=== PATIENT | female | born 1940 | race Caucasian/White ===

== ENCOUNTER 2016-10-08 14:06 | Day surgery (SDC) | payer MEDICARE ==
[~2016-10-08 14:06] MED LIST: DIPRIVAN 200 MG/20 ML IV ONE; Depo-Medrol 40 MG/ML IM ONE; Kenalog-40 IM ONE; Lactated Ringers 1,000 ML IV ONE; Lactated Ringers 1,000 ML IV SCH; Sensorcaine 0.25% 10 ML IJ ONE
[2016-10-08] MEDS ORDERED: KEFZOL 1 GM/50 ML PREMIX** 50 ML IV ONE (15:30)
[2016-10-08 15:36] VITALS: BP 125/72; PULSE 79; O2SAT 96
--- NOTE | 2016-10-08 19:19 | XRAY ---
Indication: Caudal ANA ROSA. Intraoperative fluoroscopy was provided for 14 seconds. 2 digital spot images submitted for interpretation demonstrates midline posterior spinal needle with the tip projecting over the mid to lower sacrum. Small amount of contrast injected for needle tip placement. Correlate with intraoperative findings/report.
--- NOTE | 2016-10-09 15:23 | XRAY ---
14 seconds fluoroscopy time in surgery for caudal ANA ROSA.
== END 2016-10-08 18:03 | disposition home or self-care (01) ==
LOC: SDC-PAIN 14:06
PROVIDERS: ATTEND Pain Medicine Interventional Pain Medicine
DX: M47.26 Other spondylosis with radiculopathy, lumbar region (principal); M54.5 Low back pain; M79.1 Myalgia; Z79.891 Long term (current) use of opiate analgesic
CPT/HCPCS: 01992; 62323; 72100; 77003; J0690; J1030; J2704; J3301

== ENCOUNTER 2017-01-02 10:35 | Inpatient (IN) | payer MEDICARE ==
[2017-01-02 11:50] LABS: BASOPHIL % 0.4 % (0.0-0.4); Eosinophil % 0.4 % (0.00-5.0); Granulocytes % 67.7 % (36.0-66.0); Lymphocytes % 16.8 % (24.0-44.0); Mean Cell Volume 85.9 fl (78-100); Mean Corpuscular Hemoglobin 27.7 pg (26-32); Mean Platelet Volume 10.1 fl (6-9.5); Monocytes % 14.7 % (0.0-12.0); Platelet Count 138 K/mm3 (150-450); Red Blood Count 4.04 M/mm3 (4.1-5.4); Red Cell Distribution Width 13.6 % (11.5-14.0); White Blood Count 4.6 K/mm3 (4.0-10.5)
[2017-01-02] MEDS: ROCEPHIN 1 Gm-D5w 50 ml Bag** 1 G/50 ML IVPB IV SCH (12:11)
[2017-01-02] MEDS: Zithromax 500 MG/ 250 ML NaCl Premix 500 MG/250 ML IVPB IV SCH (12:11)
[2017-01-02] MEDS: Lactated Ringers 1,000 ML IV SCH (12:12)
--- NOTE | 2017-01-02 12:33 | XRAY ---
Indication: Pneumonia. Comparison: January 01, 2017. PA/lateral chest remains hyperinflated with again right middle lobe infiltrate/atelectasis slightly more pronounced. Elsewhere no new cardiopulmonary abnormalities.
[2017-01-02 12:52] LABS: ALBUMIN 3.7 g/dL (3.4-5.0); ALKALINE PHOSPHATASE 62 U/L (46-116); ANION GAP 10.6 MEQ/L (5-15); BILIRUBIN,TOTAL 0.4 mg/dL (0.2-1.0); BLOOD UREA NITROGEN 13 mg/dL (9-20); CHLORIDE 97 mEq/L (98-107); Carbon Dioxide 28.7 mEq/L (21-32); Glucose 105 MG/DL (70-110); Potassium 3.5 mEq/L (3.5-5.1); SGOT/AST 23 U/L (15-37); SGPT/ALT 25 U/L (12-78); SODIUM 133 mEq/L (136-145); Total Protein 7.4 gm/dL (6.4-8.2)
[2017-01-02] MEDS: PROVENTIL 2.5 MG/3 ML NEB IH SCH ×2 (13:08→17:26)
[2017-01-02] MEDS: Tessalon Perles 100 MG PO PRN ×2 (15:20→21:15)
[2017-01-02] MEDS ORDERED: MEDICATION INTERVENTION MC PRN (16:44)
[2017-01-02 16:54] LABS: Collection Type VOID
[2017-01-02 16:55] LABS: ADD URINE CULTURE? NO (NO); COMPLETE URINE MICROSCOPIC? NO
[2017-01-02] MEDS: ZOCOR 20MG PO SCH (19:59)
[2017-01-02] MEDS: Norco 10/325 MG Tablet PO PRN (20:05)
[2017-01-02] MEDS: Wellbutrin SR 150 MG PO SCH (21:14)
[2017-01-02] MEDS: Ditropan 5 MG PO SCH (21:15)
[2017-01-02] MEDS: Mirapex 0.5 MG Tablet PO SCH (21:16)
[2017-01-02] MEDS ORDERED: PRAMIPEXOLE DI HCL 0.125 MG PO SCH (22:00)
[2017-01-02] MEDS ORDERED: MELATONIN PO SCH (22:00)
[2017-01-02] MEDS ORDERED: PYRIDOXINE HCL PO SCH (22:00)
[2017-01-03] MEDS: Lactated Ringers 1,000 ML IV SCH ×3 (00:36→22:48)
[2017-01-03] MEDS: Tessalon Perles 100 MG PO PRN ×3 (04:12→20:09)
[2017-01-03] MEDS ORDERED: TYLENOL 325 MG PO PRN (04:14)
[2017-01-03] MEDS: PROVENTIL 2.5 MG/3 ML NEB IH SCH ×3 (07:00→14:46)
[2017-01-03] MEDS: Cymbalta 30 MG Capsule PO SCH (09:14)
[2017-01-03] MEDS: Mirapex 0.5 MG Tablet PO SCH ×3 (09:14→22:25)
[2017-01-03] MEDS: Protonix 40MG Tablet PO SCH (09:15)
[2017-01-03] MEDS: SYNTHROID 75 MCG PO SCH (09:15)
[2017-01-03] MEDS: ROCEPHIN 1 Gm-D5w 50 ml Bag** 1 G/50 ML IVPB IV SCH (09:15)
[2017-01-03] MEDS: Ditropan 5 MG PO SCH ×2 (09:15→22:25)
[2017-01-03] MEDS: Pepcid 20 MG PO SCH (09:15)
[2017-01-03] MEDS: Flonase NASAL NS SCH (09:33)
[2017-01-03] MEDS ORDERED: NON-FORMULARY ITEM (Omeprazole 20 Mg [Prilosec 20 Mg] 20 MG) PO SCH (10:00)
[2017-01-03] MEDS ORDERED: NON-FORMULARY ITEM (Duloxetine Hcl [Cymbalta] 60 MG) PO SCH (10:00)
[2017-01-03] MEDS ORDERED: ARMODAFINIL 150 MG PO SCH (10:00)
[2017-01-03] MEDS ORDERED: NON-FORMULARY ITEM (Ranitidine Hcl [Zantac] 150 MG) PO SCH (10:00)
[2017-01-03] MEDS: Zithromax 500 MG/ 250 ML NaCl Premix 500 MG/250 ML IVPB IV SCH (10:05)
--- NOTE | 2017-01-03 11:13 | PCM.HP ---
History of Present Illness - Chief Complaint Chief Complaint: pneumonia Date: 01/03/17 History of Present Illness: is a 76 year old female. who was diagnosed with pneumonia with symptoms for 5 days actually did a stress test 2 days ago and has been on po antibiotic omnicef for this but remained febrile weak and short of breath with persistent cough and saw Dr. Flores yesterday and was sent for admission. She continues to feel weak and short of breath and have persistent uncontrolled coughing spells. - Review of Systems Constitutional: Fever, Chills, Fatigue Eyes: No Symptoms Ears, Nose, & Throat: No Symptoms, Nose Congestion Respiratory: Cough, Short Of Breath Cardiac: No Chest Pain, No Edema, No Palpitations, No Syncope Abdominal/Gastrointestinal: Nausea, No Abdominal Pain, No Vomiting, No Diarrhea Genitourinary Symptoms: No Dysuria Musculoskeletal: Arthralgias, Back Pain, Joint Pain, No Neck Pain, No Joint Redness Skin: No Cellulitis, No Rash Neurological: No Dizziness, No Focal Weakness, No Sensory Changes Psychological: No Symptoms Endocrine: No Symptoms Hematologic/Lymphatic: No Symptoms Immunological/Allergic: No Symptoms Medications & Allergies Home Medications: Home Medication List Duloxetine HCl [Cymbalta] 60 mg PO DAILY 07/29/14 [History Confirmed 01/02/17] Amlodipine Besylate 5 mg [Norvasc 5 mg] 5 mg PO HS 11/20/14 [History Confirmed 01/02/17] Albuterol Sulfate [Ventolin Hfa] 2 puff IH QID 11/27/15 [History Confirmed 01/02] Bupropion HCl [Bupropion HCl Sr] 150 mg PO HS 11/27/15 [History Confirmed ] Fluticasone Propionate [Flonase NASAL] 2 spray NS DAILY 11/27/15 [History Confirmed 01/02/17] Melatonin/Pyridoxine HCl (B6) [Melatonin 1 mg Tablet] 2 tab PO HS 11/27/15 [ History Confirmed 01/02/17] Metformin HCl 500 mg [Glucophage 500 MG] 500 mg PO TID 11/27/15 [History Confirmed 01/02/17] Omeprazole 20 MG [Prilosec 20 mg] 20 mg PO DAILY 11/27/15 [History Confirmed ] Oxybutynin Chloride 5 mg PO BID 11/27/15 [History Confirmed 01/02/17] Levothyroxine Sodium 75 Mcg [Synthroid 75 Mcg] 75 mcg PO DAILY 02/11/16 [ History Confirmed 01/02/17] Hydrocodone/APAP 10/325 mg [[place] 10/325 MG Tablet] 1 tab PO Q4-6HPRN PRN 06/19/16 [History Confirmed 01/02/17] Armodafinil [Nuvigil] 150 mg PO DAILY 10/08/16 [History Confirmed 01/02/17] Pravastatin Sodium 40 mg PO 1900 10/08/16 [History Confirmed 01/02/17] Pramipexole Di-HCl [Pramipexole Dihydrochloride] 0.125 mg PO TID 12/08/16 [ History Confirmed 01/02/17] Ranitidine HCl [Zantac] 150 mg PO DAILY 01/02/17 [History Confirmed 01/02/17] Allergies/Adverse Reactions: Allergies Allergy/AdvReac Type Severity Reaction Status Date / Time butorphanol tartrate Allergy Verified 05/30/16 16:01 [From Stadol] codeine Allergy Verified 05/30/16 16:01 Sulfa (Sulfonamide Allergy Verified 05/30/16 16:01 Antibiotics) tizanidine [From Zanaflex] Allergy Verified 10/08/16 15:26 - Past Medical History Past Medical History: Yes Neurological History: No Pertinent History ENT History: Cataracts Cardiac History: Hypertension Respiratory History: Sleep Apnea Endocrine Medical History: Diabetes Type II, Hypothyroidism Musculoskelatal History: Degenerative Disk Disease, Fibromyalgia, Osteoarthritis GI Medical History: GERD, Gallbladder Disease, Hernia History: No Pertinent History Pyscho-Social History: Depression Reproductive Disorders: No Pertinent History Comment: C5-6 FUSION IN 1978. - Female History Are you now?: No - Past Surgical History Past Surgical History: Yes Neuro Surgical History: No Pertinent History Cardiac History: No Pertinent History Respiratory Surgery: No Pertinent History GI Surgical History: Appendectomy, Cholecystectomy Genitourinary Surgical Hx: No Pertinent History Musculskeletal Surgical Hx: Orthopedic Surgery Female Surgical History: Hysterectomy, Tubal Ligation Other Surgical History: 2nd toe right foot, fractured right shoulder, filmed lasered off right eye, gaglion cyst removed, cataracts, bunion and tumor removed left foot, bunion right foot, tonsils, microscopic anterior cervical diskectomy with interbody fusion c5-6 - Social History Smoking Status: Never smoker Exposure to second hand smoke: No Alcohol: None Drug Use: none - Physical Exam Vital Signs: Vital Signs - 24 hr Temp Pulse Resp BP Pulse Ox 01/03/17 10:38 76 18 97 01/03/17 08:00 18 01/03/17 07:36 99.0 F 71 18 119/57 97 01/03/17 07:00 67 17 97 01/03/17 04:00 100.0 F 78 15 111/55 95 01/03/17 00:00 98.4 F 67 14 100/52 95 01/02/17 20:00 99.9 F 74 16 96/55 98 01/02/17 17:31 82 20 97 01/02/17 16:34 99.5 F 68 20 98/55 94 L 01/02/17 13:11 89 20 93 L 01/02/17 12:22 99 F 86 20 124/59 93 L General Appearance: no apparent distress, alert Neurologic Exam: oriented x 3, cooperative Eye Exam: No scleral icterus, No pale conjunctivae Ears, Nose, Throat Exam: moist mucous membranes, No pharyngeal erythema Neck Exam: non-tender, supple Respiratory Exam: crackles/rales (right mid lung to base posterior), No respiratory distress, No wheezing Cardiovascular Exam: regular rate/rhythm, normal heart sounds, No murmur, No edema Gastrointestinal/Abdomen Exam: soft, normal bowel sounds, No tenderness, No distention Extremity Exam: normal inspection, No calf tenderness, No pedal edema Skin Exam: warm, dry, No rash Results - Labs Lab/Micro Results: Lab Results-Last 24 Hours 01/02/17 01/02/17 01/02/17 Range/Units 11:18 11:45 11:45 WBC 4.6 (4.0-10.5) K/mm3 RBC 4.04 L (4.1-5.4) M/mm3 Hgb 11.2 L (12.0-16.0) gm/dl Hct 34.7 L (35-47) % MCV 85.9 (78-100) fl MCH 27.7 (26-32) pg MCHC 32.3 (32-36) g/dl RDW 13.6 (11.5-14.0) % Plt Count 138 L (150-450) K/mm3 MPV 10.1 H (6-9.5) fl Gran % 67.7 H (36.0-66.0) % Lymphocytes % 16.8 L (24.0-44.0) % Monocytes % 14.7 H (0.0-12.0) % Eosinophils % 0.4 (0.00-5.0) % Basophils % 0.4 (0.0-0.4) % Basophils # 0.02 (0-0.4) Sodium 133 L (136-145) mEq/L Potassium 3.5 (3.5-5.1) mEq/L Chloride 97 L (98-107) mEq/L Carbon Dioxide 28.7 (21-32) mEq/L Anion Gap 10.6 (5-15) MEQ/L BUN 13 (9-20) mg/dL Creatinine 0.65 (0.55-1.30) mg/dl Estimated GFR > 60 ML/MIN Glucose 105 (70-110) MG/DL Calcium 9.4 (8.5-10.1) mg/dL Total Bilirubin 0.4 (0.2-1.0) mg/dL AST 23 (15-37) U/L ALT 25 (12-78) U/L Alkaline Phosphatase 62 (46-116) U/L Serum Total Protein 7.4 (6.4-8.2) gm/dL Albumin 3.7 (3.4-5.0) g/dL Ur Collection Type Urine Color (YELLOW) Urine Appearance (CLEAR) Urine pH (5-6) Ur Specific Ast[place] (1.005-1.025) Urine Protein (Negative) Urine Glucose (UA) (NEGATIVE) mg/dL Urine Ketones (NEGATIVE) Urine Nitrite (NEGATIVE) Urine Bilirubin (NEGATIVE) Urine Urobilinogen (0-1) mg/dL Urine WBC (Auto) (NEGATIVE) Urine RBC (Auto) (0-5) Han/ul Stool Occult Blood NEGATIVE (Negative) Specimen Received 01/02/17 01/02/17 01/02/17 Range/Units 16:28 Unknown Unknown WBC (4.0-10.5) K/mm3 RBC (4.1-5.4) M/mm3 Hgb (12.0-16.0) gm/dl Hct (35-47) % MCV (78-100) fl MCH (26-32) pg MCHC (32-36) g/dl RDW (11.5-14.0) % Plt Count (150-450) K/mm3 MPV (6-9.5) fl Gran % (36.0-66.0) % Lymphocytes % (24.0-44.0) % Monocytes % (0.0-12.0) % Eosinophils % (0.00-5.0) % Basophils % (0.0-0.4) % Basophils # (0-0.4) Sodium (136-145) mEq/L Potassium (3.5-5.1) mEq/L Chloride (98-107) mEq/L Carbon Dioxide (21-32) mEq/L Anion Gap (5-15) MEQ/L BUN (9-20) mg/dL Creatinine (0.55-1.30) mg/dl Estimated GFR ML/MIN Glucose (70-110) MG/DL Calcium (8.5-10.1) mg/dL Total Bilirubin (0.2-1.0) mg/dL AST (15-37) U/L ALT (12-78) U/L Alkaline Phosphatase (46-116) U/L Serum Total Protein (6.4-8.2) gm/dL Albumin (3.4-5.0) g/dL Ur Collection Type VOID Urine Color YELLOW (YELLOW) Urine Appearance CLEAR (CLEAR) Urine pH 7.0 (5-6) Ur Specific Astor 1.020 (1.005-1.025) Urine Protein NEGATIVE (Negative) Urine Glucose (UA) NEGATIVE (NEGATIVE) mg/dL Urine Ketones NEGATIVE (NEGATIVE) Urine Nitrite NEGATIVE (NEGATIVE) Urine Bilirubin NEGATIVE (NEGATIVE) Urine Urobilinogen 0.2 (0-1) mg/dL Urine WBC (Auto) NEGATIVE (NEGATIVE) Urine RBC (Auto) NEGATIVE (0-5) Han/ul Stool Occult Blood NEGATIVE NEGATIVE (Negative) Specimen Received 01/02/17 9361 - Radiology Impressions Radiology Exams & Impressions: Radiology Procedures Category Date Time Status CHEST 2 VIEWS (PA AND LAT) Routine Exams 01/02/17 11:45 Completed - Other Procedures and Tests Respiratory Therapy 01/02/17 11:12 Respiratory Nebulizer UD Assessment/Plan (1) Pneumonia Current Visit: Yes Status: Acute Qualifiers: Laterality: right Lung location: middle lobe of lung Assessment & Plan: failed outpatient antibiotics continue hydration with the low bp hold antihypertensives rocephin + azithromycin lovenox for ppx Code(s): J18.9 - PNEUMONIA, UNSPECIFIED ORGANISM (2) Diabetes Current Visit: Yes Status: Chronic Qualifiers: Diabetes mellitus type: type 2 Diabetes mellitus complication status: without complication Diabetes mellitus 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
[2017-01-03] MEDS: ENOXAPARIN SODIUM SQ SCH (12:43)
[2017-01-03] MEDS: Tussionex Pennkinetic Susp PO PRN (12:43)
[2017-01-03] MEDS: ZOCOR 20MG PO SCH (18:07)
[2017-01-03] MEDS: Norco 10/325 MG Tablet PO PRN (20:09)
[2017-01-03] MEDS: Wellbutrin SR 150 MG PO SCH (22:25)
[2017-01-03] MEDS: MEDICATION INTERVENTION MC PRN (22:27)
[2017-01-04] MEDS: PROVENTIL 2.5 MG/3 ML NEB IH SCH ×3 (06:43→19:08)
[2017-01-04] MEDS: Pepcid 20 MG PO SCH (09:13)
[2017-01-04] MEDS: Mirapex 0.5 MG Tablet PO SCH ×3 (09:13→21:44)
[2017-01-04] MEDS: SYNTHROID 75 MCG PO SCH (09:13)
[2017-01-04] MEDS: Protonix 40MG Tablet PO SCH (09:13)
[2017-01-04] MEDS: ROCEPHIN 1 Gm-D5w 50 ml Bag** 1 G/50 ML IVPB IV SCH (09:13)
[2017-01-04] MEDS: Cymbalta 30 MG Capsule PO SCH (09:13)
[2017-01-04] MEDS: Ditropan 5 MG PO SCH ×2 (09:13→21:44)
[2017-01-04] MEDS: Lactated Ringers 1,000 ML IV SCH (09:14)
[2017-01-04] MEDS: PATIENT OWN MEDICATION PO SCH (09:14)
[2017-01-04] MEDS: ENOXAPARIN SODIUM SQ SCH (09:14)
[2017-01-04] MEDS: Tessalon Perles 100 MG PO PRN ×2 (09:20→18:02)
[2017-01-04] MEDS: Zithromax 500 MG/ 250 ML NaCl Premix 500 MG/250 ML IVPB IV SCH (11:00)
[2017-01-04] MEDS: Flonase NASAL NS SCH (11:00)
--- NOTE | 2017-01-04 11:02 | PCM.NOTE ---
Date and Time: 01/04/17 1059 Subjective Assessment: tmax 100.0 yesterday evening still having some night sweats feeling a little better not eating much but no nausea is able to drink no diarrhea no chest pain persistent severe coughing. Objective Exam General Appearance: no apparent distress, alert Neurologic Exam: alert, oriented x 3, cooperative, normal mood/affect, nml cerebellar function, sensation nml, No motor deficits Skin Exam: normal color, warm, dry Eye Exam: PERRL, EOMI, eyes nml inspection Ears, Nose, Throat Exam: normal ENT inspection, pharynx normal, moist mucous membranes Neck Exam: normal inspection, non-tender, supple, full range of motion Respiratory Exam: crackles/rales (right posterior mid to base) Cardiovascular Exam: regular rate/rhythm, normal heart sounds Gastrointestinal/Abdomen Exam: soft, No tenderness, No mass Extremity Exam: normal inspection, normal range of motion Back Exam: normal inspection, normal range of motion, No CVA tenderness, No vertebral tenderness Pelvic Exam: deferred Rectal Exam: deferred OBJECTIVE DATA Vital Signs: Vital Signs - 24 hr Temp Pulse Resp BP Pulse Ox 01/04/17 08:00 18 01/04/17 07:39 98.7 F 64 18 127/58 97 01/04/17 06:43 73 16 95 01/04/17 04:10 98.5 F 66 14 119/56 97 01/03/17 23:55 98.5 F 66 13 114/58 93 L 01/03/17 20:10 100.0 F 76 13 139/64 97 01/03/17 16:00 98.1 F 73 18 102/52 97 01/03/17 14:47 70 18 97 01/03/17 12:00 18 01/03/17 11:38 98.7 F 75 18 123/60 97 Pain Assessment - Last Documented Pain Intensity 0 Pain Scale Used 0-10 Pain Scale Intake and Output: Intake & Output 01/01/17 01/02/17 01/03/17 01/04/17 11:59 11:59 11:59 11:59 Intake Total 3119 4253 Output Total 1800 1950 Balance 1319 2303 Weight 66.134 kg Radiology Exams: Radiology Procedures Category Date Time Status CHEST 2 VIEWS (PA AND LAT) Routine Exams 01/02/17 11:45 Completed Assessment/Plan (1) Pneumonia Current Visit: Yes Status: Acute Qualifiers: Laterality: right Lung location: middle lobe of lung Assessment & Plan: failed outpatient therapy work on increase up out of bed rocephin and azithromycin will d/c if fluids for now see if she can keep up with po intake monitor fevers Code(s): J18.9 - PNEUMONIA, UNSPECIFIED ORGANISM (2) Diabetes Current Visit: Yes Status: Chronic Qualifiers: Diabetes mellitus type: type 2 Diabetes mellitus complication status: without complication Diabetes mellitus fdc insulin use: without fdc use Qualified Code(s): E11.9 - Type 2 diabetes mellitus without complications Code(s): E11.9 - TYPE 2 DIABETES MELLITUS WITHOUT COMPLICATIONS (3) Essential hypertension Current Visit: Yes Status: Chronic Code(s): I10 - ESSENTIAL (PRIMARY) HYPERTENSION
[2017-01-04] MEDS: Miralax Powder 17GM PACKET PO SCH (11:08)
[2017-01-04] MEDS: ZOCOR 20MG PO SCH (18:02)
[2017-01-04] MEDS: MEDICATION INTERVENTION MC PRN (21:43)
[2017-01-04] MEDS: Tussionex Pennkinetic Susp PO PRN (21:44)
[2017-01-04] MEDS: Wellbutrin SR 150 MG PO SCH (21:44)
[2017-01-05] MEDS: PROVENTIL 2.5 MG/3 ML NEB IH SCH ×3 (06:38→19:13)
[2017-01-05] MEDS: Norco 10/325 MG Tablet PO PRN ×3 (09:14→22:22)
[2017-01-05] MEDS: Miralax Powder 17GM PACKET PO SCH (09:14)
[2017-01-05] MEDS: ROCEPHIN 1 Gm-D5w 50 ml Bag** 1 G/50 ML IVPB IV SCH (09:14)
[2017-01-05] MEDS: ENOXAPARIN SODIUM SQ SCH (09:14)
[2017-01-05] MEDS: Protonix 40MG Tablet PO SCH (09:15)
[2017-01-05] MEDS: Ditropan 5 MG PO SCH ×2 (09:15→22:16)
[2017-01-05] MEDS: Flonase NASAL NS SCH (09:15)
[2017-01-05] MEDS: SYNTHROID 75 MCG PO SCH (09:15)
[2017-01-05] MEDS: Mirapex 0.5 MG Tablet PO SCH ×3 (09:15→22:16)
[2017-01-05] MEDS: Cymbalta 30 MG Capsule PO SCH (09:15)
[2017-01-05] MEDS: Pepcid 20 MG PO SCH (09:15)
[2017-01-05] MEDS: Tessalon Perles 100 MG PO PRN ×2 (09:15→22:22)
[2017-01-05] MEDS: PATIENT OWN MEDICATION PO SCH (09:16)
--- NOTE | 2017-01-05 16:03 | PCM.NOTE ---
Date and Time: 01/05/17 1600 Subjective Assessment: She is feeling better. Still coughing quite a bit. No fever for the past 24 hours. Having some elevated blood pressure now. - Review of Systems Constitutional: No Fever Respiratory: Cough Objective Exam General Appearance: no apparent distress Neurologic Exam: alert, oriented x 3, cooperative Skin Exam: normal color, warm, dry Respiratory Exam: rhonchi (RLL), wheezing (scattered throughout) Cardiovascular Exam: regular rate/rhythm, normal heart sounds, No murmur Extremity Exam: No pedal edema, No swelling Back Exam: normal inspection OBJECTIVE DATA Vital Signs: Vital Signs - 24 hr Temp Pulse Resp BP Pulse Ox 01/05/17 15:31 98.3 F 67 18 117/58 98 01/05/17 12:53 64 18 97 01/05/17 12:00 18 01/05/17 11:15 98.2 F 74 18 180/78 97 01/05/17 08:00 18 01/05/17 07:24 98.4 F 68 18 151/82 93 L 01/05/17 06:38 64 18 96 01/05/17 04:00 15 01/05/17 00:04 98.8 F 63 17 120/65 98 01/05/17 00:00 18 01/04/17 20:00 13 01/04/17 19:57 98.4 F 68 13 152/71 100 01/04/17 19:10 65 22 99 01/04/17 16:22 162/72 Pain Assessment - Last Documented Pain Intensity 3 Pain Scale Used 0-10 Pain Scale Intake and Output: Intake & Output 01/03/17 01/04/17 01/05/17 01/06/17 11:59 11:59 11:59 11:59 Intake Total 3119 4253 2280 480 Output Total 1800 1950 1400 Balance 1319 2303 880 480 Weight 66.134 kg 66.134 kg Lab Results: Accuchecks Date 01/05/17 Date 01/05/17 Time 11:30 Time 07:30 Accucheck Value: 110 Accucheck Value: 117 Assessment/Plan (1) Pneumonia Current Visit: Yes Status: Acute Qualifiers: Laterality: right Lung location: middle lobe of lung Assessment & Plan: Much improved; likely home tomorrow after IV antibiotics. Failed OP antibiotics. 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 Code(s): E11.9 - TYPE 2 DIABETES MELLITUS WITHOUT COMPLICATIONS (3) Essential hypertension Current Visit: Yes Status: Chronic Assessment & Plan: BP elevated now; restart amlodipine. Code(s): I10 - ESSENTIAL (PRIMARY) HYPERTENSION (4) Hyponatremia Current Visit: Yes Status: Acute Assessment & Plan: on admission. recheck in a.m. rodo po well. Code(s): E87.1 - HYPO-OSMOLALITY AND HYPONATREMIA
[2017-01-05] MEDS: Tussionex Pennkinetic Susp PO PRN (17:33)
[2017-01-05] MEDS: ZOCOR 20MG PO SCH (19:39)
[2017-01-05] MEDS ORDERED: NORVASC 5 MG PO SCH (22:00)
[2017-01-05] MEDS: Glucophage 500 MG PO SCH (22:16)
[2017-01-05] MEDS: Wellbutrin SR 150 MG PO SCH (22:16)
[2017-01-05] MEDS: Sodium Chloride 0.9% 10 ML FLUSH Syringe IV SCH (22:19)
[2017-01-05] MEDS: MEDICATION INTERVENTION MC PRN (22:24)
[2017-01-06] MEDS: Norco 10/325 MG Tablet PO PRN ×2 (07:43→14:04)
[2017-01-06] MEDS: Tessalon Perles 100 MG PO PRN ×2 (07:44→14:05)
[2017-01-06 08:36] LABS: Mean Cell Volume 85.6 fl (78-100); Platelet Count 156 K/mm3 (150-450); Red Blood Count 3.96 M/mm3 (4.1-5.4); Red Cell Distribution Width 13.4 % (11.5-14.0); White Blood Count 3.2 K/mm3 (4.0-10.5)
--- NOTE | 2017-01-06 08:45 | PCM.DS ---
Discharge Summary Date of Admission: 01/02/17 10:35 Admitting Physician: JAMILA SAHNI Primary Care Provider: JAMILA SAHNI Allergies Allergies butorphanol tartrate [From Stadol] Allergy (Verified 05/30/16 16:01) codeine Allergy (Verified 05/30/16 16:01) Sulfa (Sulfonamide Antibiotics) Allergy (Verified 05/30/16 16:01) tizanidine [From Zanaflex] Allergy (Verified 10/08/16 15:26) Hospital Summary - Hospital Course Hospital Course: Pt admitted for pneumonia, failed OP therapy. She improved steadily. Initially had hypotension, then her home amlodipine was restarted. She did have one BP inteh 90s overnight; will check every hour today. On admission mild hyponatremia; recheck that before discharge. Plan is to send her home after today's dose of antibiotics and around supper time. - Vitals & Intake/Output Vital Signs: Vital Signs Temperature 98.1 F 01/06/17 07:21 Pulse Rate 70 01/06/17 07:21 Respiratory Rate 20 01/06/17 07:42 Blood Pressure 114/59 01/06/17 07:21 O2 Sat by Pulse Oximetry 96 01/06/17 07:21 Intake & Output: Intake & Output 01/03/17 01/04/17 01/05/17 01/06/17 11:59 11:59 11:59 11:59 Intake Total 3119 4253 2280 1740 Output Total 1800 1950 1400 1350 Balance 1319 2303 880 390 Weight 66.134 kg 66.134 kg - Lab Result Diagrams: 01/02/17 11:45 01/02/17 11:45 Lab Results-Last 24 Hrs: Accuchecks Date 01/05/17 Date 01/05/17 Date 01/05/17 Time 21:10 Time 16:30 Time 11:30 Accucheck Value: 99 Accucheck Value: 154 Accucheck Value: 110 Micro Results-Entire Visit: Accuchecks Date 01/05/17 Date 01/05/17 Date 01/05/17 Time 21:10 Time 16:30 Time 11:30 Accucheck Value: 99 Accucheck Value: 154 Accucheck Value: 110 - Procedures and Test Procedures and Tests throughout Hospitalization: Therapy Orders & Screens 01/02/17 11:12 Respiratory Nebulizer UD Comment: Albuterol nebs TID Diagnosis: PNA, failed OP Discharge Exam General Appearance: no apparent distress Neurologic Exam: alert, oriented x 3, cooperative Skin Exam: normal color, warm, dry Respiratory Exam: rhonchi (mild RLL), other (good air exchange), No wheezing Cardiovascular Exam: regular rate/rhythm, normal heart sounds, No murmur Extremity Exam: normal inspection, No pedal edema, No swelling Back Exam: normal inspection Final Diagnosis/Problem List - Final Discharge Diagnosis/Problem (1) Pneumonia Current Visit: Yes Status: Acute Assessment & Plan: Doing better. Home on PO antibiotics. Codeine cough meds (can remove codeine from list of allergies; she states she's done well on it). (2) Diabetes Current Visit: Yes Status: Chronic (3) Essential hypertension Current Visit: Yes Status: Chronic Assessment & Plan: check BP every 1 hr today, if ok d/c home. (4) Hyponatremia Current Visit: Yes Status: Acute Assessment & Plan: recheck - Discharge Disposition: Home, Self-Care Condition: Stable Prescriptions: No Action Duloxetine HCl [Cymbalta] 60 mg PO DAILY Amlodipine Besylate 5 mg [Norvasc 5 mg] 5 mg PO HS Omeprazole 20 MG [Prilosec 20 mg] 20 mg PO DAILY Albuterol Sulfate [Ventolin Hfa] 2 puff IH QID Melatonin/Pyridoxine HCl (B6) [Melatonin 1 mg Tablet] 2 tab PO HS Metformin HCl 500 mg [Glucophage 500 MG] 500 mg PO TID Fluticasone Propionate [Flonase NASAL] 2 spray NS DAILY Bupropion HCl [Bupropion HCl Sr] 150 mg PO HS Oxybutynin Chloride 5 mg PO BID Levothyroxine Sodium 75 Mcg [Synthroid 75 Mcg] 75 mcg PO DAILY Hydrocodone/APAP 10/325 mg [[place] 10/325 MG Tablet] 1 tab PO Q4-6HPRN PRN PRN Reason: Pain Pravastatin Sodium 40 mg PO 1900 Armodafinil [Nuvigil] 150 mg PO DAILY Pramipexole Di-HCl [Pramipexole Dihydrochloride] 0.125 mg PO TID Ranitidine HCl [Zantac] 150 mg PO DAILY Follow up with: JAMILA SAHNI [Primary Care Provider] - 01/13/17 12:45 pm Forms: Patient Portal Information
[2017-01-06 09:01] LABS: ANION GAP 10.6 MEQ/L (5-15); BLOOD UREA NITROGEN 5 mg/dL (9-20); CHLORIDE 101 mEq/L (98-107); Glucose 137 MG/DL (70-110); Potassium 4.3 mEq/L (3.5-5.1); SODIUM 138 mEq/L (136-145)
[2017-01-06 09:18] LABS: Total Cells Counted 100
[2017-01-06 09:19] LABS: ANISOCYTOSIS 1+; Platelet Estimate NORMAL (NORMAL); Poikilocytosis 1+
[2017-01-06] MEDS: Mirapex 0.5 MG Tablet PO SCH ×2 (09:47→15:49)
[2017-01-06] MEDS: Ditropan 5 MG PO SCH (09:47)
[2017-01-06] MEDS: Cymbalta 30 MG Capsule PO SCH (09:48)
[2017-01-06] MEDS: Pepcid 20 MG PO SCH (09:48)
[2017-01-06] MEDS: SYNTHROID 75 MCG PO SCH (09:48)
[2017-01-06] MEDS: Flonase NASAL NS SCH (09:48)
[2017-01-06] MEDS: Glucophage 500 MG PO SCH ×2 (09:48→15:50)
[2017-01-06] MEDS: ENOXAPARIN SODIUM SQ SCH (09:48)
[2017-01-06] MEDS: Sodium Chloride 0.9% 10 ML FLUSH Syringe IV SCH ×2 (09:48→15:50)
[2017-01-06] MEDS: Protonix 40MG Tablet PO SCH (09:48)
[2017-01-06] MEDS: ROCEPHIN 1 Gm-D5w 50 ml Bag** 1 G/50 ML IVPB IV SCH (09:48)
[2017-01-06] MEDS: Miralax Powder 17GM PACKET PO SCH (09:48)
[2017-01-06] MEDS: PATIENT OWN MEDICATION PO SCH (09:49)
[2017-01-06] MEDS: PROVENTIL 2.5 MG/3 ML NEB IH SCH (11:14)
[2017-01-06 11:17] VITALS: O2SAT 97
[2017-01-06 15:33] VITALS: BP 129/70; PULSE 68
== END 2017-01-06 17:20 | disposition home or self-care (01) | DRG 194 ==
LOC: MED SURG 10:35
PROVIDERS: ADMIT Family Medicine; ATTEND Family Medicine
DX: J18.9 Pneumonia, unspecified organism (principal); E87.1 Hypo-osmolality and hyponatremia; E11.9 Type 2 diabetes mellitus without complications; Z79.4 Long term (current) use of insulin; I10 Essential (primary) hypertension; E03.9 Hypothyroidism, unspecified; G47.30 Sleep apnea, unspecified; M79.7 Fibromyalgia; M19.90 Unspecified osteoarthritis, unspecified site; K21.9 Gastro-esophageal reflux disease without esophagitis; F32.9 Major depressive disorder, single episode, unspecified; Z79.899 Other long term (current) drug therapy
CPT/HCPCS: 36415; 71020; 80048; 80053; 81002; 82272; 82962; 85025; 94640; 94760; J0456; J0696; J1650; A9270-GY

== ENCOUNTER 2017-02-18 15:17 | Emergency (ER) | payer MEDICARE ==
--- NOTE | 2017-02-18 15:45 | ERPHSYRPT ---
- History of Present Illness Time Seen by Provider: 02/18/17 15:33 Source: patient Exam Limitations: no limitations Patient Subjective Stated Complaint: swelling in the left knee and ankle and well as left calf Triage Nursing Assessment: there is swelling to right calf and knee and down into ankle and foot . a rash over left calf. pedal pulses present bilateral low extremities. patient balanced and able to ambulate with cane. Physician History: This is a 77-year-old white female with history of high blood pressure sleep apnea hypothyroidism degenerative disc disease who states she's had blood clots in the past in her right leg. She arrives with complaint of swelling in her left leg symptoms for 4-5 days she states she feels hot in the left leg she has a mild rash on the left leg she said she had a temperature of 99 at home. No vomiting no diarrhea she denies any recent injury. Past medical history includes diabetes, cataracts, high blood pressure, sleep apnea, hypothyroidism, degenerative disc disease, fibromyalgia, osteoarthritis, GERD, gallbladder disease, hernia, depression. Past surgical history includes C5-C6 fusion appendectomy, cholecystectomy, hysterectomy, tubal ligation, foot surgery, film lasered off of her right eye, anterior cervical discectomy, fusion C5-C6, cataracts, bunionectomy into her left foot, tonsils Method of Injury: other (no injury ,positive swelling) Occurred: days ago (4-5 days) Lower Extremities Pain: leg: left, ankle: left Modifying Factors: Improves With: nothing Associated Symptoms: none Allergies/Adverse Reactions: butorphanol tartrate [From Stadol] Allergy (Verified 05/30/16 16:01) codeine Allergy (Verified 05/30/16 16:01) Sulfa (Sulfonamide Antibiotics) Allergy (Verified 05/30/16 16:01) tizanidine [From Zanaflex] Allergy (Verified 10/08/16 15:26) Home Medications: Duloxetine HCl [Cymbalta] 60 mg PO DAILY 07/29/14 [History] Amlodipine Besylate 5 mg [Norvasc 5 mg] 5 mg PO HS 11/20/14 [History] Albuterol Sulfate [Ventolin Hfa] 2 puff IH QID 11/27/15 [History] Bupropion HCl [Bupropion HCl Sr] 150 mg PO HS 11/27/15 [History] Melatonin/Pyridoxine HCl (B6) [Melatonin 1 mg Tablet] 2 tab PO HS 11/27/15 [ History] Metformin HCl 500 mg [Glucophage 500 MG] 500 mg PO TID 11/27/15 [History] Omeprazole 20 MG [Prilosec 20 mg] 20 mg PO DAILY 11/27/15 [History] Oxybutynin Chloride 5 mg PO BID 11/27/15 [History] Levothyroxine Sodium 75 Mcg [Synthroid 75 Mcg] 75 mcg PO DAILY 02/11/16 [ History] Hydrocodone/APAP 10/325 mg [Faucett 10/325 MG Tablet] 1 tab PO Q4-6HPRN PRN 06/19/16 [History] Armodafinil [Nuvigil] 150 mg PO DAILY 10/08/16 [History] Pravastatin Sodium 40 mg PO 1900 10/08/16 [History] Pramipexole Di-HCl [Pramipexole Dihydrochloride] 0.125 mg PO TID 12/08/16 [ History] Ranitidine HCl [Zantac] 150 mg PO DAILY 01/02/17 [History] Cyclobenzaprine HCl 10 mg [Cyclobenzaprine 10 MG] 10 mg PO HS 02/18/17 [ History] Hx Tetanus, Diphtheria Vaccination/Date Given: Yes Hx Influenza Vaccination/Date Given: Yes Hx Pneumococcal Vaccination/Date Given: Yes Immunizations Up to Date: Yes - Review of Systems Constitutional: Fever, No Chills, No Fatigue, No Lethargy, No Malaise, No Night Sweats, No Weakness, No Weight Loss Eyes: No Symptoms Ears, Nose, & Throat: No Symptoms, No Ear Pain, No Ear Discharge, No Hearing Changes, No Tinnitus, No Nose Pain, No Nose Congestion, No Nose Discharge, No Sinus Drainage, No Epistaxis, No Mouth Pain, No Mouth Swelling, No Loose Teeth, No Throat Pain, No Throat Swelling, No Hoarse, No Painful Swallowing, No Snoring Respiratory: No Cough, No Dyspnea Cardiac: No Chest Pain, No Edema, No Syncope Abdominal/Gastrointestinal: No Abdominal Pain, No Nausea, No Vomiting, No Diarrhea Genitourinary Symptoms: No Dysuria Musculoskeletal: Other (swelling and pain left lower extremity) Skin: Other (erythema left leg) Neurological: No Dizziness, No Focal Weakness, No Sensory Changes Psychological: No Symptoms Endocrine: No Symptoms All Other Systems: Reviewed and Negative - Past Medical History Pertinent Past Medical History: Yes Neurological History: No Pertinent History ENT History: Cataracts Cardiac History: Hypertension Respiratory History: Sleep Apnea Endocrine Medical History: Diabetes Type II, Hypothyroidism Musculoskeletal History: Degenerative Disk Disease, Fibromyalgia, Osteoarthritis GI Medical History: GERD, Gallbladder Disease, Hernia History: No Pertinent History Psycho-Social History: Depression Female Reproductive Disorders: No Pertinent History Other Medical History: C5-6 FUSION IN 1978. - Past Surgical History Past Surgical History: Yes Neuro Surgical History: No Pertinent History Cardiac: No Pertinent History Respiratory: No Pertinent History Gastrointestinal: Appendectomy, Cholecystectomy Genitourinary: No Pertinent History Musculoskeletal: Orthopedic Surgery Female Surgical History: Hysterectomy, Tubal Ligation Other Surgical History: 2nd toe right foot, fractured right shoulder, filmed lasered off right eye, gaglion cyst removed, cataracts, bunion and tumor removed left foot, bunion right foot, tonsils, microscopic anterior cervical diskectomy with interbody fusion c5-6 - Social History Smoking Status: Never smoker Exposure to second hand smoke: No Alcohol Use: None Drug Use: none Patient Lives Alone: No - Nursing Vital Signs Nursing Vital Signs: Initial Vital Signs Temperature 98.8 F Temperature Source Oral Pulse Rate 76 Respiratory Rate 16 Blood Pressure [] 126/84 Pain Intensity 0 - Physical Exam General Appearance: mild distress Eyes, Ears, Nose, Throat Exam: moist mucous membranes Neck Exam: non-tender, supple Cardiovascular/Respiratory Exam: chest non-tender, normal breath sounds, regular rate/rhythm, no respiratory distress Gastrointestinal/Abdominal Exam: non-tender, guarding Back Exam: normal inspection, No vertebral tenderness Hips Exam: bilateral: non-tender, normal inspection, normal range of motion, no evidence of injury Legs Exam: right leg: non-tender, normal inspection, normal range of motion, left leg: other (moderate edema left lower leg slight erythematous rash left calf) Knees Exam: bilateral knee: non-tender, normal inspection, normal range of motion, no evidence of injury Ankle Exam: bilateral ankle: non-tender, normal inspection, normal range of motion, no evidence of injury Foot Exam: bilateral foot: non-tender, normal inspection, normal range of motion , no evidence of injury DTR - Lower Extremities Exam: ankle (R): 2+, ankle (L): 2+ Neuro/Tendon Exam: normal sensation, normal motor functions Mental Status Exam: alert, oriented x 3, cooperative Skin Exam: normal color, warm, dry SpO2 Interpretation: normal (98%) SpO2: 98 Oxygen Delivery: Room Air - Course Nursing assessment & vital signs reviewed: Yes - Radiology Ultrasound Exam Venous Lower Extremity Ultrasound: discussed w/radiologist, Other (venous Doppler left lower extremity : Impression: Left leg negative for DVT) Ordered Tests: Active Orders 24 hr Category Date Time Status IV Insertion STAT Care 02/18/17 15:38 Active VENOUS UNILAT/LIMITED EXTREMIT [US] Stat Exams 02/18/17 15:38 Completed BLOOD CULTURE Stat Lab 02/18/17 16:10 Received CBC W DIFF Stat Lab 02/18/17 16:05 Completed CMP Stat Lab 02/18/17 16:05 Completed D-DIMER QUANTITATION Stat Lab 02/18/17 16:05 Completed PROTIME WITH INR Stat Lab 02/18/17 16:05 Completed PTT Stat Lab 02/18/17 16:05 Completed Lab/Rad Data: Laboratory Result Diagrams 02/18/17 16:05 02/18/17 16:05 Laboratory Results 02/18/17 02/18/17 02/18/17 Range/Units 16:05 16:05 16:05 WBC 5.4 (4.0-10.5) K/mm3 RBC 3.75 L (4.1-5.4) M/mm3 Hgb 10.5 L (12.0-16.0) gm/dl Hct 32.5 L (35-47) % MCV 86.7 (78-100) fl MCH 28.0 (26-32) pg MCHC 32.3 (32-36) g/dl RDW 13.9 (11.5-14.0) % Plt Count 186 (150-450) K/mm3 MPV 9.6 H (6-9.5) fl Gran % 60.3 (36.0-66.0) % Lymphocytes % 26.8 (24.0-44.0) % Monocytes % 10.9 (0.0-12.0) % Eosinophils % 1.3 (0.00-5.0) % Basophils % 0.7 (0.0-0.4) % Basophils # 0.04 (0-0.4) INR 0.94 (0.8-3.0) APTT 30.4 (25.3-37.0) SECONDS D-Dimer 979 H* (0-500) ng/mL Sodium 139 (136-145) mEq/L Potassium 3.5 (3.5-5.1) mEq/L Chloride 102 (98-107) mEq/L Carbon Dioxide 26.7 (21-32) mEq/L Anion Gap 13.6 (5-15) MEQ/L BUN 16 (9-20) mg/dL Creatinine 0.57 (0.55-1.30) mg/dl Estimated GFR > 60 ML/MIN Glucose 118 H (70-110) MG/DL Calcium 9.4 (8.5-10.1) mg/dL Total Bilirubin 0.20 (0.2-1.0) mg/dL AST 23 (15-37) U/L ALT 21 (12-78) U/L Alkaline Phosphatase 66 (46-116) U/L Serum Total Protein 6.8 (6.4-8.2) gm/dL Albumin 3.4 (3.4-5.0) g/dL - Progress Progress: improved Progress Note: 02/18/17 16:43 69-year-old white female with swelling of the left lower extremity for 4-5 days patient's d-dimer is elevated at 979. Patient with venous Doppler left lower extremity negative for DVT. Patient did have some erythema the left lower extremity Will place patient on antibiotics patient will need to follow back up with her family doctor for recheck. Impression left lower extremity edema, , cellulitis left lower extremity. An elevated d-dimer. - Departure Time of Disposition: 16:48 Departure Disposition: Home Clinical Impression: Edema of left lower extremity, Elevated d-dimer Cellulitis Qualifiers: Site of cellulitis: extremity Site of cellulitis of extremity: lower extremity Laterality: left Qualified Code(s): L03.116 - Cellulitis of left lower limb Condition: Fair Critical Care Time: No Referrals: JAMILA SAHNI [Primary Care Provider] - Instructions: Dependent Edema Additional Instructions: Return home. Elevate left lower extremity 24-48 hours. Augmentin 500 mg orally 3 times a day for 10 days. Follow-up with your family doctor call tomorrow for an appointment. Return for acute distress or for severe symptoms. Tylenol every 4 hours as needed for pain Prescriptions: Amox Tr/Potass Clav. 500 mg [Augmentin 500-125 Tablet] 500 mg PO TID #30 tablet
[2017-02-18 16:16] LABS: BASOPHIL % 0.7 % (0.0-0.4); Eosinophil % 1.3 % (0.00-5.0); Granulocytes % 60.3 % (36.0-66.0); Lymphocytes % 26.8 % (24.0-44.0); Mean Cell Volume 86.7 fl (78-100); Mean Platelet Volume 9.6 fl (6-9.5); Monocytes % 10.9 % (0.0-12.0); Platelet Count 186 K/mm3 (150-450); Red Blood Count 3.75 M/mm3 (4.1-5.4); Red Cell Distribution Width 13.9 % (11.5-14.0); White Blood Count 5.4 K/mm3 (4.0-10.5)
--- NOTE | 2017-02-18 16:17 | XRAY ---
Indication: Left leg pain and swelling. Two-dimensional sonogram and color Doppler imaging of the major venous vessels of the left leg was performed. Comparison: None No thrombus seen in the examined deep venous vessels of the left leg including greater saphenous vein. Veins demonstrate normal compressibility. Venous waveforms are normal with and without augmentation. Impression: Left leg negative for DVT.
[2017-02-18 16:35] LABS: INR 0.94 (0.8-3.0); PROTIME 10.6 SECONDS (9.95-12.35)
[2017-02-18 16:37] LABS: PTT 30.4 SECONDS (25.3-37.0)
[2017-02-18 16:41] LABS: ALBUMIN 3.4 g/dL (3.4-5.0); ALKALINE PHOSPHATASE 66 U/L (46-116); ANION GAP 13.6 MEQ/L (5-15); BLOOD UREA NITROGEN 16 mg/dL (9-20); CHLORIDE 102 mEq/L (98-107); Carbon Dioxide 26.7 mEq/L (21-32); Glucose 118 MG/DL (70-110); Potassium 3.5 mEq/L (3.5-5.1); SGOT/AST 23 U/L (15-37); SGPT/ALT 21 U/L (12-78); SODIUM 139 mEq/L (136-145); Total Protein 6.8 gm/dL (6.4-8.2)
[2017-02-18] MEDS ORDERED: ROCEPHIN 1 Gm-D5w 50 ml Bag** 1 G/50 ML IVPB IV STA (16:45)
[2017-02-18] MEDS ORDERED: ROCEPHIN 1 Gm-D5w 50 ml Bag** 1 G/50 ML IVPB IV ONE (16:49)
[2017-02-18 17:13] VITALS: BP 102/60; PULSE 78; O2SAT 99
== END 2017-02-18 17:13 | disposition home or self-care (01) ==
LOC: ED 15:17
DX: L03.116 Cellulitis of left lower limb (principal); M79.662 Pain in left lower leg; I10 Essential (primary) hypertension; E11.9 Type 2 diabetes mellitus without complications; Z79.899 Other long term (current) drug therapy
CPT/HCPCS: 36000; 36415; 80053; 85025; 85379; 85610; 85730; 87040; 93971; 96360; 99284; J0696

== ENCOUNTER 2017-02-21 21:22 | Emergency (ER) | payer MEDICARE ==
--- NOTE | 2017-02-21 21:56 | ERPHSYRPT ---
- History of Present Illness Time Seen by Provider: 02/21/17 21:44 Source: patient Exam Limitations: no limitations Patient Subjective Stated Complaint: states that she had a dopplar about a week ago of the left leg to r/o a clot - states that she was placed on Augmentin for cellulitis, but has not felt better, despite keeping the affected extremity elevated and taking Rx'd medication - states that she has continuing pain on the left medial ankle and low-grade fever with nausea, onset today Triage Nursing Assessment: ambulatory to treatment area - unsteady gait with cane. moves all extremities with equal strength and some spasticity - some disability to the left lower leg. alert/oriented - grimmacing/tearful affect. skin pwd - no rash/injury - tenderness of the left ankle. resps easy - non- labored Physician History: 77-year-old white female seen here on February 18, 2017 secondary to left leg pain and erythema with edema. At that time patient had a Doppler performed which was negative she was noted to have mild erythema to the left leg and mild edema to the left leg she was placed on Augmentin and discharged. Patient subsequently followed up with Dr. Flores secondary to the same pain she had an x-ray of her left foot and left ankle which are both negative. She arrives today with complaints that she has a fever today feels nauseous she actually feels like her left lower leg has improved from 2 days ago she states she woke up on yesterday and the leg was in a moderate amount of pain that was seen by her family doctor. She states she took a [place] before arrival she states she is feeling better. She states she comes with complaint of nausea and fever today. Past medical history includes high blood pressure, sleep apnea, hypothyroidism, degenerative disc disease, fibromyalgia, osteoarthritis, GERD, depression past surgical history includes C5-C6 fusion, appendectomy, cholecystectomy, hysterectomy, tubal ligation, foot surgery, film lasered off of her right eye, anterior cervical discectomy fusion C5-C6 patient has had cataract surgery she' s had bunionectomy on the left foot and tonsil surgery . Patient actually states that she feels like her left lower leg is much less hot then several days ago and swelling has come down it is still somewhat tender with palpation distally. Patient does have an MRI scheduled by Dr. Flores next week. Patient has had no vomiting she is nauseous no diarrhea no melena she states she had a fever at home Timing/Duration: other (patient with symptoms for approximatelly one week, patient seen 3 days ago venous Doppler was negative, patient had x-ray ordered by Dr. Flores of left foot and ankle which are both negative yesterday, patient is on Augmentin 500 mg orally 3 times a day .) Associated Symptoms: nausea, fever, other (left leg pain), No vomiting, No abdominal pain, No shortness of breath, No heartburn, No diaphoresis, No cough, No chills, No chest pain, No headaches, No loss of appetite, No malaise, No rash , No syncope, No seizure, No weakness Allergies/Adverse Reactions: butorphanol tartrate [From Stadol] Allergy (Verified 02/21/17 21:31) Sulfa (Sulfonamide Antibiotics) Allergy (Verified 02/21/17 21:31) tizanidine [From Zanaflex] Allergy (Verified 02/21/17 21:31) Home Medications: Duloxetine HCl [Cymbalta] 60 mg PO DAILY 07/29/14 [History] Amlodipine Besylate 5 mg [Norvasc 5 mg] 5 mg PO HS 11/20/14 [History] Albuterol Sulfate [Ventolin Hfa] 2 puff IH QID 11/27/15 [History] Bupropion HCl [Bupropion HCl Sr] 150 mg PO HS 11/27/15 [History] Melatonin/Pyridoxine HCl (B6) [Melatonin 1 mg Tablet] 2 tab PO HS 11/27/15 [ History] Metformin HCl 500 mg [Glucophage 500 MG] 500 mg PO TID 11/27/15 [History] Omeprazole 20 MG [Prilosec 20 mg] 20 mg PO DAILY 11/27/15 [History] Oxybutynin Chloride 5 mg PO BID 11/27/15 [History] Levothyroxine Sodium 75 Mcg [Synthroid 75 Mcg] 75 mcg PO DAILY 02/11/16 [ History] Hydrocodone/APAP 10/325 mg [[place] 10/325 MG Tablet] 1 tab PO Q4-6HPRN PRN 06/19/16 [History] Armodafinil [Nuvigil] 150 mg PO DAILY 10/08/16 [History] Pravastatin Sodium 40 mg PO 1900 10/08/16 [History] Pramipexole Di-HCl [Pramipexole Dihydrochloride] 0.125 mg PO TID 12/08/16 [ History] Cyclobenzaprine HCl 10 mg [Cyclobenzaprine 10 MG] 10 mg PO HS 02/18/17 [ History] Ferrous Sulfate 325 mg PO DAILY 02/19/17 [History] Hx Tetanus, Diphtheria Vaccination/Date Given: No Hx Influenza Vaccination/Date Given: Yes Hx Pneumococcal Vaccination/Date Given: Yes Immunizations Up to Date: No - Review of Systems Constitutional: Fever, No Chills, No Fatigue, No Lethargy, No Malaise, No Night Sweats, No Weakness, No Weight Loss Eyes: No Symptoms Ears, Nose, & Throat: No Symptoms, No Ear Pain, No Ear Discharge, No Hearing Changes, No Tinnitus, No Nose Pain, No Nose Congestion, No Nose Discharge, No Sinus Drainage, No Epistaxis, No Mouth Pain, No Mouth Swelling, No Loose Teeth, No Throat Pain, No Throat Swelling, No Hoarse, No Painful Swallowing, No Snoring , No Stridor Respiratory: No Cough, No Dyspnea Cardiac: No Chest Pain, No Edema, No Syncope Abdominal/Gastrointestinal: Nausea, No Abdominal Pain, No Vomiting, No Diarrhea Genitourinary Symptoms: No Dysuria Musculoskeletal: Other (left leg pain) Skin: Other (erythema left lower extremity improving) Neurological: No Dizziness, No Focal Weakness, No Sensory Changes Psychological: No Symptoms Endocrine: No Symptoms All Other Systems: Reviewed and Negative - Past Medical History Pertinent Past Medical History: Yes Neurological History: No Pertinent History ENT History: Cataracts Cardiac History: Hypertension Respiratory History: Sleep Apnea Endocrine Medical History: Diabetes Type II, Hypothyroidism Musculoskeletal History: Degenerative Disk Disease, Fibromyalgia, Osteoarthritis GI Medical History: GERD, Gallbladder Disease, Hernia History: No Pertinent History Psycho-Social History: Depression Female Reproductive Disorders: No Pertinent History Other Medical History: C5-6 FUSION IN 1978. - Past Surgical History Past Surgical History: Yes Neuro Surgical History: No Pertinent History Cardiac: No Pertinent History Respiratory: No Pertinent History Gastrointestinal: Appendectomy, Cholecystectomy Genitourinary: No Pertinent History Musculoskeletal: Orthopedic Surgery Female Surgical History: Hysterectomy, Tubal Ligation Other Surgical History: 2nd toe right foot, fractured right shoulder, filmed lasered off right eye, gaglion cyst removed, cataracts, bunion and tumor removed left foot, bunion right foot, tonsils, microscopic anterior cervical diskectomy with interbody fusion c5-6 - Social History Smoking Status: Never smoker Exposure to second hand smoke: No Alcohol Use: None Drug Use: none Patient Lives Alone: Yes - Female History Hx Last Menstrual Period: n/a - Nursing Vital Signs Nursing Vital Signs: Initial Vital Signs Temperature 98.7 F Temperature Source Oral Pulse Rate 70 Respiratory Rate 16 Blood Pressure [Right Arm] 122/56 Pain Intensity [Left Medial 5 Ankle] Pain Intensity 2 - Physical Exam General Appearance: no apparent distress, alert Eye Exam: PERRL/EOMI, eyes nml inspection Ears, Nose, Throat Exam: normal ENT inspection, TMs normal, pharynx normal, moist mucous membranes Neck Exam: normal inspection, non-tender, supple, full range of motion Respiratory Exam: normal breath sounds, lungs clear, No respiratory distress Cardiovascular Exam: regular rate/rhythm, normal heart sounds, normal peripheral pulses Gastrointestinal/Abdomen Exam: soft, normal bowel sounds, No tenderness, No mass Back Exam: normal inspection, normal range of motion, No CVA tenderness, No vertebral tenderness Extremity Exam: other (left lower extremity tender with palpation distally just proximal to the ankle, no obvious erythema seen today, dorsal pedal posterior pulses intact 2/4. Full range of motion all toes, sensation intact to all toes, good capillary refill to all toes) Neurologic Exam: alert, oriented x 3, cooperative, normal mood/affect, nml cerebellar function, nml station & gait, sensation nml, No motor deficits Skin Exam: normal color, warm, dry, No rash Lymphatic Exam: No adenopathy SpO2 Interpretation: normal (97%) SpO2: 97 Oxygen Delivery: Room Air - Course Nursing assessment & vital signs reviewed: Yes Ordered Tests: Active Orders 24 hr Category Date Time Status IV Insertion STAT Care 02/21/17 21:47 Active BLOOD CULTURE Stat Lab 02/21/17 22:03 Received CBC W DIFF Stat Lab 02/21/17 21:50 Completed CMP Stat Lab 02/21/17 21:50 Completed UA W/RFX UR CULTURE Stat Lab 02/21/17 22:05 Completed Medication Summary Generic Name Dose Route Start Last Admin Trade Name Freq PRN Reason Stop Dose Admin Vancomycin HCl 250 mls @ 167 mls/hr 02/21/17 22:27 02/21/17 22:39 Vancomycin 1gm/ Ns 250ml IV 02/21/17 23:56 167 mls/hr STAT ONE Administration Discontinued Medications Generic Name Dose Route Start Last Admin Trade Name Giuliano PRN Reason Stop Dose Admin Vancomycin HCl Confirm 02/21/17 22:38 Vancomycin 1gm/ Ns 250ml Administered 02/21/17 22:39 Dose 250 mls @ ud IV .STK-MED ONE Ondansetron HCl 4 mg 02/21/17 22:12 02/21/17 22:16 Zofran 4 Mg/2 Ml Vial IV 02/21/17 22:13 4 mg STAT ONE Administration Ondansetron HCl Confirm 02/21/17 22:14 Zofran 4 Mg/2 Ml Vial Administered 02/21/17 22:15 Dose 4 mg .ROUTE .STK-MED ONE Lab/Rad Data: Laboratory Result Diagrams 02/21/17 21:50 02/21/17 21:50 Laboratory Results 02/21/17 02/21/17 02/21/17 Range/Units 22:05 21:50 21:50 WBC 4.8 (4.0-10.5) K/mm3 RBC 3.59 L (4.1-5.4) M/mm3 Hgb 10.0 L (12.0-16.0) gm/dl Hct 30.8 L (35-47) % MCV 85.8 (78-100) fl MCH 27.8 (26-32) pg MCHC 32.5 (32-36) g/dl RDW 13.9 (11.5-14.0) % Plt Count 161 (150-450) K/mm3 MPV 9.4 (6-9.5) fl Gran % 65.7 (36.0-66.0) % Lymphocytes % 18.4 L (24.0-44.0) % Monocytes % 13.2 H (0.0-12.0) % Eosinophils % 2.1 (0.00-5.0) % Basophils % 0.6 (0.0-0.4) % Basophils # 0.03 (0-0.4) Sodium 138 (136-145) mEq/L Potassium 3.6 (3.5-5.1) mEq/L Chloride 101 (98-107) mEq/L Carbon Dioxide 25.1 (21-32) mEq/L Anion Gap 15.9 H (5-15) MEQ/L BUN 8 L (9-20) mg/dL Creatinine 0.63 (0.55-1.30) mg/dl Estimated GFR > 60 ML/MIN Glucose 126 H (70-110) MG/DL Calcium 9.2 (8.5-10.1) mg/dL Total Bilirubin 0.20 (0.2-1.0) mg/dL AST 22 (15-37) U/L ALT 22 (12-78) U/L Alkaline Phosphatase 67 (46-116) U/L Serum Total Protein 6.3 L (6.4-8.2) gm/dL Albumin 3.2 L (3.4-5.0) g/dL Ur Collection Type CLEAN CATCH Urine Color YELLOW (YELLOW) Urine Appearance CLEAR (CLEAR) Urine pH 6.5 (5-6) Ur Specific [place] [employer] 1.010 (1.005-1.025) Urine Protein NEGATIVE (Negative) Urine Ketones NEGATIVE (NEGATIVE) Urine Blood NEGATIVE (0-5) Han/ul Urine Nitrite NEGATIVE (NEGATIVE) Urine Bilirubin NEGATIVE (NEGATIVE) Urine Urobilinogen NORMAL (0-1) mg/dL Ur Leukocyte Esterase NEGATIVE (NEGATIVE) Urine Glucose NEGATIVE (NEGATIVE) mg/dL Specimen Received 02/21/17:2205 - Progress Progress: improved Progress Note: 02/21/17 21:58 77-year-old white female seen in this emergency room on February 18, 2017 secondary to left leg edema which had been going on at that time for for 5 days at that time patient had a blood count, PT PTT d-dimer obtained as well as a BMP. Patient was noted have an elevated d-dimer therefore venous Doppler was done of the left lower extremity. This came back negative patient was felt to have mild erythema to the left lower extremity and she was placed on Augmentin. Patient also is on [place] for pain. She states the next morning she woke up with the moderate amount of pain in her left lower extremity yesterday February 20 [address] was [address] Flores who ordered an x-ray of her left ankle and foot which are both negative. And an MRI has been ordered. She states today that she is having nausea and has had a fever today she states that she has leg pain in her left leg however she states this is improving and the patient's edema in her left leg as well as erythema has actually improved since being seen in this emergency room on 18 February. Patient did take an [place] just prior to arrival she also is on Augmentin at this time. On physical examination patient does not appear to be in acute distress she is noted to have a temperature which is 100.7. She states she feels nauseous. Examination of the patient's left lower extremity patient really has markedly improved edema of her left lower extremity and I'm not seeing erythema today. She does have tenderness with palpation along the distal left lower leg proximal to the ankle. She has full range of motion to the left knee hip ankle foot and toes. She has good capillary refill to all left toes sensation intact to all toes. Dorsal pedal posterior tibial pulses are intact 2 over 4. Will go ahead and obtain CBC BMP blood culture and urinalysis. 02/21/17 22:06 Patient had blood cultures drawn on February 18, 2017 these show no growth to date. 02/21/17 22:27 Patient really wants to go home. Patient has blood cultures pending. Labs essentially normal. Will give patient vancomycin 1 g IV. Plan return home continue Augmentin Zofran for nausea. Follow-up with Dr. Flores next week. 02/21/17 22:34 02/21/17 23:37 Patient is feeling better. Will discharge. Will send home with Zofran patient to continue Augmentin as previously prescribed. - Departure Time of Disposition: 23:37 Departure Disposition: Home Clinical Impression: Left leg pain Cellulitis Qualifiers: Site of cellulitis: extremity Site of cellulitis of extremity: lower extremity Laterality: left Qualified Code(s): L03.116 - Cellulitis of left lower limb Condition: Fair Critical Care Time: No Additional Instructions: Return home. Continue Augmentin as prescribed. Continue [place] as prescribed by your family doctor. Zofran 4 mg orally every 4-6 hours as needed for nausea. Follow-up with your family doctor call for an appointment. Return for acute distress or for severe symptoms. Prescriptions: Ondansetron [Zofran Odt] 4 mg PO Q4-6HPRN PRN #10 tab.rapdis PRN Reason: nausea and vomiting
[2017-02-21 22:07] LABS: BASOPHIL % 0.6 % (0.0-0.4); Eosinophil % 2.1 % (0.00-5.0); Granulocytes % 65.7 % (36.0-66.0); Lymphocytes % 18.4 % (24.0-44.0); Mean Cell Volume 85.8 fl (78-100); Mean Platelet Volume 9.4 fl (6-9.5); Monocytes % 13.2 % (0.0-12.0); Platelet Count 161 K/mm3 (150-450); Red Blood Count 3.59 M/mm3 (4.1-5.4); Red Cell Distribution Width 13.9 % (11.5-14.0); White Blood Count 4.8 K/mm3 (4.0-10.5)
[2017-02-21 22:12] LABS: ADD URINE CULTURE? NO (NO); Bilirubin NEGATIVE (NEGATIVE); Blood NEGATIVE Ery/ul (0-5); COMPLETE URINE MICROSCOPIC? NO; Collection Type CLEAN CATCH; Glucose NEGATIVE (NEGATIVE); Leukocyte Esterase NEGATIVE (NEGATIVE)
[2017-02-21] MEDS ORDERED: Zofran 4 MG/2 ML VIAL IV ONE (22:12)
[2017-02-21 22:13] LABS: Mean Corpuscular Hemoglobin 27.8 pg (26-32)
[2017-02-21] MEDS ORDERED: Zofran 4 MG/2 ML VIAL ONE (22:14)
[2017-02-21 22:22] LABS: ALBUMIN 3.2 g/dL (3.4-5.0); ALKALINE PHOSPHATASE 67 U/L (46-116); ANION GAP 15.9 MEQ/L (5-15); BLOOD UREA NITROGEN 8 mg/dL (9-20); CHLORIDE 101 mEq/L (98-107); Carbon Dioxide 25.1 mEq/L (21-32); Glucose 126 MG/DL (70-110); Potassium 3.6 mEq/L (3.5-5.1); SGOT/AST 22 U/L (15-37); SGPT/ALT 22 U/L (12-78); SODIUM 138 mEq/L (136-145); Total Protein 6.3 gm/dL (6.4-8.2)
[2017-02-21] MEDS ORDERED: Vancomycin 1GM/ Ns 250ML*** 250 ML IV ONE ×2 (22:27→22:38)
[2017-02-21 23:51] VITALS: BP 130/68; PULSE 74; O2SAT 98
== END 2017-02-22 00:21 | disposition home or self-care (01) ==
LOC: ED 21:22
DX: L03.116 Cellulitis of left lower limb (principal); M79.662 Pain in left lower leg
CPT/HCPCS: 36000; 36415; 80053; 81002; 85025; 87040; 96365; 96366; 96374; 99284; J2405; J3370

== ENCOUNTER 2017-03-05 09:53 | Day surgery (SDC) | payer MEDICARE ==
--- NOTE | 2017-03-04 11:57 | HP ---
ADMISSION DIAGNOSES: 1) Screening. 2) History of reflux. 3) History of tear. ANTICIPATED PROCEDURES: 1) Colonoscopy. 2) EGD. HISTORY OF PRESENT ILLNESS: A patient requiring screening colonoscopy. She is also is requiring EGD for epigastric discomfort. PAST MEDICAL HISTORY: ALLERGIES: NONE. MEDICATIONS: Multiple. PAST SURGICAL HISTORY: Multiple. SOCIAL HISTORY: Negative. FAMILY HISTORY: Negative. REVIEW OF SYSTEMS: Multiple. PHYSICAL EXAMINATION: VITAL SIGNS: Normal. CHEST: Clear. COR: Regular. PLAN: EGD and colonoscopy.
[~2017-03-05 09:53] MED LIST changes: +DEMEROL 50 MG IJ ONE; -DIPRIVAN 200 MG/20 ML IV ONE; -Depo-Medrol 40 MG/ML IM ONE; -Kenalog-40 IM ONE; -Lactated Ringers 1,000 ML IV ONE; -Lactated Ringers 1,000 ML IV SCH; -Sensorcaine 0.25% 10 ML IJ ONE; +Versed 2 MG/2 ML Injection IV ONE
[2017-03-05] MEDS ORDERED: Sodium Chloride 0.9% 1000 ML 1,000 ML IV SCH (10:00)
[2017-03-05] MEDS ORDERED: Sodium Chloride 0.9% 1000 ML 1,000 ML ONE ×3 (10:03→12:55)
[2017-03-05] MEDS ORDERED: XYLOCAINE 1% HCL 20 ML MDV ONE (10:38)
--- NOTE | 2017-03-05 16:01 | XRAY ---
Indication: Incomplete colonoscopy. No biopsies. 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 No large free air. Previous cholecystectomy. Solid organs unremarkable. Osseous structures intact with mild osteopenia, mild levorotoscoliosis, and multilevel lumbar degenerative spondylosis. A rectal tip barium enema catheter was inserted and the balloon tip insufflated. Barium contrast and air insufflation was performed to level of the cecum. Multiple digital spot and overhead radiographs obtained. There is good opacification and distention of the entire colon. Minimal sigmoid diverticulosis. No presacral soft tissue mass. Transverse and ascending colon are redundant. No annular constricting lesions, obstruction, or filling defect. No reflux into the terminal ileum. Postevacuation overhead radiograph demonstrates large residual air and contrast. No abnormal extraluminal collection. Impression: Redundant ascending and transverse colon. Minimal sigmoid diverticulosis. Remaining double contrast colon exam is negative. Approximately 3.1 minute fluoroscopy used.
[2017-03-05 16:04] VITALS: PULSE 62; O2SAT 97
[2017-03-05 16:21] VITALS: BP 131/70
--- NOTE | 2017-03-06 07:46 | OP ---
SURGERY DATE/TIME: 03/05/2017 1234 PREOPERATIVE DIAGNOSES: 1) Epigastric pain. 2) Screening. POSTOPERATIVE DIAGNOSES: 1) Mild gastritis. 2) Colonoscopic examination limited 30 cm because of poor prep and marked angulation with diverticulosis. PROCEDURES: 1) EGD. 2) Colonoscopy. SURGEON: Fabricio Padron M.D. ANESTHESIA: IV sedation. COMPLICATIONS: None. CONDITION: Stable. INDICATION: A patient requiring evaluation. DESCRIPTION OF PROCEDURE: The patient is taken to the endoscopy suite. Left lateral decubitus position. After suitable sedation obtained the scope was introduced. The scope advanced. Sulcus normal. Down to the gastroesophageal junction the fundus body there is mild gastritis. 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 Duodenal bulb and second portion of the duodenum ampullary area satisfactory. The scope withdrawn and looped upon itself. No hiatal hernia from below. The scope withdrawn. Anal digital examination satisfactory. The scope introduced. Rectum shows stool. Sigmoid shows stool. There is marked angulation. Despite patience and care this really was not getting navigated. She is scheduled for barium enema. The exam was limited to 30 cm.
== END 2017-03-05 16:15 | disposition home or self-care (01) ==
LOC: SDC 09:53
PROVIDERS: ATTEND Surgery
PROC: 0DB78ZX Excision of Stomach, Pylorus, Via Natural or Artificial Opening Endoscopic, Diagnostic (ICD-10-PCS; principal; 2017-03-05)
PROC: 0DJD8ZZ Inspection of Lower Intestinal Tract, Via Natural or Artificial Opening Endoscopic (ICD-10-PCS; 2017-03-05)
DX: K29.70 Gastritis, unspecified, without bleeding (principal); Z12.11 Encounter for screening for malignant neoplasm of colon; K57.90 Diverticulosis of intestine, part unspecified, without perforation or abscess without bleeding
CPT/HCPCS: 43239; G0121; 74280; 82962; 87081; J2175; J2250

== ENCOUNTER 2017-07-20 17:36 | Emergency (ER) | payer MEDICARE ==
[2017-07-20] MEDS ORDERED: ANTIVERT 25 MG PO ONE (17:59)
[2017-07-20] MEDS ORDERED: TYLENOL EXTRA STRENGTH 500 MG PO STA (18:00)
--- NOTE | 2017-07-20 18:03 | ERPHSYRPT ---
- History of Present Illness Source: patient Exam Limitations: no limitations Patient Subjective Stated Complaint: pt states she began feeling dizzy on . states her dizziness is worse when moving around. states she was told by her pain Dr to stop her welbutrin on 07/16/17. Triage Nursing Assessment: pt pink, warm, dry. pt ambulated into Er with help. pupils perrl. pt able to stand and transfer to Er cot without difficulty. Hx Tetanus, Diphtheria Vaccination/Date Given: Yes (up to date) Hx Influenza Vaccination/Date Given: Yes Hx Pneumococcal Vaccination/Date Given: Yes Immunizations Up to Date: Yes <ANIYAH VINSON - Last Filed: 07/20/17 18:24> <ANDRE BRENNAN - Last Filed: 07/20/17 20:44> - History of Present Illness Time Seen by Provider: 07/20/17 18:01 Physician History: mild to mod dizzy for 2 days, worse with moving her head, +spinning sensation, no fever, no injury, no hearing loss, no emesis (AINYAH VINSON) Allergies/Adverse Reactions: butorphanol tartrate [From Stadol] Allergy (Verified 07/20/17 17:55) Sulfa (Sulfonamide Antibiotics) Allergy (Verified 07/20/17 17:55) tizanidine [From Zanaflex] Allergy (Verified 07/20/17 17:55) Home Medications: Duloxetine HCl [Cymbalta] 60 mg PO DAILY 07/29/14 [History] Amlodipine Besylate 5 mg [Norvasc 5 mg] 5 mg PO HS 11/20/14 [History] Melatonin/Pyridoxine HCl (B6) [Melatonin 1 mg Tablet] 2 tab PO HS 11/27/15 [ History] Metformin HCl 500 mg [Glucophage 500 MG] 500 mg PO TID 11/27/15 [History] Omeprazole 20 MG [Prilosec 20 mg] 20 mg PO DAILY 11/27/15 [History] Oxybutynin Chloride 5 mg PO BID 11/27/15 [History] Levothyroxine Sodium 75 Mcg [Synthroid 75 Mcg] 75 mcg PO DAILY 02/11/16 [ History] Armodafinil [Nuvigil] 150 mg PO DAILY 10/08/16 [History] Cyclobenzaprine HCl 10 mg [Cyclobenzaprine 10 MG] 10 mg PO HS 02/18/17 [ History] Ropinirole HCl [Requip] 1 mg PO HS 04/16/17 [History] Albuterol Sulfate [Proair Hfa] 8.5 gm IH Q4-6HPRN PRN 07/20/17 [History] Tramadol HCl 50 mg [Ultram 50 mg] 50 mg PO Q6H PRN PRN 07/20/17 [History] Vitamin E 400 unit PO DAILY 07/20/17 [History] - Past Medical History Pertinent Past Medical History: Yes Neurological History: No Pertinent History ENT History: Cataracts Cardiac History: Hypertension Respiratory History: Sleep Apnea Endocrine Medical History: Diabetes Type II, Hypothyroidism Musculoskeletal History: Degenerative Disk Disease, Fibromyalgia, Osteoarthritis GI Medical History: GERD, Gallbladder Disease, Hernia History: No Pertinent History Psycho-Social History: Depression Female Reproductive Disorders: No Pertinent History Other Medical History: C5-6 FUSION IN 1978. - Past Surgical History Past Surgical History: Yes Neuro Surgical History: No Pertinent History Cardiac: No Pertinent History Respiratory: No Pertinent History Gastrointestinal: Appendectomy, Cholecystectomy Genitourinary: No Pertinent History Musculoskeletal: Orthopedic Surgery Female Surgical History: Hysterectomy, Tubal Ligation Other Surgical History: 2nd toe right foot, fractured right shoulder, filmed lasered off right eye, gaglion cyst removed, cataracts, bunion and tumor removed left foot, bunion right foot, tonsils, microscopic anterior cervical diskectomy with interbody fusion c5-6 - Social History Smoking Status: Never smoker Exposure to second hand smoke: No Alcohol Use: None Drug Use: none Patient Lives Alone: Yes - Female History Hx Now: No <ANIYAH VINSON - Last Filed: 07/20/17 18:24> - Review of Systems Constitutional: No Fever Eyes: No Symptoms Ears, Nose, & Throat: No Symptoms Respiratory: No Symptoms Cardiac: No Symptoms Abdominal/Gastrointestinal: No Symptoms Musculoskeletal: No Back Pain, No Neck Pain Skin: No Symptoms Neurological: Dizziness, Headache, No Focal Weakness, No Speech Changes Psychological: No Symptoms <ANIYAH VINSON - Last Filed: 07/20/17 18:24> Physical Exam - Madison Coma Scale Best Eye Response (Michelle): (4) open spontaneously Best Verbal Response (Michelle): (5) oriented Best Motor Response (Michelle): (6) obeys commands Michelle Total: 15 - Physical Exam General Appearance: no apparent distress Eye Exam: bilateral eye: PERRL, EOMI Ears, Nose, Throat Exam: normal ENT inspection Neck Exam: normal inspection, No meningismus Respiratory: normal breath sounds Cardiovascular: regular rate/rhythm Gastrointestinal: soft, No tenderness Back Exam: normal inspection Extremity Exam: normal inspection, other (supervisor corduroy cutting equal) Mental Status: alert, oriented x 3, cooperative, other (cn 3 to 10 grossly intact) 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 Exam: normal hearing, normal speech, PERRL Skin Exam: normal color, warm, dry SpO2 Interpretation: normal SpO2: 97 Oxygen Delivery: Room Air <ANIYAH VINSON - Last Filed: 07/20/17 18:24> - Nursing Vital Signs Nursing Vital Signs: Initial Vital Signs Temperature 98.0 F 07/20/17 17:48 Pulse Rate 83 07/20/17 17:48 Respiratory Rate 18 07/20/17 17:48 Blood Pressure 160/76 07/20/17 17:48 O2 Sat by Pulse Oximetry 97 07/20/17 17:48 Pain Scale Pain Intensity 6 Ordered Tests: Active Orders 24 hr Category Date Time Status 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 STAT Care 07/20/17 17:59 Active EKG-ER Only STAT Care 07/20/17 17:59 Active IV Insertion STAT Care 07/20/17 17:59 Active HEAD WITHOUT CONTRAST [CT] Stat Exams 07/20/17 17:59 Taken CBC W DIFF Stat Lab 07/20/17 18:19 Completed CMP Stat Lab 07/20/17 18:19 Completed SED RATE [Erythrocyte Sedimentation Rate] Stat Lab 07/20/17 18:19 Completed TROPONIN Q3H Lab 07/20/17 18:19 Completed TROPONIN Q3H Lab 07/20/17 21:00 Ordered TROPONIN Q3H Lab 07/21/17 00:00 Ordered TROPONIN Q3H Lab 07/21/17 03:00 Ordered TROPONIN Q3H Lab 07/21/17 06:00 Ordered Medication Summary Discontinued Medications Generic Name Dose Route Start Last Admin Trade Name Freq PRN Reason Stop Dose Admin Acetaminophen 500 mg 07/20/17 18:00 07/20/17 18:30 Tylenol Extra Strength 500 Mg PO 07/20/17 18:01 500 mg STAT STA Administration Acetaminophen Confirm 07/20/17 18:12 Tylenol Extra Strength 500 Mg Administered 07/20/17 18:13 Dose 500 mg .ROUTE .STK-MED ONE Meclizine HCl 25 mg 07/20/17 17:59 07/20/17 18:31 Antivert 25 Mg PO 07/20/17 18:00 25 mg STAT ONE Administration Meclizine HCl Confirm 07/20/17 18:13 Antivert 25 Mg Administered 07/20/17 18:14 Dose 25 mg .ROUTE .STK-MED ONE Lab/Rad Data: Laboratory Result Diagrams 07/20/17 18:19 07/20/17 18:19 Laboratory Results 07/20/17 07/20/17 07/20/17 Range/Units 18:19 18:19 18:19 WBC 7.1 (4.0-10.5) K/mm3 RBC 3.81 L (4.1-5.4) M/mm3 Hgb 10.5 L (12.0-16.0) gm/dl Hct 33.3 L (35-47) % MCV 87.4 (78-100) fl MCH 27.5 (26-32) pg MCHC 31.5 L (32-36) g/dl RDW 14.1 H (11.5-14.0) % Plt Count 199 (150-450) K/mm3 MPV 9.1 (6-9.5) fl Gran % 66.5 H (36.0-66.0) % Lymphocytes % 21.8 L (24.0-44.0) % Monocytes % 8.8 (0.0-12.0) % Eosinophils % 2.3 (0.00-5.0) % Basophils % 0.6 (0.0-0.4) % Basophils # 0.04 (0-0.4) ESR 23 H (0-20) mm/hr Sodium 139 (136-145) mEq/L Potassium 3.7 (3.5-5.1) mEq/L Chloride 102 (98-107) mEq/L Carbon Dioxide 29.2 (21-32) mEq/L Anion Gap 11.0 (5-15) MEQ/L BUN 14 (9-20) mg/dL Creatinine 0.56 (0.55-1.30) mg/dl Estimated GFR > 60 ML/MIN Glucose 122 H (70-110) MG/DL Calcium 9.6 (8.5-10.1) mg/dL Total Bilirubin 0.20 (0.2-1.0) mg/dL AST 20 (15-37) U/L ALT 37 (12-78) U/L Alkaline Phosphatase 83 (46-116) U/L Troponin I (0.000-0.056) ng/ml Serum Total Protein 6.9 (6.4-8.2) gm/dL Albumin 3.3 L (3.4-5.0) g/dL 07/20/17 Range/Units 18:19 WBC (4.0-10.5) K/mm3 RBC (4.1-5.4) M/mm3 Hgb (12.0-16.0) gm/dl Hct (35-47) % MCV (78-100) fl MCH (26-32) pg MCHC (32-36) g/dl RDW (11.5-14.0) % Plt Count (150-450) K/mm3 MPV (6-9.5) fl Gran % (36.0-66.0) % Lymphocytes % (24.0-44.0) % Monocytes % (0.0-12.0) % Eosinophils % (0.00-5.0) % Basophils % (0.0-0.4) % Basophils # (0-0.4) ESR (0-20) mm/hr Sodium (136-145) mEq/L Potassium (3.5-5.1) mEq/L Chloride (98-107) mEq/L Carbon Dioxide (21-32) mEq/L Anion Gap (5-15) MEQ/L BUN (9-20) mg/dL Creatinine (0.55-1.30) mg/dl Estimated GFR ML/MIN Glucose (70-110) MG/DL Calcium (8.5-10.1) mg/dL Total Bilirubin (0.2-1.0) mg/dL AST (15-37) U/L ALT (12-78) U/L Alkaline Phosphatase (46-116) U/L Troponin I < 0.017 (0.000-0.056) ng/ml Serum Total Protein (6.4-8.2) gm/dL Albumin (3.4-5.0) g/dL <ANIYAH VINSON - Last Filed: 07/20/17 18:24> <ANDRE BRENNAN - Last Filed: 07/20/17 20:44> - Progress Progress Note: 07/20/17 18:[address] Brennan at 19:00 (ANIYAH VINSON) 07/20/17 20:20 +This is a 77-year-old white female with history of cataracts, high blood pressure, sleep apnea, diabetes, hypothyroidism, degenerative disc disease, fibromyalgia, osteoarthritis, GERD, gallbladder disease, hernias, depression, C5 -C6 fusion She arrives with complaint of feeling dizzy since Thursday 2 days ago she states today she was experiencing vertigo she apparently states is worse when moving around she states she was told by her pain doctor stop her Wellbutrin on July 16, 2017 Patient has no chest pain she is moving all her extremities she did have vertigo she was initially seen by Dr. Vinson who give patient Antivert she had a head CT which shows a stable nonacute senile brain compared to July 29, 2014 is also mild bilateral ethmoid and left maxillary sinus disease Patient has an EKG that shows sinus rhythm with the multiple PACs normal axis no acute ST or T wave changes are noted Patient has a repeat EKG which shows sinus rhythm 66 bpm normal axis no acute ST or T wave changes noted this was performed at July 28, 2017 at 8:23 PM 07/20/17 20:26 Patient's physical examination well-developed well-nourished white female she is alert active she does exhibit chronic random movements of her extremities she attributes this to restless legs. Head is atraumatic normocephalic Eyes PERRLA EOMI fundi are unremarkable. Ears TMs shine intact bilaterally. Nose is clear. Throat is clear.. Neck is supple full range of motion. Lungs are clear. Heart regular rate and rhythm without murmur. Abdomen soft nontender nondistended positive bowel sounds. Extremities full range which pulse equal symmetrical 2 over 4. Neuro cranial nerves II through XII are intact DTRs symmetrical 2 over 4 Madison Coma Scale 15. Speech is normal. Patient does have chronic random movements she is able to accomplish finger to nose with cannot hold her hands up this is chronic. Patient appears to have vertigo vitals are stable. Will plan to discuss patient's case with Dr. Vela, who is recreation supervisor for Dr. Flores. Plan the likely place patient on Antivert 07/20/17 20:40 Case is discussed with Dr. Vela recreation supervisor for Dr. Flores he felt that the patient is probably having some dizziness and vertigo from coming off of her Wellbutrin He recommended that we go ahead and place patient on Antivert go ahead and release her. Patient is to contact Dr. Flores in the next day or so for follow-up appointment Will discharge patient she is feeling markedly better with the Antivert vitals are stable labs are stable head CT stable EKG stable. . (ANDRE BRENNAN) <ANIYAH VINSON - Last Filed: 07/20/17 18:24> - Departure Time of Disposition: 20:41 Departure Disposition: Home Critical Care Time: No <ANDRE BRENNAN - Last Filed: 07/20/17 20:44> - Departure Clinical Impression: Vertigo Condition: Fair Referrals: JAMILA FLORES [Primary Care Provider] - Additional Instructions: Return home. Plenty of fluids. Antivert 25 mg orally 3 times a day as needed for vertigo. Follow-up with Dr. Flores call in the morning to schedule an appointment. Return for acute distress or for severe symptoms. Prescriptions: Meclizine HCl 25 mg [Antivert 25 mg] 25 mg PO TID PRN #20 tablet
[2017-07-20] MEDS ORDERED: TYLENOL EXTRA STRENGTH 500 MG ONE (18:12)
[2017-07-20] MEDS ORDERED: ANTIVERT 25 MG ONE (18:13)
[2017-07-20 18:23] LABS: BASOPHIL % 0.6 % (0.0-0.4); Eosinophil % 2.3 % (0.00-5.0); Granulocytes % 66.5 % (36.0-66.0); Lymphocytes % 21.8 % (24.0-44.0); Mean Cell Volume 87.4 fl (78-100); Mean Platelet Volume 9.1 fl (6-9.5); Monocytes % 8.8 % (0.0-12.0); Platelet Count 199 K/mm3 (150-450); Red Blood Count 3.81 M/mm3 (4.1-5.4); Red Cell Distribution Width 14.1 % (11.5-14.0); White Blood Count 7.1 K/mm3 (4.0-10.5)
[2017-07-20 18:26] LABS: Mean Corpuscular Hemoglobin 27.5 pg (26-32)
[2017-07-20 18:45] LABS: ALBUMIN 3.3 g/dL (3.4-5.0); ALKALINE PHOSPHATASE 83 U/L (46-116); BLOOD UREA NITROGEN 14 mg/dL (9-20); CHLORIDE 102 mEq/L (98-107); Carbon Dioxide 29.2 mEq/L (21-32); Glucose 122 MG/DL (70-110); Potassium 3.7 mEq/L (3.5-5.1); SGOT/AST 20 U/L (15-37); SGPT/ALT 37 U/L (12-78); SODIUM 139 mEq/L (136-145); Total Protein 6.9 gm/dL (6.4-8.2)
[2017-07-20 20:55] VITALS: BP 137/70; PULSE 69; O2SAT 98
--- NOTE | 2017-07-21 08:31 | XRAY ---
Indication: Dizziness. Multiple contiguous axial images obtained through the head without contrast. Comparison: July 29, 2014. Again age-appropriate global atrophy and minimal periventricular degenerative micro-ischemia bilaterally. No acute intracranial hemorrhage, abnormal extra-axial fluid collection, or mass effect. Fourth ventricle is midline without hydrocephalus. Bony calvarium intact. Mild bilateral ethmoid and left maxillary sinus mucosal thickening. Mastoid air cells are clear. Impression: Again nonacute senile brain. Incidental paranasal sinus disease. CT DI 70.00
== END 2017-07-20 20:54 | disposition home or self-care (01) ==
LOC: ED 17:36
DX: R42 Dizziness and giddiness (principal); Z79.899 Other long term (current) drug therapy; Z79.84 Long term (current) use of oral hypoglycemic drugs; I10 Essential (primary) hypertension; E11.9 Type 2 diabetes mellitus without complications; E03.9 Hypothyroidism, unspecified
CPT/HCPCS: 36000; 36415; 70450; 80053; 84484; 85025; 85652; 93005; 93041; 99284; 99285; A9270-GY

== ENCOUNTER 2017-11-03 15:01 | Emergency (ER) | payer MEDICARE ==
[2017-11-03 16:06] LABS: BASOPHIL % 0.5 % (0.0-0.4); Basophil (Absolute #) 0.04 (0-0.4); Eosinophil % 1.1 % (0.00-5.0); Eosinophil (Absolute #) 0.08 (0-0.5); Granulocyte Absolute (ANC) 5.07 (1.4-6.9); Granulocytes % 66.9 % (36.0-66.0); Lymphocyte (Absolute #) 1.72 (1.0-4.6); Lymphocytes % 22.7 % (24.0-44.0); Mean Cell Volume 83.3 fl (78-100); Mean Corpuscular Hemoglobin 27.8 pg (26-32); Mean Corpuscular Hgb Concent. 33.3 g/dl (32-36); Mean Platelet Volume 8.9 fl (6-9.5); Monocyte (Absolute #) 0.67 (0.0-1.3); Monocytes % 8.8 % (0.0-12.0); Platelet Count 274 K/mm3 (150-450); Red Blood Count 4.68 M/mm3 (4.1-5.4); White Blood Count 7.6 K/mm3 (4.0-10.5)
[2017-11-03 16:29] LABS: ALBUMIN 4.6 g/dL (3.5-5.0); ALKALINE PHOSPHATASE 121 U/L (38-126); BLOOD UREA NITROGEN 14 mg/dL (7-17); CHLORIDE 95 mmol/L (98-107); Carbon Dioxide 30 mmol/L (22-30); Creatinine 1 0.59 mg/dL (0.52-1.04); Glucose 83 mg/dL (74-106); LIPASE 25 U/L (23-300); Potassium 3.9 mmol/L (3.5-5.1); SGOT/AST 21 U/L (14-36); SGPT/ALT 86 U/L (0-35); SODIUM 137 mmol/L (137-145); Total Protein 8.1 g/dL (6.3-8.2)
[2017-11-03] MEDS ORDERED: Hydromorphone 1 mg/ml Ampule IV ONE (16:33)
--- NOTE | 2017-11-03 16:44 | ERPHSYRPT ---
- History of Present Illness Time Seen by Provider: 11/03/17 15:54 Historian: patient, family (son) Patient Subjective Stated Complaint: states has had abd pain for over 6 months, but pain has been getting worse, bowel movement today, c/o nausea but has not had any emesis. states had appt with Dr Park for 11/23 for and EGD Triage Nursing Assessment: amb to room without diff. c/o pain 8/10 sharp pain in RUQ of abd radiating to back. bowel sounds active X4 quads, states had good BM this am. appetite decreased and has lost about 10 pounds over last 6 months since abd pain started. Physician History: CC: right abd pain Hx: 77 y/o patient of Dr Flores. She has right abd pain. The pain is worse. She had prior cholecystectomy. No fever or chills. Some nausea without vomiting. No chest pain. She came today for fever. She had neck surgery per Dr Francois last week. The incision is healing well. Normal urination. Some cough. Fever 101 last night so she decided to come to ER. She has seen Dr Flores for the abd pain and was referred to Dr Park where she saw BINDERY WORKER and was scheduled for EGD soon. Allergies/Adverse Reactions: butorphanol tartrate [From Stadol] Allergy (Verified 07/20/17 17:55) Sulfa (Sulfonamide Antibiotics) Allergy (Verified 07/20/17 17:55) tizanidine [From Zanaflex] Allergy (Verified 07/20/17 17:55) Home Medications: Duloxetine HCl [Cymbalta] 60 mg PO DAILY 07/29/14 [History] Amlodipine Besylate 5 mg [Norvasc 5 mg] 5 mg PO HS 11/20/14 [History] Melatonin/Pyridoxine HCl (B6) [Melatonin 1 mg Tablet] 2 tab PO HS 11/27/15 [ History] Metformin HCl 500 mg [Glucophage 500 MG] 500 mg PO TID 11/27/15 [History] Oxybutynin Chloride 5 mg PO BID 11/27/15 [History] Levothyroxine Sodium 75 Mcg [Synthroid 75 Mcg] 75 mcg PO DAILY 02/11/16 [ History] Cyclobenzaprine HCl 10 mg [Cyclobenzaprine 10 MG] 10 mg PO HS 02/18/17 [ History] Ropinirole HCl [Requip] 1 mg PO HS 04/16/17 [History] Albuterol Sulfate [Proair Hfa] 8.5 gm IH Q4-6HPRN PRN 07/20/17 [History] Tramadol HCl 50 mg [Ultram 50 mg] 50 mg PO Q4-6HPRN PRN 07/20/17 [History] Modafinil 100 mg [Provigil 100MG Tablet] 100 mg PO DAILY 11/03/17 [History ] Ranitidine HCl [Zantac] 150 mg PO BID 11/03/17 [History] Hx Tetanus, Diphtheria Vaccination/Date Given: Yes (up to date) Hx Influenza Vaccination/Date Given: Yes Hx Pneumococcal Vaccination/Date Given: Yes Immunizations Up to Date: Yes - Review of Systems Constitutional: Fever, Malaise Eyes: No Symptoms Ears, Nose, & Throat: No Symptoms Respiratory: No Cough, No Dyspnea Cardiac: No Chest Pain Abdominal/Gastrointestinal: Abdominal Pain, Nausea, No Vomiting Genitourinary Symptoms: No Dysuria Skin: No Rash Neurological: No Headache All Other Systems: Reviewed and Negative - Past Medical History Pertinent Past Medical History: Yes Neurological History: No Pertinent History ENT History: Cataracts Cardiac History: Hypertension Respiratory History: Sleep Apnea Endocrine Medical History: Diabetes Type II, Hypothyroidism Musculoskeletal History: Degenerative Disk Disease, Fibromyalgia, Osteoarthritis GI Medical History: GERD, Gallbladder Disease, Hernia History: No Pertinent History Psycho-Social History: Depression Female Reproductive Disorders: No Pertinent History Other Medical History: C5-6 FUSION IN 1978. c4 and c5 spurs removed 10/27 - Past Surgical History Past Surgical History: Yes Neuro Surgical History: No Pertinent History Cardiac: No Pertinent History Respiratory: No Pertinent History Gastrointestinal: Appendectomy, Cholecystectomy Genitourinary: No Pertinent History Musculoskeletal: Orthopedic Surgery Female Surgical History: Hysterectomy, Tubal Ligation Other Surgical History: 2nd toe right foot, fractured right shoulder, filmed lasered off right eye, gaglion cyst removed, cataracts, bunion and tumor removed left foot, bunion right foot, tonsils, microscopic anterior cervical diskectomy with interbody fusion c5-6 - Social History Smoking Status: Never smoker Exposure to second hand smoke: No Alcohol Use: None Drug Use: none Patient Lives Alone: Yes - Female History Hx Now: No - Nursing Vital Signs Nursing Vital Signs: Initial Vital Signs Pulse Rate 66 11/03/17 16:22 Respiratory Rate 16 11/03/17 16:22 Blood Pressure 126/65 11/03/17 16:22 O2 Sat by Pulse Oximetry 100 11/03/17 16:22 Pain Scale Pain Intensity 0 - Physical Exam General Appearance: alert Eye Exam: PERRL/EOMI, No scleral icterus Ears, Nose, Throat Exam: normal ENT inspection, moist mucous membranes Neck Exam: normal inspection, non-tender, supple Respiratory Exam: crackles/rales (left base) Cardiovascular Exam: regular rate/rhythm Gastrointestinal/Abdomen Exam: soft, tenderness (mid abd and RUQ) Back Exam: normal inspection, normal range of motion Extremity Exam: normal inspection, normal range of motion Neurologic Exam: alert, oriented x 3, cooperative, sensation nml, No motor deficits Skin Exam: warm, dry, No rash SpO2 Interpretation: normal SpO2: 100 Oxygen Delivery: Room Air - Course Nursing assessment & vital signs reviewed: Yes - Radiology Exams cxr X-ray Interpretation: Reviewed by me, Infiltrates (LLL) Ordered Tests: Active Orders 24 hr Category Date Time Status IV Insertion STAT Care 11/03/17 15:54 Active cath [Cath for Specimen-Straight] STAT Care 11/03/17 16:34 Active ABDOMEN AND PELVIS W CONTRAST [CT] Stat Exams 11/03/17 16:39 Taken CHEST 2 VIEWS (PA AND LAT) Stat Exams 11/03/17 16:33 Taken CBC W DIFF Stat Lab 11/03/17 15:50 Completed CMP Stat Lab 11/03/17 15:50 Completed CULTURE,URINE Stat Lab 11/03/17 17:15 Received LIPASE Stat Lab 11/03/17 15:50 Completed UA W/ MICROSCOPIC Stat Lab 11/03/17 17:15 Completed Medication Summary Discontinued Medications Generic Name Dose Route Start Last Admin Trade Name Freq PRN Reason Stop Dose Admin Hydromorphone HCl 0.5 mg 11/03/17 16:33 11/03/17 16:48 Hydromorphone 1 Mg/Ml Ampule IV 11/03/17 16:34 0.5 mg STAT ONE Administration Hydromorphone HCl Confirm 11/03/17 16:45 Dilaudid 2 Mg Injection Administered 11/03/17 16:46 Dose 2 mg .ROUTE .STK-MED ONE Lab/Rad Data: Laboratory Result Diagrams 11/03/17 15:50 11/03/17 15:50 Laboratory Results 11/03/17 11/03/17 11/03/17 Range/Units 17:15 15:50 15:50 WBC 7.6 (4.0-10.5) K/mm3 RBC 4.68 (4.1-5.4) M/mm3 Hgb 13.0 (12.0-16.0) gm/dl Hct 39.0 (35-47) % MCV 83.3 (78-100) fl MCH 27.8 (26-32) pg MCHC 33.3 (32-36) g/dl RDW 14.0 (11.5-14.0) % Plt Count 274 (150-450) K/mm3 MPV 8.9 (6-9.5) fl Gran % 66.9 H (36.0-66.0) % Lymphocytes % 22.7 L (24.0-44.0) % Monocytes % 8.8 (0.0-12.0) % Eosinophils % 1.1 (0.00-5.0) % Basophils % 0.5 (0.0-0.4) % Basophils # 0.04 (0-0.4) Sodium 137 (137-145) mmol/L Potassium 3.9 (3.5-5.1) mmol/L Chloride 95 L (98-107) mmol/L Carbon Dioxide 30 (22-30) mmol/L Anion Gap 15.0 (5-15) MEQ/L BUN 14 (7-17) mg/dL Creatinine 0.59 (0.52-1.04) mg/dL Estimated GFR > 60 ML/MIN Glucose 83 (74-106) mg/dL Calcium 11.0 H (8.4-10.2) mg/dL Total Bilirubin 0.40 (0.2-1.3) mg/dL AST 21 (14-36) U/L ALT 86 H (0-35) U/L Alkaline Phosphatase 121 (38-126) U/L Serum Total Protein 8.1 (6.3-8.2) g/dL Albumin 4.6 (3.5-5.0) g/dL Lipase 25 (23-300) U/L Ur Collection Type CATH Urine Color YELLOW (YELLOW) Urine Appearance CLEAR (CLEAR) Urine pH 7.0 (5-6) Ur Specific [place] 1.010 (1.005-1.025) Urine Protein TRACE (Negative) Urine Ketones NEGATIVE (NEGATIVE) Urine Blood TRACE NON-HEM (0-5) Han/ul Urine Nitrite NEGATIVE (NEGATIVE) Urine Bilirubin NEGATIVE (NEGATIVE) Urine Urobilinogen NORMAL (0-1) mg/dL Ur Leukocyte Esterase TRACE (NEGATIVE) Urine Microscopic RBC 2-5 (0-2) /HPF Urine Microscopic WBC 0-2 (0-5) /HPF Ur Epithelial Cells RARE (FEW) /HPF Urine Bacteria RARE (NEGATIVE) /HPF Hyaline Casts 5-10 (0-2) /LPF Urine Mucus SLIGHT (NEGATIVE) /HPF Urine Culture Reflexed YES (NO) Urine Glucose NEGATIVE (NEGATIVE) mg/dL Specimen Received 11-03-17 1800 - Progress Progress Note: 11/03/17 16:[address] and cxr. She has some left rales. Will check UA. Reviewed pain clinic notes. 11/03/17 18:57 CT abd/pelvis: [email or web address] 5:50 PM 11/03/2017: compared to 08/12/13. Marked diffuse fecal stasis w/o obstruction. Urinary bladder air bubbles, either recent catheriztion vs gas forming bacterial infection. Small R renal cysts largest 1cm. 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 11/03/17 19:10 She feels better. She has no pain and is hungry and ready to go home. Calcium mildly elevated as is ALT. Advised she see Dr Flores to discuss. Will release. Counseled pt/family regarding: lab results, diagnosis, need for follow-up, rad results - Departure Time of Disposition: 19:10 Departure Disposition: Home Clinical Impression: RUQ abdominal pain, Hypercalcemia Condition: Stable Critical Care Time: No Referrals: JAMILA FLORES [Primary Care Provider] - Instructions: Acute Abdomen (Belly Pain), Adult (DC) Additional Instructions: ABDOMINAL PAIN 1. There are several different causes for abdominal pain, some of which may not be able to be identified on initial examination. 2. The important thing to remember is that bodily functions can change in a short period of time. If you notice any of the following symptoms, return to the emergency department or consult your doctor immediately: A. Worsening pain or no improvement in the next 12 hours. B. Increasing, severe abdominal pain C. Blood in stool D. Black stools E. Persistent vomiting F. Fever or chills or other symptoms Follow up with dr Flores to discuss liver and calcium. Follow up with Dr Park for EGD. No driving.
[2017-11-03] MEDS ORDERED: DILAUDID 2 MG INJECTION ONE (16:45)
[2017-11-03 18:05] LABS: Appearance CLEAR (CLEAR); Bacteria RARE /HPF (NEGATIVE); Bilirubin NEGATIVE (NEGATIVE); Blood TRACE NON-HEM Ery/ul (0-5); Epithelial Cells RARE /HPF (FEW); Glucose NEGATIVE (NEGATIVE); Ketones NEGATIVE (NEGATIVE); Leukocyte Esterase TRACE (NEGATIVE); Mucus SLIGHT /HPF (NEGATIVE); Nitrite NEGATIVE (NEGATIVE); Protein,Urine Dip TRACE (Negative); Urobilinogen NORMAL mg/dL (0-1); WBC 0-2 /HPF (0-5)
[2017-11-03 19:12] VITALS: O2SAT 100
[2017-11-03 19:24] VITALS: BP 116/72; PULSE 6
--- NOTE | 2017-11-04 08:41 | XRAY ---
Indication: Right abdominal pain 5-6 months. Multiple contiguous axial images obtained through the abdomen and pelvis using 80 cc Isovue 370 contrast only. Comparison: July 29, 2014. Lung bases demonstrates minimal bibasilar fibrosis/scarring. No infiltrate or effusion. Heart is not enlarged. Noncontrasted stomach and bowel loops appear nonobstructed. There is now marked diffuse scattered colonic fecal debris throughout. Previous reported appendectomy, hysterectomy, and cholecystectomy. No free fluid/air. Stable right renal cysts. Urinary bladder now demonstrates intraluminal air bubbles either from recent catheterization versus gas-forming bacterial infection. Again mild fatty liver. Remaining liver, pancreas, spleen, adrenal glands, kidneys, ureters, and bladder appear unremarkable. Minimal aortoiliac calcifications. No AAA or pathologic retroperitoneal lymphadenopathy. Osseous structures intact again with moderate multilevel degenerative spondylosis, mild degenerative changes of both hips, left superior acetabular bone island, and levorotoscoliosis centered at the L3 level. New findings for old right posterior 9/10 rib fractures. Impression: 1. Marked fecal stasis without obstruction. 2. Urinary bladder air bubbles either from recent catheterization versus gas-forming metrical infection. Correlate clinically. 3. Stable right renal cysts and fatty liver. 4. Incidental chronic appearing bony changes detailed above. CT DI 19.29
--- NOTE | 2017-11-04 08:51 | XRAY ---
Indication: Right-sided pain. Comparison: January 02, 2017. PA/lateral chest again hyperinflated with now subtle asymmetric left base infiltrate/atelectasis. Remaining heart and lungs unremarkable. Bony thorax intact again with mild osteopenia, degenerative changes, and right shoulder arthroplasty.
== END 2017-11-03 19:26 | disposition home or self-care (01) ==
LOC: ED 15:01
DX: E83.52 Hypercalcemia (principal); E11.9 Type 2 diabetes mellitus without complications; Z79.4 Long term (current) use of insulin; I10 Essential (primary) hypertension; G47.30 Sleep apnea, unspecified; E03.9 Hypothyroidism, unspecified; M79.7 Fibromyalgia; M19.90 Unspecified osteoarthritis, unspecified site; K21.9 Gastro-esophageal reflux disease without esophagitis; F32.9 Major depressive disorder, single episode, unspecified; Z79.899 Other long term (current) drug therapy
CPT/HCPCS: 96374; 99284; 36000; 82962; 81000; 36415; 83690; 85025; 80053; 87086; 71046; 74177; P9612; 99283; J1170

== ENCOUNTER 2018-01-06 15:27 | Emergency (ER) | payer MEDICARE ==
[2018-01-06] MEDS ORDERED: TYLENOL EXTRA STRENGTH 500 MG PO STA (15:45)
[2018-01-06] MEDS ORDERED: TYLENOL EXTRA STRENGTH 500 MG ONE (15:48)
--- NOTE | 2018-01-06 15:50 | ERPHSYRPT ---
- History of Present Illness Time Seen by Provider: 01/06/18 15:46 Source: patient Patient Subjective Stated Complaint: states 30 min ago was bending over and when she raised up she struck the top of her head on the corner of the bathroom sink. now c/o headache and pain radiating down into her neck. Triage Nursing Assessment: ambulated to room per self. skin w/d, color normal, resp easy. no deformity noted to scalp. no bleeding noted. tender in neck area. 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, +dazed, +neck pain, nonrad, no bleeding, no NV, no visual disturbance, no other injury Allergies/Adverse Reactions: butorphanol tartrate [From Stadol] Allergy (Verified 01/06/18 15:38) Sulfa (Sulfonamide Antibiotics) Allergy (Verified 01/06/18 15:38) tizanidine [From Zanaflex] Allergy (Verified 01/06/18 15:38) Home Medications: Duloxetine HCl [Cymbalta] 60 mg PO DAILY 07/29/14 [History] Amlodipine Besylate 5 mg [Norvasc 5 mg] 5 mg PO HS 11/20/14 [History] Melatonin/Pyridoxine HCl (B6) [Melatonin 1 mg Tablet] 2 tab PO HS 11/27/15 [ History] Metformin HCl 500 mg [Glucophage 500 MG] 500 mg PO TID 11/27/15 [History] Oxybutynin Chloride 5 mg PO BID 11/27/15 [History] Levothyroxine Sodium 75 Mcg [Synthroid 75 Mcg] 75 mcg PO DAILY 02/11/16 [ History] Cyclobenzaprine HCl 10 mg [Cyclobenzaprine 10 MG] 10 mg PO HS 02/18/17 [ History] Ropinirole HCl [Requip] 1 mg PO HS 04/16/17 [History] Albuterol Sulfate [Proair Hfa] 8.5 gm IH Q4-6HPRN PRN 07/20/17 [History] Modafinil 100 mg [Provigil 100MG Tablet] 100 mg PO DAILY 11/03/17 [History ] Ranitidine HCl [Zantac] 150 mg PO BID 11/03/17 [History] Omeprazole [Prilosec] 40 mg PO DAILY 01/06/18 [History] Hx Tetanus, Diphtheria Vaccination/Date Given: Yes Hx Influenza Vaccination/Date Given: Yes Hx Pneumococcal Vaccination/Date Given: Yes Immunizations Up to Date: Yes - Review of Systems Constitutional: No Fever Eyes: No Vision Changes Ears, Nose, & Throat: No Throat Pain Respiratory: No Dyspnea Cardiac: No Chest Pain Abdominal/Gastrointestinal: No Vomiting Musculoskeletal: Neck Pain, No Back Pain Skin: No Skin Lesions Neurological: Headache, No Dizziness - Past Medical History Pertinent Past Medical History: Yes Neurological History: No Pertinent History ENT History: Cataracts Cardiac History: Hypertension Respiratory History: Sleep Apnea Endocrine Medical History: Diabetes Type II, Hypothyroidism Musculoskeletal History: Degenerative Disk Disease, Fibromyalgia, Osteoarthritis GI Medical History: GERD, Gallbladder Disease, Hernia History: No Pertinent History Psycho-Social History: Depression Female Reproductive Disorders: No Pertinent History Other Medical History: C5-6 FUSION IN 1978. c4 and c5 spurs removed 10/27 - Past Surgical History Past Surgical History: Yes Neuro Surgical History: No Pertinent History Cardiac: No Pertinent History Respiratory: No Pertinent History Gastrointestinal: Appendectomy, Cholecystectomy Genitourinary: No Pertinent History Musculoskeletal: Orthopedic Surgery Female Surgical History: Hysterectomy, Tubal Ligation Other Surgical History: 2nd toe right foot, fractured right shoulder, filmed lasered off right eye, gaglion cyst removed, cataracts, bunion and tumor removed left foot, bunion right foot, tonsils, microscopic anterior cervical diskectomy with interbody fusion c5-6 - Social History Smoking Status: Never smoker Exposure to second hand smoke: No Alcohol Use: None Drug Use: none Patient Lives Alone: Yes - Nursing Vital Signs Nursing Vital Signs: Initial Vital Signs Temperature 98.5 F 01/06/18 15:33 Pulse Rate 78 01/06/18 15:33 Respiratory Rate 18 01/06/18 15:33 Blood Pressure 142/69 01/06/18 15:33 O2 Sat by Pulse Oximetry 95 01/06/18 15:33 Pain Scale Pain Intensity 7 - Manteno Coma Score Best Eye Response (Michelle): (4) open spontaneously Best Verbal Response (Manteno): (5) oriented Best Motor Response (Manteno): (6) obeys commands Manteno Total: 15 - Physical Exam General Appearance: no apparent distress, alert Head Injury: tenderness Eye Exam: bilateral eye: PERRL, EOMI ENT Exam: airway nml Neck Exam: full range of motion, normal alignment, other (nontender midline) Cardiovascular/Respiratory Exam: chest non-tender Gastrointestinal/Abdominal Exam: no distention Back Exam: normal inspection, No vertebral tenderness Extremity Exam: normal range of motion Mental Status Exam: alert, oriented x 3, 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 Exam: normal hearing, normal speech, PERRL Motor/Sensory Exam: no motor deficit Skin Exam: normal color, warm, dry SpO2 Interpretation: normal SpO2: 95 Oxygen Delivery: Room Air - Course Nursing assessment & vital signs reviewed: Yes - CT Exams Head CT Interpretation: Negative, Discussed w/radiologist Cervical Spine CT Interpretation: Discussed w/radiologist, Other (no acute fx) Ordered Tests: Active Orders 24 hr Category Date Time Status CERVICAL SPINE WO CONTRAST [CT] Stat Exams 01/06/18 16:16 Completed HEAD WITHOUT CONTRAST [CT] Stat Exams 01/06/18 15:45 Completed Medication Summary Discontinued Medications Generic Name Dose Route Start Last Admin Trade Name Giuliano PRN Reason Stop Dose Admin Acetaminophen 500 mg 01/06/18 15:45 01/06/18 15:49 Tylenol Extra Strength 500 Mg PO 01/06/18 15:46 500 mg STAT STA Administration Acetaminophen Confirm 01/06/18 15:48 Tylenol Extra Strength 500 Mg Administered 01/06/18 15:49 Dose 500 mg .ROUTE .STK-MED ONE - Departure Time of Disposition: 16:45 Departure Disposition: Home Clinical Impression: Concussion Qualifiers: Encounter type: initial encounter Loss of consciousness presence/duration: without LOC Qualified Code(s): S06.0X0A - Concussion without loss of consciousness, initial encounter Condition: Stable Critical Care Time: No Referrals: JAMILA SAHNI [Primary Care Provider] - Instructions: Concussion, Adult (DC) Additional Instructions: see your doctor, tylenol and ice, return if worse
--- NOTE | 2018-01-06 16:32 | XRAY ---
Indication: Right frontal head injury with sink. Multiple contiguous axial images obtained through the head without contrast. Comparison: July 20, 2017. Stable age-appropriate global atrophy and minimal periventricular degenerative micro-ischemia. No acute intracranial hemorrhage, abnormal extra-axial fluid collection, or mass effect. Fourth ventricle is midline without hydrocephalus. Bony calvarium intact. Visualized paranasal sinuses and mastoid air cells are clear. Impression: Stable nonacute senile brain. CTDI 49.71
--- NOTE | 2018-01-06 16:36 | XRAY ---
Indication: Neck pain following head injury with sink. Multiple contiguous axial images obtained through the cervical spine. Sagittal and coronal reformatted images obtained. Comparison: July 29, 2014. Stable osteopenia. Axial images negative for acute fracture, suspicious bone lesions, or spinal canal stenosis. Interval C4-C5 anterior fusion with intact fixation plate/screws and intervertebral spacer producing beam artifact. Stable C4-C7 degenerative endplate spurring and mild multilevel bilateral degenerative facet arthropathy. Sagittal and coronal reformatted images demonstrates stable lordotic straightening and C5-C7 disc space narrowing. No acute compression fracture, subluxation, or jump facet. Normal-appearing craniocervical junction. Remaining visualized noncontrasted soft tissues again demonstrates minimal carotid calcifications. Lung apices clear. CT head reported separately. Impression: 1. Negative acute fracture/subluxation. 2. Again cervical lordotic straightening, positional versus paraspinal spasm. 3. Interval C4-C5 fusion with intact hardware. 4. Stable osteopenia and multilevel degenerative changes. CTDI 94.29
[2018-01-06 16:58] VITALS: BP 137/75; PULSE 90; O2SAT 98
== END 2018-01-06 16:59 | disposition home or self-care (01) ==
LOC: ED 15:27
DX: S06.0X0A Concussion without loss of consciousness, initial encounter (principal); R51 Headache; M54.2 Cervicalgia; W22.8XXA Striking against or struck by other objects, initial encounter; Y92.002 Bathroom of unspecified non-institutional (private) residence as the place of occurrence of the external cause; Z79.899 Other long term (current) drug therapy
CPT/HCPCS: 70450; 72125; 99284; A9270-GY

== ENCOUNTER 2018-10-01 18:57 | Emergency (ER) | payer MEDICARE ==
[2018-10-01 19:43] VITALS: O2SAT 99
--- NOTE | 2018-10-01 20:03 | ERPHSYRPT ---
- History of Present Illness Time Seen by Provider: 10/01/18 19:45 Historian: patient Exam Limitations: clinical condition Patient Subjective Stated Complaint: pt is alert and oriented. pt is ambulatory. pt comes in with c/o left flank pain. pt states she's had some discomfort with urinating and had blood in urine in a specimen she gave at an appointment on 09/27/18. pt also states that she has chronic constipation due to taking "4 iron pills a day", she states "she is bleeding somewhere". pt in not apparent distress. Triage Nursing Assessment: see above Physician History: PATIENT WITH A HISTORY OF COPD, HYPERTENSION, TYPE 2 DIABETES, FIBROMYALGIA, SLEEP APNEA, DEGENERATIVE DISC DISEASE, COMPLAINS OF INCREASING LEFT FLANK PAIN X 3 DAYS. EVALUATED BY PRIMARY CARE PROVIDER WITH AN ABDOMINAL PELVIC CT SCAN WITHOUT CONTRAST CONSISTENT WITH STABLE NONOBSTRUCTING BILATERAL RENAL MICRO- CALCULUS AND RIGHT RENAL CYST, FECAL STASIS AND NO ACUTE INTRA-ABDOMINAL/PELVIC ABNORMALITIES. DENIES FEVER, EMESIS OR DIARRHEA. Timing/Duration: day(s) Activities at Onset: none Quality: sharpness Abdominal Pain Onset Location: flank Pain Radiation: LLQ Severity of Pain-Max: moderate Severity of Pain-Current: moderate Associated Symptoms: denies symptoms Previous symptoms: same symptoms as today Allergies/Adverse Reactions: butorphanol tartrate [From Stadol] Allergy (Verified 01/06/18 15:38) Sulfa (Sulfonamide Antibiotics) Allergy (Verified 01/06/18 15:38) tizanidine [From Zanaflex] Allergy (Verified 01/06/18 15:38) Home Medications: Duloxetine HCl [Cymbalta] 60 mg PO DAILY 07/29/14 [History] Amlodipine Besylate 5 mg [Norvasc 5 mg] 5 mg PO HS 11/20/14 [History] Melatonin/Pyridoxine HCl (B6) [Melatonin 1 mg Tablet] 2 tab PO HS 11/27/15 [ History] Metformin HCl 500 mg [Glucophage 500 MG] 500 mg PO TID 11/27/15 [History] Oxybutynin Chloride 5 mg PO BID 11/27/15 [History] Levothyroxine Sodium 75 Mcg [Synthroid 75 Mcg] 75 mcg PO DAILY 02/11/16 [ History] Cyclobenzaprine HCl 10 mg [Cyclobenzaprine 10 MG] 10 mg PO HS 02/18/17 [ History] Ropinirole HCl [Requip] 1 mg PO HS 04/16/17 [History] Albuterol Sulfate [Proair Hfa] 8.5 gm IH Q4-6HPRN PRN 07/20/17 [History] Modafinil 100 mg [Provigil 100MG Tablet] 100 mg PO DAILY 11/03/17 [History ] Ranitidine HCl [Zantac] 150 mg PO BID 11/03/17 [History] Omeprazole [Prilosec] 40 mg PO DAILY 01/06/18 [History] Budesonide [Budesonide EC] 3 mg PO DAILY 10/01/18 [History] Bupropion HCl 150 mg Sr [Wellbutrin SR 150 MG] 150 mg PO HS 10/01/18 [ History] Ferrous Sulfate 325 mg PO DAILY 10/01/18 [History] Glipizide [Glipizide ER] 2.5 mg PO DAILY 10/01/18 [History] Lubiprostone [Amitiza] 24 mcg PO BID 10/01/18 [History] Hx Tetanus, Diphtheria Vaccination/Date Given: Yes Hx Influenza Vaccination/Date Given: Yes Hx Pneumococcal Vaccination/Date Given: Yes Immunizations Up to Date: Yes - Review of Systems Constitutional: No Fever, No Chills Eyes: No Symptoms Ears, Nose, & Throat: No Symptoms Respiratory: No Symptoms, No Cough, No Dyspnea Cardiac: No Chest Pain, No Edema, No Syncope Abdominal/Gastrointestinal: Abdominal Pain, No Nausea, No Vomiting, No Diarrhea Genitourinary Symptoms: Flank Pain, No Dysuria Musculoskeletal: No Symptoms, No Back Pain, No Neck Pain Skin: No Symptoms, No Rash Neurological: No Symptoms, No Dizziness, No Focal Weakness, No Sensory Changes Psychological: No Symptoms Endocrine: No Symptoms All Other Systems: Reviewed and Negative - Past Medical History Pertinent Past Medical History: Yes Neurological History: Migraines ENT History: Cataracts Cardiac History: Hypertension Respiratory History: COPD Endocrine Medical History: Diabetes Type II, Hypothyroidism Musculoskeletal History: Arthritis, Fibromyalgia GI Medical History: GERD, Gallbladder Disease, Hernia History: No Pertinent History Psycho-Social History: Depression Female Reproductive Disorders: No Pertinent History Other Medical History: SEE CHART FOR PMH AND PSH; PT. HAS HAD 2 C-SPINE SXS - Past Surgical History Past Surgical History: Yes Neuro Surgical History: No Pertinent History Cardiac: No Pertinent History Respiratory: No Pertinent History Gastrointestinal: Appendectomy, Cholecystectomy Genitourinary: No Pertinent History Musculoskeletal: Orthopedic Surgery Female Surgical History: Hysterectomy, Tubal Ligation Other Surgical History: 2nd toe right foot, fractured right shoulder, filmed lasered off right eye, gaglion cyst removed, cataracts, bunion and tumor removed left foot, bunion right foot, tonsils, microscopic anterior cervical diskectomy with interbody fusion c5-6 - Social History Smoking Status: Never smoker Exposure to second hand smoke: No Alcohol Use: None Drug Use: none Patient Lives Alone: Yes - Female History Hx Now: No - Nursing Vital Signs Nursing Vital Signs: Initial Vital Signs Temperature 98.5 F 10/01/18 19:34 Pulse Rate 80 10/01/18 19:34 Respiratory Rate 16 10/01/18 19:34 Blood Pressure 140/43 10/01/18 19:34 O2 Sat by Pulse Oximetry 99 10/01/18 19:34 Pain Scale Pain Intensity 8 - Physical Exam General Appearance: no apparent distress, alert Eye Exam: PERRL/EOMI, eyes nml inspection Ears, Nose, Throat Exam: normal ENT inspection, pharynx normal, moist mucous membranes Neck Exam: normal inspection, non-tender, supple, full range of motion Respiratory Exam: normal breath sounds, lungs clear, No respiratory distress Cardiovascular Exam: regular rate/rhythm, normal heart sounds Gastrointestinal/Abdomen Exam: soft, normal bowel sounds, tenderness (MODERATE LLQ TENDERNESS), No mass Back Exam: normal inspection, normal range of motion, CVA tenderness (MODERATE LEFT CVA TENDERNESS), No vertebral tenderness Extremity Exam: normal inspection, normal range of motion, pelvis stable Neurologic Exam: alert, oriented x 3, cooperative, normal mood/affect, nml cerebellar function, sensation nml, No motor deficits Skin Exam: normal color, warm, dry SpO2 Interpretation: normal SpO2: 99 Ordered Tests: Active Orders 24 hr Category Date Time Status Clean Catch Urine Specimen STAT Care 10/01/18 20:04 Active IV Insertion STAT Care 10/01/18 20:04 Active ABDOMEN AND PELVIS W/0 CONTRAS [CT] Stat Exams 10/01/18 20:05 Taken AMYLASE Stat Lab 10/01/18 19:45 Completed CBC W DIFF Stat Lab 10/01/18 19:45 Completed CMP Stat Lab 10/01/18 19:45 Completed CULTURE,URINE Stat Lab 10/01/18 20:05 Received LIPASE Stat Lab 10/01/18 19:45 Completed UA W/RFX UR CULTURE Stat Lab 10/01/18 20:05 Completed Medication Summary Generic Name Dose Route Start Last Admin Trade Name Freq PRN Reason Stop Dose Admin Sodium Chloride 1,000 mls @ 50 mls/hr 10/01/18 20:15 10/01/18 20:22 Sodium Chloride 0.9% 1000 Ml IV 10/31/18 20:14 50 mls/hr .Q20H DRISS Administration Discontinued Medications Generic Name Dose Route Start Last Admin Trade Name Freq PRN Reason Stop Dose Admin Ceftriaxone Sodium/Dextrose 1 g in 50 mls @ 100 mls/hr 10/01/18 20:56 21:06 Rocephin 1 Gm-D5w 50 Ml Bag IV 10/01/18 21:25 100 ml/hr STAT STA 100 mls/hr Administration Ceftriaxone Sodium/Dextrose Confirm 10/01/18 21:04 Rocephin 1 Gm-D5w 50 Ml Bag Administered 10/01/18 21:05 Dose 1 g in 50 mls @ ud IV .STK-MED ONE Morphine Sulfate 4 mg 10/01/18 20:04 10/01/18 20:20 Morphine Sulfate 4 Mg Inj IV 10/01/18 20:05 4 mg STAT ONE Administration Morphine Sulfate Confirm 10/01/18 20:18 Morphine Sulfate 4 Mg Inj Administered 10/01/18 20:19 Dose 4 mg .ROUTE .STK-MED ONE Ondansetron HCl 4 mg 10/01/18 20:04 10/01/18 20:22 Zofran 4 Mg/2 Ml Vial IV 10/01/18 20:05 4 mg STAT ONE Administration Ondansetron HCl Confirm 10/01/18 20:17 Zofran 4 Mg/2 Ml Vial Administered 10/01/18 20:18 Dose 4 mg .ROUTE .STK-MED ONE Lab/Rad Data: Laboratory Result Diagrams 10/01/18 19:45 10/01/18 19:45 Laboratory Results 10/01/18 10/01/18 10/01/18 Range/Units 20:05 19:45 19:45 WBC 5.0 (4.0-10.5) K/mm3 RBC 3.92 L (4.1-5.4) M/mm3 Hgb 10.3 L (12.0-16.0) gm/dl Hct 33.4 L (35-47) % MCV 85.2 (78-100) fl MCH 26.2 (26-32) pg MCHC 30.8 L (32-36) g/dl RDW 14.9 H (11.5-14.0) % Plt Count 232 (150-450) K/mm3 MPV 9.3 (6-9.5) fl Gran % 54.2 (36.0-66.0) % Eos # (Auto) 0.04 (0-0.5) Absolute Lymphs (auto) 1.61 (1.0-4.6) Absolute Monos (auto) 0.59 (0.0-1.3) Lymphocytes % 32.5 (24.0-44.0) % Monocytes % 11.9 (0.0-12.0) % Eosinophils % 0.8 (0.00-5.0) % Basophils % 0.6 (0.0-0.4) % Absolute Granulocytes 2.69 (1.4-6.9) Basophils # 0.03 (0-0.4) Sodium 138 (137-145) mmol/L Potassium 3.9 (3.5-5.1) mmol/L Chloride 100 (98-107) mmol/L Carbon Dioxide 28 (22-30) mmol/L Anion Gap 13.5 (5-15) MEQ/L BUN 16 (7-17) mg/dL Creatinine 0.44 L (0.52-1.04) mg/dL Estimated GFR > 60.0 ML/MIN Glucose 77 (74-106) mg/dL Calcium 9.8 (8.4-10.2) mg/dL Total Bilirubin 0.30 (0.2-1.3) mg/dL AST 16 (14-36) U/L ALT 14 (0-35) U/L Alkaline Phosphatase 80 (38-126) U/L Serum Total Protein 7.4 (6.3-8.2) g/dL Albumin 4.2 (3.5-5.0) g/dL Amylase 31 (30-110) U/L Lipase 16 L (23-300) U/L Urine Color YELLOW (YELLOW) Urine Appearance SLIGHTLY CLOUDY (CLEAR) Urine pH 5.0 (5-6) Ur Specific Pelican 1.023 (1.005-1.025) Urine Protein NEGATIVE (Negative) Urine Ketones NEGATIVE (NEGATIVE) Urine Blood NEGATIVE (0-5) Han/ul Urine Nitrite NEGATIVE (NEGATIVE) Urine Bilirubin NEGATIVE (NEGATIVE) Urine Urobilinogen NEGATIVE (0-1) mg/dL Ur Leukocyte Esterase TRACE (NEGATIVE) Urine WBC (Auto) 11-15 (0-5) /HPF Urine RBC (Auto) 6-10 (0-2) /HPF U Epithel Cells (Auto) FEW (FEW) /HPF Urine Bacteria (Auto) RARE (NEGATIVE) /HPF Urine Mucus (Auto) MODERATE (NEGATIVE) /HPF Urine Culture Reflexed YES (NO) Urine Glucose NEGATIVE (NEGATIVE) mg/dL - Progress Progress Note: 10/01/18 21:01 IV NORMAL SALINE 50ML/HR, ZOFRAN 4MG, MORPHINE 4MG IV, ROCEPHIN 1GM IVPB Counseled pt/family regarding: lab results, diagnosis, need for follow-up - Departure Time of Disposition: 21:40 Departure Disposition: Extended Care Facility Clinical Impression: LEFT RENAL COLIC, URINARY TRACT INFECTION Condition: Stable Critical Care Time: No Referrals: JAMILA SAHNI [Primary Care Provider] - Additional Instructions: CONTINUE ALL CURRENT MEDICATIONS. ANTIBIOTIC MACROBID 100MG TWICE DAILY FOR 10 DAYS. FOLLOWUP WITH PRIMARY CARE PROVIDER IN 1 WEEK. Prescriptions: Nitrofurantoin Macro 100 mg [Macrobid 100MG Capsule] 100 mg PO BID #20 cap
[2018-10-01] MEDS ORDERED: MORPHINE SULFATE 4 MG INJ IV ONE (20:04)
[2018-10-01] MEDS ORDERED: Zofran 4 MG/2 ML VIAL IV ONE (20:04)
[2018-10-01] MEDS ORDERED: Sodium Chloride 0.9% 1000 ML 1,000 ML IV SCH (20:15)
[2018-10-01 20:16] LABS: BASOPHIL % 0.6 % (0.0-0.4); Basophil (Absolute #) 0.03 (0-0.4); Eosinophil % 0.8 % (0.00-5.0); Eosinophil (Absolute #) 0.04 (0-0.5); Granulocyte Absolute (ANC) 2.69 (1.4-6.9); Granulocytes % 54.2 % (36.0-66.0); Hematocrit 33.4 % (35-47); Hemoglobin 10.3 gm/dl (12.0-16.0); Lymphocyte (Absolute #) 1.61 (1.0-4.6); Lymphocytes % 32.5 % (24.0-44.0); Mean Cell Volume 85.2 fl (78-100); Mean Corpuscular Hgb Concent. 30.8 g/dl (32-36); Mean Platelet Volume 9.3 fl (6-9.5); Monocyte (Absolute #) 0.59 (0.0-1.3); Monocytes % 11.9 % (0.0-12.0); Platelet Count 232 K/mm3 (150-450); Red Blood Count 3.92 M/mm3 (4.1-5.4); Red Cell Distribution Width 14.9 % (11.5-14.0)
[2018-10-01] MEDS ORDERED: Zofran 4 MG/2 ML VIAL ONE (20:17)
[2018-10-01] MEDS ORDERED: MORPHINE SULFATE 4 MG INJ ONE (20:18)
[2018-10-01] MEDS ORDERED: Sodium Chloride 0.9% 1000 ML 1,000 ML ONE (20:18)
[2018-10-01 20:20] LABS: Mean Corpuscular Hemoglobin 26.2 pg (26-32)
[2018-10-01 20:34] LABS: ALBUMIN 4.2 g/dL (3.5-5.0); ALKALINE PHOSPHATASE 80 U/L (38-126); AMYLASE 31 U/L (30-110); ANION GAP 13.5 MEQ/L (5-15); BLOOD UREA NITROGEN 16 mg/dL (7-17); CHLORIDE 100 mmol/L (98-107); Calcium 9.8 mg/dL (8.4-10.2); Carbon Dioxide 28 mmol/L (22-30); Creatinine 1 0.44 mg/dL (0.52-1.04); Glucose 77 mg/dL (74-106); LIPASE 16 U/L (23-300); Potassium 3.9 mmol/L (3.5-5.1); SGOT/AST 16 U/L (14-36); SGPT/ALT 14 U/L (0-35); SODIUM 138 mmol/L (137-145); Total Protein 7.4 g/dL (6.3-8.2)
[2018-10-01 20:39] LABS: Appearance SLIGHTLY CLOUDY (CLEAR); Bacteria RARE /HPF (NEGATIVE); Bilirubin NEGATIVE (NEGATIVE); Blood NEGATIVE Ery/ul (0-5); Epithelial Cells FEW /HPF (FEW); Glucose NEGATIVE (NEGATIVE); Ketones NEGATIVE (NEGATIVE); Leukocyte Esterase TRACE (NEGATIVE); Mucus MODERATE /HPF (NEGATIVE); Nitrite NEGATIVE (NEGATIVE); Protein,Urine Dip NEGATIVE (Negative); Specific Gravity 1.023 (1.005-1.025); Urobilinogen NEGATIVE mg/dL (0-1)
[2018-10-01 20:43] VITALS: BP 137/64; PULSE 55
[2018-10-01] MEDS ORDERED: ROCEPHIN 1 Gm-D5w 50 ml Bag** 1 G/50 ML IVPB IV STA (20:56)
[2018-10-01] MEDS ORDERED: ROCEPHIN 1 Gm-D5w 50 ml Bag** 1 G/50 ML IVPB IV ONE (21:04)
--- NOTE | 2018-10-02 07:27 | XRAY ---
Indication: Left flank pain. Multiple contiguous axial images obtained through the abdomen and pelvis without contrast as ordered. Comparison: September 28, 2018. Lung bases demonstrate stable lingular fibrosis/scarring and minimal bilateral dependent atelectasis. No infiltrate or effusion. Heart is not enlarged. Noncontrasted stomach and bowel loops appear nonobstructed. Again moderate diffuse scattered colonic fecal debris throughout. GI micro-camera seen in the mid transverse colon. Again appendectomy, hysterectomy, and cholecystectomy. No free fluid/air. Stable fatty liver, 12.3 cm splenomegaly, small right renal cyst, and nonobstructing bilateral renal microcalculus. Remaining liver, pancreas, spleen, adrenal glands, kidneys, ureters, and bladder appear unremarkable for noncontrast exam. Stable minimal aortoiliac calcifications without AAA. Impression: 1. Stable fecal stasis, GI microcamera, fatty liver, borderline splenomegaly, nonobstructing bilateral renal microcalculus, and right renal cyst. 2. No new or acute intra-abdominal/pelvic abnormalities on this noncontrast exam. Comment: Preliminary interpretation was made by [facility]. No critical discrepancy. CTDI 12.03
== END 2018-10-01 21:59 | disposition home or self-care (01) ==
LOC: ED 18:57
DX: N23 Unspecified renal colic (principal); N39.0 Urinary tract infection, site not specified; J44.9 Chronic obstructive pulmonary disease, unspecified; I10 Essential (primary) hypertension; E11.9 Type 2 diabetes mellitus without complications; E03.9 Hypothyroidism, unspecified; M79.7 Fibromyalgia; M51.35 Other intervertebral disc degeneration, thoracolumbar region; R10.9 Unspecified abdominal pain; Z79.899 Other long term (current) drug therapy
CPT/HCPCS: 36000; 36415; 74176; 80053; 81001; 82150; 83690; 85025; 87086; 96360; 96365; 96374; 96375; 99284; J0696; J2270; J2405

== ENCOUNTER 2018-10-01 22:01 | Observation (INO) | payer MEDICARE ==
[2018-10-01] MEDS ORDERED: Nitrostat 0.4 MG (ED) SL ONE ×2 (22:09→22:35)
[2018-10-01] MEDS ORDERED: NITRO-BID 2% UD PACKETS TOP ONE (22:09)
[2018-10-01] MEDS ORDERED: BABY ASPIRIN 81 MG CHEW PO ONE (22:09)
[2018-10-01] MEDS ORDERED: Sodium Chloride 0.9% 1000 ML 1,000 ML IV SCH (22:15)
--- NOTE | 2018-10-01 22:15 | ERPHSYRPT ---
- History of Present Illness Time Seen by Provider: 10/01/18 22:10 Historian: patient Exam Limitations: clinical condition Physician History: PATIENT WITH A HISTORY OF TYPE 2 DIABETES, SLEEP APNEA, DEPRESSION, FIBROMYALGIA , EVALUATED IN EMERGENCY OVER THE PAST 3 HOURS FOR LEFT FLANK PAIN AND URINARY TRACT INFECTION. UPON DISCHARGE PATIENT COMPLAINS OF SUBSTERNAL CHEST DISCOMFORT , PAIN SCALE 2/10. DENIES DYSPNEA, DIAPHORESIS, PALPITATIONS OR RADIATION OF PAIN TO NECK, JAW OR ARMS. Timing/Duration: hour(s) Activities at Onset: none Quality: pressure, tightness Location: substernal Chest Pain Radiation: no radiation Severity of Pain-Max: mild Severity of Pain-Current: mild Modifying Factors: Improves With: nothing Associated Symptoms: denies symptoms Prior Chest Pain/Cardiac Workup: angina Nitro Today/Relief: no nitro taken today Aspirin Treatment Today: 81 mg x 4, provided by ED Allergies/Adverse Reactions: butorphanol tartrate [From Stadol] Allergy (Verified 10/01/18 22:39) Sulfa (Sulfonamide Antibiotics) Allergy (Verified 10/01/18 22:39) tizanidine [From Zanaflex] Allergy (Verified 10/01/18 22:39) Home Medications: Duloxetine HCl [Cymbalta] 60 mg PO DAILY 07/29/14 [History] Amlodipine Besylate 5 mg [Norvasc 5 mg] 5 mg PO HS 11/20/14 [History] Melatonin/Pyridoxine HCl (B6) [Melatonin 1 mg Tablet] 2 tab PO HS 11/27/15 [ History] Metformin HCl 500 mg [Glucophage 500 MG] 500 mg PO TID 11/27/15 [History] Oxybutynin Chloride 5 mg PO BID 11/27/15 [History] Levothyroxine Sodium 75 Mcg [Synthroid 75 Mcg] 75 mcg PO DAILY 02/11/16 [ History] Cyclobenzaprine HCl 10 mg [Cyclobenzaprine 10 MG] 10 mg PO HS 02/18/17 [ History] Ropinirole HCl [Requip] 1 mg PO HS 04/16/17 [History] Albuterol Sulfate [Proair Hfa] 8.5 gm IH Q4-6HPRN PRN 07/20/17 [History] Modafinil 100 mg [Provigil 100MG Tablet] 100 mg PO DAILY 11/03/17 [History ] Ranitidine HCl [Zantac] 150 mg PO BID 11/03/17 [History] Omeprazole [Prilosec] 40 mg PO DAILY 01/06/18 [History] Budesonide [Budesonide EC] 3 mg PO DAILY 10/01/18 [History] Bupropion HCl 150 mg Sr [Wellbutrin SR 150 MG] 150 mg PO HS 10/01/18 [ History] Ferrous Sulfate 325 mg PO DAILY 10/01/18 [History] Glipizide [Glipizide ER] 2.5 mg PO DAILY 10/01/18 [History] Lubiprostone [Amitiza] 24 mcg PO BID 10/01/18 [History] Hx Tetanus, Diphtheria Vaccination/Date Given: Yes Hx Influenza Vaccination/Date Given: Yes Hx Pneumococcal Vaccination/Date Given: Yes - Review of Systems Constitutional: No Fever, No Chills Eyes: No Symptoms Ears, Nose, & Throat: No Symptoms Respiratory: No Symptoms, No Cough, No Dyspnea Cardiac: Chest Pain, No Edema, No Syncope Abdominal/Gastrointestinal: No Symptoms, No Abdominal Pain, No Nausea, No Vomiting, No Diarrhea Genitourinary Symptoms: No Symptoms, No Dysuria Musculoskeletal: No Symptoms, No Back Pain, No Neck Pain Skin: No Rash Neurological: No Dizziness, No Focal Weakness, No Sensory Changes Psychological: No Symptoms Endocrine: No Symptoms All Other Systems: Reviewed and Negative - Past Medical History Pertinent Past Medical History: Yes Neurological History: Migraines ENT History: Cataracts Cardiac History: Hypertension Respiratory History: COPD Endocrine Medical History: Diabetes Type II, Hypothyroidism Musculoskeletal History: Arthritis, Fibromyalgia GI Medical History: GERD, Gallbladder Disease, Hernia History: No Pertinent History Psycho-Social History: Depression Female Reproductive Disorders: No Pertinent History Other Medical History: SEE CHART FOR PMH AND PSH; PT. HAS HAD 2 C-SPINE SXS - Past Surgical History Past Surgical History: Yes Neuro Surgical History: No Pertinent History Cardiac: No Pertinent History Respiratory: No Pertinent History Gastrointestinal: Appendectomy, Cholecystectomy Genitourinary: No Pertinent History Musculoskeletal: Orthopedic Surgery Female Surgical History: Hysterectomy, Tubal Ligation Other Surgical History: 2nd toe right foot, fractured right shoulder, filmed lasered off right eye, gaglion cyst removed, cataracts, bunion and tumor removed left foot, bunion right foot, tonsils, microscopic anterior cervical diskectomy with interbody fusion c5-6 - Social History Smoking Status: Never smoker Exposure to second hand smoke: No Alcohol Use: None Drug Use: none Patient Lives Alone: Yes - Nursing Vital Signs Nursing Vital Signs: Initial Vital Signs Temperature 99.2 F 10/01/18 22:11 Pulse Rate 63 10/01/18 22:11 Respiratory Rate 20 10/01/18 22:11 Blood Pressure 118/67 10/01/18 22:11 O2 Sat by Pulse Oximetry 99 10/01/18 22:11 Pain Scale Pain Intensity 5 - Physical Exam General Appearance: no apparent distress, alert Eye Exam: PERRL/EOMI, eyes nml inspection Ears, Nose, Throat Exam: normal ENT inspection, moist mucous membranes Neck Exam: normal inspection, non-tender, supple, full range of motion Respiratory Exam: normal breath sounds, lungs clear, No respiratory distress Cardiovascular Exam: regular rate/rhythm, normal heart sounds Gastrointestinal/Abdomen Exam: soft, normal bowel sounds, other (MINIMAL LLQ TENDERNESS), No tenderness, No mass Back Exam: normal inspection, CVA tenderness (LEFT ), No vertebral tenderness Extremity Exam: normal inspection, normal range of motion Neurologic Exam: alert, oriented x 3, cooperative, normal mood/affect, sensation nml, No motor deficits Skin Exam: normal color, warm, dry SpO2 Interpretation: normal SpO2: 98 O2 Delivery: Room Air - Course EKG Interpreted by Me: RATE, Sinus Rhythm, NORMAL AXIS (RATE 61) - Radiology Exams Chest X-ray Interpretation: Interpreted by me, Negative, No Infiltrates Ordered Tests: Active Orders 24 hr Category Date Time Status Fish Peddler STAT Care 10/01/18 22:09 Active EKG-ER Only STAT Care 10/01/18 22:09 Active Oxygen-ED Only Nasal Cannula 2 lpm Care 10/01/18 22:09 Active CHEST 1 VIEW (PORTABLE) Stat Exams 10/01/18 22:09 Taken TROPONIN Q3H Lab 10/01/18 22:40 Completed TROPONIN Q3H Lab 10/02/18 01:15 Ordered TROPONIN Q3H Lab 10/02/18 04:15 Ordered TROPONIN Q3H Lab 10/02/18 07:15 Ordered TROPONIN Q3H Lab 10/02/18 10:15 Ordered Medication Summary Generic Name Dose Route Start Last Admin Trade Name Fredante PRN Reason Stop Dose Admin Sodium Chloride 1,000 mls @ 50 mls/hr 10/01/18 22:15 10/01/18 22:33 Sodium Chloride 0.9% 1000 Ml IV 10/31/18 22:14 50 mls/hr .Q20H DRISS Administration Discontinued Medications Generic Name Dose Route Start Last Admin Trade Name Freq PRN Reason Stop Dose Admin Aspirin 324 mg 10/01/18 22:09 10/01/18 22:32 Baby Aspirin 81 Mg Chew PO 10/01/18 22:10 324 mg STAT ONE Administration Nitroglycerin 0.4 mg 10/01/18 22:09 10/01/18 22:32 Nitrostat 0.4 Mg (Ed) SL 10/01/18 22:10 0.4 mg STAT ONE Administration Nitroglycerin 1 gm 10/01/18 22:09 10/01/18 22:35 Nitro-Bid 2% Ud Packets TOP 10/01/18 22:10 1 gm STAT ONE Administration Nitroglycerin Confirm 10/01/18 22:35 Nitro-Bid 2% Ud Packets Administered 10/01/18 22:36 Dose 1 gm .ROUTE .STK-MED ONE Nitroglycerin Confirm 10/01/18 22:35 Nitrostat 0.4 Mg (Ed) Administered 10/01/18 22:36 Dose 0.4 mg SL .STK-MED ONE Lab/Rad Data: Laboratory Results 10/01/18 Range/Units 22:40 Troponin I < 0.012 (0.000-0.034) ng/mL - Progress Progress: improved Progress Note: 10/01/18 22:42 IV NORMAL SALINE 50ML/HR, BABY ASPIRIN 324MG ORALLY, NITROPASTE 1" ANTERIOR CHEST WALL, 10/01/18 23:37, CHEST PAIN IMPROVED AFTER NTG 0.4MG SL Discussed with : Sandra (DISCUSSED WITH DR SAHNI AT 2325 FOR OBSERVATION) - Departure Time of Disposition: 23:40 Departure Disposition: Observation Clinical Impression: ACUTE CHEST PAIN, URINARY TRACT INFECTION Condition: Stable Critical Care Time: No Referrals: JAMILA SAHNI [Primary Care Provider] -
[2018-10-01] MEDS ORDERED: NITRO-BID 2% UD PACKETS ONE (22:35)
[2018-10-02] MEDS ORDERED: Zofran 4 MG/2 ML VIAL IV PRN (00:35)
[2018-10-02] MEDS ORDERED: TYLENOL 325 MG PO PRN (00:35)
[2018-10-02] MEDS ORDERED: MILK OF MAGNESIA 30 ML PO PRN (00:35)
[2018-10-02] MEDS ORDERED: Senokot-S Tablet PO PRN (00:35)
[2018-10-02] MEDS ORDERED: MAALOX ES 30 ML UNIT DOSE PO PRN (00:35)
[2018-10-02] MEDS ORDERED: Nitrostat 0.4 MG Tablet SL PRN (00:35)
[2018-10-02] MEDS ORDERED: DUONEB 0.5-3 MG/3 ml Neb IH PRN (00:35)
[2018-10-02 02:53] LABS: Risk Ratio 2.8
[2018-10-02] MEDS: NITRO-BID 2% UD PACKETS TOP SCH ×2 (05:05→15:07)
--- NOTE | 2018-10-02 07:32 | XRAY ---
Indication: Chest pain. Comparison: September 27, 2018. Portable chest less inflated today with new subtle right mid to lower lung infiltrate and small effusion. Remaining heart and left lung unremarkable. Comment: Right lung findings not reported on preliminary interpretation by the interpreting ER clinician. Telephone report given to Dr. Hartman at 1728 hrs. on October 02, 2018.
[2018-10-02] MEDS ORDERED: ROCEPHIN 1 Gm-D5w 50 ml Bag** 1 G/50 ML IVPB IV SCH (10:00)
[2018-10-02] MEDS ORDERED: Pepcid 20 MG PO SCH (10:00)
[2018-10-02] MEDS ORDERED: AMITIZA PO SCH (10:00)
[2018-10-02] MEDS ORDERED: SYNTHROID 75 MCG PO SCH (10:00)
[2018-10-02] MEDS ORDERED: NORVASC 5 MG PO SCH (10:00)
[2018-10-02] MEDS ORDERED: Cymbalta 30 MG Capsule PO SCH (10:00)
[2018-10-02] MEDS ORDERED: Ecotrin 325 MG PO SCH (10:00)
[2018-10-02] MEDS ORDERED: Provigil 100MG Tablet PO SCH (10:00)
[2018-10-02] MEDS ORDERED: ACETAMINOPHEN WITH CODEINE PO PRN (12:59)
[2018-10-02] MEDS ORDERED: Tylenol #3 Tablet PO PRN (13:18)
[2018-10-02] MEDS ORDERED: MEDICATION INTERVENTION MC PRN (13:24)
[2018-10-02] MEDS ORDERED: Protonix 40MG Tablet PO SCH (13:30)
[2018-10-02] MEDS ORDERED: Glucotrol Xl 2.5 MG PO SCH (13:30)
[2018-10-02] MEDS ORDERED: MEDICATION INTERVENTION MC SCH (13:30)
--- NOTE | 2018-10-02 14:43 | PCM.SSS ---
History of Present Illness - Chief Complaint Chief Complaint: ACUTE CHEST PAIN History of Present Illness: is a 78 year old female pt of mine from [facility] with DM, spinal stenosis , HTN, and depression who came to ER complaining of increase in R lower back pain. She was found to have a UTI, treated and was going to be released to home when she started complaining of chest pain so she was kept to r/o TX. Her CP was 7/10, substernal dull pain radiating to R jaw. She did have some associated SOB but no palpitations or nausea. Her troponins were negative x 5 and her CP is resolved. EKG was sinus bradycardia (59 bpm) with no ST changes. Labs were benign - amylase/lipase nl, CMP nl. CBC with nl WBC (5) and hgb 10.3. Plt 232. Her low back pain is chronically 2-3/10, but yesterday was 7/10 and lasted all day. This morning it is 1/10. Will send pt home on the macrobid that Dr. Conh originally prescribed for her as she was leaving the ER. She will f/u with Dr. Stover as planned for her chronic back pain. - Review of Systems Cardiac: Chest Pain (resolved) Abdominal/Gastrointestinal: Nausea, No Vomiting Genitourinary Symptoms: Dysuria Musculoskeletal: Back Pain Psychological: Anxiety, Other (chronic dyskinesia) All Other Systems: Reviewed and Negative Medications & Allergies Home Medications: Home Medication List Duloxetine HCl [Cymbalta] 60 mg PO DAILY 07/29/14 [History Confirmed 10/02/18] Amlodipine Besylate 5 mg [Norvasc 5 mg] 5 mg PO HS 11/20/14 [History Confirmed 10/02/18] Melatonin/Pyridoxine HCl (B6) [Melatonin 1 mg Tablet] 2 tab PO HS 11/27/15 [ History Confirmed 10/02/18] Metformin HCl 500 mg [Glucophage 500 MG] 500 mg PO TID 11/27/15 [History Confirmed 10/02/18] Oxybutynin Chloride 5 mg PO BID 11/27/15 [History Confirmed 10/02/18] Levothyroxine Sodium 75 Mcg [Synthroid 75 Mcg] 75 mcg PO DAILY 02/11/16 [ History Confirmed 10/02/18] Cyclobenzaprine HCl 10 mg [Cyclobenzaprine 10 MG] 10 mg PO HS 02/18/17 [ History Confirmed 10/02/18] Ropinirole HCl [Requip] 1 mg PO HS 04/16/17 [History Confirmed 10/02/18] Albuterol Sulfate [Proair Hfa] 8.5 gm IH Q4-6HPRN PRN 07/20/17 [History Confirmed 10/02/18] Modafinil 100 mg [Provigil 100MG Tablet] 100 mg PO DAILY 11/03/17 [ History Confirmed 10/02/18] Ranitidine HCl [Zantac] 150 mg PO BID 11/03/17 [History Confirmed 10/02/18] Omeprazole [Prilosec] 40 mg PO DAILY 01/06/18 [History Confirmed 10/02/18] Budesonide [Budesonide EC] 3 mg PO DAILY 10/01/18 [History Confirmed 10/02/18] Bupropion HCl 150 mg Sr [Wellbutrin SR 150 MG] 150 mg PO HS 10/01/18 [ History Confirmed 10/02/18] Ferrous Sulfate 325 mg PO DAILY 10/01/18 [History Confirmed 10/02/18] Glipizide [Glipizide ER] 2.5 mg PO DAILY 10/01/18 [History Confirmed 10/02/18] Lubiprostone [Amitiza] 24 mcg PO BID 10/01/18 [History Confirmed 10/02/18] Acetaminophen with Codeine [Acetaminophen-Cod #4 Tablet] 1 tab PO Q6HPRN PRN [History Confirmed 10/02/18] Fluticasone Propionate [Flonase NASAL] 1 spray IH DAILY 10/02/18 [History Confirmed 10/02/18] Nitrofurantoin Monohyd/M-Cryst [Macrobid 100 mg Capsule] 100 mg PO BID #14 capsule 10/02/18 [Rx] Allergies/Adverse Reactions: Allergies Allergy/AdvReac Type Severity Reaction Status Date / Time butorphanol tartrate Allergy Verified 10/01/18 22:39 [From Stadol] Sulfa (Sulfonamide Allergy Verified 10/01/18 22:39 Antibiotics) tizanidine [From Zanaflex] Allergy Verified 10/01/18 22:39 - Past Medical History Past Medical History: Yes Neurological History: Migraines ENT History: Cataracts Cardiac History: Hypertension Respiratory History: COPD Endocrine Medical History: Diabetes Type II, Hypothyroidism Musculoskelatal History: Arthritis, Fibromyalgia GI Medical History: GERD, Gallbladder Disease, Hernia History: No Pertinent History Pyscho-Social History: Depression Reproductive Disorders: No Pertinent History Comment: SEE CHART FOR PMH AND PSH; PT. HAS HAD 2 C-SPINE SXS - Female History Are you now?: No - Past Surgical History Past Surgical History: Yes Neuro Surgical History: No Pertinent History Cardiac History: No Pertinent History Respiratory Surgery: No Pertinent History GI Surgical History: Appendectomy, Cholecystectomy Genitourinary Surgical Hx: No Pertinent History Musculskeletal Surgical Hx: Orthopedic Surgery Female Surgical History: Hysterectomy, Tubal Ligation Other Surgical History: 2nd toe right foot, fractured right shoulder, filmed lasered off right eye, gaglion cyst removed, cataracts, bunion and tumor removed left foot, bunion right foot, tonsils, microscopic anterior cervical diskectomy with interbody fusion c5-6 - Social History Smoking Status: Never smoker Exposure to second hand smoke: No Alcohol: None Drug Use: none - Physical Exam Vital Signs: Vital Signs - 24 hr Temp Pulse Resp BP Pulse Ox 10/02/18 11:41 98.7 F 59 L 16 100/52 100 10/02/18 09:52 56 L 16 98 10/02/18 08:00 98.8 F 65 16 116/60 100 10/02/18 04:15 98.5 F 64 18 116/57 100 10/02/18 01:12 57 L 18 99 10/02/18 01:03 98.7 F 56 L 20 106/52 100 10/01/18 23:38 98 10/01/18 23:20 99.3 F 64 18 109/66 96 10/01/18 22:11 99.2 F 63 20 118/67 99 Oxygen-Last 24 hours O2 Percentage 2 Liters = 28% O2 Percentage 2 Liters = 28% O2 Percentage 2 Liters = 28% O2 Percentage 2 Liters = 28% O2 Percentage 2 Liters = 28% O2 Percentage 2 Liters = 28% O2 Percentage 2 Liters = 28% General Appearance: no apparent distress, alert Neurologic Exam: oriented x 3, cooperative, other (fidgeting movements throughout the exam; increased from baseline) Ears, Nose, Throat Exam: moist mucous membranes Neck Exam: normal inspection Respiratory Exam: normal breath sounds, lungs clear, No crackles/rales, No rhonchi, No wheezing Cardiovascular Exam: regular rate/rhythm, normal heart sounds, No murmur Gastrointestinal/Abdomen Exam: soft, normal bowel sounds, No tenderness, No distention, No mass, No guarding, No rebound Back Exam: CVA tenderness (Left), other (spine deviates to the L inferiorly) Extremity Exam: normal inspection, No pedal edema, No swelling Skin Exam: normal color, warm, dry, No rash Results - Labs Lab/Micro Results: Accuchecks Accucheck Value: 148 Accucheck Value: 106 Lab Results-Last 24 Hours 10/01/18 10/02/18 10/02/18 Range/Units 22:40 01:30 01:30 Troponin I < 0.012 < 0.012 (0.000-0.034) ng/mL Triglycerides 72 (30-150) mg/dL Cholesterol 164 (50-200) mg/dL LDL Cholesterol 93 (30-100) mg/dL HDL Cholesterol 58 (40-60) mg/dL Heart Disease Risk Ratio 2.8 10/02/18 10/02/18 10/02/18 Range/Units 04:45 07:30 10:20 Troponin I < 0.012 < 0.012 < 0.012 (0.000-0.034) ng/mL Triglycerides (30-150) mg/dL Cholesterol (50-200) mg/dL LDL Cholesterol (30-100) mg/dL HDL Cholesterol (40-60) mg/dL Heart Disease Risk Ratio Accuchecks Accucheck Value: 148 Accucheck Value: 106 - Radiology Impressions Radiology Exams & Impressions: Radiology Procedures Category Date Time Status CHEST 1 VIEW (PORTABLE) Stat Exams 10/01/18 22:09 Completed - Other Procedures and Tests Respiratory Therapy 10/02/18 00:35 Oxygen Nasal Cannula 2 lpm 10/02/18 01:12 Respiratory Therapy Assessment PRN 10/03/18 05:00 EKG ROUTINE 10/04/18 05:00 EKG ROUTINE 10/05/18 05:00 EKG ROUTINE Assessment/Plan (1) Chest pain Current Visit: Yes Status: Acute Qualifiers: Chest pain type: other chest pain Qualified Code(s): R07.89 - Other chest pain; R07.8 - Other chest pain Assessment & Plan: TX ruled out. I think likely due to stress. Will discuss again at follow up in my office in 1 week. Code(s): R07.9 - CHEST PAIN, UNSPECIFIED (2) UTI (urinary tract infection) Current Visit: Yes Status: Acute Code(s): N39.0 - URINARY TRACT INFECTION, SITE NOT SPECIFIED Hospital Summary - Hospital Course Hospital Course: Pt admitted with CP and UTI. Troponins neg x 5. Feeling much better this morning; chest pain resolved. Home on macrobid and f/u wiht me in office in 1 week. - Vitals & Intake/Output Vital Signs: Vital Signs Temperature 98.7 F 10/02/18 11:41 Pulse Rate 59 L 10/02/18 11:41 Respiratory Rate 16 10/02/18 11:41 Blood Pressure 100/52 10/02/18 11:41 O2 Sat by Pulse Oximetry 100 10/02/18 11:41 Oxygen-Last Documented O2 Percentage 2 Liters = 28% Intake & Output: Intake & Output 09/30/18 10/01/18 10/02/18 10/03/18 11:59 11:59 11:59 11:59 Intake Total 596 480 Output Total 500 900 Balance 96 -420 Weight 60.9 kg - Lab Lab Results-Last 24 Hrs: Accuchecks Accucheck Value: 148 Accucheck Value: 106 Lab Results-Last 24 Hours 10/01/18 10/02/18 10/02/18 Range/Units 22:40 01:30 01:30 Troponin I < 0.012 < 0.012 (0.000-0.034) ng/mL Triglycerides 72 (30-150) mg/dL Cholesterol 164 (50-200) mg/dL LDL Cholesterol 93 (30-100) mg/dL HDL Cholesterol 58 (40-60) mg/dL Heart Disease Risk Ratio 2.8 10/02/18 10/02/18 10/02/18 Range/Units 04:45 07:30 10:20 Troponin I < 0.012 < 0.012 < 0.012 (0.000-0.034) ng/mL Triglycerides (30-150) mg/dL Cholesterol (50-200) mg/dL LDL Cholesterol (30-100) mg/dL HDL Cholesterol (40-60) mg/dL Heart Disease Risk Ratio Micro Results-Entire Visit: Accuchecks Accucheck Value: 148 Accucheck Value: 106 - Radiology Exams Ordered Rad Exams-Entire Visit: Radiology Procedures Category Date Time Status CHEST 1 VIEW (PORTABLE) Stat Exams 10/01/18 22:09 Completed - Procedures and Test Procedures and Tests throughout Hospitalization: Therapy Orders & Screens 10/02/18 00:35 EKG Q8HX2,QAMX3,PRN Comment: Oxygen Nasal Cannula 2 lpm Comment: 10/02/18 01:12 Respiratory Therapy Assessment PRN Comment: Diagnosis: ACUTE CHEST PAIN 10/02/18 06:00 EKG ROUTINE Comment: Diagnosis: ACUTE CHEST PAIN 10/03/18 05:00 EKG ROUTINE Comment: Diagnosis: ACUTE CHEST PAIN 10/04/18 05:00 EKG ROUTINE Comment: Diagnosis: ACUTE CHEST PAIN 10/05/18 05:00 EKG ROUTINE Comment: Diagnosis: ACUTE CHEST PAIN - Discharge Disposition: Home, Self-Care Condition: Good Prescriptions: New Nitrofurantoin Monohyd/M-Cryst [Macrobid 100 mg Capsule] 100 mg PO BID #14 capsule Continue Duloxetine HCl [Cymbalta] 60 mg PO DAILY Amlodipine Besylate 5 mg [Norvasc 5 mg] 5 mg PO HS Melatonin/Pyridoxine HCl (B6) [Melatonin 1 mg Tablet] 2 tab PO HS Metformin HCl 500 mg [Glucophage 500 MG] 500 mg PO TID Oxybutynin Chloride 5 mg PO BID Levothyroxine Sodium 75 Mcg [Synthroid 75 Mcg] 75 mcg PO DAILY Cyclobenzaprine HCl 10 mg [Cyclobenzaprine 10 MG] 10 mg PO HS Ropinirole HCl [Requip] 1 mg PO HS Albuterol Sulfate [Proair Hfa] 8.5 gm IH Q4-6HPRN PRN PRN Reason: Shortness Of Breath/Wheezing Ranitidine HCl [Zantac] 150 mg PO BID Modafinil 100 mg [Provigil 100MG Tablet] 100 mg PO DAILY Omeprazole [Prilosec] 40 mg PO DAILY Budesonide [Budesonide EC] 3 mg PO DAILY Lubiprostone [Amitiza] 24 mcg PO BID Glipizide [Glipizide ER] 2.5 mg PO DAILY Bupropion HCl 150 mg Sr [Wellbutrin SR 150 MG] 150 mg PO HS Ferrous Sulfate 325 mg PO DAILY Fluticasone Propionate [Flonase NASAL] 1 spray IH DAILY Acetaminophen with Codeine [Acetaminophen-Cod #4 Tablet] 1 tab PO Q6HPRN PRN PRN Reason: Pain Follow up with: JAMILA SAHNI [Primary Care Provider] - 1 Week
[2018-10-02 16:51] VITALS: BP 121/53; PULSE 73; O2SAT 96
[2018-10-02] MEDS ORDERED: Glucophage 500 MG PO SCH (17:00)
[2018-10-02] MEDS ORDERED: MELATONIN PO SCH (22:00)
[2018-10-02] MEDS ORDERED: PYRIDOXINE HCL PO SCH (22:00)
[2018-10-02] MEDS ORDERED: Requip 0.5 MG PO SCH (22:00)
[2018-10-02] MEDS ORDERED: Cyclobenzaprine 10 MG PO SCH (22:00)
[2018-10-02] MEDS ORDERED: Ditropan 5 MG PO SCH (22:00)
[2018-10-02] MEDS ORDERED: Wellbutrin SR 150 MG PO SCH (22:00)
[2018-10-03] MEDS ORDERED: NON-FORMULARY ITEM (Omeprazole [Prilosec] 40 MG) PO SCH (10:00)
[2018-10-03] MEDS ORDERED: NON-FORMULARY ITEM (Budesonide [Budesonide Ec] 3 MG) PO SCH (10:00)
[2018-10-03] MEDS ORDERED: FEOSOL 325 MG PO SCH (10:00)
[2018-10-03] MEDS ORDERED: Flonase NASAL NS SCH (10:00)
== END 2018-10-02 16:20 | disposition home or self-care (01) ==
LOC: ED 22:01 → MED SURG 10-02 00:30
PROVIDERS: ADMIT Family Medicine; ATTEND Family Medicine
DX: R07.89 Other chest pain (principal); N39.0 Urinary tract infection, site not specified; E11.9 Type 2 diabetes mellitus without complications; Z79.4 Long term (current) use of insulin; G47.30 Sleep apnea, unspecified; F32.9 Major depressive disorder, single episode, unspecified; M79.7 Fibromyalgia; E03.9 Hypothyroidism, unspecified; K21.9 Gastro-esophageal reflux disease without esophagitis; J44.9 Chronic obstructive pulmonary disease, unspecified; Z79.899 Other long term (current) drug therapy
CPT/HCPCS: 36415; 71045; 80061; 82962; 83721; 84484; 93005; 93041; 93268; 94760; 99285; G0378; J0696; A9270-GY

== ENCOUNTER 2019-12-22 19:35 | Emergency (ER) | payer MEDICARE ==
--- NOTE | 2019-12-22 19:57 | ERPHSYRPT ---
- History of Present Illness Time Seen by Provider: 12/22/19 19:50 Source: patient Exam Limitations: no limitations Patient Subjective Stated Complaint: pt c/o back pain x4 days, and has gotten worse. Triage Nursing Assessment: pt c/o low back pain across the small of back area. Pt states, "I've had this pain x4 days but its gotten worse". Pt states, "I have fallen 6 times since August". Physician History: This is an 79-year-old white female who has chronic back pain issues. She is following 6 times since August per her report. The last time she fell was 6 weeks ago. Patient is a patient of Dr. Guevara. She no longer sees a pain specialist. Patient was receiving 2 weeks worth of tramadol pain medication. Her last prescription ended 1 week ago. Patient did not have x-rays of her lumbar spine or left hip since her fall 6 weeks ago. Patient has not been using any pain medicine per her report in the last week Timing/Duration: worse, other (Chronic worse in the last 4 days) Method of Injury: fall (6 weeks ago) Quality: sharp, stabbing Back Pain Location: lumbar spine Back Pain Radiation: buttocks (Left hip and buttock) Severity of Pain-Max: moderate Severity of Pain-Current: moderate Associated Symptoms: lower back pain, muscle spasms Previous symptoms: same symptoms as today Allergies/Adverse Reactions: butorphanol tartrate [From Stadol] Allergy (Verified 06/03/19 10:44) Sulfa (Sulfonamide Antibiotics) Allergy (Verified 06/03/19 10:44) tizanidine [From Zanaflex] Allergy (Verified 06/03/19 10:44) Home Medications: Duloxetine HCl [Cymbalta] 60 mg PO DAILY 07/29/14 [History] Amlodipine Besylate 5 mg [Norvasc 5 mg] 5 mg PO HS 11/20/14 [History] Melatonin/Pyridoxine HCl (B6) [Melatonin 1 mg Tablet] 3 mg PO HS 11/27/15 [ History] Metformin HCl 500 mg [Glucophage 500 MG] 500 mg PO TID 11/27/15 [History] Oxybutynin Chloride 5 mg PO BID 11/27/15 [History] Levothyroxine Sodium 75 Mcg [Synthroid 75 Mcg] 75 mcg PO DAILY 02/11/16 [ History] Cyclobenzaprine HCl 10 mg [Cyclobenzaprine 10 MG] 10 mg PO HS 02/18/17 [ History] Ropinirole HCl [Requip] 1 mg PO HS 04/16/17 [History] Omeprazole [Prilosec] 40 mg PO DAILY 01/06/18 [History] Bupropion HCl 150 mg Sr [Wellbutrin SR 150 MG] 150 mg PO HS 10/01/18 [ History] Acetaminophen with Codeine [Acetaminophen-Cod #4 Tablet] 1 tab PO Q6HPRN PRN [History] Fluticasone Propionate [Flonase NASAL] 1 spray IH DAILY 10/02/18 [History] Ascorbic Acid 500 mg [Vitamin C 500 MG] 500 mg PO DAILY 12/22/19 [History] Budesonide/Formoterol Fumarate [Symbicort 160-4.5 Mcg Inhaler] 2 puffs PO DAILY PRN PRN 12/22/19 [History] Cyanocobalamin (Vitamin B-12) [Vitamin B-12] 1,000 mcg PO DAILY 12/22/19 [ History] Famotidine 20 mg PO BID 12/22/19 [History] Memantine HCl 5 mg [Namenda 5 MG] 5 mg PO BID 12/22/19 [History] Modafinil [Provigil] 200 mg PO DAILY 12/22/19 [History] Hx Tetanus, Diphtheria Vaccination/Date Given: Yes Hx Influenza Vaccination/Date Given: Yes Hx Pneumococcal Vaccination/Date Given: Yes Immunizations Up to Date: Yes Travel Risk - International Travel Have you traveled outside of the country in past 3 weeks: No Have you or anyone close to you been diagnosed with or: No Do your reside in a community with a known COVID-19 case?: Yes If Yes where:: [place] - Coronavirus Screening Has patient experienced Coronavirus symptoms: No - Review of Systems Constitutional: No Symptoms Eyes: No Symptoms Ears, Nose, & Throat: No Symptoms Respiratory: No Symptoms Cardiac: No Symptoms Abdominal/Gastrointestinal: No Symptoms Genitourinary Symptoms: No Symptoms Musculoskeletal: Back Pain, Fall, Injury (6 weeks ago fall) Skin: No Symptoms Neurological: No Symptoms Psychological: No Symptoms Endocrine: No Symptoms Hematologic/Lymphatic: No Symptoms Immunological/Allergic: No Symptoms All Other Systems: Reviewed and Negative - Past Medical History Pertinent Past Medical History: Yes Neurological History: Migraines ENT History: Cataracts Cardiac History: Hypertension Respiratory History: COPD Endocrine Medical History: Diabetes Type II, Hypothyroidism Musculoskeletal History: Arthritis, Fibromyalgia GI Medical History: GERD, Gallbladder Disease, Hernia History: No Pertinent History Psycho-Social History: Depression Female Reproductive Disorders: No Pertinent History Other Medical History: SEE CHART FOR PMH AND PSH; PT. HAS HAD 2 C-SPINE SXS - Past Surgical History Past Surgical History: Yes Neuro Surgical History: No Pertinent History Cardiac: No Pertinent History Respiratory: No Pertinent History Gastrointestinal: Appendectomy, Cholecystectomy Genitourinary: No Pertinent History Musculoskeletal: Orthopedic Surgery Female Surgical History: Hysterectomy, Tubal Ligation Other Surgical History: 2nd toe right foot, fractured right shoulder, filmed lasered off right eye, gaglion cyst removed, cataracts, bunion and tumor removed left foot, bunion right foot, tonsils, microscopic anterior cervical diskectomy with interbody fusion c5-6, plate to cervical - Social History Smoking Status: Never smoker Exposure to second hand smoke: No Alcohol Use: None Drug Use: none Patient Lives Alone: Yes - Female History Hx Now: No - Nursing Vital Signs Nursing Vital Signs: Initial Vital Signs Temperature 98.3 F 12/22/19 19:42 Pulse Rate 78 12/22/19 19:42 Respiratory Rate 17 12/22/19 19:42 Blood Pressure 185/84 12/22/19 19:42 O2 Sat by Pulse Oximetry 100 12/22/19 19:42 Pain Scale Pain Intensity [Back] 7 Pain Intensity 7 - Physical Exam General Appearance: no apparent distress, alert, anxiety Eye Exam: PERRL/EOMI, eyes nml inspection Ears, Nose, Throat Exam: normal ENT inspection, moist mucous membranes Neck Exam: normal inspection, non-tender, supple, full range of motion Respiratory Exam: airway intact, No chest tenderness, No respiratory distress Gastrointestinal Exam: No tenderness Pelvic Exam: not done Rectal Exam: not done Back Exam: normal inspection, normal range of motion, muscle spasm (Lower lumbar region), No CVA tenderness, No vertebral tenderness Extremity Exam: normal inspection, normal range of motion, pelvis stable Neurologic Exam: alert, oriented x 3, cooperative, 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 Skin Exam: normal color, warm, dry Lymphatic Exam: No adenopathy SpO2 Interpretation: normal SpO2: 100 O2 Delivery: Room Air - Course Nursing assessment & vital signs reviewed: Yes Ordered Tests: Active Orders 24 hr Category Date Time Status Isolation, Initiate & Maintain Q4H Care 12/22/19 19:55 Active HIP UNI (2V) INCL PEL IF DONE Stat Exams 12/22/19 20:02 Taken LUMBAR LIMITED (2 OR 3 VIEWS) Stat Exams 12/22/19 20:03 Taken Medication Summary Generic Name Dose Route Start Last Admin Trade Name Paulq PRN Reason Stop Dose Admin Lorazepam 0.5 mg 12/22/19 20:35 Ativan 2 Mg/1 Ml Vial IM 12/22/19 20:36 STAT ONE Methylprednisolone Sodium Succinate 125 mg 12/22/19 20:35 Solu-Medrol 125 Mg IM 12/22/19 20:36 STAT ONE Tramadol HCl 100 mg 12/22/19 20:37 Ultram 50 Mg PO 12/22/19 20:38 STAT ONE - Progress Progress: improved, pain not gone completely, re-examined Progress Note: 12/22/19 20:38 X-ray of the left hip reveals no acute fracture or dislocation. The x-ray of the lumbar spine shows chronic changes but no acute fracture or subluxation. Medical decision making: This patient has chronic back pain, pain issues. Patient is out of her tramadol. The patient states that Percocet does not help her so I am avoiding that medication here in the emergency department. She stated that tramadol 100 mg to help her pain but she is out of her tramadol medication. Patient will be given Ativan intramuscularly, Solu-Medrol intramuscularly, and 100 mg of tramadol. I do not see an acute fracture, dislocation or subluxation on her x-ray studies. Patient is to follow-up with Dr. Jacobs tomorrow for further pain management. I will provide a prescription for tramadol short-term as well as prednisone. Patient states that she cannot take anything with codeine-based because of liver issues 12/22/19 20:43 Counseled pt/family regarding: diagnosis, need for follow-up, rad results - Departure Departure Disposition: Home Clinical Impression: Back pain, Left hip pain Condition: Stable Critical Care Time: No Referrals: JAMILA SAHNI [Primary Care Provider] - Additional Instructions: Call Dr. Menard office tomorrow for further management of your pain. 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 Prescriptions: Prednisone 10 mg [Deltasone 10 mg] 10 mg PO TID #12 tablet Tramadol HCl 50 mg [Ultram 50 mg] 50 mg PO TID PRN #15 tablet PRN Reason: Moderate To Severe Pain
[2019-12-22] MEDS ORDERED: solu-MEDROL 125 MG IM ONE (20:35)
[2019-12-22] MEDS ORDERED: Ativan 2 MG/1 ML VIAL IM ONE (20:35)
[2019-12-22] MEDS ORDERED: ULTRAM 50 MG PO ONE (20:37)
[2019-12-22] MEDS ORDERED: ULTRAM 50 MG ONE (20:42)
[2019-12-22] MEDS ORDERED: Ativan 2 MG/1 ML VIAL ONE (20:42)
[2019-12-22] MEDS ORDERED: solu-MEDROL 125 MG ONE (20:42)
[2019-12-22 21:04] VITALS: BP 150/67; PULSE 64; O2SAT 98
--- NOTE | 2019-12-23 08:33 | XRAY ---
Indication: Pain following fall in August 2019. Comparison: February 28, 2016. 2 view left hip demonstrates stable osteopenia and mild acetabular spurring with tiny heterotopic ossification. No new/acute bony, articular, or soft tissue abnormalities.
--- NOTE | 2019-12-23 08:39 | XRAY ---
Indication: Pain following fall August 2019. Comparison: July 02, 2015. 3 view lumbar spine again demonstrates osteopenia, moderate/advanced multilevel degenerative spondylosis, moderate levorotoscoliosis, minimal grade 1 L3/L4 retrolisthesis, right abdomen surgical clips, and diffuse fecal stasis. No new/acute findings.
== END 2019-12-22 21:15 | disposition home or self-care (01) ==
LOC: ED 19:35
DX: M54.5 Low back pain (principal); G89.29 Other chronic pain; M25.552 Pain in left hip; F45.42 Pain disorder with related psychological factors; M62.830 Muscle spasm of back; R29.6 Repeated falls; Z79.899 Other long term (current) drug therapy; I10 Essential (primary) hypertension; E11.9 Type 2 diabetes mellitus without complications; K21.9 Gastro-esophageal reflux disease without esophagitis; E03.9 Hypothyroidism, unspecified; F32.9 Major depressive disorder, single episode, unspecified
CPT/HCPCS: 72100; 73502; 96372; 99284; J2060; J2930; A9270-GY

== ENCOUNTER 2020-02-24 10:25 | Emergency (ER) | payer MEDICARE ==
--- NOTE | 2020-02-24 10:33 | ERPHSYRPT ---
- History of Present Illness Time Seen by Provider: 02/24/20 10:33 Source: patient Exam Limitations: no limitations Physician History: This is a 80-year-old white female with chronic back pain who underwent a back surgery 2 days ago. She also has chronic right hip pain. The back pain has significantly improved after her surgery 2 days ago. However she has persistent right hip pain that is described as shooting pain down her right buttock and posteriorly down her right leg. Patient is on tramadol and the tramadol is not helping the right hip pain. Patient has not had a fall or new injury. She has an appointment with a pain specialist on February 28, 2020. Patient can take tramadol which causes no problems for her. Patient believes she has had morphine in the past without any problems. Method of Injury: other (No acute traumatic injury. Patient did have a surgery 2 days ago but this did not involve the right hip.) Occurred: other (Chronic) Quality: constant, sharpness, stabbing (On no) Severity of Pain-Max: moderate Severity of Pain-Current: moderate Lower Extremities Pain: hip: right Modifying Factors: Improves With: movement Allergies/Adverse Reactions: butorphanol tartrate [From Stadol] Allergy (Verified 02/24/20 10:39) Sulfa (Sulfonamide Antibiotics) Allergy (Verified 02/24/20 10:39) tizanidine [From Zanaflex] Allergy (Verified 02/24/20 10:39) Home Medications: Duloxetine HCl [Cymbalta] 60 mg PO DAILY 07/29/14 [History] Amlodipine Besylate 5 mg [Norvasc 5 mg] 5 mg PO HS 11/20/14 [History] Melatonin/Pyridoxine HCl (B6) [Melatonin 1 mg Tablet] 3 mg PO HS 11/27/15 [History] Metformin HCl 500 mg [Glucophage 500 MG] 500 mg PO TID 11/27/15 [History] Oxybutynin Chloride 5 mg PO BID 11/27/15 [History] Levothyroxine Sodium 75 Mcg [Synthroid 75 Mcg] 75 mcg PO DAILY 02/11/16 [History] Cyclobenzaprine HCl 10 mg [Cyclobenzaprine 10 MG] 10 mg PO HS 07/05/17 [History] Ropinirole HCl [Requip] 1 mg PO HS 04/16/17 [History] Omeprazole [Prilosec] 40 mg PO DAILY 01/06/18 [History] Bupropion HCl 150 mg Sr [Wellbutrin SR 150 MG] 150 mg PO HS 10/01/18 [History] Acetaminophen with Codeine [Acetaminophen-Cod #4 Tablet] 1 tab PO Q6HPRN PRN 10/02/18 [History] Fluticasone Propionate [Flonase NASAL] 1 spray IH DAILY 10/02/18 [History] Ascorbic Acid 500 mg [Vitamin C 500 MG] 500 mg PO DAILY 12/22/19 [History] Budesonide/Formoterol Fumarate [Symbicort 160-4.5 Mcg Inhaler] 2 puffs PO DAILY PRN PRN 12/22/19 [History] Cyanocobalamin (Vitamin B-12) [Vitamin B-12] 1,000 mcg PO DAILY 12/22/19 [History] Famotidine 20 mg PO BID 12/22/19 [History] Memantine HCl 5 mg [Namenda 5 MG] 5 mg PO BID 12/22/19 [History] Modafinil [Provigil] 200 mg PO DAILY 12/22/19 [History] Hx Tetanus, Diphtheria Vaccination/Date Given: Yes Hx Influenza Vaccination/Date Given: Yes Hx Pneumococcal Vaccination/Date Given: Yes Travel Risk - International Travel Have you traveled outside of the country in past 3 weeks: No - Coronavirus Screening Are you exhibiting any of the following symptoms?: No Close contact with a COVID-19 positive Pt in past 14-21 Days: No - Review of Systems Constitutional: No Symptoms Eyes: No Symptoms Ears, Nose, & Throat: No Symptoms Respiratory: No Symptoms Cardiac: No Symptoms Abdominal/Gastrointestinal: No Symptoms Genitourinary Symptoms: No Symptoms Musculoskeletal: Other, No Fall (Right hip pain), No Injury Skin: No Symptoms Neurological: No Symptoms Psychological: No Symptoms Endocrine: No Symptoms Hematologic/Lymphatic: No Symptoms Immunological/Allergic: No Symptoms All Other Systems: Reviewed and Negative - Past Medical History Pertinent Past Medical History: Yes Neurological History: Migraines ENT History: Cataracts Cardiac History: Hypertension Respiratory History: COPD Endocrine Medical History: Diabetes Type II, Hypothyroidism Musculoskeletal History: Arthritis, Fibromyalgia GI Medical History: GERD, Gallbladder Disease, Hernia History: No Pertinent History Psycho-Social History: Depression Female Reproductive Disorders: No Pertinent History Other Medical History: SEE CHART FOR PMH AND PSH; PT. HAS HAD 2 C-SPINE SXS - Past Surgical History Past Surgical History: Yes Neuro Surgical History: No Pertinent History Cardiac: No Pertinent History Respiratory: No Pertinent History Gastrointestinal: Appendectomy, Cholecystectomy Genitourinary: No Pertinent History Musculoskeletal: Orthopedic Surgery Female Surgical History: Hysterectomy, Tubal Ligation Other Surgical History: 2nd toe right foot, fractured right shoulder, filmed lasered off right eye, gaglion cyst removed, cataracts, bunion and tumor removed left foot, bunion right foot, tonsils, microscopic anterior cervical diskectomy with interbody fusion c5-6, plate to cervical - Social History Smoking Status: Never smoker Exposure to second hand smoke: No Alcohol Use: None Drug Use: none Patient Lives Alone: Yes - Nursing Vital Signs Nursing Vital Signs: Initial Vital Signs Temperature 98.3 F 02/24/20 10:34 Pulse Rate 77 02/24/20 10:34 Respiratory Rate 18 02/24/20 10:34 Blood Pressure 150/53 02/24/20 10:34 O2 Sat by Pulse Oximetry 98 02/24/20 10:34 Pain Scale Pain Intensity 10 - Physical Exam General Appearance: mild distress, alert, anxiety Eyes, Ears, Nose, Throat Exam: normal ENT inspection, moist mucous membranes Neck Exam: normal inspection, non-tender, supple, full range of motion Cardiovascular/Respiratory Exam: chest non-tender Gastrointestinal/Abdominal Exam: non-tender Back Exam: normal inspection, normal range of motion, No CVA tenderness, No vertebral tenderness Hips Exam: right: pain, soft tissue tenderness, left: non-tender, normal inspection, normal range of motion, no evidence of injury Legs Exam: bilateral leg: non-tender, normal inspection, normal range of motion, no evidence of injury Knees Exam: bilateral knee: non-tender, normal inspection, normal range of motion, no evidence of injury Ankle Exam: bilateral ankle: non-tender, normal inspection, normal range of motion, no evidence of injury Foot Exam: bilateral foot: non-tender, normal inspection, normal range of motion, no evidence of injury Neuro/Tendon Exam: normal sensation, normal motor functions, normal tendon functions, responds to pain, no evidence tendon injury Mental Status Exam: alert, oriented x 3, cooperative Skin Exam: normal color, warm, dry SpO2 Interpretation: normal O2 Delivery: Room Air - Course Nursing assessment & vital signs reviewed: Yes Ordered Tests: Medication Summary Discontinued Medications Generic Name Dose Route Start Last Admin Trade Name Giuliano PRN Reason Stop Dose Admin Morphine Sulfate 2 mg 02/24/20 11:03 Morphine Sulfate 2 Mg Inj IM 02/24/20 11:04 STAT ONE Ondansetron HCl 4 mg 02/24/20 11:03 Zofran Odt 4 Mg PO 02/24/20 11:04 STAT ONE - Progress Progress: improved, pain not gone completely, re-examined Progress Note: 02/24/20 11:22 Medical decision making: I did not order an x-ray on this patient. Her right hip pain is chronic. Her back pain has significantly improved after her back surgery 2 days ago. However her tramadol pain medication is not helping the right hip pain that has persisted. She did not have any acute traumatic injury to the right hip. This appears to be sciatica. We will treat it as such. She also sees a pain specialist on February 28, 2020. Counseled pt/family regarding: diagnosis - Departure Departure Disposition: Home Clinical Impression: Sciatica Condition: Stable Critical Care Time: No Referrals: JAMILA SAHNI [Primary Care Provider] - Additional Instructions: Continue your tramadol. Fill your prescriptions and take them as prescribed. Keep your appointment with your pain specialist on February 28, 2020. Prescriptions: Carisoprodol 350 mg [Soma 350 mg] 350 mg PO Q12H PRN PRN #10 tablet PRN Reason: Muscle Spasms Prednisone 10 mg [Deltasone 10 mg] 10 mg PO TID #12 tablet
[2020-02-24] MEDS ORDERED: ZOFRAN ODT 4 MG PO ONE (11:03)
[2020-02-24] MEDS ORDERED: MORPHINE SULFATE 2 MG INJ IM ONE (11:03)
[2020-02-24] MEDS ORDERED: ZOFRAN ODT 4 MG ONE (11:24)
[2020-02-24] MEDS ORDERED: MORPHINE SULFATE 2 MG INJ ONE (11:25)
[2020-02-24 12:07] VITALS: BP 124/65; PULSE 72; O2SAT 98
== END 2020-02-24 12:07 | disposition home or self-care (01) ==
LOC: ED 10:25
DX: M54.31 Sciatica, right side (principal); Z79.899 Other long term (current) drug therapy
CPT/HCPCS: 96372; 99283; J2270; Q0162

== ENCOUNTER 2020-04-14 07:58 | Emergency (ER) | payer MEDICARE ==
[2020-04-14 08:17] VITALS: PULSE 81
[2020-04-14] MEDS ORDERED: MORPHINE SULFATE 4 MG INJ IM ONE (08:45)
[2020-04-14] MEDS ORDERED: MORPHINE SULFATE 4 MG INJ ONE (08:52)
--- NOTE | 2020-04-14 08:52 | ERPHSYRPT ---
- History of Present Illness Time Seen by Provider: 04/14/20 08:26 Source: patient Patient Subjective Stated Complaint: Pt states that she has been having right sciatica pain for the past 3 days, pt had 2 back surgeries in the past 10 weeks, stated that Dr. Rosenthal had to place spacing between some discs Triage Nursing Assessment: Pt's brother drove her to the ER, hypertensive, rates right lower back pain as 8/10, pulses normal, no difficuluties with strength, skin n/w/d, doesn't appear to be in any distress Physician History: 30 years old female with history of chronic back pain, sciatica, fibromyalgia presented in the ER with chief complaint of right-sided low back pain with radiation to right buttock for 3 days. Patient recently recently has 2 back surgeries done with spacer placements. Denies this pain different than her pain in the midline back when she had a spacer placement done. Denies any numbness tingling or weakness of right lower extremity. No loss of bowel or bladder control. No fever or chills reported. Denies any fall or trauma. Timing/Duration: day(s) (3), gradual onset, worse Method of Injury: unknown Quality: sharp Back Pain Location: lumbar spine, paraspinous muscles Back Pain Radiation: buttocks Severity of Pain-Max: severe Severity of Pain-Current: moderate Modifying Factors: Improves With: movement, pain medication Associated Symptoms: lower back pain, muscle spasms, No fever, No chills, No sweating, No urinary incontinence, No loss of bowel control, No constipation, No nausea, No vomiting, No problems urinating, No light-headedness, No dizziness, No numbness in legs/feet, No weakness, No sensory/motor loss, No tingling in legs/feet Previous symptoms: same symptoms as today Allergies/Adverse Reactions: butorphanol tartrate [From Stadol] Allergy (Verified 04/14/20 08:17) Sulfa (Sulfonamide Antibiotics) Allergy (Verified 04/14/20 08:17) tizanidine [From Zanaflex] Allergy (Verified 04/14/20 08:17) Home Medications: Duloxetine HCl [Cymbalta] 60 mg PO DAILY 07/29/14 [History] Amlodipine Besylate 5 mg [Norvasc 5 mg] 5 mg PO HS 11/20/14 [History] Melatonin/Pyridoxine HCl (B6) [Melatonin 1 mg Tablet] 3 mg PO HS 11/27/15 [History] Metformin HCl 500 mg [Glucophage 500 MG] 500 mg PO TID 11/27/15 [History] Oxybutynin Chloride 5 mg PO BID 11/27/15 [History] Levothyroxine Sodium 75 Mcg [Synthroid 75 Mcg] 75 mcg PO DAILY 02/11/16 [History] Cyclobenzaprine HCl 10 mg [Cyclobenzaprine 10 MG] 10 mg PO HS 02/18/17 [History] Ropinirole HCl [Requip] 1 mg PO HS 04/16/17 [History] Omeprazole [Prilosec] 40 mg PO DAILY 01/06/18 [History] Bupropion HCl 150 mg Sr [Wellbutrin SR 150 MG] 150 mg PO HS 10/01/18 [History] Acetaminophen with Codeine [Acetaminophen-Cod #4 Tablet] 1 tab PO Q6HPRN PRN 10/02/18 [History] Fluticasone Propionate [Flonase NASAL] 1 spray IH DAILY 10/02/18 [History] Ascorbic Acid 500 mg [Vitamin C 500 MG] 500 mg PO DAILY 12/22/19 [History] Budesonide/Formoterol Fumarate [Symbicort 160-4.5 Mcg Inhaler] 2 puffs PO DAILY PRN PRN 12/22/19 [History] Cyanocobalamin (Vitamin B-12) [Vitamin B-12] 1,000 mcg PO DAILY 12/22/19 [ History] Famotidine 20 mg PO BID 12/22/19 [History] Memantine HCl 5 mg [Namenda 5 MG] 5 mg PO BID 12/22/19 [History] Modafinil [Provigil] 200 mg PO DAILY 12/22/19 [History] Hx Tetanus, Diphtheria Vaccination/Date Given: Yes Hx Influenza Vaccination/Date Given: Yes Hx Pneumococcal Vaccination/Date Given: Yes Travel Risk - International Travel Have you traveled outside of the country in past 3 weeks: No - Coronavirus Screening Close contact with a COVID-19 positive Pt in past 14-21 Days: No - Review of Systems Constitutional: No Symptoms Eyes: No Symptoms Ears, Nose, & Throat: No Symptoms Respiratory: No Symptoms Cardiac: No Symptoms Abdominal/Gastrointestinal: No Symptoms Genitourinary Symptoms: No Symptoms Musculoskeletal: Back Pain Neurological: No Symptoms Psychological: No Symptoms Endocrine: No Symptoms Hematologic/Lymphatic: No Symptoms Immunological/Allergic: No Symptoms - Past Medical History Pertinent Past Medical History: Yes Neurological History: Migraines ENT History: Cataracts Cardiac History: Hypertension Respiratory History: COPD Endocrine Medical History: Diabetes Type II, Hypothyroidism Musculoskeletal History: Arthritis, Fibromyalgia GI Medical History: GERD, Gallbladder Disease, Hernia History: No Pertinent History Psycho-Social History: Depression Female Reproductive Disorders: No Pertinent History Other Medical History: SEE CHART FOR PMH AND PSH; PT. HAS HAD 2 C-SPINE SXS - Past Surgical History Past Surgical History: Yes Neuro Surgical History: No Pertinent History Cardiac: No Pertinent History Respiratory: No Pertinent History Gastrointestinal: Appendectomy, Cholecystectomy Genitourinary: No Pertinent History Musculoskeletal: Orthopedic Surgery Female Surgical History: Hysterectomy, Tubal Ligation Other Surgical History: 2nd toe right foot, fractured right shoulder, filmed lasered off right eye, gaglion cyst removed, cataracts, bunion and tumor removed left foot, bunion right foot, tonsils, microscopic anterior cervical diskectomy with interbody fusion c5-6, plate to cervical - Social History Smoking Status: Never smoker Exposure to second hand smoke: No Alcohol Use: None Drug Use: none Patient Lives Alone: No - Nursing Vital Signs Nursing Vital Signs: Initial Vital Signs Temperature 98.7 F 04/14/20 08:06 Pulse Rate 81 04/14/20 08:06 Blood Pressure 155/81 04/14/20 08:06 O2 Sat by Pulse Oximetry 99 04/14/20 08:06 Pain Scale Pain Intensity [Right Lower 8 Back] Pain Intensity 8 - Physical Exam General Appearance: no apparent distress Eye Exam: PERRL/EOMI, eyes nml inspection Ears, Nose, Throat Exam: normal ENT inspection, TMs normal, pharynx normal Neck Exam: normal inspection, non-tender, supple, full range of motion Respiratory Exam: normal breath sounds, lungs clear Cardiovascular Exam: regular rate/rhythm, normal heart sounds Gastrointestinal Exam: soft, normal bowel sounds, No tenderness Back Exam: vertebral tenderness, decreased range of motion, muscle spasm, point tenderness (Right sacroiliac area), No CVA tenderness Extremity Exam: normal inspection, normal range of motion, pelvis stable, other (Positive straight leg raising test at 60 degree on right) Neurologic Exam: alert, oriented x 3, cooperative, engagement manager II-XII nml as tested, normal mood/affect, nml cerebellar function, nml station & gait, sensation nml Skin Exam: normal color SpO2 Interpretation: normal SpO2: 99 O2 Delivery: Room Air - Course Nursing assessment & vital signs reviewed: Yes Ordered Tests: Medication Summary Discontinued Medications Generic Name Dose Route Start Last Admin Trade Name Giuliano PRN Reason Stop Dose Admin Morphine Sulfate 4 mg 04/14/20 08:45 04/14/20 08:55 Morphine Sulfate 4 Mg Inj IM 04/14/20 08:46 4 mg STAT ONE Administration Morphine Sulfate Confirm 04/14/20 08:52 Morphine Sulfate 4 Mg Inj Administered 04/14/20 08:53 Dose 4 mg .ROUTE .STK-MED ONE - Progress Progress: improved, pain not gone completely Progress Note: 80 years old is evaluated for low back pain with radiation to right lower extremity. She has minimal tenderness in the midline but she has a recently surgery done but has more tenderness and right sacroiliac area/buttock. Intact neuro and lower extremities. I have recommended imaging but she refused and states I know it is the same back pain/sciatica I have all the time and I would be fine if you can give me a shot of morphine". I have discussed with patient in length about risk of not doing imaging with bulging disc/herniation/epidural abscess/hematoma because of recent surgery but patient still refused. Patient states "I will follow-up with my back doctor on Thursday". She is feeling better on reevaluation and wants to leave. Stable for discharge 04/14/20 09:08 Counseled pt/family regarding: diagnosis, need for follow-up - Departure Departure Disposition: Home Clinical Impression: Sciatica Qualifiers: Laterality: right Qualified Code(s): M54.31 - Sciatica, right side Condition: Stable Critical Care Time: No Referrals: JAMILA SAHNI [Primary Care Provider] - Follow Up with PCP/3 days Instructions: Sciatica (DC) Additional Instructions: Follow-up with your back surgeon early next week for reevaluation. Return to ER for worsening pain, numbness tingling weakness of lower extremity, loss of bowel or bladder control or if develop fever or chills. Take pain medication/muscle relaxants as needed. Prescriptions: Cyclobenzaprine HCl [Flexeril] 10 mg PO TID PRN #12 tablet PRN Reason: Muscle Spasms
[2020-04-14 09:01] VITALS: BP 132/71
[2020-04-14 09:04] VITALS: O2SAT 99
== END 2020-04-14 09:13 | disposition home or self-care (01) ==
LOC: ED 07:58
DX: M54.31 Sciatica, right side (principal)
CPT/HCPCS: 96372; 99283; J2270

== ENCOUNTER 2020-04-19 03:56 | Emergency (ER) | payer MEDICARE ==
[2020-04-19] MEDS ORDERED: MORPHINE SULFATE 4 MG INJ ONE (04:22)
[2020-04-19] MEDS ORDERED: MORPHINE SULFATE 4 MG INJ IM ONE (04:22)
--- NOTE | 2020-04-19 04:37 | ERPHSYRPT ---
- History of Present Illness Time Seen by Provider: 04/19/20 04:08 Source: patient Exam Limitations: no limitations Patient Subjective Stated Complaint: pt states that she has had 2 previous back surgeries, pt states that she is having constant back pain, pt states "I need a shot to get me through the day, I have a busy day ahead. I'm getting a large sum of money" Triage Nursing Assessment: pt came into the er via wheelchair, pt is axo x3, c/o back pain, states 10/10 pain, hx of prior back surgeries, tenderness with palpation to back, hypertensive on arrival b/p 201/74, current b/p 152/85, denies injury or fall to back Physician History: 80 years old female with history of chronic back pain with recent interventions done x2 in the last 8 weeks presented with chief complaint of back pain across low back both sides moderate to severe intensity, aggravated with activity and ambulation, nonradiating, no significant relieving factors, without any associated numbness tingling/weakness of lower extremities or loss of bowel or bladder control. Pain is similar to previous episodes. Patient reports "I have a long day ahead of me and cannot do things with pain and I need a pain shot". Denies any fall or trauma. Timing/Duration: day(s) (1), gradual onset, worse Method of Injury: unknown Quality: sharp Back Pain Location: lumbar spine Severity of Pain-Max: severe Severity of Pain-Current: severe Modifying Factors: Improves With: movement Associated Symptoms: lower back pain, muscle spasms, No fever, No chills, No urinary incontinence, No loss of bowel control, No problems urinating, No dizziness, No numbness in legs/feet, No weakness, No sensory/motor loss, No tingling in legs/feet Previous symptoms: same symptoms as today Allergies/Adverse Reactions: butorphanol tartrate [From Stadol] Allergy (Verified 04/19/20 04:03) Sulfa (Sulfonamide Antibiotics) Allergy (Verified 04/19/20 04:03) tizanidine [From Zanaflex] Allergy (Verified 04/19/20 04:03) Home Medications: Duloxetine HCl [Cymbalta] 60 mg PO DAILY 07/29/14 [History] Amlodipine Besylate 5 mg [Norvasc 5 mg] 10 mg PO HS 11/20/14 [History] Metformin HCl 500 mg [Glucophage 500 MG] 500 mg PO TID 11/27/15 [History] Oxybutynin Chloride 5 mg PO BID 11/27/15 [History] Levothyroxine Sodium 75 Mcg [Synthroid 75 Mcg] 75 mcg PO DAILY 02/11/16 [ History] Ropinirole HCl [Requip] 1 mg PO HS 04/16/17 [History] Omeprazole [Prilosec] 40 mg PO DAILY 01/06/18 [History] Bupropion HCl 150 mg Sr [Wellbutrin SR 150 MG] 150 mg PO HS 10/01/18 [History] Fluticasone Propionate [Flonase NASAL] 2 spray IH DAILY 10/02/18 [History] Budesonide/Formoterol Fumarate [Symbicort 160-4.5 Mcg Inhaler] 2 puffs PO DAILY PRN PRN 12/22/19 [History] Cyanocobalamin (Vitamin B-12) [Vitamin B-12] 1,000 mcg PO DAILY 12/22/19 [History] Famotidine 20 mg PO BID 12/22/19 [History] Memantine HCl 5 mg [Namenda 5 MG] 5 mg PO BID 12/22/19 [History] lisinopriL [Lisinopril] 5 mg PO DAILY 04/19/20 [History] Hx Tetanus, Diphtheria Vaccination/Date Given: Yes Hx Influenza Vaccination/Date Given: Yes Hx Pneumococcal Vaccination/Date Given: Yes Travel Risk - International Travel Have you traveled outside of the country in past 3 weeks: No - Coronavirus Screening Are you exhibiting any of the following symptoms?: No Close contact with a COVID-19 positive Pt in past 14-21 Days: No - Review of Systems Constitutional: No Symptoms Eyes: No Symptoms Ears, Nose, & Throat: No Symptoms Respiratory: No Symptoms Cardiac: No Symptoms Abdominal/Gastrointestinal: No Symptoms Genitourinary Symptoms: No Symptoms Musculoskeletal: Back Pain Skin: No Symptoms Neurological: No Symptoms Psychological: No Symptoms Endocrine: No Symptoms Hematologic/Lymphatic: No Symptoms Immunological/Allergic: No Symptoms - Past Medical History Pertinent Past Medical History: Yes Neurological History: Migraines, Peripheral Neuropathy ENT History: Cataracts Cardiac History: Hypertension Respiratory History: COPD Endocrine Medical History: Diabetes Type II, Hypothyroidism Musculoskeletal History: Arthritis, Fibromyalgia GI Medical History: GERD, Gallbladder Disease, Hernia History: No Pertinent History Psycho-Social History: Depression Female Reproductive Disorders: No Pertinent History Other Medical History: SEE CHART FOR PMH AND PSH; PT. HAS HAD 2 C-SPINE SXS - Past Surgical History Past Surgical History: Yes Neuro Surgical History: No Pertinent History Cardiac: No Pertinent History Respiratory: No Pertinent History Gastrointestinal: Appendectomy, Cholecystectomy Genitourinary: No Pertinent History Musculoskeletal: Orthopedic Surgery Female Surgical History: Hysterectomy, Tubal Ligation Other Surgical History: 2nd toe right foot, fractured right shoulder, filmed lasered off right eye, gaglion cyst removed, cataracts, bunion and tumor removed left foot, bunion right foot, tonsils, microscopic anterior cervical diskectomy with interbody fusion c5-6, plate to cervical, tibia fx repain - Social History Smoking Status: Never smoker Exposure to second hand smoke: No Alcohol Use: None Drug Use: none Patient Lives Alone: No - Female History Hx Now: No - Nursing Vital Signs Nursing Vital Signs: Initial Vital Signs Temperature 97.3 F 04/19/20 04:05 Pulse Rate 75 04/19/20 04:05 Respiratory Rate 20 04/19/20 04:05 Blood Pressure 201/74 04/19/20 04:05 O2 Sat by Pulse Oximetry 100 04/19/20 04:05 Pain Scale Pain Intensity [Back] 10 Pain Intensity 6 - Physical Exam General Appearance: no apparent distress, alert Eye Exam: PERRL/EOMI Ears, Nose, Throat Exam: normal ENT inspection Neck Exam: normal inspection, supple, full range of motion Respiratory Exam: normal breath sounds, lungs clear Cardiovascular Exam: regular rate/rhythm, normal heart sounds Gastrointestinal Exam: soft, normal bowel sounds, No tenderness Back Exam: vertebral tenderness (Lumbar), decreased range of motion, muscle spasm, point tenderness (lower L spines and SI joints bilateral), No CVA tenderness Extremity Exam: normal inspection, normal range of motion, pelvis stable Neurologic Exam: alert, oriented x 3, cooperative, chip bin operator II-XII nml as tested, sensation nml, No motor deficits, No sensory deficit Skin Exam: normal color SpO2 Interpretation: normal SpO2: 100 O2 Delivery: Room Air - Course Nursing assessment & vital signs reviewed: Yes Ordered Tests: Medication Summary Discontinued Medications Generic Name Dose Route Start Last Admin Trade Name Giuliano PRN Reason Stop Dose Admin Morphine Sulfate 4 mg 04/19/20 04:22 04/19/20 04:28 Morphine Sulfate 4 Mg Inj IM 04/19/20 04:23 4 mg STAT ONE Administration Morphine Sulfate Confirm 04/19/20 04:22 Morphine Sulfate 4 Mg Inj Administered 04/19/20 04:23 Dose 4 mg .ROUTE .STK-MED ONE - Progress Progress: improved Progress Note: Patient is offered imaging work-up again but she refused. She states "I would follow-up with Dr. Holman and I need just a shot to get through the day". She has negative neuro exam in lower extremities but she is high risk for infectious process in the spine because of recent interventions. Discussed with patient in detail about the risk of not doing work-up which she understand but still wants to skip it today. Patient is feeling better on reevaluation after morphine. Stable for discharge with anticipatory guidance to return for worsening. Counseled pt/family regarding: diagnosis, need for follow-up - Departure Departure Disposition: Home Clinical Impression: Back pain Qualifiers: Back pain location: low back pain Chronicity: unspecified Back pain laterality: bilateral Sciatica presence: without sciatica Qualified Code(s): M54.5 - Low back pain Condition: Stable Critical Care Time: No Referrals: JAMILA VENEGAS [Primary Care Provider] - Follow Up with PCP/3 days MARILYN CARPENTER [ACTIVE STAFF] - (Call today for appointment and reevaluati on.) Instructions: Low Back Pain (DC) Additional Instructions: Follow-up with your back doctor for further evaluation. Take Tylenol as needed. Return to ER for excruciating back pain, numbness/tingling/weakness/loss of bowel or bladder control/fever or chills.
[2020-04-19 04:49] VITALS: BP 94/74; PULSE 71
[2020-04-21 12:42] VITALS: O2SAT 100
== END 2020-04-19 04:56 | disposition home or self-care (01) ==
LOC: ED 03:56
DX: M54.5 Low back pain (principal); Z79.899 Other long term (current) drug therapy; I10 Essential (primary) hypertension; J44.9 Chronic obstructive pulmonary disease, unspecified; E11.9 Type 2 diabetes mellitus without complications; E03.9 Hypothyroidism, unspecified; G62.9 Polyneuropathy, unspecified
CPT/HCPCS: 96372; 99283; J2270

== ENCOUNTER 2020-07-26 15:13 | Emergency (ER) | payer MEDICARE ==
[2020-07-26] MEDS ORDERED: TORAdol 30 mg Injection IM ONE (15:42)
[2020-07-26] MEDS ORDERED: TORAdol 30 mg Injection ONE (15:48)
--- NOTE | 2020-07-26 15:48 | ERPHSYRPT ---
- History of Present Illness Source: patient Exam Limitations: no limitations Patient Subjective Stated Complaint: back pain Triage Nursing Assessment: pt to ED c/o chronic back pain. states she has a scan scheduled for next by PCP for back pain. reports having toradol shot every day this week from PCP and was told they would be out of office today and if she was in pain to go to ED for toradol shot. pt sees Dr. Scott. rates 05/26 pain. ambulates with cane with steady gate. Physician History: 80 yo wf w lumbar pain x 2wks who is under the care of Dr. Rosenthal and scheduled for a mylegram next wk presents w lumbar pain and requests a Toradol injection. Pt denies injury/incontinence/hematuria/dysuria/fever. It does occ radiate to her RLE. She only wants a very quick Toradol injection and to leave. Timing/Duration: other (2wks) Method of Injury: other (Unknown) Back Pain Location: lumbar spine Back Pain Radiation: upper legs (R) Severity of Pain-Max: severe Severity of Pain-Current: severe Modifying Factors: Improves With: nothing Associated Symptoms: denies symptoms, lower back pain Previous symptoms: same symptoms as today Allergies/Adverse Reactions: butorphanol tartrate [From Stadol] Allergy (Verified 07/26/20 15:27) celecoxib [From Celebrex] Allergy (Verified 07/26/20 15:27) Sulfa (Sulfonamide Antibiotics) Allergy (Verified 07/26/20 15:27) tizanidine [From Zanaflex] Allergy (Verified 07/26/20 15:27) Home Medications: Duloxetine HCl [Cymbalta] 60 mg PO DAILY 07/29/14 [History] Amlodipine Besylate 5 mg [Norvasc 5 mg] 10 mg PO HS 11/20/14 [History] Metformin HCl 500 mg [Glucophage 500 MG] 500 mg PO TID 11/27/15 [History] Oxybutynin Chloride 5 mg PO BID 11/27/15 [History] Levothyroxine Sodium 75 Mcg [Synthroid 75 Mcg] 75 mcg PO DAILY 02/11/16 [History] Ropinirole HCl [Requip] 1 mg PO HS 04/16/17 [History] Omeprazole [Prilosec] 40 mg PO DAILY 01/06/18 [History] Bupropion HCl 150 mg Sr [Wellbutrin SR 150 MG] 150 mg PO HS 10/01/18 [History] Fluticasone Propionate [Flonase NASAL] 2 spray IH DAILY 10/02/18 [History] Budesonide/Formoterol Fumarate [Symbicort 160-4.5 Mcg Inhaler] 2 puffs PO DAILY PRN PRN 12/22/19 [History] Cyanocobalamin (Vitamin B-12) [Vitamin B-12] 1,000 mcg PO DAILY 12/22/19 [History] Famotidine 20 mg PO BID 12/22/19 [History] Memantine HCl 5 mg [Namenda 5 MG] 5 mg PO BID 12/22/19 [History] lisinopriL [Lisinopril] 5 mg PO DAILY 04/19/20 [History] Hx Tetanus, Diphtheria Vaccination/Date Given: Yes Hx Influenza Vaccination/Date Given: Yes Hx Pneumococcal Vaccination/Date Given: Yes Immunizations Up to Date: Yes Travel Risk - International Travel Have you traveled outside of the country in past 3 weeks: No - Coronavirus Screening Are you exhibiting any of the following symptoms?: No Close contact with a COVID-19 positive Pt in past 14-21 Days: No - Review of Systems Constitutional: No Symptoms Eyes: No Symptoms Ears, Nose, & Throat: No Symptoms Respiratory: No Symptoms Cardiac: No Symptoms Abdominal/Gastrointestinal: No Symptoms Genitourinary Symptoms: No Symptoms Musculoskeletal: No Symptoms, Back Pain Skin: No Symptoms Neurological: No Symptoms Psychological: No Symptoms Endocrine: No Symptoms Hematologic/Lymphatic: No Symptoms Immunological/Allergic: No Symptoms - Past Medical History Pertinent Past Medical History: Yes Neurological History: Migraines, Peripheral Neuropathy ENT History: Cataracts Cardiac History: Hypertension Respiratory History: COPD Endocrine Medical History: Diabetes Type II, Hypothyroidism Musculoskeletal History: Arthritis, Fibromyalgia GI Medical History: Crohns Disease, GERD, Hernia History: No Pertinent History Psycho-Social History: Depression Female Reproductive Disorders: No Pertinent History Other Medical History: SEE CHART FOR PMH AND PSH; PT. HAS HAD 2 C-SPINE SXS - Past Surgical History Past Surgical History: Yes Neuro Surgical History: No Pertinent History Cardiac: No Pertinent History Respiratory: No Pertinent History Gastrointestinal: Appendectomy, Cholecystectomy Genitourinary: No Pertinent History Musculoskeletal: Orthopedic Surgery Female Surgical History: Hysterectomy, Tubal Ligation Other Surgical History: 2nd toe right foot, fractured right shoulder, filmed lasered off right eye, gaglion cyst removed, cataracts, bunion and tumor removed left foot, bunion right foot, tonsils, microscopic anterior cervical diskectomy with interbody fusion c5-6, plate to cervical, tibia fx repain - Social History Smoking Status: Never smoker Exposure to second hand smoke: No Alcohol Use: None Drug Use: none Patient Lives Alone: No Significant Family History: no pertinent family hx - Female History Hx Now: No - Nursing Vital Signs Nursing Vital Signs: Initial Vital Signs Temperature 98.5 F 07/26/20 15:19 Pulse Rate 61 07/26/20 15:19 Respiratory Rate 18 07/26/20 15:19 O2 Sat by Pulse Oximetry 96 07/26/20 15:19 Pain Scale Pain Intensity [Posterior Back 10 ] Pain Intensity 10 - Physical Exam General Appearance: no apparent distress Eye Exam: PERRL/EOMI, eyes nml inspection Ears, Nose, Throat Exam: normal ENT inspection, TMs normal, pharynx normal, moist mucous membranes Neck Exam: normal inspection, non-tender, No mass, No Brudzinski, No Kernig's, No carotid bruit Respiratory Exam: normal breath sounds, lungs clear, airway intact, No chest tenderness, No respiratory distress Cardiovascular Exam: regular rate/rhythm, normal peripheral pulses, No murmur Gastrointestinal Exam: soft, normal bowel sounds, No tenderness Back Exam: vertebral tenderness Extremity Exam: normal inspection, normal range of motion Peripheral Pulses: carotid (R): 2+, carotid (L): 2+ Neurologic Exam: alert, oriented x 3, cooperative, clinical engineering director II-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 as tested, normal mood/affect, nml cerebellar function, nml station & gait, sensation nml, No motor deficits, No sensory deficit Skin Exam: normal color, warm, dry Lymphatic Exam: No adenopathy - Course Nursing assessment & vital signs reviewed: Yes Ordered Tests: Medication Summary Discontinued Medications Generic Name Dose Route Start Last Admin Trade Name Freq PRN Reason Stop Dose Admin Ketorolac Tromethamine 30 mg 07/26/20 15:42 07/26/20 15:48 Toradol 30 Mg Injection IM 07/26/20 15:43 30 mg STAT ONE Administration Ketorolac Tromethamine Confirm 07/26/20 15:48 Toradol 30 Mg Injection Administered 07/26/20 15:49 Dose 30 mg .ROUTE .STK-MED ONE - Progress Progress: unchanged Progress Note: 07/26/20 15:49 30mg IM Toradol 07/26/20 17:37 Pt w chronic lumbar pain and is under care of Dr. Rosenthal. She is scheduled for a mylegram next week and refuses further workup for this condition. Pt has no new2 or alarming symptoms. Counseled pt/family regarding: need for follow-up - Departure Departure Disposition: Home Clinical Impression: Lumbar back pain Condition: Stable Critical Care Time: No Referrals: JAMILA SCOTT [Primary Care Provider] - Instructions: Low Back Pain (DC) Additional Instructions: Follow up with Dr. Rosenthal in AM Return to ER as needed
[2020-07-26 16:16] VITALS: PULSE 60; O2SAT 98
[2020-07-26 16:17] VITALS: BP 132/76
== END 2020-07-26 16:12 | disposition home or self-care (01) ==
LOC: ED 15:13
DX: M54.5 Low back pain (principal); I10 Essential (primary) hypertension; Z79.899 Other long term (current) drug therapy; G62.9 Polyneuropathy, unspecified; E11.9 Type 2 diabetes mellitus without complications; Z79.4 Long term (current) use of insulin; E03.9 Hypothyroidism, unspecified; M79.7 Fibromyalgia; K21.9 Gastro-esophageal reflux disease without esophagitis
CPT/HCPCS: 96372; 99283; J1885

== ENCOUNTER 2020-08-02 10:43 | Emergency (ER) | payer MEDICARE ==
[2020-08-02 10:57] VITALS: PULSE 82; O2SAT 100
[2020-08-02] MEDS ORDERED: Norflex 60 MG/2 ML IM ONE (11:16)
[2020-08-02] MEDS ORDERED: Norflex 60 MG/2 ML ONE (11:21)
--- NOTE | 2020-08-02 11:22 | ERPHSYRPT ---
- History of Present Illness Source: patient Exam Limitations: no limitations Patient Subjective Stated Complaint: pt here for chronic back pain, she states she has been to office last week to get shots of toradol,but dr is out of office tis week, Triage Nursing Assessment: pt alert, resp easy, skin w/d/p, face mask in place, no edema, used care to walk in. Physician History: 80 yo wf w chronic lumbar pain who is under care of Dr. Orantes presents w lumbar pain w radiation to RLE. Pt was unable to obtain a mylegram yesterday. Pain is 10 on scale and worse w movement and weight bearing. Pt receives frequent toradol injections at her PCP. Timing/Duration: other (Chronic) Method of Injury: unknown Quality: burning, aching Back Pain Location: lumbar spine Back Pain Radiation: lower legs (RLE) Severity of Pain-Max: severe Severity of Pain-Current: severe Modifying Factors: Improves With: movement Associated Symptoms: lower back pain, No fever, No chills, No sweating, No urinary incontinence, No loss of bowel control, No constipation, No nausea, No vomiting, No problems urinating, No light-headedness, No dizziness, No numbness in legs/feet, No weakness, No sensory/motor loss, No tingling in legs/feet, No muscle spasms Previous symptoms: same symptoms as today Allergies/Adverse Reactions: butorphanol tartrate [From Stadol] Allergy (Verified 08/02/20 10:56) celecoxib [From Celebrex] Allergy (Verified 08/02/20 10:56) Sulfa (Sulfonamide Antibiotics) Allergy (Verified 08/02/20 10:56) tizanidine [From Zanaflex] Allergy (Verified 08/02/20 10:56) Home Medications: Duloxetine HCl [Cymbalta] 60 mg PO DAILY 07/29/14 [History] Amlodipine Besylate 5 mg [Norvasc 5 mg] 10 mg PO HS 11/20/14 [History] Metformin HCl 500 mg [Glucophage 500 MG] 500 mg PO TID 11/27/15 [History] Oxybutynin Chloride 5 mg PO BID 11/27/15 [History] Levothyroxine Sodium 75 Mcg [Synthroid 75 Mcg] 75 mcg PO DAILY 02/11/16 [History] Ropinirole HCl [Requip] 1 mg PO HS 04/16/17 [History] Omeprazole [Prilosec] 40 mg PO DAILY 01/06/18 [History] Bupropion HCl 150 mg Sr [Wellbutrin SR 150 MG] 150 mg PO HS 10/01/18 [History] Fluticasone Propionate [Flonase NASAL] 2 spray IH DAILY 10/02/18 [History] Budesonide/Formoterol Fumarate [Symbicort 160-4.5 Mcg Inhaler] 2 puffs PO DAILY PRN PRN 12/22/19 [History] Cyanocobalamin (Vitamin B-12) [Vitamin B-12] 1,000 mcg PO DAILY 12/22/19 [History] Famotidine 20 mg PO BID 12/22/19 [History] Memantine HCl 5 mg [Namenda 5 MG] 5 mg PO BID 12/22/19 [History] lisinopriL [Lisinopril] 5 mg PO DAILY 04/19/20 [History] Hx Tetanus, Diphtheria Vaccination/Date Given: Yes Hx Influenza Vaccination/Date Given: Yes Hx Pneumococcal Vaccination/Date Given: Yes Immunizations Up to Date: Yes Travel Risk - International Travel Have you traveled outside of the country in past 3 weeks: No - Coronavirus Screening Are you exhibiting any of the following symptoms?: No Close contact with a COVID-19 positive Pt in past 14-21 Days: No - Review of Systems Constitutional: No Symptoms Eyes: No Symptoms Ears, Nose, & Throat: No Symptoms Respiratory: No Symptoms Cardiac: No Symptoms Abdominal/Gastrointestinal: No Symptoms Genitourinary Symptoms: No Symptoms Musculoskeletal: Back Pain Skin: No Symptoms Neurological: No Symptoms Psychological: No Symptoms Endocrine: No Symptoms Hematologic/Lymphatic: No Symptoms Immunological/Allergic: No Symptoms - Past Medical History Pertinent Past Medical History: Yes Neurological History: Migraines, Peripheral Neuropathy ENT History: Cataracts Cardiac History: Hypertension Respiratory History: COPD Endocrine Medical History: Diabetes Type II, Hypothyroidism Musculoskeletal History: Arthritis, Fibromyalgia GI Medical History: Crohns Disease, GERD, Hernia History: No Pertinent History Psycho-Social History: Depression Female Reproductive Disorders: No Pertinent History Other Medical History: SEE CHART FOR PMH AND PSH; PT. HAS HAD 2 C-SPINE SXS - Past Surgical History Past Surgical History: Yes Neuro Surgical History: No Pertinent History Cardiac: No Pertinent History Respiratory: No Pertinent History Gastrointestinal: Appendectomy, Cholecystectomy Genitourinary: No Pertinent History Musculoskeletal: Orthopedic Surgery Female Surgical History: Hysterectomy, Tubal Ligation Other Surgical History: 2nd toe right foot, fractured right shoulder, filmed lasered off right eye, gaglion cyst removed, cataracts, bunion and tumor removed left foot, bunion right foot, tonsils, microscopic anterior cervical diskectomy with interbody fusion c5-6, plate to cervical, tibia fx repain - Social History Smoking Status: Never smoker Exposure to second hand smoke: No Alcohol Use: None Drug Use: none Patient Lives Alone: No Significant Family History: no pertinent family hx - Female History Hx Last Menstrual Period: psot Hx Now: No - Nursing Vital Signs Nursing Vital Signs: Initial Vital Signs Pulse Rate 82 08/02/20 10:56 Respiratory Rate 18 08/02/20 10:56 Blood Pressure 138/58 08/02/20 10:56 O2 Sat by Pulse Oximetry 100 08/02/20 10:56 Pain Scale Pain Intensity [Back] 10 Pain Intensity 10 - Physical Exam General Appearance: no apparent distress Eye Exam: PERRL/EOMI, eyes nml inspection Ears, Nose, Throat Exam: normal ENT inspection, TMs normal, pharynx normal, moist mucous membranes Neck Exam: normal inspection, non-tender, supple, full range of motion, No meningismus, No mass, No Brudzinski, No Kernig's, No carotid bruit Respiratory Exam: normal breath sounds, lungs clear, airway intact Cardiovascular Exam: regular rate/rhythm, normal heart sounds, No murmur Gastrointestinal Exam: soft, normal bowel sounds, No tenderness Back Exam: vertebral tenderness (R lower lumbar level and R paraspinous area) Extremity Exam: normal inspection, normal range of motion Peripheral Pulses: carotid (R): 2+, carotid (L): 2+ Neurologic Exam: alert, oriented x 3, cooperative, 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 Rolanda LERMA Return to ER as needed
[2020-08-02 11:31] VITALS: BP 106/46
== END 2020-08-02 11:37 | disposition home or self-care (01) ==
LOC: ED 10:43
DX: M54.5 Low back pain (principal); Z79.899 Other long term (current) drug therapy; Z79.84 Long term (current) use of oral hypoglycemic drugs; E11.9 Type 2 diabetes mellitus without complications; I10 Essential (primary) hypertension; E03.9 Hypothyroidism, unspecified; J44.9 Chronic obstructive pulmonary disease, unspecified
CPT/HCPCS: 96372; 99283; J2360

== ENCOUNTER 2020-08-11 14:06 | Emergency (ER) | payer MEDICARE ==
--- NOTE | 2020-08-11 15:05 | ERPHSYRPT ---
- History of Present Illness Time Seen by Provider: 08/11/20 14:59 Source: patient, family Exam Limitations: no limitations Patient Subjective Stated Complaint: Pt states "I have chronic pain in my back but it got worse this morning. It is going down my right hip, buttock and leg down to my ankle." Triage Nursing Assessment: Pt presented alert and oriented X 3, skin pwd Pt ambulates with an upright steady gait, able to speak in clear full sentences pt in no apaprent respiratory distress. Physician History: pt has long hx of LBP and is followed by ortho and usually responds to norflex; no hx cancer, tried to have myelgram a few weeks ago but could not get into canal, but is nontender in this location without erythema. no abd pain, no urinary symptoms, no abd masses. discussed risk/benefit of furhter w/u s[place] in view of the myelo attempt a few weeks ago, but pt prefers outpt and medication at this time due to lack of significant change in symptoms or other findings and is made aware that there could be other additional complications- she understands and has the capacity to make the choice for DC and f/u as outpt rather than further w/u in ER at this time or transfer for more advanced imaging. . neuro vasc is intact , no deficits ; Timing/Duration: week(s), gradual onset Method of Injury: other (chronic) Quality: dull, radiating, aching Back Pain Location: lumbar spine Back Pain Radiation: buttocks, feet Severity of Pain-Max: moderate Severity of Pain-Current: moderate Modifying Factors: Improves With: immobilization, movement Associated Symptoms: lower back pain, No fever, No urinary incontinence, No numbness in legs/feet Previous symptoms: same symptoms as today, recently treated Allergies/Adverse Reactions: butorphanol tartrate [From Stadol] Allergy (Verified 08/02/20 10:56) celecoxib [From Celebrex] Allergy (Verified 08/02/20 10:56) Sulfa (Sulfonamide Antibiotics) Allergy (Verified 08/02/20 10:56) tizanidine [From Zanaflex] Allergy (Verified 08/02/20 10:56) Home Medications: Duloxetine HCl [Cymbalta] 60 mg PO DAILY 07/29/14 [History] Amlodipine Besylate 5 mg [Norvasc 5 mg] 10 mg PO HS 04/06/15 [History] Metformin HCl 500 mg [Glucophage 500 MG] 500 mg PO TID 11/27/15 [History] Oxybutynin Chloride 5 mg PO BID 11/27/15 [History] Levothyroxine Sodium 75 Mcg [Synthroid 75 Mcg] 75 mcg PO DAILY 02/11/16 [History] Ropinirole HCl [Requip] 1 mg PO HS 04/16/17 [History] Omeprazole [Prilosec] 40 mg PO DAILY 01/06/18 [History] Bupropion HCl 150 mg Sr [Wellbutrin SR 150 MG] 150 mg PO HS 10/01/18 [History] Fluticasone Propionate [Flonase NASAL] 2 spray IH DAILY 10/02/18 [History] Budesonide/Formoterol Fumarate [Symbicort 160-4.5 Mcg Inhaler] 2 puffs PO DAILY PRN PRN 12/22/19 [History] Cyanocobalamin (Vitamin B-12) [Vitamin B-12] 1,000 mcg PO DAILY 12/22/19 [History] Famotidine 20 mg PO BID 12/22/19 [History] Memantine HCl 5 mg [Namenda 5 MG] 5 mg PO BID 12/22/19 [History] lisinopriL [Lisinopril] 5 mg PO DAILY 04/19/20 [History] Hx Tetanus, Diphtheria Vaccination/Date Given: Yes Hx Influenza Vaccination/Date Given: Yes Hx Pneumococcal Vaccination/Date Given: Yes Immunizations Up to Date: Yes Travel Risk - International Travel Have you traveled outside of the country in past 3 weeks: No - Coronavirus Screening Are you exhibiting any of the following symptoms?: No Close contact with a COVID-19 positive Pt in past 14-21 Days: No - Review of Systems Constitutional: No Fever, No Chills Eyes: No Symptoms Ears, Nose, & Throat: No Symptoms Respiratory: No Cough, No Dyspnea Cardiac: No Chest Pain, No Edema, No Syncope Abdominal/Gastrointestinal: No Abdominal Pain, No Nausea, No Vomiting, No Diarrhea Genitourinary Symptoms: No Dysuria, No Incontinence, No Urinary Retention Musculoskeletal: Back Pain, No Neck Pain Skin: No Rash Neurological: No Dizziness, No Focal Weakness, No Sensory Changes Psychological: No Symptoms Endocrine: No Symptoms Hematologic/Lymphatic: No Symptoms Immunological/Allergic: No Symptoms All Other Systems: Reviewed and Negative - Past Medical History Pertinent Past Medical History: Yes Neurological History: Migraines, Peripheral Neuropathy ENT History: Cataracts Cardiac History: Hypertension Respiratory History: COPD Endocrine Medical History: Diabetes Type II, Hypothyroidism Musculoskeletal History: Arthritis, Fibromyalgia GI Medical History: Crohns Disease, GERD, Hernia History: No Pertinent History Psycho-Social History: Depression Female Reproductive Disorders: No Pertinent History Other Medical History: SEE CHART FOR PMH AND PSH; PT. HAS HAD 2 C-SPINE SXS - Past Surgical History Past Surgical History: Yes Neuro Surgical History: No Pertinent History Cardiac: No Pertinent History Respiratory: No Pertinent History Gastrointestinal: Appendectomy, Cholecystectomy Genitourinary: No Pertinent History Musculoskeletal: Orthopedic Surgery Female Surgical History: Hysterectomy, Tubal Ligation Other Surgical History: 2nd toe right foot, fractured right shoulder, filmed lasered off right eye, gaglion cyst removed, cataracts, bunion and tumor removed left foot, bunion right foot, tonsils, microscopic anterior cervical diskectomy with interbody fusion c5-6, plate to cervical, tibia fx repain - Social History Smoking Status: Never smoker Exposure to second hand smoke: No Alcohol Use: None Drug Use: none Patient Lives Alone: No Significant Family History: no pertinent family hx - Female History Hx Now: No - Nursing Vital Signs Nursing Vital Signs: Initial Vital Signs Temperature 98.7 F 08/11/20 14:25 Pulse Rate 76 08/11/20 14:25 Respiratory Rate 20 08/11/20 14:25 Blood Pressure 144/69 08/11/20 14:25 O2 Sat by Pulse Oximetry 92 L 08/11/20 14:25 Pain Scale Pain Intensity [Lower Back] 10 Pain Intensity 10 - Physical Exam General Appearance: no apparent distress, alert Eye Exam: PERRL/EOMI, eyes nml inspection Neck Exam: normal inspection, non-tender, supple, full range of motion, No meningismus, No midline tenderness Respiratory Exam: normal breath sounds, lungs clear, No respiratory distress Cardiovascular Exam: regular rate/rhythm, normal heart sounds Gastrointestinal Exam: soft, No tenderness, No mass Pelvic Exam: deferred Rectal Exam: deferred Back Exam: normal inspection, muscle spasm, No vertebral tenderness Extremity Exam: normal inspection, normal range of motion, No calf tenderness, No pedal edema Peripheral Pulses: carotid (R): 2+, carotid (L): 2+, femoral (R): 2+, femoral (L): 2+, dorsalis-pedis (R): 2+, dorsalis-pedis (L): 2+ Neurologic Exam: alert, oriented x 3, 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, 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, normal mood/affect, nml station & gait, sensation nml, No motor deficits Skin Exam: normal color, warm, dry, No rash SpO2 Interpretation: normal SpO2: 92 O2 Delivery: Room Air (repeat up to 97 RA.) - Course Nursing assessment & vital signs reviewed: Yes - Progress Progress: improved, re-examined Progress Note: 08/11/20 15:10 good result with norflex Counseled pt/family regarding: diagnosis, need for follow-up - Departure Departure Disposition: Home Clinical Impression: Lumbar back pain, Low back pain with sciatica, DDD (degenerative disc disease), lumbar Condition: Good Critical Care Time: No Referrals: JAMILA VENEGAS [Primary Care Provider] - Instructions: Low Back Pain (DC), Sciatica (DC) Additional Instructions: followup with your as planned and return meantime if not improving , any fever , any change in bladder or bowel function , or increased numbness symptoms. followup blood pressure with your
[2020-08-11 15:12] VITALS: BP 121/61; PULSE 64
[2020-08-11 15:14] VITALS: O2SAT 92
[2020-08-11] MEDS ORDERED: Norflex 60 MG/2 ML IM ONE (15:15)
[2020-08-11] MEDS ORDERED: Norflex 60 MG/2 ML ONE (15:17)
== END 2020-08-11 15:25 | disposition home or self-care (01) ==
LOC: ED 14:06
DX: M54.40 Lumbago with sciatica, unspecified side (principal); E11.9 Type 2 diabetes mellitus without complications; E03.9 Hypothyroidism, unspecified; Z79.899 Other long term (current) drug therapy; M79.7 Fibromyalgia; K21.9 Gastro-esophageal reflux disease without esophagitis; I10 Essential (primary) hypertension; J44.9 Chronic obstructive pulmonary disease, unspecified; K50.90 Crohn's disease, unspecified, without complications; M51.36 Other intervertebral disc degeneration, lumbar region
CPT/HCPCS: 96372; 99283; J2360

== ENCOUNTER 2020-08-22 08:03 | Emergency (ER) | payer MEDICARE ==
[2020-08-22] MEDS ORDERED: MORPHINE SULFATE 4 MG INJ IM ONE (08:28)
[2020-08-22] MEDS ORDERED: MORPHINE SULFATE 4 MG INJ ONE (08:34)
--- NOTE | 2020-08-22 08:34 | ERPHSYRPT ---
- History of Present Illness Time Seen by Provider: 08/22/20 08:05 Source: patient Exam Limitations: no limitations Patient Subjective Stated Complaint: Pt states "I am having lower back pain again. It goes accross my lower back and down my legs. I usually come in here and get a shot that helps." Triage Nursing Assessment: Pt presented alert and oriented X 3, skin pwd. Pt ambulates with an upright steady gait, able to speak in clear full sentencse pt in no apaprent respiratory distress. Pt csm x 4 Physician History: 80 years old female with history of chronic back pain with spacer placements few months ago doing follow-up with Dr. Manda Blue and currently scheduled to have a myelogram done outpatient presented with pain low back across and more on the right buttock area, sharp throbbing with some radiation to right upper thigh, has been using [id number] pain medications and ice packs but today it was not helping much and she woke up with severe pain but no numbness tingling or focal weakness in right lower extremity. Denies any swelling of the leg. Pain is similar to previous episodes and has similar symptoms multiple times in the past for which she had to go to the ER to get a pain shot. Patient report Dr. Holman is planning on doing laminectomy after myelogram. Denies any loss of bowel or bladder control. Denies fever chills cough or perineal numbness. Timing/Duration: week(s), constant, intermittent, worse Method of Injury: unknown Quality: sharp Back Pain Location: lumbar spine, paraspinous muscles Back Pain Radiation: buttocks, upper legs Severity of Pain-Max: severe Severity of Pain-Current: severe Modifying Factors: Improves With: cold therapy, immobilization. Worsens With: movement Associated Symptoms: lower back pain, muscle spasms Previous symptoms: same symptoms as today Allergies/Adverse Reactions: butorphanol tartrate [From Stadol] Allergy (Verified 08/02/20 10:56) celecoxib [From Celebrex] Allergy (Verified 08/02/20 10:56) Sulfa (Sulfonamide Antibiotics) Allergy (Verified 08/02/20 10:56) tizanidine [From Zanaflex] Allergy (Verified 08/02/20 10:56) Home Medications: Duloxetine HCl [Cymbalta] 60 mg PO DAILY 12/13/14 [History] Amlodipine Besylate 5 mg [Norvasc 5 mg] 10 mg PO HS 11/20/14 [History] Metformin HCl 500 mg [Glucophage 500 MG] 500 mg PO TID 11/27/15 [History] Oxybutynin Chloride 5 mg PO BID 11/27/15 [History] Levothyroxine Sodium 75 Mcg [Synthroid 75 Mcg] 75 mcg PO DAILY 02/11/16 [History] Ropinirole HCl [Requip] 1 mg PO HS 04/16/17 [History] Omeprazole [Prilosec] 40 mg PO DAILY 01/06/18 [History] Bupropion HCl 150 mg Sr [Wellbutrin SR 150 MG] 150 mg PO HS 10/01/18 [History] Fluticasone Propionate [Flonase NASAL] 2 spray IH DAILY 10/02/18 [History] Budesonide/Formoterol Fumarate [Symbicort 160-4.5 Mcg Inhaler] 2 puffs PO DAILY PRN PRN 12/22/19 [History] Cyanocobalamin (Vitamin B-12) [Vitamin B-12] 1,000 mcg PO DAILY 12/22/19 [History] Famotidine 20 mg PO BID 12/22/19 [History] Memantine HCl 5 mg [Namenda 5 MG] 5 mg PO BID 12/22/19 [History] lisinopriL [Lisinopril] 5 mg PO DAILY 04/19/20 [History] Hx Tetanus, Diphtheria Vaccination/Date Given: Yes Hx Influenza Vaccination/Date Given: Yes Hx Pneumococcal Vaccination/Date Given: Yes Immunizations Up to Date: Yes Travel Risk - International Travel Have you traveled outside of the country in past 3 weeks: No - Coronavirus Screening Are you exhibiting any of the following symptoms?: No Close contact with a COVID-19 positive Pt in past 14-21 Days: No - Review of Systems Constitutional: No Symptoms Eyes: No Symptoms Ears, Nose, & Throat: No Symptoms Respiratory: No Symptoms Cardiac: No Symptoms Abdominal/Gastrointestinal: No Symptoms Genitourinary Symptoms: No Symptoms Musculoskeletal: Back Pain Skin: No Symptoms Neurological: No Symptoms Psychological: No Symptoms Endocrine: No Symptoms Hematologic/Lymphatic: No Symptoms Immunological/Allergic: No Symptoms - Past Medical History Pertinent Past Medical History: Yes Neurological History: Migraines, Peripheral Neuropathy ENT History: Cataracts Cardiac History: Hypertension Respiratory History: COPD Endocrine Medical History: Diabetes Type II, Hypothyroidism Musculoskeletal History: Arthritis, Fibromyalgia GI Medical History: Crohns Disease, GERD, Hernia History: No Pertinent History Psycho-Social History: Depression Female Reproductive Disorders: No Pertinent History Other Medical History: SEE CHART FOR PMH AND PSH; PT. HAS HAD 2 C-SPINE SXS - Past Surgical History Past Surgical History: Yes Neuro Surgical History: No Pertinent History Cardiac: No Pertinent History Respiratory: No Pertinent History Gastrointestinal: Appendectomy, Cholecystectomy Genitourinary: No Pertinent History Musculoskeletal: Orthopedic Surgery Female Surgical History: Hysterectomy, Tubal Ligation Other Surgical History: 2nd toe right foot, fractured right shoulder, filmed lasered off right eye, gaglion cyst removed, cataracts, bunion and tumor removed left foot, bunion right foot, tonsils, microscopic anterior cervical diskectomy with interbody fusion c5-6, plate to cervical, tibia fx repain - Social History Smoking Status: Never smoker Exposure to second hand smoke: No Alcohol Use: None Drug Use: none Patient Lives Alone: No Significant Family History: no pertinent family hx - Female History Hx Now: No - Nursing Vital Signs Nursing Vital Signs: Initial Vital Signs Temperature 98.6 F 08/22/20 08:09 Pulse Rate 84 08/22/20 08:09 Respiratory Rate 20 08/22/20 08:09 Blood Pressure 136/64 08/22/20 08:09 O2 Sat by Pulse Oximetry 98 08/22/20 08:09 Pain Scale Pain Intensity 2 - Physical Exam General Appearance: no apparent distress Ears, Nose, Throat Exam: normal ENT inspection, pharynx normal Neck Exam: normal inspection, supple, full range of motion Respiratory Exam: normal breath sounds, lungs clear Cardiovascular Exam: regular rate/rhythm, normal heart sounds Gastrointestinal Exam: soft, normal bowel sounds, No tenderness Back Exam: normal inspection, decreased range of motion, muscle spasm, point tenderness (Right sacroiliac area), No CVA tenderness Extremity Exam: normal inspection, normal range of motion, pelvis stable Neurologic Exam: alert, oriented x 3, cooperative, 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, normal mood/affect, nml cerebellar function, nml station & gait Skin Exam: normal color SpO2 Interpretation: normal SpO2: 98 O2 Delivery: Room Air Ordered Tests: Medication Summary Discontinued Medications Generic Name Dose Route Start Last Admin Trade Name Giuliano PRN Reason Stop Dose Admin Morphine Sulfate 4 mg 08/22/20 08:28 08/22/20 08:35 Morphine Sulfate 4 Mg Inj IM 08/22/20 08:29 4 mg STAT ONE Administration Morphine Sulfate Confirm 08/22/20 08:34 Morphine Sulfate 4 Mg Inj Administered 08/22/20 08:35 Dose 4 mg .ROUTE .STK-MED ONE - Progress Progress: improved Progress Note: 08/22/20 09:00 she is given morphine shot, on reevaluation feeling better. She has a negative neuro exam in lower extremities. I believe she has a flareup of her chronic low back pain with sciatica. Recommended outpatient appointment with primary care and Ortho/spine for reevaluation. Discussed signs symptoms of worsening needing return to ER which she seems understanding. Counseled pt/family regarding: diagnosis, need for follow-up - Departure Departure Disposition: Home Clinical Impression: Back pain Qualifiers: Back pain location: low back pain Chronicity: chronic Back pain laterality: right Sciatica presence: with sciatica Sciatica laterality: sciatica of right side Qualified Code(s): M54.41 - Lumbago with sciatica, right side Condition: Stable Critical Care Time: No Referrals: JAMILA VENEGAS [Primary Care Provider] - Follow Up with PCP/3 days MARILYN CARPENTER [ACTIVE STAFF] - (Call for appointment today) Instructions: Low Back Pain (DC), Sciatica (DC) Additional Instructions: Take pain medications which you have at home as needed. Apply ice. Avoid exertional activities. Use cane all the time for ambulation. Follow-up with primary care and orthopedic/spine surgery for reevaluation. Return to ER for intractable pain, numbness tingling weakness of lower extremities/loss of bowel or bladder control. Prescriptions: Lidocaine [Lidocaine Pain Relief] 1 each TP DAILY 15 Days #15 adh..patch
[2020-08-22 09:11] VITALS: BP 128/60; PULSE 62
[2020-08-22 15:01] VITALS: O2SAT 98
== END 2020-08-22 09:11 | disposition home or self-care (01) ==
LOC: ED 08:03
DX: M54.41 Lumbago with sciatica, right side (principal); Z79.899 Other long term (current) drug therapy; I10 Essential (primary) hypertension; J44.9 Chronic obstructive pulmonary disease, unspecified; E11.9 Type 2 diabetes mellitus without complications
CPT/HCPCS: 96372; 99283; J2270

== ENCOUNTER 2020-09-04 10:52 | Emergency (ER) | payer MEDICARE ==
[2020-09-04 11:06] VITALS: O2SAT 99
[2020-09-04] MEDS ORDERED: TORAdol 30 mg Injection IM ONE (11:11)
[2020-09-04] MEDS ORDERED: Lidoderm Patch 5% TOP STA (11:11)
[2020-09-04] MEDS ORDERED: Hydromorphone 1 mg/ml Injection SQ ONE (11:14)
[2020-09-04] MEDS ORDERED: TORAdol 30 mg Injection ONE (11:19)
[2020-09-04] MEDS ORDERED: Hydromorphone 1 mg/ml Injection ONE (11:21)
--- NOTE | 2020-09-04 11:23 | ERPHSYRPT ---
- History of Present Illness Time Seen by Provider: 09/04/20 11:05 Source: patient Exam Limitations: no limitations Patient Subjective Stated Complaint: Pt states that she hurts across the bottom of her back and it radiates down both legs Triage Nursing Assessment: Pt brought to the ER by her brother, chronic back pain to the lower back that radiates to blaine legs, hypertensive, rates pain 10/10, supposed to have calcium scraped from her back in [place] sometime and have a mylogram, pulses normal Physician History: The patient is an 80-year-old female with a past medical history significant for chronic low back pain, scoliosis, and right sciatica presents with a chief complaint of acute on chronic back pain. She states she has back pain daily and today her back pain got worse prompting her to come to the emergency department for a "shot of morphine". The pain is constant, radiates down her right leg, specifically the posterior aspect of her right leg, and is reportedly severe. She denies any recent trauma, fevers, weight loss, bladder or bowel incontinence, numbness of wiping her perineum has no additional red flag features with back pain. She reportedly follows with Dr. Rosenthal, orthopedics, for her back pain is suppose to have a myelogram with the intent to follow-up for a laminectomy afterwards. She reportedly came to this facility as an outpatient for a scheduled myelogram but the test was unable to be completed due to difficulties with the LP. She reportedly is waiting for a phone call from Dr. Rosenthal's office, but has not received one to reschedule. She has been taking ibuprofen for pain at home. Allergies/Adverse Reactions: butorphanol tartrate [From Stadol] Allergy (Verified 09/04/20 11:06) celecoxib [From Celebrex] Allergy (Verified 09/04/20 11:06) Sulfa (Sulfonamide Antibiotics) Allergy (Verified 09/04/20 11:06) tizanidine [From Zanaflex] Allergy (Verified 09/04/20 11:06) Home Medications: Duloxetine HCl [Cymbalta] 60 mg PO DAILY 07/29/14 [History] Amlodipine Besylate 5 mg [Norvasc 5 mg] 10 mg PO HS 11/20/14 [History] Metformin HCl 500 mg [Glucophage 500 MG] 500 mg PO TID 11/27/15 [History] Oxybutynin Chloride 5 mg PO BID 11/27/15 [History] Levothyroxine Sodium 75 Mcg [Synthroid 75 Mcg] 75 mcg PO DAILY 02/11/16 [History] Ropinirole HCl [Requip] 1 mg PO HS 04/16/17 [History] Omeprazole [Prilosec] 40 mg PO DAILY 01/06/18 [History] Bupropion HCl 150 mg Sr [Wellbutrin SR 150 MG] 150 mg PO HS 10/01/18 [History] Fluticasone Propionate [Flonase NASAL] 2 spray IH DAILY 10/02/18 [History] Budesonide/Formoterol Fumarate [Symbicort 160-4.5 Mcg Inhaler] 2 puffs PO DAILY PRN PRN 12/22/19 [History] Cyanocobalamin (Vitamin B-12) [Vitamin B-12] 1,000 mcg PO DAILY 12/22/19 [Hist ory] Famotidine 20 mg PO BID 12/22/19 [History] Memantine HCl 5 mg [Namenda 5 MG] 5 mg PO BID 12/22/19 [History] lisinopriL [Lisinopril] 5 mg PO DAILY 04/19/20 [History] Hx Tetanus, Diphtheria Vaccination/Date Given: Yes Hx Influenza Vaccination/Date Given: Yes Hx Pneumococcal Vaccination/Date Given: Yes Travel Risk - International Travel Have you traveled outside of the country in past 3 weeks: No - Coronavirus Screening Are you exhibiting any of the following symptoms?: No Close contact with a COVID-19 positive Pt in past 14-21 Days: No - Review of Systems Musculoskeletal: Back Pain Neurological: Other (Right sciatica) All Other Systems: Reviewed and Negative - Past Medical History Pertinent Past Medical History: Yes Neurological History: Migraines, Peripheral Neuropathy ENT History: Cataracts Cardiac History: Hypertension Respiratory History: COPD Endocrine Medical History: Diabetes Type II, Hypothyroidism Musculoskeletal History: Arthritis, Fibromyalgia GI Medical History: Crohns Disease, GERD, Hernia History: No Pertinent History Psycho-Social History: Depression Female Reproductive Disorders: No Pertinent History Other Medical History: SEE CHART FOR PMH AND PSH; PT. HAS HAD 2 C-SPINE SXS - Past Surgical History Past Surgical History: Yes Neuro Surgical History: No Pertinent History Cardiac: No Pertinent History Respiratory: No Pertinent History Gastrointestinal: Appendectomy, Cholecystectomy Genitourinary: No Pertinent History Musculoskeletal: Orthopedic Surgery Female Surgical History: Hysterectomy, Tubal Ligation Other Surgical History: 2nd toe right foot, fractured right shoulder, filmed lasered off right eye, gaglion cyst removed, cataracts, bunion and tumor removed left foot, bunion right foot, tonsils, microscopic anterior cervical diskectomy with interbody fusion c5-6, plate to cervical, tibia fx repain - Social History Smoking Status: Never smoker Exposure to second hand smoke: No Alcohol Use: None Drug Use: none Patient Lives Alone: No Significant Family History: no pertinent family hx - Female History Hx Now: No - Nursing Vital Signs Nursing Vital Signs: Initial Vital Signs Temperature 98.3 F 09/04/20 10:55 Pulse Rate 89 09/04/20 10:55 Respiratory Rate 20 09/04/20 10:55 Blood Pressure 165/72 09/04/20 10:55 O2 Sat by Pulse Oximetry 99 09/04/20 10:55 Pain Scale Pain Intensity [Lower Back] 10 Pain Intensity 8 - Physical Exam General Appearance: no apparent distress, alert, other (The patient was lying in bed and appeared to be in no obvious distress. She had her legs crossed and had a book open in her lap.) Eye Exam: PERRL/EOMI Neck Exam: normal inspection Respiratory Exam: normal breath sounds, lungs clear, No respiratory distress Cardiovascular Exam: regular rate/rhythm, capillary refill <2 sec, other (DP 2+ bilaterally) Back Exam: normal inspection, No CVA tenderness, No vertebral tenderness Extremity Exam: normal inspection, other (Hip flexion 4+ bilaterally, dorsiflexion and plantar flexion 4+ bilaterally) Neurologic Exam: alert, oriented x 3, cooperative, normal mood/affect, other (No ankle clonus, R sciatica, sensation to gross touch intact in the L4, L5, and S1 nerve distribution.) Skin Exam: normal color, warm, dry SpO2: 99 O2 Delivery: Room Air Ordered Tests: Medication Summary Discontinued Medications Generic Name Dose Route Start Last Admin Trade Name Freq PRN Reason Stop Dose Admin Hydromorphone HCl 0.25 mg 09/04/20 11:14 09/04/20 11:23 Hydromorphone 1 Mg/Ml Injection SQ 09/04/20 11:15 0.25 mg STAT ONE Administration Hydromorphone HCl Confirm 09/04/20 11:21 Hydromorphone 1 Mg/Ml Injection Administered 09/04/20 11:22 Dose 1 mg .ROUTE .STK-MED ONE Ketorolac Tromethamine 30 mg 09/04/20 11:11 09/04/20 11:23 Toradol 30 Mg Injection IM 09/04/20 11:12 30 mg STAT ONE Administration Ketorolac Tromethamine Confirm 09/04/20 11:19 Toradol 30 Mg Injection Administered 09/04/20 11:20 Dose 30 mg .ROUTE .STK-MED ONE Lidocaine 1 patch 09/04/20 11:11 09/04/20 11:24 Lidoderm Patch 5% TOP 09/04/20 11:12 1 patch STAT STA Administration - Progress Progress: improved Progress Note: 09/04/20 11:[address] Rosenthal, orthopedics, and discussed the case with him. He was unaware the patient did not have her CT myelogram as scheduled and I informed him it was cancelled because of difficulties with the exam. He wanted me to tell the patient to call his office tomorrow and he was reschedule this test and scheduled outpatient follow-up as well. Okay with treating pain the ED. 09/04/20 11:27 I updated the patient with Dr. Rosenthal's recommendations and to call his office tomorrow and have her test rescheduled and to schedule outpatient follow-up. She agreed with this plan. 09/04/20 13:10 The patient appeared to be nontoxic and presents with acute on chronic low back pain with what seems like right-sided sciatica. This is her typical low back pain and after reviewing her EMR she is presented to the emergency department with similar symptoms and disposed in a similar manner after receiving pain medications. I have a low suspicion for BOBO, malignancy, spinal epidural abscess, spinal mass, or spinal hematoma. Imaging was deferred for this reason. The patient was treated symptomatically and comfortable being discharged home. A family member was able to provide the patient with transportation home given she received hydromorphone. Discussed with Dr.: Other (Dr. Rosenthal, orthopedics) Counseled pt/family regarding: diagnosis, need for follow-up - Departure Departure Disposition: Home Clinical Impression: Acute exacerbation of chronic low back pain, Right sided sciatica Condition: Good Critical Care Time: No Referrals: MARILYN ROSENTHAL [ACTIVE STAFF] - Instructions: Low Back Pain (DC), Sciatica (DC) Additional Instructions: Please call Dr. Rosenthal tomorrow and reschedule your myelogram. Please continue to take ibuprofen with food as well as acetaminophen for any ongoing pain. You can purchase these medications [id number]. Please take these medications as prescribed or instructed on the medication bottle. Prescriptions: Lidocaine [Lidocaine Pain Relief] 1 each TP DAILY #15 adh..patch
[2020-09-04 11:31] VITALS: BP 144/73; PULSE 84
== END 2020-09-04 11:44 | disposition home or self-care (01) ==
LOC: ED 10:52
DX: M54.5 Low back pain (principal); M79.605 Pain in left leg; M79.604 Pain in right leg; M54.31 Sciatica, right side; I10 Essential (primary) hypertension; Z79.899 Other long term (current) drug therapy; E11.9 Type 2 diabetes mellitus without complications; E03.9 Hypothyroidism, unspecified
CPT/HCPCS: 96372; 99283; J1170; J1885; A9270-GY

== ENCOUNTER 2020-09-26 08:25 | Emergency (ER) | payer MEDICARE ==
[2020-09-26] MEDS ORDERED: MORPHINE SULFATE 4 MG INJ IM ONE (08:53)
[2020-09-26] MEDS ORDERED: MORPHINE SULFATE 4 MG INJ ONE (09:00)
--- NOTE | 2020-09-26 09:10 | ERPHSYRPT ---
- History of Present Illness Time Seen by Provider: 09/26/20 08:47 Source: patient Exam Limitations: no limitations Patient Subjective Stated Complaint: Pt states "I am here for the same thing as every time. I need a shot. My back hurts going down my leg and I cannot put an ice pack on it, it is to cold." Triage Nursing Assessment: Pt presented alert and oriented X3, skin pwd. pt ambualtes with a cane and a slow gait. Pt able to speak in clear full sentences. pt in no apparent respiratory distress. Physician History: 80 years old female with history of chronic right lower back pain was been evaluated in the ER multiple times for acute on chronic back pain and has recently myelogram done, scheduled to have surgery soon by Dr. Rosenthal presented with worsening pain right lower back with radiation to right lower extremity. Patient reports usually she applies ice and it helps but today it is too cold to apply ice and also she has an appointment with Dr. Coronado survey engineer for medical clearance for upcoming surgery and she does not think she would be able to make it without having a pain shot. Patient report pain is similar to previous and is not any worse than usual without any new numbness tingling or weakness in the right lower extremity. No loss of bowel or bladder control. She denies any fall or acute trauma to the lower back. Denies any fever or chills. Patient states "I am here for my morphine shot so that I can keep my appointment with Dr. Coronado. Allergies/Adverse Reactions: butorphanol tartrate [From Stadol] Allergy (Verified 09/04/20 11:06) celecoxib [From Celebrex] Allergy (Verified 09/04/20 11:06) Sulfa (Sulfonamide Antibiotics) Allergy (Verified 09/04/20 11:06) tizanidine [From Zanaflex] Allergy (Verified 09/04/20 11:06) Home Medications: Duloxetine HCl [Cymbalta] 60 mg PO DAILY 07/29/14 [History] Amlodipine Besylate 5 mg [Norvasc 5 mg] 10 mg PO HS 11/20/14 [History] Metformin HCl 500 mg [Glucophage 500 MG] 500 mg PO TID 11/27/15 [History] Oxybutynin Chloride 5 mg PO BID 11/27/15 [History] Levothyroxine Sodium 75 Mcg [Synthroid 75 Mcg] 75 mcg PO DAILY 02/11/16 [History] Ropinirole HCl [Requip] 1 mg PO HS 04/16/17 [History] Omeprazole [Prilosec] 40 mg PO DAILY 01/06/18 [History] Bupropion HCl 150 mg Sr [Wellbutrin SR 150 MG] 150 mg PO HS 10/01/18 [History] Fluticasone Propionate [Flonase NASAL] 2 spray IH DAILY 10/02/18 [History] Budesonide/Formoterol Fumarate [Symbicort 160-4.5 Mcg Inhaler] 2 puffs PO DAILY PRN PRN 12/22/19 [History] Cyanocobalamin (Vitamin B-12) [Vitamin B-12] 1,000 mcg PO DAILY 12/22/19 [History] Famotidine 20 mg PO BID 12/22/19 [History] Memantine HCl 5 mg [Namenda 5 MG] 5 mg PO BID 12/22/19 [History] lisinopriL [Lisinopril] 5 mg PO DAILY 04/19/20 [History] Hx Tetanus, Diphtheria Vaccination/Date Given: Yes Hx Influenza Vaccination/Date Given: Yes Hx Pneumococcal Vaccination/Date Given: Yes Immunizations Up to Date: Yes Travel Risk - International Travel Have you traveled outside of the country in past 3 weeks: No - Coronavirus Screening Are you exhibiting any of the following symptoms?: No Close contact with a COVID-19 positive Pt in past 14-21 Days: No - Review of Systems Constitutional: No Symptoms Eyes: No Symptoms Ears, Nose, & Throat: No Symptoms Respiratory: No Symptoms Cardiac: No Symptoms Abdominal/Gastrointestinal: No Symptoms Genitourinary Symptoms: No Symptoms Musculoskeletal: Back Pain Skin: No Symptoms Neurological: No Symptoms Psychological: No Symptoms Endocrine: No Symptoms Hematologic/Lymphatic: No Symptoms Immunological/Allergic: No Symptoms - Past Medical History Pertinent Past Medical History: Yes Neurological History: Migraines, Peripheral Neuropathy ENT History: Cataracts Cardiac History: Hypertension Respiratory History: COPD Endocrine Medical History: Diabetes Type II, Hypothyroidism Musculoskeletal History: Arthritis, Fibromyalgia GI Medical History: Crohns Disease, GERD, Hernia History: No Pertinent History Psycho-Social History: Depression Female Reproductive Disorders: No Pertinent History Other Medical History: SEE CHART FOR PMH AND PSH; PT. HAS HAD 2 C-SPINE SXS - Past Surgical History Past Surgical History: Yes Neuro Surgical History: No Pertinent History Cardiac: No Pertinent History Respiratory: No Pertinent History Gastrointestinal: Appendectomy, Cholecystectomy Genitourinary: No Pertinent History Musculoskeletal: Orthopedic Surgery Female Surgical History: Hysterectomy, Tubal Ligation Other Surgical History: 2nd toe right foot, fractured right shoulder, filmed lasered off right eye, gaglion cyst removed, cataracts, bunion and tumor removed left foot, bunion right foot, tonsils, microscopic anterior cervical diskectomy with interbody fusion c5-6, plate to cervical, tibia fx repain - Social History Smoking Status: Never smoker Exposure to second hand smoke: No Alcohol Use: None Drug Use: none Patient Lives Alone: No Significant Family History: no pertinent family hx - Female History Hx Now: No - Nursing Vital Signs Nursing Vital Signs: Initial Vital Signs Temperature 97.3 F 09/26/20 08:33 Pulse Rate 72 09/26/20 08:33 Respiratory Rate 20 09/26/20 08:33 Blood Pressure 175/84 09/26/20 08:33 O2 Sat by Pulse Oximetry 96 09/26/20 08:33 Pain Scale Pain Intensity [Right Lower 10 Back] Pain Intensity 10 - Physical Exam General Appearance: no apparent distress Eye Exam: eyes nml inspection Ears, Nose, Throat Exam: normal ENT inspection, pharynx normal Neck Exam: normal inspection, non-tender, supple, full range of motion Respiratory Exam: normal breath sounds, lungs clear, No chest tenderness Cardiovascular Exam: regular rate/rhythm, normal heart sounds Gastrointestinal Exam: soft, No tenderness Back Exam: normal inspection, vertebral tenderness (Lower lumbar/lower right sacroiliac area. Straight leg raising test positive at 45 degrees on the right. Intact sensation in lower extremity. 2+ reflexes RLE. 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, nml cerebellar function, nml station & gait, sensation nml, No motor deficits, No sensory deficit Skin Exam: normal color, warm SpO2 Interpretation: normal SpO2: 96 O2 Delivery: Room Air Ordered Tests: Medication Summary Discontinued Medications Generic Name Dose Route Start Last Admin Trade Name Freq PRN Reason Stop Dose Admin Morphine Sulfate 4 mg 09/26/20 08:53 09/26/20 09:02 Morphine Sulfate 4 Mg Inj IM 09/26/20 08:54 4 mg STAT ONE Administration Morphine Sulfate Confirm 09/26/20 09:00 Morphine Sulfate 4 Mg Inj Administered 09/26/20 09:01 Dose 4 mg .ROUTE .STK-MED ONE - Progress Progress: improved, pain not gone completely Progress Note: 09/26/20 09:09 80 years old presented with right lower back pain for symptomatic relief with pain shot. I have her in the past as well and her symptoms are similar to previous with no BOBO/epidural abscess/hemorrhage/mass. She is scheduled to have surgery soon. I do not think she needs any imaging and is stable for discharge with outpatient follow-up. Counseled pt/family regarding: diagnosis, need for follow-up - Departure Departure Disposition: Home Clinical Impression: Acute exacerbation of chronic low back pain Condition: Stable Critical Care Time: No Referrals: JAMILA VENEGAS [Primary Care Provider] - Follow Up with PCP/3 days Instructions: Low Back Pain (DC), Sciatica (DC) Additional Instructions: Keep appointment with cardiology today. Follow-up with Dr. Rosenthal for worsening back pain and surgical intervention. Return to ER for worsening pain, numbness tingling weakness of lower extremities, loss of bowel or bladder control etc.
[2020-09-26 09:44] VITALS: BP 162/80; PULSE 68; O2SAT 97
== END 2020-09-26 09:49 | disposition home or self-care (01) ==
LOC: ED 08:25
DX: M54.5 Low back pain (principal); M79.651 Pain in right thigh; I10 Essential (primary) hypertension; E11.9 Type 2 diabetes mellitus without complications; E03.9 Hypothyroidism, unspecified; Z79.899 Other long term (current) drug therapy
CPT/HCPCS: 96372; 99283; J2270

== ENCOUNTER 2020-10-05 10:23 | Emergency (ER) | payer MEDICARE ==
[2020-10-05 10:43] VITALS: BP 150/59; PULSE 73; O2SAT 97
--- NOTE | 2020-10-05 10:56 | ERPHSYRPT ---
- History of Present Illness Time Seen by Provider: 10/05/20 10:48 Source: patient Exam Limitations: no limitations Patient Subjective Stated Complaint: pt here for chronic sciatic pain that radiates down right leg, Triage Nursing Assessment: pt alert, resp easy, face mask in place, skin w/d/p. walked in with cane and able to undress self Physician History: Patient is here for acute on chronic back pain. Patient states that she is due to have another back surgery after she is cleared by her authors motivational. She states that this is her typical back pain today. She has no new falls or trauma, fever, chills. She states that she was unable to see her PCP. Patient states that they typically give her a shot of morphine when she comes to the emergency department. Patient states that she has not tried any home ibuprofen, aspirin, heating packs, other [id number] medications. She has not tried PT recently. Patient states that she is unable to take Tylenol. She states that she has been doing some ice packs. Patient has no red flag symptoms for back pain today: No Loss of control of the bowel or bladder. No weakness or numbness in a leg or arm. No foot drop, disturbed gait. No high fever, no IV drug use. No saddle anaesthesia (numbness of the anus, perineum or genitals). No trauma or h/o cancer Location: right sciatic nerve Quality: sharp Radiation: down right leg Severity: moderate Duration: acute on chronic Timing: gradual Modifying factors/associated signs and symptoms: no home OTC medication tried, has not seen specialist recently Allergies/Adverse Reactions: butorphanol tartrate [From Stadol] Allergy (Verified 10/05/20 10:43) celecoxib [From Celebrex] Allergy (Verified 10/05/20 10:43) Sulfa (Sulfonamide Antibiotics) Allergy (Verified 10/05/20 10:43) tizanidine [From Zanaflex] Allergy (Verified 10/05/20 10:43) Home Medications: Duloxetine HCl [Cymbalta] 60 mg PO DAILY 07/29/14 [History] Amlodipine Besylate 5 mg [Norvasc 5 mg] 10 mg PO HS 11/20/14 [History] Metformin HCl 500 mg [Glucophage 500 MG] 500 mg PO TID 11/27/15 [History] Oxybutynin Chloride 5 mg PO BID 11/27/15 [History] Levothyroxine Sodium 75 Mcg [Synthroid 75 Mcg] 75 mcg PO DAILY 02/11/16 [History] Ropinirole HCl [Requip] 1 mg PO HS 04/16/17 [History] Omeprazole [Prilosec] 40 mg PO DAILY 01/06/18 [History] Bupropion HCl 150 mg Sr [Wellbutrin SR 150 MG] 150 mg PO HS 10/01/18 [History] Fluticasone Propionate [Flonase NASAL] 2 spray IH DAILY 10/02/18 [History] Budesonide/Formoterol Fumarate [Symbicort 160-4.5 Mcg Inhaler] 2 puffs PO DAILY PRN PRN 12/22/19 [History] Cyanocobalamin (Vitamin B-12) [Vitamin B-12] 1,000 mcg PO DAILY 12/22/19 [History] Famotidine 20 mg PO BID 12/22/19 [History] Memantine HCl 5 mg [Namenda 5 MG] 5 mg PO BID 12/22/19 [History] lisinopriL [Lisinopril] 5 mg PO DAILY 04/19/20 [History] Hx Tetanus, Diphtheria Vaccination/Date Given: Yes Hx Influenza Vaccination/Date Given: Yes Hx Pneumococcal Vaccination/Date Given: Yes Immunizations Up to Date: Yes Travel Risk - International Travel Have you traveled outside of the country in past 3 weeks: No - Coronavirus Screening Are you exhibiting any of the following symptoms?: No - Review of Systems Constitutional: No Fever, No Chills Eyes: No Symptoms Ears, Nose, & Throat: No Symptoms Respiratory: No Cough, No Dyspnea Cardiac: No Chest Pain, No Edema, No Syncope Abdominal/Gastrointestinal: No Abdominal Pain, No Nausea, No Vomiting, No Diarrhea Genitourinary Symptoms: No Dysuria Musculoskeletal: Back Pain, No Neck Pain Skin: No Rash Neurological: No Dizziness, No Focal Weakness, No Sensory Changes Psychological: No Symptoms Endocrine: No Symptoms All Other Systems: Reviewed and Negative - Past Medical History Pertinent Past Medical History: Yes Neurological History: Migraines, Peripheral Neuropathy ENT History: Cataracts Cardiac History: Hypertension Respiratory History: COPD Endocrine Medical History: Diabetes Type II, Hypothyroidism Musculoskeletal History: Arthritis, Fibromyalgia GI Medical History: Crohns Disease, GERD, Hernia History: No Pertinent History Psycho-Social History: Depression Female Reproductive Disorders: No Pertinent History Other Medical History: SEE CHART FOR PMH AND PSH; PT. HAS HAD 2 C-SPINE SXS - Past Surgical History Past Surgical History: Yes Neuro Surgical History: No Pertinent History Cardiac: No Pertinent History Respiratory: No Pertinent History Gastrointestinal: Appendectomy, Cholecystectomy Genitourinary: No Pertinent History Musculoskeletal: Orthopedic Surgery Female Surgical History: Hysterectomy, Tubal Ligation Other Surgical History: 2nd toe right foot, fractured right shoulder, filmed lasered off right eye, gaglion cyst removed, cataracts, bunion and tumor removed left foot, bunion right foot, tonsils, microscopic anterior cervical diskectomy with interbody fusion c5-6, plate to cervical, tibia fx repain - Social History Smoking Status: Never smoker Exposure to second hand smoke: No Alcohol Use: None Drug Use: none Patient Lives Alone: No Significant Family History: no pertinent family hx - Female History Hx Last Menstrual Period: post Hx Now: No - Nursing Vital Signs Nursing Vital Signs: Initial Vital Signs Temperature 97 F 10/05/20 10:37 Pulse Rate 73 10/05/20 10:37 Respiratory Rate 18 10/05/20 10:37 Blood Pressure 150/59 10/05/20 10:37 O2 Sat by Pulse Oximetry 97 10/05/20 10:37 Pain Scale Pain Intensity 10 - Physical Exam General Appearance: no apparent distress, alert Eye Exam: PERRL/EOMI, eyes nml inspection Ears, Nose, Throat Exam: normal ENT inspection, TMs normal, pharynx normal, moist mucous membranes Neck Exam: normal inspection, non-tender, supple, full range of motion Respiratory Exam: normal breath sounds, lungs clear, No respiratory distress Cardiovascular Exam: regular rate/rhythm, normal heart sounds, normal peripheral pulses Gastrointestinal/Abdomen Exam: soft, normal bowel sounds, No tenderness, No mass Back Exam: normal inspection, normal range of motion, No CVA tenderness, No vertebral tenderness Extremity Exam: normal inspection, normal range of motion, pelvis stable Neurologic Exam: alert, oriented x 3, cooperative, normal mood/affect, nml cerebellar function, nml station & gait, sensation nml, No motor deficits Skin Exam: normal color, warm, dry, No rash Lymphatic Exam: No adenopathy SpO2 Interpretation: normal SpO2: 97 Comments: 10/05/20 11:00 Patient has tenderness over right sciatic nerve. No obvious deformity, sensation intact, 2+ capillary refill, 2 point tactile discrimination intact. 5 out of 5 strength. Full range of motion without pain. Compartments are soft, nontender. Overlying skin shows no tenting, bruising, ecchymosis. No saddle anesthesia. - Course Nursing assessment & vital signs reviewed: Yes - Progress Progress: unchanged Progress Note: 10/05/20 11:01 Patient is here for chronic pain. I did offer patient a Toradol shot today. I also offered Toradol to go home with, Flexeril, steroid Dosepak. Patient was adamant that she wanted a shot of morphine today. While I am not against narcotics for acute pain. This appears to be a chronic pain that has not been treated with more conservative measures yet. I offered the patient a referral to physical therapy, lidocaine patches. Patient also declined this. I do not believe that narcotics should be first-line for chronic pain in this situation through the emergency department. I offered referral to a pain clinic as well. Appropriate management of acute pain is a cornerstone of high-quality emergency department care. Prescription drug abuse has become an issue of national importance. Pain management should be patient centered and evidence-based. The evidence shows that opioids do not expedite return to work, do not improve functional outcomes, and there is no difference in outcomes between opioids and non- opioid medications. Opioid overuse and abuse has risen to epidemic levels resulting in significant morbidity and mortality. Utilizing evidence-based recommendations, to reduce the risks associated with opioid and other controlled substance abuse and misuse, providing controlled substances in this case is likely not beneficial over the level of risk involved. I have offered a nonnarcotic alternative as a first-line therapy instead of controlled substances. Nonpharmacologic management of pain such as ice to and immobilization of an injured or painful area, elevation of injured joints/extremities, warm blankets or heating pads, noise reduction, light control in the room, [id number]-ansdzlt topical and oral analgesics and distraction techniques are all options. The patient is referred for outpatient pain management. Plan of care was discussed with patient and all questions answered. The patient is agreeable to be discharged home and both verbal and printed discharge instructions were provided.The patient agreed to seek outpatient follow up as discussed. The patient was given strict instructions to return to the emergency department for worsening symptoms or any other emergent concerns. The patient verbalized understanding. Counseled pt/family regarding: diagnosis, need for follow-up - Departure Departure Disposition: Home Clinical Impression: Chronic low back pain, Essential hypertension Condition: Stable Critical Care Time: No Referrals: JAMILA VENEGAS [Primary Care Provider] - Instructions: Low Back Pain (DC) Additional Instructions: Follow up with PCP or specialist for chronic low back pain. Return here for new or changing symptoms.
== END 2020-10-05 11:27 | disposition home or self-care (01) ==
LOC: ED 10:23
DX: M54.5 Low back pain (principal); I10 Essential (primary) hypertension; Z79.899 Other long term (current) drug therapy; E11.9 Type 2 diabetes mellitus without complications; E03.9 Hypothyroidism, unspecified
CPT/HCPCS: 99283

== ENCOUNTER 2021-01-14 12:17 | Emergency (ER) | payer MEDICARE ==
[2021-01-14 13:18] LABS: Appearance CLEAR (CLEAR); Bilirubin NEGATIVE (NEGATIVE); Blood NEGATIVE Ery/ul (0-5); Epithelial Cells RARE /HPF (FEW); Glucose NEGATIVE (NEGATIVE); Ketones NEGATIVE (NEGATIVE); Leukocyte Esterase NEGATIVE (NEGATIVE); Nitrite NEGATIVE (NEGATIVE); Protein,Urine Dip NEGATIVE (Negative); Specific Gravity 1.012 (1.005-1.025); Urobilinogen NEGATIVE mg/dL (0-1); WBC 0-2 /HPF (0-5)
[2021-01-14 13:19] LABS: Absolute Neutrophil Ct (ANC) 3.19 (1.4-6.9); BASOPHIL % 0.5 % (0.0-0.4); Basophil (Absolute #) 0.03 (0-0.4); Eosinophil (Absolute #) 0.11 (0-0.5); Hematocrit 34.7 % (35-47); Hemoglobin 11.3 gm/dl (12.0-16.0); Lymphocyte (Absolute #) 1.55 (1.0-4.6); Lymphocytes % 28.3 % (24.0-44.0); Mean Cell Volume 86.1 fl (78-100); Mean Corpuscular Hgb Concent. 32.6 g/dl (32-36); Mean Platelet Volume 10.4 fl (7.5-11.0); Monocyte (Absolute #) 0.59 (0.0-1.3); Monocytes % 10.8 % (0.0-12.0); Neutrophil % 58.4 % (36.0-66.0); Platelet Count 201 K/mm3 (150-450); Red Blood Count 4.03 M/mm3 (4.1-5.4); Red Cell Distribution Width 12.8 % (11.5-14.0); White Blood Count 5.5 K/mm3 (4.0-10.5)
[2021-01-14 13:27] LABS: ALBUMIN 4.5 g/dL (3.5-5.0); ALKALINE PHOSPHATASE 95 U/L (38-126); ANION GAP 13.3 MEQ/L (5-15); BLOOD UREA NITROGEN 15 mg/dL (7-17); CHLORIDE 95 mmol/L (98-107); Calcium 10.6 mg/dL (8.4-10.2); Carbon Dioxide 29 mmol/L (22-30); Creatinine 1 0.47 mg/dL (0.52-1.04); EST GLOMERULAR FILTRATION RATE > 60.0 ML/MIN; Glucose 124 mg/dL (74-106); LIPASE 22 U/L (23-300); Potassium 3.8 mmol/L (3.5-5.1); SGOT/AST 21 U/L (14-36); SGPT/ALT 14 U/L (0-35); SODIUM 134 mmol/L (137-145); Total Protein 7.2 g/dL (6.3-8.2)
--- NOTE | 2021-01-14 13:29 | ERPHSYRPT ---
- History of Present Illness Time Seen by Provider: 01/14/21 12:23 Source: patient Exam Limitations: no limitations Patient Subjective Stated Complaint: fall at home with head injury Triage Nursing Assessment: pt to ED c/o fall yesterday and hit head. no LOC and no blood thinners. pt states "I think I tripped over my cane." pt states nausea started couple hours after fall, denies emesis currently. rates 5/10 aching pain in head. Physician History: 81 years old female with history of chronic back pain and neck pain presented in the ER with chief complaint of fall after tripping over her cane yesterday. She fell on her both knees and hit her right side of head against floor. No loss of consciousness. Patient was able to get up and ambulate. 2 hours after that she started to have nausea without vomiting and every time she tries to get up and ambulates, feels dizzy lightheaded. She has a swelling on the right side of her head without ENT bleed. No chest pain palpitations or shortness of breath. No difficulty movements of knees. No injury anywhere else. Occurred: yesterday Reason for Fall: tripped, fell from standing pos Injuries/Pain Location: head, lower extremity Loss of Consciousness: no loss of consciousness Quality: aching, dullness Severity of Pain-Max: moderate Severity of Pain-Current: moderate Modifying Factors: Improves With: immobilization, rest. Worsens With: movement Associated Symptoms (Fall): dizziness, headache, muscle spasms, nausea, No abdominal pain, No back pain, No confusion, No chest pain, No lightheadedness, No shortness of breath, No slurred speech, No trouble walking, No vomiting, No vision changes Allergies/Adverse Reactions: butorphanol tartrate [From Stadol] Allergy (Verified 01/14/21 12:25) celecoxib [From Celebrex] Allergy (Verified 01/14/21 12:25) Sulfa (Sulfonamide Antibiotics) Allergy (Verified 01/14/21 12:25) tizanidine [From Zanaflex] Allergy (Verified 01/14/21 12:25) Home Medications: Duloxetine HCl [Cymbalta] 60 mg PO DAILY 07/29/14 [History] Amlodipine Besylate 5 mg [Norvasc 5 mg] 10 mg PO HS 11/20/14 [History] Metformin HCl 500 mg [Glucophage 500 MG] 500 mg PO TID 11/27/15 [History] Oxybutynin Chloride 5 mg PO BID 11/27/15 [History] Levothyroxine Sodium 75 Mcg [Synthroid 75 Mcg] 75 mcg PO DAILY 02/11/16 [History] Ropinirole HCl [Requip] 1 mg PO HS 04/16/17 [History] Omeprazole [Prilosec] 40 mg PO DAILY 01/06/18 [History] Bupropion HCl 150 mg Sr [Wellbutrin SR 150 MG] 150 mg PO HS 10/01/18 [History] Fluticasone Propionate [Flonase NASAL] 2 spray IH DAILY 10/02/18 [History] Budesonide/Formoterol Fumarate [Symbicort 160-4.5 Mcg Inhaler] 2 puffs PO DAILY PRN PRN 12/22/19 [History] Cyanocobalamin (Vitamin B-12) [Vitamin B-12] 1,000 mcg PO DAILY 12/22/19 [History] Famotidine 20 mg PO BID 12/22/19 [History] Memantine HCl 5 mg [Namenda 5 MG] 5 mg PO BID 12/22/19 [History] lisinopriL [Lisinopril] 5 mg PO DAILY 04/19/20 [History] Hx Tetanus, Diphtheria Vaccination/Date Given: Yes Hx Influenza Vaccination/Date Given: Yes Hx Pneumococcal Vaccination/Date Given: Yes Immunizations Up to Date: Yes Travel Risk - International Travel Have you traveled outside of the country in past 3 weeks: No - Coronavirus Screening Are you exhibiting any of the following symptoms?: No Close contact with a COVID-19 positive Pt in past 14-21 Days: No - Vaccine Status Have you recieved a Covid-19 vaccination: Yes Consulting Psychologist: Moderna - Vaccination Dates Date of 2cond Vaccination (if applicable): October 22 - Review of Systems Constitutional: No Symptoms Eyes: No Symptoms Ears, Nose, & Throat: No Symptoms Respiratory: No Symptoms Cardiac: No Symptoms Abdominal/Gastrointestinal: Nausea Genitourinary Symptoms: No Symptoms Musculoskeletal: Back Pain, Neck Pain Skin: No Symptoms Neurological: Dizziness, Headache Psychological: No Symptoms Endocrine: No Symptoms Hematologic/Lymphatic: No Symptoms Immunological/Allergic: No Symptoms - Past Medical History Pertinent Past Medical History: Yes Neurological History: Migraines, Peripheral Neuropathy ENT History: Cataracts Cardiac History: Hypertension Respiratory History: COPD Endocrine Medical History: Diabetes Type II, Hypothyroidism Musculoskeletal History: Arthritis, Fibromyalgia GI Medical History: Crohns Disease, GERD, Hernia History: No Pertinent History Psycho-Social History: Depression Female Reproductive Disorders: No Pertinent History Other Medical History: SEE CHART FOR PMH AND PSH; PT. HAS HAD 2 C-SPINE SXS - Past Surgical History Past Surgical History: Yes Neuro Surgical History: No Pertinent History Cardiac: No Pertinent History Respiratory: No Pertinent History Gastrointestinal: Appendectomy, Cholecystectomy Genitourinary: No Pertinent History Musculoskeletal: Orthopedic Surgery Female Surgical History: Hysterectomy, Tubal Ligation Other Surgical History: 2nd toe right foot, fractured right shoulder, filmed lasered off right eye, gaglion cyst removed, cataracts, bunion and tumor removed left foot, bunion right foot, tonsils, microscopic anterior cervical diskectomy with interbody fusion c5-6, plate to cervical, tibia fx repain - Social History Smoking Status: Never smoker Exposure to second hand smoke: No Alcohol Use: None Drug Use: none Patient Lives Alone: No Significant Family History: no pertinent family hx - Female History Hx Now: No - Nursing Vital Signs Nursing Vital Signs: Initial Vital Signs Temperature 97.2 F 01/14/21 12:25 Pulse Rate 78 01/14/21 12:25 Respiratory Rate 18 01/14/21 12:25 Blood Pressure 164/90 01/14/21 12:25 O2 Sat by Pulse Oximetry 100 01/14/21 12:25 Pain Scale Pain Intensity 0 - [place] Coma Score Best Eye Response (Michelle): (4) open spontaneously Best Verbal Response (Michelle): (5) oriented Best Motor Response ([place]): (6) obeys commands Michelle Total: 15 - Physical Exam General Appearance: no apparent distress, alert Head Injury: contusions, swelling, tenderness (Right parietal) ENT Exam: airway nml, evidence of ENT injury, nml ext.inspection Neck Exam: supple, trachea midline, full range of motion, normal alignment, normal inspection, muscle spasm (Right sternomastoid and trapezius), paraspinous muscle tender, pain on movement of neck Respiratory/Chest Exam: normal breath sounds, respiratory distress Cardiovascular Exam: normal heart sounds, regular rate/rhythm Gastrointestinal Exam: soft, normal bowel sounds, No tenderness Back Exam: muscle spasm, point tenderness, No CVA tenderness Extremity Exam: normal inspection, normal range of motion, capillary refill <3 sec, pelvis stable Neurologic Exam: alert, oriented x 3, cooperative, zanjero II-XII nml as tested, normal mood/affect, nml cerebellar function, sensation nml, No motor deficits Skin Exam: normal color SpO2 Interpretation: normal SpO2: 99 O2 Delivery: Room Air - Course EKG Interpreted by Me: RATE (82), Sinus Rhythm, NORMAL AXIS, NORMAL INTERVALS, NORMAL QRS Ordered Tests: Active Orders 24 hr Category Date Time Status Otolaryngology Teacher STAT Care 01/14/21 12:58 Active EKG-ER Only STAT Care 01/14/21 12:56 Active IV Insertion STAT Care 01/14/21 12:56 Active CERVICAL SPINE WO CONTRAST [CT] Stat Exams 01/14/21 12:28 Taken CHEST 1 VIEW (PORTABLE) Stat Exams 01/14/21 12:57 Taken HEAD WITHOUT CONTRAST [CT] Stat Exams 01/14/21 12:24 Taken CBC W DIFF Stat Lab 01/14/21 12:00 Completed CMP Stat Lab 01/14/21 12:00 Completed LIPASE Stat Lab 01/14/21 12:00 Completed TROPONIN Q3H Lab 01/14/21 12:00 Completed TROPONIN Q3H Lab 01/14/21 16:00 Ordered TROPONIN Q3H Lab 01/14/21 19:00 Ordered TROPONIN Q3H Lab 01/14/21 22:00 Ordered UA W/RFX UR CULTURE Stat Lab 01/14/21 12:59 Completed Medication Summary Discontinued Medications Generic Name Dose Route Start Last Admin Trade Name Paulq PRN Reason Stop Dose Admin Ondansetron HCl 4 mg 01/14/21 14:37 01/14/21 14:40 Zofran 4 Mg/2 Ml Vial IV 01/14/21 14:38 4 mg STAT ONE Administration Ondansetron HCl Confirm 01/14/21 14:38 Zofran 4 Mg/2 Ml Vial Administered 01/14/21 14:39 Dose 4 mg .ROUTE .[facility] Lab/Rad Data: Laboratory Result Diagrams 01/14/21 12:00 01/14/21 12:00 Laboratory Results 05/01/14/21 01/14/21 Range/Units 12:59 12:00 12:00 WBC (4.0-10.5) K/mm3 RBC (4.1-5.4) M/mm3 Hgb (12.0-16.0) gm/dl Hct (35-47) % MCV (78-100) fl MCH (26-32) pg MCHC (32-36) g/dl RDW (11.5-14.0) % Plt Count (150-450) K/mm3 MPV (7.5-11.0) fl Gran % (36.0-66.0) % Eos # (Auto) (0-0.5) Absolute Lymphs (auto) (1.0-4.6) Absolute Monos (auto) (0.0-1.3) Lymphocytes % (24.0-44.0) % Monocytes % (0.0-12.0) % Eosinophils % (0.00-5.0) % Basophils % (0.0-0.4) % Absolute Granulocytes (1.4-6.9) Basophils # (0-0.4) Sodium 134 L (137-145) mmol/L Potassium 3.8 (3.5-5.1) mmol/L Chloride 95 L (98-107) mmol/L Carbon Dioxide 29 (22-30) mmol/L Anion Gap 13.3 (5-15) MEQ/L BUN 15 (7-17) mg/dL Creatinine 0.47 L (0.52-1.04) mg/dL Estimated GFR > 60.0 ML/MIN Glucose 124 H (74-106) mg/dL Calcium 10.6 H (8.4-10.2) mg/dL Total Bilirubin 0.30 (0.2-1.3) mg/dL AST 21 (14-36) U/L ALT 14 (0-35) U/L Alkaline Phosphatase 95 (38-126) U/L Troponin I < 0.012 (0.000-0.034) ng/mL Serum Total Protein 7.2 (6.3-8.2) g/dL Albumin 4.5 (3.5-5.0) g/dL Lipase 22 L (23-300) U/L Urine Color YELLOW (YELLOW) Urine Appearance CLEAR (CLEAR) Urine pH 7.0 (5-6) Ur Specific [place] 1.012 (1.005-1.025) Urine Protein NEGATIVE (Negative) Urine Ketones NEGATIVE (NEGATIVE) Urine Blood NEGATIVE (0-5) Han/ul Urine Nitrite NEGATIVE (NEGATIVE) Urine Bilirubin NEGATIVE (NEGATIVE) Urine Urobilinogen NEGATIVE (0-1) mg/dL Ur Leukocyte Esterase NEGATIVE (NEGATIVE) Urine WBC (Auto) 0-2 (0-5) /HPF Urine RBC (Auto) NONE (0-2) /HPF U Epithel Cells (Auto) RARE (FEW) /HPF Urine Bacteria (Auto) NONE (NEGATIVE) /HPF Urine Culture Reflexed NO (NO) Urine Glucose NEGATIVE (NEGATIVE) mg/dL 01/14/21 Range/Units 12:00 WBC 5.5 (4.0-10.5) K/mm3 RBC 4.03 L (4.1-5.4) M/mm3 Hgb 11.3 L (12.0-16.0) gm/dl Hct 34.7 L (35-47) % MCV 86.1 (78-100) fl MCH 28.0 (26-32) pg MCHC 32.6 (32-36) g/dl RDW 12.8 (11.5-14.0) % Plt Count 201 (150-450) K/mm3 MPV 10.4 (7.5-11.0) fl Gran % 58.4 (36.0-66.0) % Eos # (Auto) 0.11 (0-0.5) Absolute Lymphs (auto) 1.55 (1.0-4.6) Absolute Monos (auto) 0.59 (0.0-1.3) Lymphocytes % 28.3 (24.0-44.0) % Monocytes % 10.8 (0.0-12.0) % Eosinophils % 2.0 (0.00-5.0) % Basophils % 0.5 (0.0-0.4) % Absolute Granulocytes 3.19 (1.4-6.9) Basophils # 0.03 (0-0.4) Sodium (137-145) mmol/L Potassium (3.5-5.1) mmol/L Chloride (98-107) mmol/L Carbon Dioxide (22-30) mmol/L Anion Gap (5-15) MEQ/L BUN (7-17) mg/dL Creatinine (0.52-1.04) mg/dL Estimated GFR ML/MIN Glucose (74-106) mg/dL Calcium (8.4-10.2) mg/dL Total Bilirubin (0.2-1.3) mg/dL AST (14-36) U/L ALT (0-35) U/L Alkaline Phosphatase (38-126) U/L Troponin I (0.000-0.034) ng/mL Serum Total Protein (6.3-8.2) g/dL Albumin (3.5-5.0) g/dL Lipase (23-300) U/L Urine Color (YELLOW) Urine Appearance (CLEAR) Urine pH (5-6) Ur Specific [place] (1.005-1.025) Urine Protein (Negative) Urine Ketones (NEGATIVE) Urine Blood (0-5) Han/ul Urine Nitrite (NEGATIVE) Urine Bilirubin (NEGATIVE) Urine Urobilinogen (0-1) mg/dL Ur Leukocyte Esterase (NEGATIVE) Urine WBC (Auto) (0-5) /HPF Urine RBC (Auto) (0-2) /HPF U Epithel Cells (Auto) (FEW) /HPF Urine Bacteria (Auto) (NEGATIVE) /HPF Urine Culture Reflexed (NO) Urine Glucose (NEGATIVE) mg/dL - Progress Progress: improved Progress Note: 01/14/21 15:03 81 years old is evaluated in the ER for fall with right-sided head injury and feeling nauseated/dizzy lightheaded afterwards. She has a nonfocal neuro exam essentially in the ER. Does not want any pain medication. Refused c-collar. Given Zofran and she tolerated oral very well. No abdominal tenderness. Lungs bilateral clear to auscultation. CT head and cervical spine negative for any acute trauma related findings. I believe patient has scalp contusion and concussion, will give Zofran to take as needed and recommended Tylenol. It was a mechanical fall, do not think patient needs to be admitted. Discussed signs symptoms of worsening needing return to ER which she seems understanding. Stable for discharge. Counseled pt/family regarding: lab results, diagnosis, need for follow-up, rad results - Departure Departure Disposition: Home Clinical Impression: Neck muscle strain Qualifiers: Encounter type: initial encounter Qualified Code(s): S16.1XXA - Strain of muscle, fascia and tendon at neck level, initial encounter Scalp contusion Qualifiers: Encounter type: initial encounter Qualified Code(s): S00.03XA - Contusion of scalp, initial encounter Concussion Qualifiers: Encounter type: initial encounter Loss of consciousness presence/duration: without LOC Qualified Code(s): S06.0X0A - Concussion without loss of consciousness, initial encounter Fall Qualifiers: Encounter type: initial encounter Qualified Code(s): W19.XXXA - Unspecified fall, initial encounter Condition: Stable Critical Care Time: No Referrals: JAMILA VENEGAS [Primary Care Provider] - (1-2 singh for re evaluation ) Instructions: Concussion, Adult (DC), Preventing Falls, Head Injury Observation (DC) Additional Instructions: Use cane for ambulation all the time. Take Tylenol as needed. Take Zofran as needed for nausea. Drink plenty of fluids. Follow-up with primary care for reevaluation. Return to ER for worsening dizziness or if any numbness tingling or focal weakness. Prescriptions: Ondansetron ODT 4 MG [Zofran Odt 4 mg] 4 mg PO Q6H PRN PRN #10 tab.rapdis PRN Reason: Vomiting
[2021-01-14 14:33] VITALS: BP 110/50
[2021-01-14] MEDS ORDERED: Zofran 4 MG/2 ML VIAL IV ONE (14:37)
[2021-01-14] MEDS ORDERED: Zofran 4 MG/2 ML VIAL ONE (14:38)
[2021-01-14 15:06] VITALS: PULSE 70; O2SAT 99
--- NOTE | 2021-01-14 19:46 | XRAY ---
Indication: Dizziness. Status post fall. Multiple contiguous axial images obtained through head without contrast. Comparison: January 06, 2018. There is again age-appropriate global atrophy and mild periventricular degenerative micro-ischemia. No acute intracranial hemorrhage, abnormal extra-axial fluid collection, or mass effect. Fourth ventricle is midline without hydrocephalus. Bony calvarium intact. Visualized paranasal sinuses and mastoid air cells are clear. Impression: Continued nonacute senile brain. Comment: Preliminary interpretation was made by [facility]. No critical discrepancy.
--- NOTE | 2021-01-14 19:48 | XRAY ---
Indication: Dizziness. Status post fall. Multiple contiguous axial images obtained through head without contrast. Comparison: January 06, 2018. Stable osteopenia, C4-C5 anterior fusion with intact fixation plate/screws, C4-C7 degenerative endplate spurring, and mild multilevel bilateral degenerative facet arthropathy. No acute fracture, suspicious bony lesions, or spinal canal stenosis. Sagittal and coronal reformatted images again demonstrates lordotic straightening and C5-C7 disc space narrowing. No acute compression fracture, subluxation, or jumped facet. Normal appearing craniocervical junction. Visualized noncontrasted soft tissues again demonstrates minimal carotid calcifications bilaterally. Lung apices are clear. Impression: 1. Stable cervical lordotic straightening, positional versus paraspinal spasm. 2. Continued negative acute fracture/subluxation. 3. Stable osteopenia, multilevel degenerative changes, and C4-C5 fusion surgery. Comment: Preliminary interpretation was made by [facility]. No critical discrepancy. Cervical spine
--- NOTE | 2021-01-14 19:50 | XRAY ---
Indication: Weakness and dizziness. Status post fall. Comparison: July 05, 2019. Portable chest less inflated and remains clear. Heart not enlarged. Bony thorax intact with osteopenia, degenerative changes, old left 5 rib fracture, and right shoulder arthroplasty. Impression: Continued nonacute chest with chronic features.
== END 2021-01-14 15:22 | disposition home or self-care (01) ==
LOC: ED 12:17
DX: S00.03XA Contusion of scalp, initial encounter (principal); S06.0X0A Concussion without loss of consciousness, initial encounter; W19.XXXA Unspecified fall, initial encounter; Z79.899 Other long term (current) drug therapy; M54.2 Cervicalgia; M54.9 Dorsalgia, unspecified; R42 Dizziness and giddiness; R51.9 Headache, unspecified; G62.9 Polyneuropathy, unspecified; I10 Essential (primary) hypertension; E11.9 Type 2 diabetes mellitus without complications; E03.9 Hypothyroidism, unspecified; K50.90 Crohn's disease, unspecified, without complications; F32.9 Major depressive disorder, single episode, unspecified
CPT/HCPCS: 36000; 36415; 70450; 71045; 72125; 80053; 81001; 83690; 84484; 85025; 93005; 93041; 96374; 99284; J2405

== ENCOUNTER 2021-03-11 10:37 | Emergency (ER) | payer MEDICARE ==
[2021-03-11] MEDS ORDERED: TORAdol 30 mg Injection IM ONE (10:58)
[2021-03-11] MEDS ORDERED: TORAdol 30 mg Injection ONE (11:04)
--- NOTE | 2021-03-11 11:04 | ERPHSYRPT ---
- History of Present Illness Source: patient Exam Limitations: no limitations Patient Subjective Stated Complaint: Pt states "I have been fighting this for years. I have lower back pain and it flairs up. It hit me last week and I went to [facility] but they were just so busy I left and I have been taking tylenol since. Dr. Weaver did surgery on my in may of last year and it has really been flairing ever since." Triage Nursing Assessment: Pt presented alert and oriented X 3, skin pwd Pt ambulates with a cane, pt ambulates slowly, able to sepak in clear full sentences. PT in no apparent respiratory distress. Physician History: 81 yo wf w chronic lumbar/R buttock pain presents from home w 05/26 pain. Pt was seen at [facility] on 03/08/21 for same complaint. She denies new injury/dysuria/hematuria/abdominal pain. Pt had surgery on her L-spine by Dr. Rosenthal in 06/05 and states that her pain has gotten worse. Pain worse w movement. Timing/Duration: other (Chronic) Method of Injury: unknown (Chronic pain) Quality: burning, sharp Back Pain Location: lumbar spine Back Pain Radiation: buttocks Severity of Pain-Max: severe Severity of Pain-Current: severe Modifying Factors: Improves With: movement Associated Symptoms: lower back pain, No fever, No chills, No sweating, No urinary incontinence, No loss of bowel control, No constipation, No nausea, No vomiting, No problems urinating, No light-headedness, No dizziness, No numbness in legs/feet, No weakness, No sensory/motor loss, No tingling in legs/feet, No muscle spasms Previous symptoms: same symptoms as today Allergies/Adverse Reactions: butorphanol tartrate [From Stadol] Allergy (Verified 01/14/21 12:25) celecoxib [From Celebrex] Allergy (Verified 01/14/21 12:25) Sulfa (Sulfonamide Antibiotics) Allergy (Verified 01/14/21 12:25) tizanidine [From Zanaflex] Allergy (Verified 01/14/21 12:25) Home Medications: Duloxetine HCl [Cymbalta] 60 mg PO DAILY 07/29/14 [History] Amlodipine Besylate 5 mg [Norvasc 5 mg] 10 mg PO HS 11/20/14 [History] Metformin HCl 500 mg [Glucophage 500 MG] 500 mg PO TID 11/27/15 [History] Oxybutynin Chloride 5 mg PO BID 11/27/15 [History] Levothyroxine Sodium 75 Mcg [Synthroid 75 Mcg] 75 mcg PO DAILY 02/11/16 [History] Ropinirole HCl [Requip] 1 mg PO HS 04/16/17 [History] Omeprazole [Prilosec] 40 mg PO DAILY 01/06/18 [History] Bupropion HCl 150 mg Sr [Wellbutrin SR 150 MG] 150 mg PO HS 10/01/18 [History] Fluticasone Propionate [Flonase NASAL] 2 spray IH DAILY 10/02/18 [History] Budesonide/Formoterol Fumarate [Symbicort 160-4.5 Mcg Inhaler] 2 puffs PO DAILY PRN PRN 12/22/19 [History] Cyanocobalamin (Vitamin B-12) [Vitamin B-12] 1,000 mcg PO DAILY 12/22/19 [History] Famotidine 20 mg PO BID 12/22/19 [History] Memantine HCl 5 mg [Namenda 5 MG] 5 mg PO BID 12/22/19 [History] lisinopriL [Lisinopril] 5 mg PO DAILY 04/19/20 [History] Hx Tetanus, Diphtheria Vaccination/Date Given: Yes Hx Influenza Vaccination/Date Given: Yes Hx Pneumococcal Vaccination/Date Given: Yes Immunizations Up to Date: Yes Travel Risk - International Travel Have you traveled outside of the country in past 3 weeks: No - Coronavirus Screening Are you exhibiting any of the following symptoms?: No Close contact with a COVID-19 positive Pt in past 14-21 Days: No - Vaccine Status Have you recieved a Covid-19 vaccination: Yes 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 - Vaccination Dates Date of 2cond Vaccination (if applicable): October 22, 2020 - Review of Systems Constitutional: No Symptoms Eyes: No Symptoms Ears, Nose, & Throat: No Symptoms Respiratory: No Symptoms Cardiac: No Symptoms Abdominal/Gastrointestinal: No Symptoms Genitourinary Symptoms: No Symptoms Musculoskeletal: No Symptoms, Arthralgias Skin: No Symptoms Neurological: No Symptoms Psychological: No Symptoms Endocrine: No Symptoms Hematologic/Lymphatic: No Symptoms Immunological/Allergic: No Symptoms - Past Medical History Pertinent Past Medical History: Yes Neurological History: Migraines, Peripheral Neuropathy ENT History: Cataracts Cardiac History: Hypertension Respiratory History: COPD Endocrine Medical History: Diabetes Type II, Hypothyroidism Musculoskeletal History: Arthritis, Fibromyalgia GI Medical History: Crohns Disease, GERD, Hernia History: No Pertinent History Psycho-Social History: Depression Female Reproductive Disorders: No Pertinent History Other Medical History: SEE CHART FOR PMH AND PSH; PT. HAS HAD 2 C-SPINE SXS - Past Surgical History Past Surgical History: Yes Neuro Surgical History: No Pertinent History Cardiac: No Pertinent History Respiratory: No Pertinent History Gastrointestinal: Appendectomy, Cholecystectomy Genitourinary: No Pertinent History Musculoskeletal: Orthopedic Surgery Female Surgical History: Hysterectomy, Tubal Ligation Other Surgical History: 2nd toe right foot, fractured right shoulder, filmed lasered off right eye, gaglion cyst removed, cataracts, bunion and tumor removed left foot, bunion right foot, tonsils, microscopic anterior cervical diskectomy with interbody fusion c5-6, plate to cervical, tibia fx repain - Social History Smoking Status: Never smoker Exposure to second hand smoke: No Alcohol Use: None Drug Use: none Patient Lives Alone: No Significant Family History: no pertinent family hx - Nursing Vital Signs Nursing Vital Signs: Initial Vital Signs Temperature 97.8 F 03/11/21 10:42 Pulse Rate 90 03/11/21 10:42 Respiratory Rate 20 03/11/21 10:42 Blood Pressure 173/86 03/11/21 10:42 O2 Sat by Pulse Oximetry 98 03/11/21 10:42 Pain Scale Pain Intensity [Lower Back] 9 Pain Intensity 5 Hypertensive - Physical Exam General Appearance: no apparent distress Eye Exam: PERRL/EOMI, eyes nml inspection Ears, Nose, Throat Exam: normal ENT inspection, TMs normal, pharynx normal Neck Exam: normal inspection, non-tender, supple, full range of motion, No meningismus, No mass, No Brudzinski, No Kernig's, No carotid bruit Respiratory Exam: normal breath sounds, lungs clear, airway intact, No respiratory distress Cardiovascular Exam: regular rate/rhythm, normal heart sounds, normal peripheral pulses, No murmur Gastrointestinal Exam: soft, normal bowel sounds, No tenderness Back Exam: vertebral tenderness (Mild L-spine TTP/Moderate R buttock TTP/Mild pain w R stiff leg raises) Extremity Exam: normal inspection, normal range of motion Peripheral Pulses: carotid (R): 2+, carotid (L): 2+ Neurologic Exam: alert, oriented x 3, cooperative, 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 tested, normal mood/affect, nml cerebellar function, nml station & gait, sensation nml, EOM palsy, No motor deficits, No sensory deficit Skin Exam: normal color, warm, dry Lymphatic Exam: No adenopathy SpO2 Interpretation: normal SpO2: 98 O2 Delivery: Room Air - Course Nursing assessment & vital signs reviewed: Yes Ordered Tests: Medication Summary Discontinued Medications Generic Name Dose Route Start Last Admin Trade Name Giuliano PRN Reason Stop Dose Admin Ketorolac Tromethamine 15 mg 03/11/21 10:58 03/11/21 11:05 Toradol 30 Mg Injection IM 03/11/21 10:59 15 mg STAT ONE Administration Ketorolac Tromethamine Confirm 03/11/21 11:04 Toradol 30 Mg Injection Administered 03/11/21 11:05 Dose 30 mg .ROUTE .STPopJax-MED ONE - Progress Progress: improved Progress Note: 03/11/21 11:06 15mg IM Toradol 03/11/21 20:10 Pain improved before discharge. Pt to f/u w Dr. Hammond Counseled pt/family regarding: need for follow-up - Departure Departure Disposition: Home Clinical Impression: Chronic low back pain Condition: Stable Critical Care Time: No Referrals: JAMILA VENEGAS [Primary Care Provider] - Instructions: Low Back Pain (DC) Additional Instructions: Follow up with Dr. Rosenthal or family MD Return to ER for increasing pain/focal weakness/Temperature greater than 100.5
[2021-03-11 11:39] VITALS: BP 140/69; PULSE 76
[2021-03-11 20:11] VITALS: O2SAT 98
== END 2021-03-11 11:47 | disposition home or self-care (01) ==
LOC: ED 10:37
DX: M54.5 Low back pain (principal); Z79.899 Other long term (current) drug therapy; M25.50 Pain in unspecified joint; G62.9 Polyneuropathy, unspecified; I10 Essential (primary) hypertension; E03.9 Hypothyroidism, unspecified; E11.9 Type 2 diabetes mellitus without complications; K50.90 Crohn's disease, unspecified, without complications
CPT/HCPCS: 96372; 99283; J1885

== ENCOUNTER 2021-03-12 15:09 | Observation (INO) | payer MEDICARE ==
[2021-03-12] MEDS ORDERED: TORAdol 30 mg Injection IM ONE (16:11)
[2021-03-12] MEDS ORDERED: TORAdol 30 mg Injection ONE (16:13)
--- NOTE | 2021-03-12 16:28 | ERPHSYRPT ---
- History of Present Illness Time Seen by Provider: 03/12/21 15:30 Source: patient Exam Limitations: no limitations Patient Subjective Stated Complaint: Pt states that she has pain in the right hip that radiates down, pt was here yesterday too Triage Nursing Assessment: Pt brought to the ER by her brother, hypertensive, rates pain 10/10, pain in the right hip that radiates down, pulses normal, walked to room with cane, doesn't appear to be in any distress Physician History: Patient is a 81-year-old female presents to our emergency department for Toradol. Patient has chronic pain. Patient has been experiencing right leg pain since May. Patient had back surgery. Patient states the back surgery did not resolve her pain. Patient's surgeon referred patient to a pain specialist however she has not seen her pain specialist at this time. Patient's pain today is typical. It is described as an ache that originates at her right hip and travels down her leg. Patient has positive straight leg raise. However patient states she has a history of sciatica but states that she does not believe she has sciatica at this time. Patient was brought to our ED by her brother. Patient was in our ED last night for the same thing. Patient did receive transient relief. Patient declined a work-up. Patient states "all I want is Toradol". No associated chest pain. No fever. No recent back procedures. No saddle anesthesia. Patient voices no other complaints concerns at this time. Method of Injury: other (No injury) Occurred: other (Pain is chronic has been present for approximately 10 months.) Quality: constant Severity of Pain-Max: moderate Severity of Pain-Current: mild Lower Extremities Pain: hip: right Modifying Factors: Improves With: nothing Associated Symptoms: none Allergies/Adverse Reactions: butorphanol tartrate [From Stadol] Allergy (Verified 03/12/21 15:25) celecoxib [From Celebrex] Allergy (Verified 03/12/21 15:25) Sulfa (Sulfonamide Antibiotics) Allergy (Verified 03/12/21 15:25) tizanidine [From Zanaflex] Allergy (Verified 03/12/21 15:25) Home Medications: Duloxetine HCl [Cymbalta] 60 mg PO DAILY 07/29/14 [History] Amlodipine Besylate 5 mg [Norvasc 5 mg] 10 mg PO HS 04/06/15 [History] Metformin HCl 500 mg [Glucophage 500 MG] 500 mg PO TID 11/27/15 [History] Oxybutynin Chloride 5 mg PO BID 11/27/15 [History] Levothyroxine Sodium 75 Mcg [Synthroid 75 Mcg] 75 mcg PO DAILY 02/11/16 [History] Ropinirole HCl [Requip] 1 mg PO HS 04/16/17 [History] Omeprazole [Prilosec] 40 mg PO DAILY 01/06/18 [History] Bupropion HCl 150 mg Sr [Wellbutrin SR 150 MG] 150 mg PO HS 10/01/18 [History] Fluticasone Propionate [Flonase NASAL] 2 spray IH DAILY 10/02/18 [History] Budesonide/Formoterol Fumarate [Symbicort 160-4.5 Mcg Inhaler] 2 puffs PO DAILY PRN PRN 12/22/19 [History] Cyanocobalamin (Vitamin B-12) [Vitamin B-12] 1,000 mcg PO DAILY 12/22/19 [History] Famotidine 20 mg PO BID 12/22/19 [History] Memantine HCl 5 mg [Namenda 5 MG] 5 mg PO BID 12/22/19 [History] lisinopriL [Lisinopril] 5 mg PO DAILY 04/19/20 [History] Hx Tetanus, Diphtheria Vaccination/Date Given: Yes Hx Influenza Vaccination/Date Given: Yes Hx Pneumococcal Vaccination/Date Given: Yes Travel Risk - International Travel Have you traveled outside of the country in past 3 weeks: No - Coronavirus Screening Are you exhibiting any of the following symptoms?: No Close contact with a COVID-19 positive Pt in past 14-21 Days: No - Vaccine Status Have you recieved a Covid-19 vaccination: Yes 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 - Vaccination Dates Date of 2cond Vaccination (if applicable): October 22, 2020 - Review of Systems Constitutional: No Symptoms, No Fever, No Chills Eyes: No Symptoms Ears, Nose, & Throat: No Symptoms Respiratory: No Symptoms, No Cough, No Dyspnea Cardiac: No Symptoms, No Chest Pain, No Edema, No Syncope Abdominal/Gastrointestinal: No Symptoms, No Abdominal Pain, No Nausea, No Vomiting, No Diarrhea Genitourinary Symptoms: No Symptoms, No Dysuria Musculoskeletal: No Symptoms, No Back Pain, No Neck Pain Skin: No Symptoms, No Rash Neurological: No Symptoms, No Dizziness, No Focal Weakness, No Sensory Changes Psychological: No Symptoms Endocrine: No Symptoms Hematologic/Lymphatic: No Symptoms Immunological/Allergic: No Symptoms All Other Systems: Reviewed and Negative - Past Medical History Pertinent Past Medical History: Yes Neurological History: Migraines, Peripheral Neuropathy ENT History: Cataracts Cardiac History: Hypertension Respiratory History: COPD Endocrine Medical History: Diabetes Type II, Hypothyroidism Musculoskeletal History: Arthritis, Fibromyalgia GI Medical History: Crohns Disease, GERD, Hernia History: No Pertinent History Psycho-Social History: Depression Female Reproductive Disorders: No Pertinent History Other Medical History: SEE CHART FOR PMH AND PSH; PT. HAS HAD 2 C-SPINE SXS - Past Surgical History Past Surgical History: Yes Neuro Surgical History: No Pertinent History Cardiac: No Pertinent History Respiratory: No Pertinent History Gastrointestinal: Appendectomy, Cholecystectomy Genitourinary: No Pertinent History Musculoskeletal: Orthopedic Surgery Female Surgical History: Hysterectomy, Tubal Ligation Other Surgical History: 2nd toe right foot, fractured right shoulder, filmed lasered off right eye, gaglion cyst removed, cataracts, bunion and tumor removed left foot, bunion right foot, tonsils, microscopic anterior cervical diskectomy with interbody fusion c5-6, plate to cervical, tibia fx repain - Social History Smoking Status: Never smoker Exposure to second hand smoke: No Alcohol Use: None Drug Use: none Patient Lives Alone: No Significant Family History: no pertinent family hx - Female History Hx Now: No - Nursing Vital Signs Nursing Vital Signs: Initial Vital Signs Temperature 97.3 F 03/12/21 15:18 Pulse Rate 86 03/12/21 15:18 Blood Pressure 148/69 03/12/21 15:18 O2 Sat by Pulse Oximetry 100 03/12/21 15:18 Pain Scale Pain Intensity 5 - Physical Exam General Appearance: no apparent distress, alert, other (Patient sitting up in bed. She is conversant well-appearing and in no acute distress.) Eyes, Ears, Nose, Throat Exam: moist mucous membranes Neck Exam: non-tender, supple Cardiovascular/Respiratory Exam: chest non-tender, normal breath sounds, regular rate/rhythm, no respiratory distress Gastrointestinal/Abdominal Exam: non-tender, guarding Back Exam: normal inspection, No vertebral tenderness Hips Exam: right: pain, soft tissue tenderness, left: non-tender, normal inspection, normal range of motion, no evidence of injury Neuro/Tendon Exam: normal sensation, normal motor functions Mental Status Exam: alert, oriented x 3, cooperative Skin Exam: normal color, warm, dry SpO2: 100 - Radiology Exams Hip X-ray Interpretation: Interpreted by me (View right hip demonstrates minimal fl attening remodeling of medial femur head either degenerative versus avascular necrosis. Elsewhere osteopenia L4-L5 spinous process fusion hardware and right lower quadrant surgical clips.) - CT Exams Pelvis CT Interpretation: Tele-radiologist Report (Presented 10/01/2018. Interval L4-L5 kyphoplasty and posterior fusion. Stable osteopenia and small benign sclerotic lesion left superior acetabulum. Remaining pelvis negative.) Ordered Tests: Active Orders 24 hr Category Date Time Status IV Insertion STAT Care 03/12/21 19:51 Active HIP UNI (2V) INCL PEL IF DONE Stat Exams 03/12/21 16:32 Completed PELVIS WITHOUT CONTRAST [CT] Stat Exams 03/12/21 17:16 Taken CBC W DIFF Stat Lab 03/12/21 20:32 Completed CMP Stat Lab 03/12/21 20:32 Completed UA W/RFX UR CULTURE Stat Lab 03/12/21 19:51 Ordered Transfer Order Routine Transfer 03/12/21 Ordered Medication Summary Discontinued Medications Generic Name Dose Route Start Last Admin Trade Name Freq PRN Reason Stop Dose Admin Ketorolac Tromethamine 30 mg 03/12/21 16:11 03/12/21 16:15 Toradol 30 Mg Injection IM 03/12/21 16:12 30 mg STAT ONE Administration Ketorolac Tromethamine Confirm 03/12/21 16:13 Toradol 30 Mg Injection Administered 03/12/21 16:14 Dose 30 mg .ROUTE .STK-MED ONE Lab/Rad Data: Laboratory Result Diagrams 03/12/21 20:32 03/12/21 20:32 Laboratory Results 03/12/21 03/12/21 03/12/21 Range/Units 20:32 20:32 19:33 WBC 5.4 (4.0-10.5) K/mm3 RBC 3.46 L (4.1-5.4) M/mm3 Hgb 9.9 L (12.0-16.0) gm/dl Hct 30.5 L (35-47) % MCV 88.2 (78-100) fl MCH 28.6 (26-32) pg MCHC 32.5 (32-36) g/dl RDW 13.8 (11.5-14.0) % Plt Count 222 (150-450) K/mm3 MPV 9.3 (7.5-11.0) fl Gran % 52.9 (36.0-66.0) % Eos # (Auto) 0.10 (0-0.5) Absolute Lymphs (auto) 1.81 (1.0-4.6) Absolute Monos (auto) 0.60 (0.0-1.3) Lymphocytes % 33.5 (24.0-44.0) % Monocytes % 11.1 (0.0-12.0) % Eosinophils % 1.9 (0.00-5.0) % Basophils % 0.6 (0.0-0.4) % Absolute Granulocytes 2.86 (1.4-6.9) Basophils # 0.03 (0-0.4) Sodium 136 L (137-145) mmol/L Potassium 3.2 L (3.5-5.1) mmol/L Chloride 102 (98-107) mmol/L Carbon Dioxide 24 (22-30) mmol/L Anion Gap 13.3 (5-15) MEQ/L BUN 22 H (7-17) mg/dL Creatinine 0.51 L (0.52-1.04) mg/dL Estimated GFR > 60.0 ML/MIN Glucose 93 (74-106) mg/dL Calcium 9.3 (8.4-10.2) mg/dL Total Bilirubin 0.20 (0.2-1.3) mg/dL AST 22 (14-36) U/L ALT 12 (0-35) U/L Alkaline Phosphatase 56 (38-126) U/L Serum Total Protein 6.5 (6.3-8.2) g/dL Albumin 3.8 (3.5-5.0) g/dL SARS-CoV-2 (PCR) NEGATIVE (NEGATIVE) - Progress Progress: improved Progress Note: Patient presented with right hip pain. X-ray revealed possible AVN. CT scan was inconclusive. Radiologist advised MRI of right hip. Case discussed with Dr. Scott. Patient will be admitted for MRI of right hip to further assess for possible avascular necrosis. Patient otherwise feels well. Hypokalemia observed. Patient observed. Patient will receive 40 mEq potassium chloride orally to be dosed on the floor. Patient left our ED prior to administration of potassium. Patient has No active pain. Patient agrees to admission [facility] for further evaluation and treatment. 03/12/21 21:04 03/12/21 21:[address] Charissa Will see patient in: hospital (observation) Counseled pt/family regarding: lab results, diagnosis, rad results - Departure Departure Disposition: Observation Clinical Impression: AVN (avascular necrosis of bone), Normocytic anemia, Hypokalemia Condition: Stable Critical Care Time: No Referrals: JAMILA SCOTT [Primary Care Provider] -
--- NOTE | 2021-03-12 16:57 | XRAY ---
Indication: Pain following fall one month ago. Comparison: None 2 view right hip demonstrates minimal flattening/remodeling of medial femur head either degenerative versus avascular necrosis. Elsewhere osteopenia, L4-L5 spinous process fusion hardware, and right lower quadrant surgical clips.
[2021-03-12 20:35] LABS: Absolute Neutrophil Ct (ANC) 2.86 (1.4-6.9); BASOPHIL % 0.6 % (0.0-0.4); Basophil (Absolute #) 0.03 (0-0.4); Eosinophil % 1.9 % (0.00-5.0); Hematocrit 30.5 % (35-47); Hemoglobin 9.9 gm/dl (12.0-16.0); Lymphocyte (Absolute #) 1.81 (1.0-4.6); Lymphocytes % 33.5 % (24.0-44.0); Mean Cell Volume 88.2 fl (78-100); Mean Corpuscular Hemoglobin 28.6 pg (26-32); Mean Corpuscular Hgb Concent. 32.5 g/dl (32-36); Mean Platelet Volume 9.3 fl (7.5-11.0); Monocytes % 11.1 % (0.0-12.0); Neutrophil % 52.9 % (36.0-66.0); Platelet Count 222 K/mm3 (150-450); Red Blood Count 3.46 M/mm3 (4.1-5.4); Red Cell Distribution Width 13.8 % (11.5-14.0); White Blood Count 5.4 K/mm3 (4.0-10.5)
[2021-03-12 20:51] LABS: ALBUMIN 3.8 g/dL (3.5-5.0); ALKALINE PHOSPHATASE 56 U/L (38-126); ANION GAP 13.3 MEQ/L (5-15); BLOOD UREA NITROGEN 22 mg/dL (7-17); CHLORIDE 102 mmol/L (98-107); Calcium 9.3 mg/dL (8.4-10.2); Carbon Dioxide 24 mmol/L (22-30); Creatinine 1 0.51 mg/dL (0.52-1.04); EST GLOMERULAR FILTRATION RATE > 60.0 ML/MIN; Glucose 93 mg/dL (74-106); Potassium 3.2 mmol/L (3.5-5.1); SGOT/AST 22 U/L (14-36); SGPT/ALT 12 U/L (0-35); SODIUM 136 mmol/L (137-145); Total Protein 6.5 g/dL (6.3-8.2)
[2021-03-12] MEDS ORDERED: TYLENOL 325 MG PO PRN (21:09)
[2021-03-12] MEDS ORDERED: Klor Con 10 MEQ PO ONE (21:21)
[2021-03-12] MEDS: NORCO 5/325 MG PO PRN (21:54)
[2021-03-12] MEDS: Wellbutrin SR 150 MG PO SCH (23:25)
[2021-03-12] MEDS: NORVASC 5 MG PO SCH (23:25)
[2021-03-12] MEDS: Requip 0.5 MG PO SCH (23:26)
[2021-03-12] MEDS: TORAdol 30 mg Injection IV PRN (23:57)
[2021-03-13 00:31] LABS: Appearance SLIGHTLY CLOUDY (CLEAR); Bilirubin NEGATIVE (NEGATIVE); Blood NEGATIVE Ery/ul (0-5); Glucose NEGATIVE (NEGATIVE); Ketones NEGATIVE (NEGATIVE); Leukocyte Esterase TRACE (NEGATIVE); Mucus SLIGHT /HPF (NEGATIVE); Nitrite NEGATIVE (NEGATIVE); Protein,Urine Dip 30 (Negative); Specific Gravity 1.024 (1.005-1.025); Urobilinogen NEGATIVE mg/dL (0-1)
[2021-03-13] MEDS: NORCO 5/325 MG PO PRN (06:31)
[2021-03-13] MEDS: TORAdol 30 mg Injection IV PRN ×2 (06:36→15:11)
[2021-03-13] MEDS: Ditropan 5 MG PO SCH ×2 (08:17→22:33)
--- NOTE | 2021-03-13 08:39 | XRAY ---
Indication: Right hip pain following fall. Multiple contiguous axial images obtained through the pelvis with special attention to the osseous structures. Comparison: October 01, 2018. Osseous structures remain demineralized. There has been interval L4-L5 kyphoplasty with new posterior spinous process fusion hardware. Left superior acetabulum demonstrates stable 1.5 cm sclerotic lesion favored to be benign given stability over the years. Both hips intact again with mild degenerative arthropathy. No acute fracture, suspicious bony lesions, or osseous destructive process. Stable tiny bilateral gluteal calcified injection granulomas. Remaining visualized noncontrasted soft tissues including pelvic contents are unremarkable. Impression: 1. Negative acute fracture, dislocation, or osseous destructive process. 2. Incidental osteopenia, bilateral hip degenerative arthropathy, left superior acetabulum benign splenic lesion, and L4-L5 kyphoplasty/posterior fusion.
--- NOTE | 2021-03-13 09:16 | PCM.HP ---
History of Present Illness - Chief Complaint Chief Complaint: hip pain History of Present Illness: is a 81 year old female pt of mine from [facility] with chronic low back pain, DM, HTN, hyperlipidemia, hypothyroidism, RLS who was admitted through ER with R lower back/buttock pain. On XR there was a question of avascular necrosis of the hip. CT of hip was noncontributory. She was admitted for pain control and to get an MRI of the hip today. She sees Dr. Rosenthal; had been plannign f/u with him for some time, but today she tells me she hasn't actually seen him yet for this pain because every time she had an appointment their office had to change it. The pain started when she fell one day at [facility], [place] (February 08, 2021) - had not sought medical attention at that time. Pain was 10/10 on admission. 8/10 with toradol IV. She has been up walking to the bathroom with assistance. - Review of Systems Abdominal/Gastrointestinal: Diarrhea (x 1; chronic intermittent) Genitourinary Symptoms: Dysuria (since last week; labs were done at [facility]) Neurological: Other (lightheaded when first standing. no falls or syncope) All Other Systems: Reviewed and Negative Medications & Allergies Home Medications: Home Medication List Duloxetine HCl [Cymbalta] 60 mg PO DAILY 07/29/14 [History Confirmed 03/12/21] Amlodipine Besylate 5 mg [Norvasc 5 mg] 10 mg PO HS 11/20/14 [History Confirmed 03/12/21] Metformin HCl 500 mg [Glucophage 500 MG] 500 mg PO TID 11/27/15 [History Confirmed 03/12/21] Oxybutynin Chloride 5 mg PO BID 11/27/15 [History Confirmed 03/12/21] Levothyroxine Sodium 75 Mcg [Synthroid 75 Mcg] 75 mcg PO DAILY 02/11/16 [History Confirmed 03/12/21] Ropinirole HCl [Requip] 1 mg PO HS 04/16/17 [History Confirmed 03/12/21] Bupropion HCl 150 mg Sr [Wellbutrin SR 150 MG] 150 mg PO HS 10/01/18 [History Confirmed 03/12/21] Fluticasone Propionate [Flonase NASAL] 2 spray IH DAILY PRN 10/02/18 [History Confirmed 03/12/21] Budesonide/Formoterol Fumarate [Symbicort 160-4.5 Mcg Inhaler] 2 puffs PO DAILY PRN PRN 12/22/19 [History Confirmed 03/12/21] Cyanocobalamin (Vitamin B-12) [Vitamin B-12] 1,000 mcg PO QHS 12/22/19 [History Confirmed 03/12/21] Cyclobenzaprine HCl [Flexeril] 10 mg PO TID 03/12/21 [History Confirmed 03/12/21] Allergies/Adverse Reactions: Allergies Allergy/AdvReac Type Severity Reaction Status Date / Time butorphanol tartrate Allergy Verified 03/12/21 21:15 [From Stadol] celecoxib [From Celebrex] Allergy Verified 03/12/21 21:15 Sulfa (Sulfonamide Allergy Verified 03/12/21 21:15 Antibiotics) tizanidine [From Zanaflex] Allergy Verified 03/12/21 21:15 - Past Medical History Past Medical History: Yes Neurological History: Migraines, Peripheral Neuropathy ENT History: Cataracts Cardiac History: High Cholesterol, Hypertension Respiratory History: COPD Endocrine Medical History: Diabetes Type II, Hypothyroidism Musculoskelatal History: Arthritis, Fibromyalgia GI Medical History: Crohns Disease, GERD, Hernia History: No Pertinent History Pyscho-Social History: Depression Reproductive Disorders: No Pertinent History Comment: SEE CHART FOR PMH AND PSH; PT. HAS HAD 2 C-SPINE SXS - Female History Are you now?: No - Past Surgical History Past Surgical History: Yes Neuro Surgical History: No Pertinent History Cardiac History: No Pertinent History Respiratory Surgery: No Pertinent History GI Surgical History: Appendectomy, Cholecystectomy Genitourinary Surgical Hx: No Pertinent History Musculskeletal Surgical Hx: Orthopedic Surgery Female Surgical History: Hysterectomy, Tubal Ligation Other Surgical History: 2nd toe right foot, fractured right shoulder, filmed lasered off right eye, gaglion cyst removed, cataracts, bunion and tumor removed left foot, bunion right foot, tonsils, microscopic anterior cervical diskectomy with interbody fusion c5-6, plate to cervical, tibia fx repair - Social History Smoking Status: Never smoker Exposure to second hand smoke: No Alcohol: None Drug Use: none Significant Family History: no pertinent family hx - Physical Exam Vital Signs: Vital Signs - 24 hr Temp Pulse Resp BP Pulse Ox 03/13/21 08:00 98.2 F 72 20 118/57 96 03/13/21 04:00 98.5 F 65 17 101/53 99 03/13/21 00:00 97.6 F 78 17 124/57 96 03/12/21 21:55 98.8 F 71 17 126/55 95 03/12/21 21:09 96 03/12/21 21:08 100 03/12/21 20:08 72 16 139/70 93 L 03/12/21 19:00 72 18 127/67 97 03/12/21 18:10 72 16 124/69 98 03/12/21 17:56 72 18 130/68 95 03/12/21 15:18 97.3 F 86 148/69 100 General Appearance: no apparent distress, alert Neurologic Exam: oriented x 3, cooperative, normal mood/affect Eye Exam: eyes nml inspection Ears, Nose, Throat Exam: moist mucous membranes Neck Exam: normal inspection, non-tender, No lymphadenopathy Respiratory Exam: normal breath sounds, lungs clear, No crackles/rales, No rhonchi, No wheezing Cardiovascular Exam: regular rate/rhythm, normal heart sounds, No murmur Gastrointestinal/Abdomen Exam: soft, normal bowel sounds, No tenderness, No distention, No mass, No guarding, No rebound Back Exam: normal inspection, other (spine nttp throughout. SI joint ttp on R), No CVA tenderness Extremity Exam: No pedal edema, No swelling Skin Exam: normal color, warm, dry, No rash Results - Labs Lab/Micro Results: Lab Results-Last 24 Hours 03/12/21 03/12/21 03/12/21 Range/Units 19:33 20:32 20:32 WBC 5.4 (4.0-10.5) K/mm3 RBC 3.46 L (4.1-5.4) M/mm3 Hgb 9.9 L (12.0-16.0) gm/dl Hct 30.5 L (35-47) % MCV 88.2 (78-100) fl MCH 28.6 (26-32) pg MCHC 32.5 (32-36) g/dl RDW 13.8 (11.5-14.0) % Plt Count 222 (150-450) K/mm3 MPV 9.3 (7.5-11.0) fl Gran % 52.9 (36.0-66.0) % Eos # (Auto) 0.10 (0-0.5) Absolute Lymphs (auto) 1.81 (1.0-4.6) Absolute Monos (auto) 0.60 (0.0-1.3) Lymphocytes % 33.5 (24.0-44.0) % Monocytes % 11.1 (0.0-12.0) % Eosinophils % 1.9 (0.00-5.0) % Basophils % 0.6 (0.0-0.4) % Absolute Granulocytes 2.86 (1.4-6.9) Basophils # 0.03 (0-0.4) Sodium 136 L (137-145) mmol/L Potassium 3.2 L (3.5-5.1) mmol/L Chloride 102 (98-107) mmol/L Carbon Dioxide 24 (22-30) mmol/L Anion Gap 13.3 (5-15) MEQ/L BUN 22 H (7-17) mg/dL Creatinine 0.51 L (0.52-1.04) mg/dL Estimated GFR > 60.0 ML/MIN Glucose 93 (74-106) mg/dL POC Glucometer (74 to 106) mg/dL Calcium 9.3 (8.4-10.2) mg/dL Total Bilirubin 0.20 (0.2-1.3) mg/dL AST 22 (14-36) U/L ALT 12 (0-35) U/L Alkaline Phosphatase 56 (38-126) U/L Serum Total Protein 6.5 (6.3-8.2) g/dL Albumin 3.8 (3.5-5.0) g/dL Urine Color (YELLOW) Urine Appearance (CLEAR) Urine pH (5-6) Ur Specific Elsa (1.005-1.025) Urine Protein (Negative) Urine Ketones (NEGATIVE) Urine Blood (0-5) Han/ul Urine Nitrite (NEGATIVE) Urine Bilirubin (NEGATIVE) Urine Urobilinogen (0-1) mg/dL Ur Leukocyte Esterase (NEGATIVE) Urine WBC (Auto) (0-5) /HPF Urine RBC (Auto) (0-2) /HPF U Epithel Cells (Auto) (FEW) /HPF Urine Bacteria (Auto) (NEGATIVE) /HPF Urine Mucus (Auto) (NEGATIVE) /HPF Urine Culture Reflexed (NO) Urine Glucose (NEGATIVE) mg/dL SARS-CoV-2 (PCR) NEGATIVE (NEGATIVE) 03/13/21 03/13/21 Range/Units 00:06 07:28 WBC (4.0-10.5) K/mm3 RBC (4.1-5.4) M/mm3 Hgb (12.0-16.0) gm/dl Hct (35-47) % MCV (78-100) fl MCH (26-32) pg MCHC (32-36) g/dl RDW (11.5-14.0) % Plt Count (150-450) K/mm3 MPV (7.5-11.0) fl Gran % (36.0-66.0) % Eos # (Auto) (0-0.5) Absolute Lymphs (auto) (1.0-4.6) Absolute Monos (auto) (0.0-1.3) Lymphocytes % (24.0-44.0) % Monocytes % (0.0-12.0) % Eosinophils % (0.00-5.0) % Basophils % (0.0-0.4) % Absolute Granulocytes (1.4-6.9) Basophils # (0-0.4) Sodium (137-145) mmol/L Potassium (3.5-5.1) mmol/L Chloride (98-107) mmol/L Carbon Dioxide (22-30) mmol/L Anion Gap (5-15) MEQ/L BUN (7-17) mg/dL Creatinine (0.52-1.04) mg/dL Estimated GFR ML/MIN Glucose (74-106) mg/dL POC Glucometer 120 H (74 to 106) mg/dL Calcium (8.4-10.2) mg/dL Total Bilirubin (0.2-1.3) mg/dL AST (14-36) U/L ALT (0-35) U/L Alkaline Phosphatase (38-126) U/L Serum Total Protein (6.3-8.2) g/dL Albumin (3.5-5.0) g/dL Urine Color CHON (YELLOW) Urine Appearance SLIGHTLY CLOUDY (CLEAR) Urine pH 5.0 (5-6) Ur Specific Elsa 1.024 (1.005-1.025) Urine Protein 30 (Negative) Urine Ketones NEGATIVE (NEGATIVE) Urine Blood NEGATIVE (0-5) Han/ul Urine Nitrite NEGATIVE (NEGATIVE) Urine Bilirubin NEGATIVE (NEGATIVE) Urine Urobilinogen NEGATIVE (0-1) mg/dL Ur Leukocyte Esterase TRACE (NEGATIVE) Urine WBC (Auto) 6-10 (0-5) /HPF Urine RBC (Auto) NONE (0-2) /HPF U Epithel Cells (Auto) NONE (FEW) /HPF Urine Bacteria (Auto) NONE (NEGATIVE) /HPF Urine Mucus (Auto) SLIGHT (NEGATIVE) /HPF Urine Culture Reflexed NO (NO) Urine Glucose NEGATIVE (NEGATIVE) mg/dL SARS-CoV-2 (PCR) (NEGATIVE) Accuchecks Date 03/13/21 Time 07:48 - Radiology Impressions Radiology Exams & Impressions: Radiology Procedures Category Date Time Status HIP UNI (2V) INCL PEL IF DONE Stat Exams 03/12/21 16:32 Completed MRI LOWER EXT JOINT W&WO CON [MRI] Routine Exams 03/13/21 Ordered PELVIS WITHOUT CONTRAST [CT] Stat Exams 03/12/21 17:16 Completed Assessment/Plan (1) AVN (avascular necrosis of bone) Current Visit: Yes Status: Suspected Assessment & Plan: MRI today. If surgery needed, she would definitely like DR. Rosenthal to do it, but thinks he is out of town until Mar 25. Code(s): M87.00 - IDIOPATHIC ASEPTIC NECROSIS OF UNSPECIFIED BONE (2) Normocytic anemia Current Visit: Yes Status: Chronic Code(s): D64.9 - ANEMIA, UNSPECIFIED (3) Acute exacerbation of chronic low back pain Current Visit: No Status: Acute Code(s): M54.5 - LOW BACK PAIN; G89.29 - OTHER CHRONIC PAIN (4) Diabetes Current Visit: No Status: Chronic Qualifiers: Diabetes mellitus type: type 2 Diabetes mellitus exterminator termite insulin use: without exterminator termite use Diabetes mellitus complication status: without complication Qualified Code(s): E11.9 - Type 2 diabetes mellitus without complications Code(s): E11.9 - TYPE 2 DIABETES MELLITUS WITHOUT COMPLICATIONS (5) Essential hypertension Current Visit: No Status: Chronic Code(s): I10 - ESSENTIAL (PRIMARY) HYPERTENSION
[2021-03-13] MEDS: HYDROCODONE-ACETAMIN 10-325 MG PO PRN ×4 (09:39→23:35)
[2021-03-13] MEDS ORDERED: Flonase NASAL NS PRN (09:44)
[2021-03-13] MEDS ORDERED: NON-FORMULARY ITEM (Budesonide/Formoterol Fumarate [Symbicort 160-4.5 Mcg Inhaler] 2 PUFFS PO PRN (09:44)
[2021-03-13] MEDS ORDERED: NON-FORMULARY ITEM (Cyclobenzaprine Hcl [Flexeril] 10 MG) PO SCH (10:00)
[2021-03-13] MEDS: Cymbalta 30 MG Capsule PO SCH (10:00)
[2021-03-13] MEDS: Cyclobenzaprine 10 MG PO SCH ×3 (10:00→22:33)
[2021-03-13] MEDS: SYNTHROID 75 MCG PO SCH (10:01)
[2021-03-13] MEDS: Advair Hfa 230/21 Mcg COMMON CANISTER IH SCH ×2 (10:45→19:42)
--- NOTE | 2021-03-13 17:09 | XRAY ---
Indication: Right hip pain following fall one month ago. Avascular necrosis. Coronal and axial MRI both hips performed using pre-and post T1, T2, and STIR sequences. Additional pre-and post T1 and T2 sagittal images obtained through the right hip. 12cc Dotarem used. Comparison: None Hips are bilaterally intact without abnormal effusion. Left superior acetabulum demonstrates 1.[address] proven benign sclerotic lesion. No acute fracture, suspicious bony lesions, bony remodeling, or evidence for avascular necrosis. Incidental L4-L5 ferromagnetic artifact from fusion hardware and L4-L5 kyphoplasty. Visualized surrounding soft tissues including pelvic contents are unremarkable. Following gadolinium, there is no abnormal soft tissue or bony enhancement. Impression: 1. L4-L5 fusion hardware artifact, L4-L5 kyphoplasty, and benign left superior acetabulum sclerotic lesion. 2. Remaining MRI hips with contrast exam is negative.
[2021-03-13] MEDS: NORVASC 5 MG PO SCH (22:33)
[2021-03-13] MEDS: Requip 0.5 MG PO SCH (22:34)
[2021-03-13] MEDS: Wellbutrin SR 150 MG PO SCH (22:34)
[2021-03-14] MEDS: HYDROCODONE-ACETAMIN 10-325 MG PO PRN (07:53)
--- NOTE | 2021-03-14 07:55 | PCM.DS ---
Discharge Summary Date of Admission: 03/12/21 21:09 Admitting Physician: JAMILA VENEGAS Primary Care Provider: JAMILA VENEGAS Allergies Allergies butorphanol tartrate [From Stadol] Allergy (Verified 03/12/21 21:15) celecoxib [From Celebrex] Allergy (Verified 03/12/21 21:15) Sulfa (Sulfonamide Antibiotics) Allergy (Verified 03/12/21 21:15) tizanidine [From Zanaflex] Allergy (Verified 03/12/21 21:15) Hospital Summary - Hospital Course Hospital Course: patient was admitted with intractable right hip pain following a fall a month ago, concern for avn of hip. MRI was done and shows benign sclerotic lesion and no fracture, she is ambulating with her cane without assistance and pain is controlled with norco. she requests to go home today. - Vitals & Intake/Output Vital Signs: Vital Signs Temperature 98.0 F 03/14/21 03:47 Pulse Rate 70 03/14/21 03:47 Respiratory Rate 18 03/14/21 03:47 Blood Pressure 105/53 03/14/21 03:47 O2 Sat by Pulse Oximetry 98 03/14/21 03:47 Intake & Output: Intake & Output 03/11/21 03/12/21 03/13/21 03/14/21 11:59 11:59 11:59 11:59 Intake Total 300 1182 Output Total 100 1900 Balance 200 -718 Weight 60.6 kg - Lab Result Diagrams: 03/12/21 20:32 03/12/21 20:32 Lab Results-Last 24 Hrs: Lab Results-Last 24 Hours 03/14/21 Range/Units 07:47 POC Glucometer 113 H (74 to 106) mg/dL - Radiology Exams Ordered Rad Exams-Entire Visit: Radiology Procedures Category Date Time Status HIP UNI (2V) INCL PEL IF DONE Stat Exams 03/12/21 16:32 Completed MRI LOWER EXT JOINT W&WO CON [MRI] Routine Exams 03/13/21 16:57 Completed PELVIS WITHOUT CONTRAST [CT] Stat Exams 03/12/21 17:16 Completed - Procedures and Test Procedures and Tests throughout Hospitalization: Therapy Orders & Screens 03/13/21 10:34 Respiratory Therapy Assessment DAILY Comment: Diagnosis: hip pain Discharge Exam General Appearance: no apparent distress, alert Neurologic Exam: alert, oriented x 3 Respiratory Exam: normal breath sounds, lungs clear, No respiratory distress Cardiovascular Exam: regular rate/rhythm, normal heart sounds Gastrointestinal/Abdomen Exam: soft, No tenderness, No mass Extremity Exam: other (normal rom left hip, mild pain with int/ext rotation) Final Diagnosis/Problem List - Final Discharge Diagnosis/Problem (1) Acute exacerbation of chronic low back pain Current Visit: No Status: Acute Code(s): M54.5 - LOW BACK PAIN; G89.29 - OTHER CHRONIC PAIN (2) Hip pain Current Visit: Yes Status: Acute Code(s): M25.559 - PAIN IN UNSPECIFIED HIP - Discharge Disposition: Home, Self-Care Condition: Stable Prescriptions: New Hydrocodone/Acetaminophen [Hydrocodone-Acetamin 10-325 mg] 1 tablet PO Q4H PRN PRN #28 tablet MDD 4 PRN Reason: Pain Continue Duloxetine HCl [Cymbalta] 60 mg PO DAILY Amlodipine Besylate 5 mg [Norvasc 5 mg] 10 mg PO HS Metformin HCl 500 mg [Glucophage 500 MG] 500 mg PO TID Oxybutynin Chloride 5 mg PO BID Levothyroxine Sodium 75 Mcg [Synthroid 75 Mcg] 75 mcg PO DAILY Ropinirole HCl [Requip] 1 mg PO HS Bupropion HCl 150 mg Sr [Wellbutrin SR 150 MG] 150 mg PO HS Fluticasone Propionate [Flonase NASAL] 2 spray IH DAILY PRN PRN Reason: CONGESTION Cyanocobalamin (Vitamin B-12) [Vitamin B-12] 1,000 mcg PO QHS Budesonide/Formoterol Fumarate [Symbicort 160-4.5 Mcg Inhaler] 2 puffs PO DAILY PRN PRN PRN Reason: Shortness Of Breath Cyclobenzaprine HCl [Flexeril] 10 mg PO TID Follow up with: JAMILA VENEGAS [Primary Care Provider] - 1 Week
[2021-03-14] MEDS: Cymbalta 30 MG Capsule PO SCH (08:04)
[2021-03-14] MEDS: Ditropan 5 MG PO SCH (08:05)
[2021-03-14] MEDS: SYNTHROID 75 MCG PO SCH (08:05)
[2021-03-14] MEDS: Cyclobenzaprine 10 MG PO SCH (08:05)
[2021-03-14] MEDS: Advair Hfa 230/21 Mcg COMMON CANISTER IH SCH (08:06)
[2021-03-14 08:12] VITALS: PULSE 64; O2SAT 96
[2021-03-14 08:16] VITALS: BP 120/57
== END 2021-03-14 10:53 | disposition home or self-care (01) ==
LOC: ED 15:09 → MED SURG 21:09
PROVIDERS: ADMIT Family Medicine; ATTEND Family Medicine
DX: M54.5 Low back pain (principal); M25.551 Pain in right hip; G89.29 Other chronic pain; Z79.899 Other long term (current) drug therapy; E11.9 Type 2 diabetes mellitus without complications; E03.9 Hypothyroidism, unspecified; J44.9 Chronic obstructive pulmonary disease, unspecified; I10 Essential (primary) hypertension; E78.5 Hyperlipidemia, unspecified; R30.0 Dysuria; R19.7 Diarrhea, unspecified
CPT/HCPCS: 36000; 36415; 72192; 73502; 73723; 80053; 81001; 82947; 85025; 94640; 94760; 96372; 99285; G0378; U0003; J1885; A9270-GY

== ENCOUNTER 2021-03-20 13:20 | Emergency (ER) | payer MEDICARE ==
[2021-03-20] MEDS ORDERED: TORAdol 30 mg Injection IM ONE (13:32)
[2021-03-20] MEDS ORDERED: TORAdol 30 mg Injection ONE ×2 (13:35→13:37)
--- NOTE | 2021-03-20 13:37 | ERPHSYRPT ---
- History of Present Illness Time Seen by Provider: 03/20/21 13:20 Source: patient Exam Limitations: no limitations Physician History: This is an 81-year-old white female who is a patient of Dr. Jamila Scott and has chronic back pain issues. Patient typically sees Dr. Scott in her office and they make arrangements or give the patient Toradol 60 mg IM injection when she has exacerbation of her chronic lower back pain. However, Dr. Scott is not in the office today. The patient states that she has had no new back injuries. But she is having exacerbation of her pain that started last night. She has no urinary tract infection symptoms. Patient has no loss of bowel or bladder control. She has no numbness in her legs or feet. Method of Injury: bending, twisted Quality: sharp, stabbing Back Pain Location: lumbar spine Severity of Pain-Max: moderate Severity of Pain-Current: moderate Associated Symptoms: lower back pain, No urinary incontinence, No loss of bowel control, No problems urinating, No sensory/motor loss, No tingling in legs/feet Previous symptoms: same symptoms as today Allergies/Adverse Reactions: butorphanol tartrate [From Stadol] Allergy (Verified 03/12/21 21:15) celecoxib [From Celebrex] Allergy (Verified 03/12/21 21:15) Sulfa (Sulfonamide Antibiotics) Allergy (Verified 03/12/21 21:15) tizanidine [From Zanaflex] Allergy (Verified 03/12/21 21:15) Home Medications: Duloxetine HCl [Cymbalta] 60 mg PO DAILY 07/29/14 [History] Amlodipine Besylate 5 mg [Norvasc 5 mg] 10 mg PO HS 11/20/14 [History] Metformin HCl 500 mg [Glucophage 500 MG] 500 mg PO TID 11/27/15 [History] Oxybutynin Chloride 5 mg PO BID 11/27/15 [History] Levothyroxine Sodium 75 Mcg [Synthroid 75 Mcg] 75 mcg PO DAILY 02/11/16 [History] Ropinirole HCl [Requip] 1 mg PO HS 04/16/17 [History] Bupropion HCl 150 mg Sr [Wellbutrin SR 150 MG] 150 mg PO HS 10/01/18 [History] Fluticasone Propionate [Flonase NASAL] 2 spray IH DAILY PRN 10/02/18 [History] Budesonide/Formoterol Fumarate [Symbicort 160-4.5 Mcg Inhaler] 2 puffs PO DAILY PRN PRN 12/22/19 [History] Cyanocobalamin (Vitamin B-12) [Vitamin B-12] 1,000 mcg PO QHS 12/22/19 [History] Cyclobenzaprine HCl [Flexeril] 10 mg PO TID 03/12/21 [History] Hx Tetanus, Diphtheria Vaccination/Date Given: Yes Hx Influenza Vaccination/Date Given: Yes Hx Pneumococcal Vaccination/Date Given: Yes Travel Risk - International Travel Have you traveled outside of the country in past 3 weeks: No - Coronavirus Screening Are you exhibiting any of the following symptoms?: No Close contact with a COVID-19 positive Pt in past 14-21 Days: No - Vaccine Status Have you recieved a Covid-19 vaccination: Yes Fiberglass Laminator: Purple Harrya - Vaccination Dates Date of 2cond Vaccination (if applicable): 10/24/20 - Review of Systems Constitutional: No Symptoms Eyes: No Symptoms Ears, Nose, & Throat: No Symptoms Respiratory: No Symptoms Cardiac: No Symptoms Abdominal/Gastrointestinal: No Symptoms Genitourinary Symptoms: No Symptoms Musculoskeletal: Back Pain (Bilateral lower), No Fall, No Injury Skin: No Symptoms Neurological: No Symptoms Psychological: No Symptoms Endocrine: No Symptoms Hematologic/Lymphatic: No Symptoms Immunological/Allergic: No Symptoms All Other Systems: Reviewed and Negative - Past Medical History Pertinent Past Medical History: Yes Neurological History: Migraines, Peripheral Neuropathy ENT History: Cataracts Cardiac History: High Cholesterol, Hypertension Respiratory History: COPD Endocrine Medical History: Diabetes Type II, Hypothyroidism Musculoskeletal History: Arthritis, Fibromyalgia GI Medical History: Crohns Disease, GERD, Hernia History: No Pertinent History Psycho-Social History: Depression Female Reproductive Disorders: No Pertinent History Other Medical History: SEE CHART FOR PMH AND PSH; PT. HAS HAD 2 C-SPINE SXS - Past Surgical History Past Surgical History: Yes Neuro Surgical History: No Pertinent History Cardiac: No Pertinent History Respiratory: No Pertinent History Gastrointestinal: Appendectomy, Cholecystectomy Genitourinary: No Pertinent History Musculoskeletal: Orthopedic Surgery Female Surgical History: Hysterectomy, Tubal Ligation Other Surgical History: 2nd toe right foot, fractured right shoulder, filmed lasered off right eye, gaglion cyst removed, cataracts, bunion and tumor removed left foot, bunion right foot, tonsils, microscopic anterior cervical diskectomy with interbody fusion c5-6, plate to cervical, tibia fx repair - Social History Smoking Status: Never smoker Exposure to second hand smoke: No Alcohol Use: None Drug Use: none Patient Lives Alone: No Significant Family History: no pertinent family hx - Physical Exam General Appearance: no apparent distress, alert, anxiety Eye Exam: PERRL/EOMI, eyes nml inspection Ears, Nose, Throat Exam: normal ENT inspection, moist mucous membranes Neck Exam: normal inspection, non-tender, supple, full range of motion Respiratory Exam: airway intact, No chest tenderness, No respiratory distress Gastrointestinal Exam: No tenderness Pelvic Exam: not done Rectal Exam: not done Back Exam: normal inspection, decreased range of motion, muscle spasm, No CVA tenderness, No vertebral tenderness Extremity Exam: normal inspection, normal range of motion, pelvis stable Neurologic Exam: alert, oriented x 3, cooperative, manager talent acquisition II-XII nml as tested, normal mood/affect, nml cerebellar function, sensation nml Skin Exam: normal color, warm, dry Lymphatic Exam: No adenopathy SpO2 Interpretation: normal O2 Delivery: Room Air - Course Nursing assessment & vital signs reviewed: Yes - Progress Progress: improved Counseled pt/family regarding: diagnosis, need for follow-up - Departure Departure Disposition: Home Clinical Impression: Acute exacerbation of chronic low back pain Condition: Stable Critical Care Time: No Referrals: JAMILA SCOTT [Primary Care Provider] - Additional Instructions: Take your medication as prescribed. Follow-up with Dr. Scott in her office for further instructions and management.
[2021-03-20 13:43] VITALS: BP 172/86; PULSE 86; O2SAT 97
== END 2021-03-20 13:52 | disposition home or self-care (01) ==
LOC: ED 13:20
DX: M54.5 Low back pain (principal); X50.0XXA Overexertion from strenuous movement or load, initial encounter; X50.9XXA Other and unspecified overexertion or strenuous movements or postures, initial encounter; Y93.9 Activity, unspecified; Y92.9 Unspecified place or not applicable; Z79.899 Other long term (current) drug therapy; G62.9 Polyneuropathy, unspecified; I10 Essential (primary) hypertension; E78.00 Pure hypercholesterolemia, unspecified; J44.9 Chronic obstructive pulmonary disease, unspecified; E11.9 Type 2 diabetes mellitus without complications; E03.9 Hypothyroidism, unspecified; M79.7 Fibromyalgia
CPT/HCPCS: 96372; 99283; J1885

== ENCOUNTER 2021-03-21 17:56 | Emergency (ER) | payer MEDICARE ==
[2021-03-21] MEDS ORDERED: MORPHINE SULFATE 4 MG INJ ONE (18:15)
--- NOTE | 2021-03-21 18:18 | ERPHSYRPT ---
- History of Present Illness Time Seen by Provider: 03/21/21 17:57 Physician History: 81 years old female with history of chronic back pain with a recent MRI without any acute fracture or subluxation and some sclerotic lesion to left acetabulum presented in the ER with left-sided hip and low back pain with progressive w orsening lately. Patient reports sharp shooting pain left sacroiliac area with radiation to left upper thigh posteriorly, partial relief with taking pain medications. She has 2 come to ER multiple times to get pain shot. She has got to Toradol injections yesterday and day before and wants another Toradol shot. Denies any numbness tingling or weakness of lower extremities. No loss of bowel or bladder control. Pain is similar to previous episodes and does get occasional flareups like this. She is scheduled to see pain management [facility]. She was given Cherokee by primary care and has taken her last dose this morning with not much relief. He does have appointment with Dr. Feldman tomorrow morning Timing/Duration: week(s), intermittent, worse Method of Injury: other Quality: sharp Back Pain Location: lumbar spine, paraspinous muscles Back Pain Radiation: buttocks, upper legs Severity of Pain-Max: severe Severity of Pain-Current: moderate Modifying Factors: Improves With: pain medication. Worsens With: movement Associated Symptoms: lower back pain, No urinary incontinence, No loss of bowel control, No constipation, No nausea, No vomiting, No problems urinating, No dizziness, No numbness in legs/feet, No weakness, No sensory/motor loss, No tingling in legs/feet, No muscle spasms Previous symptoms: same symptoms as today Allergies/Adverse Reactions: butorphanol tartrate [From Stadol] Allergy (Verified 03/21/21 18:14) celecoxib [From Celebrex] Allergy (Verified 03/21/21 18:14) Sulfa (Sulfonamide Antibiotics) Allergy (Verified 03/21/21 18:14) tizanidine [From Zanaflex] Allergy (Verified 03/21/21 18:14) Home Medications: Duloxetine HCl [Cymbalta] 60 mg PO DAILY 07/29/14 [History] Amlodipine Besylate 5 mg [Norvasc 5 mg] 10 mg PO HS 11/20/14 [History] Metformin HCl 500 mg [Glucophage 500 MG] 500 mg PO TID 11/27/15 [History] Oxybutynin Chloride 5 mg PO BID 11/27/15 [History] Levothyroxine Sodium 75 Mcg [Synthroid 75 Mcg] 75 mcg PO DAILY 02/11/16 [History] Ropinirole HCl [Requip] 1 mg PO HS 04/16/17 [History] Bupropion HCl 150 mg Sr [Wellbutrin SR 150 MG] 150 mg PO HS 10/01/18 [History] Fluticasone Propionate [Flonase NASAL] 2 spray IH DAILY PRN 10/02/18 [History] Budesonide/Formoterol Fumarate [Symbicort 160-4.5 Mcg Inhaler] 2 puffs PO DAILY PRN PRN 12/22/19 [History] Cyanocobalamin (Vitamin B-12) [Vitamin B-12] 1,000 mcg PO QHS 12/22/19 [History] Cyclobenzaprine HCl [Flexeril] 10 mg PO TID 03/12/21 [History] Hx Tetanus, Diphtheria Vaccination/Date Given: Yes Hx Influenza Vaccination/Date Given: Yes Hx Pneumococcal Vaccination/Date Given: Yes Travel Risk - Vaccine Status Have you recieved a Covid-19 vaccination: Yes Director Information Security: Moderna - Vaccination Dates Date of 2cond Vaccination (if applicable): 10/24/20 - Review of Systems Constitutional: No Symptoms Eyes: No Symptoms Ears, Nose, & Throat: No Symptoms Respiratory: No Symptoms Cardiac: No Symptoms Abdominal/Gastrointestinal: No Symptoms Genitourinary Symptoms: No Symptoms Musculoskeletal: Back Pain Neurological: No Symptoms Psychological: No Symptoms Endocrine: No Symptoms Hematologic/Lymphatic: No Symptoms Immunological/Allergic: No Symptoms - Past Medical History Pertinent Past Medical History: Yes Neurological History: Migraines, Peripheral Neuropathy ENT History: Cataracts Cardiac History: High Cholesterol, Hypertension Respiratory History: COPD Endocrine Medical History: Diabetes Type II, Hypothyroidism Musculoskeletal History: Arthritis, Fibromyalgia GI Medical History: Crohns Disease, GERD, Hernia History: No Pertinent History Psycho-Social History: Depression Female Reproductive Disorders: No Pertinent History Other Medical History: SEE CHART FOR PMH AND PSH; PT. HAS HAD 2 C-SPINE SXS - Past Surgical History Past Surgical History: Yes Neuro Surgical History: No Pertinent History Cardiac: No Pertinent History Respiratory: No Pertinent History Gastrointestinal: Appendectomy, Cholecystectomy Genitourinary: No Pertinent History Musculoskeletal: Orthopedic Surgery Female Surgical History: Hysterectomy, Tubal Ligation Other Surgical History: 2nd toe right foot, fractured right shoulder, filmed lasered off right eye, gaglion cyst removed, cataracts, bunion and tumor removed left foot, bunion right foot, tonsils, microscopic anterior cervical diskectomy with interbody fusion c5-6, plate to cervical, tibia fx repair - Social History Smoking Status: Never smoker Exposure to second hand smoke: No Alcohol Use: None Drug Use: none Patient Lives Alone: No Significant Family History: no pertinent family hx - Physical Exam General Appearance: no apparent distress, alert Eye Exam: PERRL/EOMI Neck Exam: supple, full range of motion Respiratory Exam: normal breath sounds, lungs clear Cardiovascular Exam: regular rate/rhythm, normal heart sounds Gastrointestinal Exam: soft, normal bowel sounds, No tenderness Back Exam: normal inspection (But she said that she can have morphine just asked her before you give her), vertebral tenderness (Lower lumbar but the paraspinal tenderness. Left sacroiliac area tenderness. Positive straight leg raising test on the left. 45 degrees elevation. Bilateral mildly decreased reflexes in lower extremities. 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 She has 2 Toradol shots in the last 2 days. She is also taking Celebrex and Metformin, is at increased risk of internal bleed and renal failure. I offered her Cherokee to go home which she does not want. She is given morphine shot for symptomatic relief in here and she will follow up with her primary care tomorrow morning. Does not have any neuro symptoms in lower extremities. Negative cauda equina symptoms. Pain is chronic similar to previous. I believe patient would benefit with pain management which she is encouraged to keep appointment. Discussed signs symptoms of worsening needing return to ER which she seems understanding. Stable for discharge. Counseled pt/family regarding: diagnosis, need for follow-up - Departure Departure Disposition: Home Clinical Impression: Acute exacerbation of chronic low back pain Condition: Stable Critical Care Time: No Referrals: JAMILA VENEGAS [Primary Care Provider] - NINO FELDMAN MD [ACTIVE STAFF] - (Tomorrow as scheduled) Instructions: Low Back Pain (DC), Sciatica (DC) Additional Instructions: Take Tylenol as needed and continue with Celebrex/Flexeril. Follow-up with primary care for reevaluation as scheduled. Keep appointment with pain management. Return to ER for intractable back pain, numbness tingling weakness of lower extremities/loss of bowel or bladder control.
[2021-03-21] MEDS: MORPHINE SULFATE 4 MG INJ IM ONE (18:22)
[2021-03-21 18:54] VITALS: BP 132/57; PULSE 82; O2SAT 95
== END 2021-03-21 19:07 | disposition home or self-care (01) ==
LOC: ED 17:56
DX: M54.5 Low back pain (principal); Z79.899 Other long term (current) drug therapy; E11.9 Type 2 diabetes mellitus without complications; E03.9 Hypothyroidism, unspecified; I10 Essential (primary) hypertension; G62.9 Polyneuropathy, unspecified; J44.9 Chronic obstructive pulmonary disease, unspecified; E78.00 Pure hypercholesterolemia, unspecified
CPT/HCPCS: 96372; 99283; J2270

== ENCOUNTER 2021-04-12 09:54 | Emergency (ER) | payer MEDICARE ==
[2021-04-12] MEDS ORDERED: ZOFRAN ODT 4 MG PO ONE (10:26)
--- NOTE | 2021-04-12 10:26 | ERPHSYRPT ---
- History of Present Illness Time Seen by Provider: 04/12/21 10:20 Source: patient Exam Limitations: no limitations Patient Subjective Stated Complaint: pt here for chronic right hip pain, no injury Triage Nursing Assessment: pt alert, walked in using cane, , resp easy, face mask in place, Physician History: This is an 81-year-old white female with a history of hypertension, diabetes on Metformin and hypothyroidism and presents with acute exacerbation of right hip pain. Patient's primary care physician is Dr. Scott. Patient has been in this emergency department several times for low back pain and hip pain. She has does have a history of arthritis and fibromyalgia. Patient states she is no longer on Celebrex. She denies any acute injury or fall. She has no loss of bowel or bladder control. Patient has been seen many times in the emergency department in the last month to month and a half. The most recent visit, 03/21/2021 was for left hip pain and lower back pain. A recent pelvic CAT scan was performed on 03/12/2021 which showed no acute fracture or dislocation or osseous destructive process. A plain x-ray of the right hip was performed on 03/12/2021 which showed right hip degenerative changes versus avascular necrosis. The avascular necrosis was ruled out on the pelvic CT. Patient has recently been seen by an orthopedic surgeon, Dr. Rosenthal who recommended a right hip replacement. Patient states that today she has decided to undergo that procedure. She will see him again next week. Patient is here because of worsening right hip pain. She typically uses morphine injection or Toradol. Today, she prefers a morphine injection. I think this is reasonable. Patient denies chest pain. She denies shortness of breath. She has no abdominal pain. Timing/Duration: other (Chronic right hip pain with acute exacerbation over the last several days) Quality: aching Hip Pain Location: hip (R) Severity of Pain-Max: moderate Severity of Pain-Current: moderate Modifying Factors: Improves With: movement Symptoms prior to fall: none Associated Symptoms: denies symptoms Allergies/Adverse Reactions: butorphanol tartrate [From Stadol] Allergy (Verified 04/12/21 10:18) celecoxib [From Celebrex] Allergy (Verified 04/12/21 10:18) Sulfa (Sulfonamide Antibiotics) Allergy (Verified 04/12/21 10:18) tizanidine [From Zanaflex] Allergy (Verified 04/12/21 10:18) Home Medications: Duloxetine HCl [Cymbalta] 60 mg PO DAILY 07/29/14 [History] Amlodipine Besylate 5 mg [Norvasc 5 mg] 10 mg PO HS 11/20/14 [History] Metformin HCl 500 mg [Glucophage 500 MG] 500 mg PO TID 11/27/15 [History] Oxybutynin Chloride 5 mg PO BID 11/27/15 [History] Levothyroxine Sodium 75 Mcg [Synthroid 75 Mcg] 75 mcg PO DAILY 02/11/16 [History] Ropinirole HCl [Requip] 1 mg PO HS 04/16/17 [History] Bupropion HCl 150 mg Sr [Wellbutrin SR 150 MG] 150 mg PO HS 10/01/18 [History] Fluticasone Propionate [Flonase NASAL] 2 spray IH DAILY PRN 10/02/18 [History] Budesonide/Formoterol Fumarate [Symbicort 160-4.5 Mcg Inhaler] 2 puffs PO DAILY PRN PRN 12/22/19 [History] Cyanocobalamin (Vitamin B-12) [Vitamin B-12] 1,000 mcg PO QHS 12/22/19 [History] Cyclobenzaprine HCl [Flexeril] 10 mg PO TID 03/12/21 [History] Hx Tetanus, Diphtheria Vaccination/Date Given: Yes Hx Influenza Vaccination/Date Given: Yes Hx Pneumococcal Vaccination/Date Given: Yes Immunizations Up to Date: Yes Travel Risk - International Travel Have you traveled outside of the country in past 3 weeks: No - Coronavirus Screening Are you exhibiting any of the following symptoms?: No Close contact with a COVID-19 positive Pt in past 14-21 Days: No - Vaccine Status Have you recieved a Covid-19 vaccination: Yes Dance Critic: Moderna - Vaccination Dates Date of 2cond Vaccination (if applicable): 10/24/20 - Review of Systems Constitutional: No Symptoms Eyes: No Symptoms Ears, Nose, & Throat: No Symptoms Respiratory: No Symptoms Cardiac: No Symptoms Abdominal/Gastrointestinal: No Symptoms Genitourinary Symptoms: No Symptoms Musculoskeletal: Joint Pain (Right hip), No Fall, No Injury Skin: No Symptoms Neurological: No Symptoms Psychological: No Symptoms Endocrine: No Symptoms Hematologic/Lymphatic: No Symptoms Immunological/Allergic: No Symptoms All Other Systems: Reviewed and Negative - Past Medical History Pertinent Past Medical History: Yes Neurological History: Migraines, Peripheral Neuropathy ENT History: Cataracts Cardiac History: High Cholesterol, Hypertension Respiratory History: COPD Endocrine Medical History: Diabetes Type II, Hypothyroidism Musculoskeletal History: Arthritis, Fibromyalgia GI Medical History: Crohns Disease, GERD, Hernia History: No Pertinent History Psycho-Social History: Depression Female Reproductive Disorders: No Pertinent History Other Medical History: SEE CHART FOR PMH AND PSH; PT. HAS HAD 2 C-SPINE SXS - Past Surgical History Past Surgical History: Yes Neuro Surgical History: No Pertinent History Cardiac: No Pertinent History Respiratory: No Pertinent History Gastrointestinal: Appendectomy, Cholecystectomy Genitourinary: No Pertinent History Musculoskeletal: Orthopedic Surgery Female Surgical History: Hysterectomy, Tubal Ligation Other Surgical History: 2nd toe right foot, fractured right shoulder, filmed lasered off right eye, gaglion cyst removed, cataracts, bunion and tumor removed left foot, bunion right foot, tonsils, microscopic anterior cervical diskectomy with interbody fusion c5-6, plate to cervical, tibia fx repair - Social History Smoking Status: Never smoker Exposure to second hand smoke: No Alcohol Use: None Drug Use: none Patient Lives Alone: No Significant Family History: no pertinent family hx - Female History Hx Last Menstrual Period: post Hx Now: No - Nursing Vital Signs Nursing Vital Signs: Initial Vital Signs Temperature 97.1 F 04/12/21 10:10 Pulse Rate 88 04/12/21 10:10 Respiratory Rate 18 04/12/21 10:10 Blood Pressure 179/79 04/12/21 10:10 O2 Sat by Pulse Oximetry 97 04/12/21 10:10 Pain Scale Pain Intensity 10 - Physical Exam General Appearance: no apparent distress, alert, anxiety Eye Exam: PERRL/EOMI, eyes nml inspection Ears, Nose, Throat Exam: normal ENT inspection, moist mucous membranes Neck Exam: normal inspection, non-tender, supple, full range of motion Respiratory Exam: airway intact, No chest tenderness, No respiratory distress Gastrointestinal Exam: No tenderness Pelvic Exam: not done Rectal Exam: not done Back Exam: normal inspection, normal range of motion, No CVA tenderness, No vertebral tenderness Extremity Exam: normal inspection, pelvis stable, tenderness (Right hip), No deformities, No inflammation, No swelling Neurologic Exam: alert, oriented x 3, cooperative, 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 This is typical for her presentation to the emergency department. She also states that her pain is typical type and location but is just more intense today. She states that she has been in the car for several hours recently and this may have aggravated) Skin Exam: normal color, warm, dry Lymphatic Exam: No adenopathy SpO2 Interpretation: normal SpO2: 97 O2 Delivery: Room Air - Course Nursing assessment & vital signs reviewed: Yes Ordered Tests: Medication Summary Discontinued Medications Generic Name Dose Route Start Last Admin Trade Name Giuliano PRN Reason Stop Dose Admin Morphine Sulfate 3 mg 04/12/21 10:28 Morphine Sulfate 4 Mg Inj IM 04/12/21 10:29 STAT ONE Ondansetron HCl 4 mg 04/12/21 10:26 Zofran Odt 4 Mg PO 04/12/21 10:27 STAT ONE - Progress Progress: improved, pain not gone completely Progress Note: 04/12/21 10:42 Medical decision making: This patient has been in this emergency department several times in the last 4 to 6 weeks. In addition, she has been seen by her primary care physician and pain specialist. She has had several x-rays that were performed recently. I see no need to repeat these x-rays. Patient has not experienced any acute trauma or fall or injury of any type. Patient does have a ride home and does not want Toradol today and we will give her low-dose injection of morphine. Counseled pt/family regarding: diagnosis, need for follow-up - Departure Departure Disposition: Home Clinical Impression: Chronic right hip pain, Acute right hip pain Condition: Stable Critical Care Time: No Referrals: MARITZA SCOTT [Primary Care Provider] - Additional Instructions: Take all your outpatient medication as prescribed. Follow-up with Dr. Maritza Scott, your pain specialist and your orthopedic surgeon for further management of your condition and for controlling your pain.
[2021-04-12] MEDS ORDERED: MORPHINE SULFATE 4 MG INJ IM ONE (10:28)
[2021-04-12] MEDS ORDERED: MORPHINE SULFATE 4 MG INJ ONE (10:43)
[2021-04-12] MEDS ORDERED: ZOFRAN ODT 4 MG ONE (10:44)
[2021-04-12 11:12] VITALS: BP 151/83; PULSE 66; O2SAT 100
== END 2021-04-12 11:11 | disposition home or self-care (01) ==
LOC: ED 09:54
DX: M25.551 Pain in right hip (principal); I10 Essential (primary) hypertension; Z79.4 Long term (current) use of insulin; M79.7 Fibromyalgia; M19.90 Unspecified osteoarthritis, unspecified site; Z79.899 Other long term (current) drug therapy
CPT/HCPCS: 96372; 99283; J2270; Q0162

== ENCOUNTER 2021-04-21 11:47 | Emergency (ER) | payer MEDICARE ==
--- NOTE | 2021-04-21 11:56 | ERPHSYRPT ---
- History of Present Illness Time Seen by Provider: 04/21/21 11:55 Source: patient Exam Limitations: no limitations Physician History: This is an 81-year-old white female patient of Dr. Scott who is well-known to emergency department and presents with chronic recurrent right hip pain. Patient was last seen in this emergency department on 04/12/2021 for the same issue. This is the patient's fifth evaluation in the emergency department/primary care in the last 30 days. Patient has a history of hypertension, diabetes, hypothyroidism fibromyalgia and arthritis. She saw her orthopedic surgeon last week and, per her report, she is to be scheduled for a right hip replacement in the coming weeks. Patient did not suffer any fall or acute trauma to the right hip since her last, recent radiographic studies. Method of Injury: other (No new injury) Occurred: other (Chronic) Quality: aching Severity of Pain-Max: mild (To moderate) Severity of Pain-Current: mild (To moderate) Lower Extremities Pain: hip: right Modifying Factors: Improves With: movement Associated Symptoms: none Allergies/Adverse Reactions: butorphanol tartrate [From Stadol] Allergy (Verified 04/21/21 12:06) celecoxib [From Celebrex] Allergy (Verified 04/21/21 12:06) Sulfa (Sulfonamide Antibiotics) Allergy (Verified 04/21/21 12:06) tizanidine [From Zanaflex] Allergy (Verified 04/21/21 12:06) Home Medications: Duloxetine HCl [Cymbalta] 60 mg PO DAILY 07/29/14 [History] Amlodipine Besylate 5 mg [Norvasc 5 mg] 10 mg PO HS 11/20/14 [History] Metformin HCl 500 mg [Glucophage 500 MG] 500 mg PO TID 11/27/15 [History] Oxybutynin Chloride 5 mg PO BID 11/27/15 [History] Levothyroxine Sodium 75 Mcg [Synthroid 75 Mcg] 75 mcg PO DAILY 02/11/16 [History] Ropinirole HCl [Requip] 1 mg PO HS 04/16/17 [History] Bupropion HCl 150 mg Sr [Wellbutrin SR 150 MG] 150 mg PO HS 10/01/18 [History] Fluticasone Propionate [Flonase NASAL] 2 spray IH DAILY PRN 10/02/18 [History] Budesonide/Formoterol Fumarate [Symbicort 160-4.5 Mcg Inhaler] 2 puffs PO DAILY PRN PRN 12/22/19 [History] Cyanocobalamin (Vitamin B-12) [Vitamin B-12] 1,000 mcg PO QHS 12/22/19 [History] Cyclobenzaprine HCl [Flexeril] 10 mg PO TID 03/12/21 [History] Hx Tetanus, Diphtheria Vaccination/Date Given: Yes Hx Influenza Vaccination/Date Given: Yes Hx Pneumococcal Vaccination/Date Given: Yes Travel Risk - International Travel Have you traveled outside of the country in past 3 weeks: No - Coronavirus Screening Are you exhibiting any of the following symptoms?: No Close contact with a COVID-19 positive Pt in past 14-21 Days: No - Vaccine Status Have you recieved a Covid-19 vaccination: Yes 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: [employer] - Vaccination Dates Date of 2cond Vaccination (if applicable): 10/24/20 - Review of Systems Constitutional: No Symptoms Eyes: No Symptoms Ears, Nose, & Throat: No Symptoms Respiratory: No Symptoms Cardiac: No Symptoms Abdominal/Gastrointestinal: No Symptoms Genitourinary Symptoms: No Symptoms Musculoskeletal: Joint Pain (Chronic right hip), No Fall, No Injury Skin: No Symptoms Neurological: No Symptoms Psychological: No Symptoms Endocrine: No Symptoms Hematologic/Lymphatic: No Symptoms Immunological/Allergic: No Symptoms All Other Systems: Reviewed and Negative - Past Medical History Pertinent Past Medical History: Yes Neurological History: Migraines, Peripheral Neuropathy ENT History: Cataracts Cardiac History: High Cholesterol, Hypertension Respiratory History: COPD Endocrine Medical History: Diabetes Type II, Hypothyroidism Musculoskeletal History: Arthritis, Fibromyalgia GI Medical History: Crohns Disease, GERD, Hernia History: No Pertinent History Psycho-Social History: Depression Female Reproductive Disorders: No Pertinent History Other Medical History: SEE CHART FOR PMH AND PSH; PT. HAS HAD 2 C-SPINE SXS - Past Surgical History Past Surgical History: Yes Neuro Surgical History: No Pertinent History Cardiac: No Pertinent History Respiratory: No Pertinent History Gastrointestinal: Appendectomy, Cholecystectomy Genitourinary: No Pertinent History Musculoskeletal: Orthopedic Surgery Female Surgical History: Hysterectomy, Tubal Ligation Other Surgical History: 2nd toe right foot, fractured right shoulder, filmed lasered off right eye, gaglion cyst removed, cataracts, bunion and tumor removed left foot, bunion right foot, tonsils, microscopic anterior cervical diskectomy with interbody fusion c5-6, plate to cervical, tibia fx repair - Social History Smoking Status: Never smoker Exposure to second hand smoke: No Alcohol Use: None Drug Use: none Patient Lives Alone: No Significant Family History: no pertinent family hx - Nursing Vital Signs Nursing Vital Signs: Initial Vital Signs Temperature 97.0 F 04/21/21 12:10 Pulse Rate 81 04/21/21 12:10 Respiratory Rate 18 04/21/21 12:10 Blood Pressure 168/104 04/21/21 12:10 O2 Sat by Pulse Oximetry 98 04/21/21 12:10 Pain Scale Pain Intensity 10 - Physical Exam General Appearance: no apparent distress, alert, anxiety Eyes, Ears, Nose, Throat Exam: normal ENT inspection, moist mucous membranes Neck Exam: normal inspection, non-tender, supple, full range of motion Cardiovascular/Respiratory Exam: chest non-tender, no respiratory distress Gastrointestinal/Abdominal Exam: non-tender Back Exam: normal inspection, normal range of motion, No CVA tenderness, No vertebral tenderness Hips Exam: right: bone tenderness, soft tissue tenderness, left: non-tender, bilateral: normal inspection, normal range of motion, no evidence of injury Legs Exam: bilateral leg: non-tender, normal inspection, normal range of motion, no evidence of injury Knees Exam: bilateral knee: non-tender, normal inspection, normal range of motion, no evidence of injury Ankle Exam: bilateral ankle: non-tender, normal inspection, normal range of motion, no evidence of injury Foot Exam: bilateral foot: non-tender, normal inspection, normal range of motion, no evidence of injury Neuro/Tendon Exam: normal sensation, normal motor functions, normal tendon functions, responds to pain Mental Status Exam: alert, oriented x 3, cooperative Skin Exam: normal color, warm, dry SpO2 Interpretation: normal O2 Delivery: Room Air - Course Nursing assessment & vital signs reviewed: Yes - Progress Progress: unchanged Counseled pt/family regarding: diagnosis, need for follow-up - Departure Departure Disposition: Home Clinical Impression: Hip pain, chronic Condition: Stable Critical Care Time: No Referrals: JAMILA JOSE [Primary Care Provider] - Additional Instructions: Follow-up with your primary care physician and orthopedic surgeon for management of your chronic hip pain
[2021-04-21] MEDS ORDERED: TORAdol 30 mg Injection IM ONE (12:55)
[2021-04-21] MEDS ORDERED: TORAdol 30 mg Injection ONE (13:10)
[2021-04-21 13:58] VITALS: BP 150/78; PULSE 87; O2SAT 100
== END 2021-04-21 13:54 | disposition home or self-care (01) ==
LOC: ED 11:47
DX: M25.551 Pain in right hip (principal); G89.29 Other chronic pain; F45.42 Pain disorder with related psychological factors
CPT/HCPCS: 96372; 99283; J1885

== ENCOUNTER 2021-04-25 19:34 | Emergency (ER) | payer MEDICARE | END 2021-04-25 20:49 | disposition left against medical advice (07) | LOC: ED 19:34 | DX: Z53.9 Procedure and treatment not carried out, unspecified reason (principal) ==

== ENCOUNTER 2021-04-26 14:37 | Emergency (ER) | payer MEDICARE ==
[2021-04-26 15:12] VITALS: BP 184/85; PULSE 74; O2SAT 98
[2021-04-26] MEDS ORDERED: TORAdol 30 mg Injection IM ONE (15:24)
--- NOTE | 2021-04-26 15:38 | ERPHSYRPT ---
- History of Present Illness Time Seen by Provider: 04/26/21 14:40 Source: patient Exam Limitations: no limitations Patient Subjective Stated Complaint: right hip pain Triage Nursing Assessment: Pt was brought to the ER by her brother, pt states th at her right hip pain was more than a 10, pt states that she has an appt with the pain clinic on the , stated that Dr. 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 She has been seeing Dr. Holman and primary care Dr. Scott who have not given her any pain medications. She is scheduled to have right hip replacement in the next few weeks. Patient was here last Thursday and is here again requesting shot of Toradol as morphine does not help her very much. Denies any numbness tingling and weakness in lower extremities. No loss of bowel or bladder control. No new fall or trauma to back or hip. Pain is similar to previous. Quality: sharpness Severity of Pain-Max: severe Severity of Pain-Current: severe Lower Extremities Pain: hip: right Modifying Factors: Worsens With: movement Allergies/Adverse Reactions: butorphanol tartrate [From Stadol] Allergy (Verified 04/26/21 15:12) celecoxib [From Celebrex] Allergy (Verified 04/26/21 15:12) Sulfa (Sulfonamide Antibiotics) Allergy (Verified 04/26/21 15:12) tizanidine [From Zanaflex] Allergy (Verified 04/26/21 15:12) Home Medications: Duloxetine HCl [Cymbalta] 60 mg PO DAILY 07/29/14 [History] Amlodipine Besylate 5 mg [Norvasc 5 mg] 10 mg PO HS 11/20/14 [History] Metformin HCl 500 mg [Glucophage 500 MG] 500 mg PO TID 11/27/15 [History] Oxybutynin Chloride 5 mg PO BID 04/12/16 [History] Levothyroxine Sodium 75 Mcg [Synthroid 75 Mcg] 75 mcg PO DAILY 02/11/16 [History] Ropinirole HCl [Requip] 1 mg PO HS 04/16/17 [History] Bupropion HCl 150 mg Sr [Wellbutrin SR 150 MG] 150 mg PO HS 10/01/18 [History] Fluticasone Propionate [Flonase NASAL] 2 spray IH DAILY PRN 10/02/18 [History] Budesonide/Formoterol Fumarate [Symbicort 160-4.5 Mcg Inhaler] 2 puffs PO DAILY PRN PRN 12/22/19 [History] Cyanocobalamin (Vitamin B-12) [Vitamin B-12] 1,000 mcg PO QHS 12/22/19 [History] Cyclobenzaprine HCl [Flexeril] 10 mg PO TID 03/12/21 [History] Hx Tetanus, Diphtheria Vaccination/Date Given: Yes Hx Influenza Vaccination/Date Given: Yes Hx Pneumococcal Vaccination/Date Given: Yes Travel Risk - International Travel Have you traveled outside of the country in past 3 weeks: No - Coronavirus Screening Are you exhibiting any of the following symptoms?: No Close contact with a COVID-19 positive Pt in past 14-21 Days: No - Vaccine Status Have you recieved a Covid-19 vaccination: Yes Acute Care Nurse: Moderna - Vaccination Dates Date of 2cond Vaccination (if applicable): 10/24/20 - Review of Systems Constitutional: No Symptoms Respiratory: No Symptoms Cardiac: No Symptoms Abdominal/Gastrointestinal: No Symptoms Genitourinary Symptoms: No Symptoms Musculoskeletal: Arthralgias, Back Pain, Joint Pain Skin: No Symptoms Neurological: No Symptoms Psychological: No Symptoms Endocrine: No Symptoms Hematologic/Lymphatic: No Symptoms Immunological/Allergic: No Symptoms - Past Medical History Pertinent Past Medical History: Yes Neurological History: Migraines, Peripheral Neuropathy ENT History: Cataracts Cardiac History: High Cholesterol, Hypertension Respiratory History: COPD Endocrine Medical History: Diabetes Type II, Hypothyroidism Musculoskeletal History: Arthritis, Fibromyalgia GI Medical History: Crohns Disease, GERD, Hernia History: No Pertinent History Psycho-Social History: Depression Female Reproductive Disorders: No Pertinent History Other Medical History: SEE CHART FOR PMH AND PSH; PT. HAS HAD 2 C-SPINE SXS - Past Surgical History Past Surgical History: Yes Neuro Surgical History: No Pertinent History Cardiac: No Pertinent History Respiratory: No Pertinent History Gastrointestinal: Appendectomy, Cholecystectomy Genitourinary: No Pertinent History Musculoskeletal: Orthopedic Surgery Female Surgical History: Hysterectomy, Tubal Ligation Other Surgical History: 2nd toe right foot, fractured right shoulder, filmed lasered off right eye, gaglion cyst removed, cataracts, bunion and tumor removed left foot, bunion right foot, tonsils, microscopic anterior cervical diskectomy with interbody fusion c5-6, plate to cervical, tibia fx repair - Social History Smoking Status: Never smoker Exposure to second hand smoke: No Alcohol Use: None Drug Use: none Patient Lives Alone: No Significant Family History: no pertinent family hx - Female History Hx Now: No - Nursing Vital Signs Nursing Vital Signs: Initial Vital Signs Temperature 97.5 F 04/26/21 15:04 Pulse Rate 74 04/26/21 15:04 Blood Pressure 184/85 04/26/21 15:04 O2 Sat by Pulse Oximetry 98 04/26/21 15:04 Pain Scale Pain Intensity 10 - Physical Exam General Appearance: no apparent distress, alert Eyes, Ears, Nose, Throat Exam: normal ENT inspection Neck Exam: normal inspection, full range of motion Cardiovascular/Respiratory Exam: normal breath sounds, regular rate/rhythm Gastrointestinal/Abdominal Exam: non-tender, soft Hips Exam: right: bone tenderness, pain, soft tissue tenderness, other (Intact distal neurovascular in both lower extremities. Straight leg raising test positive at 60 degrees on right), left: non-tender, bilateral: normal inspection, normal range of motion, no evidence of injury Legs Exam: bilateral leg: non-tender, normal inspection, normal range of motion, no evidence of injury Knees Exam: bilateral knee: non-tender, normal inspection, normal range of motion, no evidence of injury Ankle Exam: bilateral ankle: non-tender, normal inspection, normal range of motion DTR - Lower Extremities Exam: knee (R): 2+, knee (L): 2+ Neuro/Tendon Exam: normal sensation, normal motor functions, normal tendon functions Mental Status Exam: alert, oriented x 3, cooperative Skin Exam: normal color SpO2 Interpretation: normal SpO2: 98 O2 Delivery: Room Air Ordered Tests: Medication Summary Discontinued Medications Generic Name Dose Route Start Last Admin Trade Name Freq PRN Reason Stop Dose Admin Ketorolac Tromethamine 15 mg 04/26/21 15:24 04/26/21 16:22 Toradol 30 Mg Injection IM 04/26/21 15:25 15 mg STAT ONE Administration Ketorolac Tromethamine Confirm 04/26/21 16:18 Toradol 30 Mg Injection Administered 04/26/21 16:19 Dose 30 mg .ROUTE .STK-MED ONE - Progress Progress: improved Progress Note: 04/26/21 81 years old well-known to this ER for chronic pain with frequent visits for pain shot. I have discussed with patient in length about outpatient follow-up with either primary care/orthopedic surgery/pain management to be placed on pain medications as repeated shots of Toradol which she is requesting on not safe for her age, offered morphine but she does not want it. I have told at that she should make some arrangements to have outpatient follow-up so she should not have to come to ER for shots. She does not have any neuro deficit in lower extremities. I have tried to call her primary care but could not get hold of her. Pain is chronic and no cardiac symptoms. She is feeling better after small dose of Toradol. Do not think she needs imaging. Discussed signs symptoms of worsening needing return to ER which she seems understanding. Counseled pt/family regarding: diagnosis, need for follow-up - Departure Departure Disposition: Home Clinical Impression: Chronic right hip pain Condition: Stable Critical Care Time: No Referrals: JAMILA JOSE [Primary Care Provider] - Follow Up with PCP/3 days Instructions: Hip Pain in Older People Additional Instructions: Take Tylenol as needed. Continue with therapy. Follow-up with primary care/orthopedic surgery for reevaluation and to be placed on some pain medications to avoid frequent ER visits. Return to ER for intractable pain, difficulty movements, numbness tingling or weakness of lower extremities/loss of bowel or bladder control.
[2021-04-26] MEDS ORDERED: TORAdol 30 mg Injection ONE (16:18)
== END 2021-04-26 16:28 | disposition home or self-care (01) ==
LOC: ED 14:37
DX: M25.551 Pain in right hip (principal); E11.9 Type 2 diabetes mellitus without complications; I10 Essential (primary) hypertension; E03.9 Hypothyroidism, unspecified; M54.9 Dorsalgia, unspecified; E78.00 Pure hypercholesterolemia, unspecified; J44.9 Chronic obstructive pulmonary disease, unspecified; Z79.899 Other long term (current) drug therapy
CPT/HCPCS: 96372; 99283; J1885

== ENCOUNTER 2021-06-17 17:00 | Emergency (ER) | payer MEDICARE ==
--- NOTE | 2021-06-17 17:28 | ERPHSYRPT ---
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 on arrival initial BP reading 141/46 after ambulating to room. pt denies CP, however c/o dizzness. also c/o 7/10 chronic back pain. Physician History: The patient is an 81-year-old female with a past medical significant for hypertension, fibromyalgia, type 2 diabetes mellitus and chronic low back pain presents with a chief complaint of dizziness. Onset reportedly was yesterday 2 days ago. She states she feels dizzy when going from sitting to standing and now is dizzy all the time. When asking her to specify how she would describe her dizziness, she stated she feels lightheaded. She reportedly had a home health nurse check her blood pressure yesterday and got a reading of 111 mmHg systolic which she reports is low for her. She denies any headache, focal weakness or paresthesias, neck pain, speech difficulty or difficulty with her balance. Of note, the patient walks with a walker at baseline. Allergies/Adverse Reactions: butorphanol tartrate [From Stadol] Allergy (Verified 04/26/21 15:12) celecoxib [From Celebrex] Allergy (Verified 04/26/21 15:12) Sulfa (Sulfonamide Antibiotics) Allergy (Verified 04/26/21 15:12) tizanidine [From Zanaflex] Allergy (Verified 04/26/21 15:12) Home Medications: Duloxetine HCl [Cymbalta] 60 mg PO DAILY 07/29/14 [History] Amlodipine Besylate 5 mg [Norvasc 5 mg] 5 mg PO HS 11/20/14 [History] Metformin HCl 500 mg [Glucophage 500 MG] 500 mg PO BID 11/27/15 [History] Levothyroxine Sodium 75 Mcg [Synthroid 75 Mcg] 75 mcg PO DAILY 02/11/16 [History] Ropinirole HCl [Requip] 1 mg PO HS 04/16/17 [History] Bupropion HCl 150 mg Sr [Wellbutrin SR 150 MG] 150 mg PO HS 10/01/18 [History] Fluticasone Propionate [Flonase NASAL] 2 spray IH DAILY PRN 10/02/18 [History] Budesonide/Formoterol Fumarate [Symbicort 160-4.5 Mcg Inhaler] 2 puffs PO DAILY PRN PRN 12/22/19 [History] Cyclobenzaprine HCl [Flexeril] 5 mg PO DAILY 03/12/21 [History] Hx Tetanus, Diphtheria Vaccination/Date Given: Yes Hx Influenza Vaccination/Date Given: Yes Hx Pneumococcal Vaccination/Date Given: Yes Immunizations Up to Date: Yes Travel Risk - International Travel Have you traveled outside of the country in past 3 weeks: No - Coronavirus Screening Are you exhibiting any of the following symptoms?: No Close contact with a COVID-19 positive Pt in past 14-21 Days: No - Vaccine Status Have you recieved a Covid-19 vaccination: Yes Employee Relations Advisor: Moderna - Vaccination Dates Date of 2cond Vaccination (if applicable): october - Review of Systems Constitutional: No Fever, No Chills Ears, Nose, & Throat: No Ear Pain Respiratory: No Cough, No Dyspnea Cardiac: Other (Hypotension) Abdominal/Gastrointestinal: No Nausea, No Vomiting, No Diarrhea, No Hematochezia, No Melena Neurological: Dizziness All Other Systems: Reviewed and Negative - Past Medical History Pertinent Past Medical History: Yes Neurological History: Migraines, Peripheral Neuropathy ENT History: Cataracts Cardiac History: High Cholesterol, Hypertension Respiratory History: COPD Endocrine Medical History: Diabetes Type II, Hypothyroidism Musculoskeletal History: Arthritis, Fibromyalgia GI Medical History: Crohns Disease, GERD, Hernia History: No Pertinent History Psycho-Social History: Depression Female Reproductive Disorders: No Pertinent History Other Medical History: SEE CHART FOR PMH AND PSH; PT. HAS HAD 2 C-SPINE SXS - Past Surgical History Past Surgical History: Yes Neuro Surgical History: No Pertinent History Cardiac: No Pertinent History Respiratory: No Pertinent History Gastrointestinal: Appendectomy, Cholecystectomy Genitourinary: No Pertinent History Musculoskeletal: Orthopedic Surgery Female Surgical History: Hysterectomy, Tubal Ligation Other Surgical History: 2nd toe right foot, fractured right shoulder, filmed lasered off right eye, gaglion cyst removed, cataracts, bunion and tumor removed left foot, bunion right foot, tonsils, microscopic anterior cervical diskectomy with interbody fusion c5-6, plate to cervical, tibia fx repair - Social History Smoking Status: Never smoker Exposure to second hand smoke: No Alcohol Use: None Drug Use: none Patient Lives Alone: No (brother) Significant Family History: no pertinent family hx - Female History Hx Now: No - Nursing Vital Signs Nursing Vital Signs: Initial Vital Signs Temperature 96.9 F 06/17/21 17:12 Pulse Rate 85 06/17/21 17:12 Respiratory Rate 20 06/17/21 17:12 Blood Pressure 141/46 06/17/21 17:12 O2 Sat by Pulse Oximetry 100 06/17/21 17:12 Pain Scale Pain Intensity 7 - Physical Exam General Appearance: no apparent distress, mild distress, alert Eye Exam: PERRL/EOMI, eyes nml inspection, EOM palsy/anisocoria, No scleral icterus Ears, Nose, Throat Exam: TMs normal, No pharyngeal erythema, No tonsillar exudate Neck Exam: non-tender, supple, other (No carotid bruits), No JVD Respiratory Exam: normal breath sounds, lungs clear, airway intact, No chest tenderness, No respiratory distress Cardiovascular Exam: regular rate/rhythm, normal heart sounds, capillary refill <2 sec, No murmur, No friction rub, No gallop Gastrointestinal/Abdomen Exam: soft, No tenderness, No distention, No mass Back Exam: normal inspection Extremity Exam: normal inspection, other (Limb Driver strength 5 out of 5 bilaterally, Bicep flexion 5 out of 5 bilaterally, dorsi flexion and plantar flexion 5 out of 5 bilaterally, no pronator drift, no dysmetria) Neurologic Exam: alert, oriented x 3, it program auditor II-XII nml as tested, normal mood /affect, nml cerebellar function, No motor deficits, No sensory deficit, No facial droop, No aphasia, No dysarthria, No abnormal cerebellar tests, No abnormal it program auditor II-XII Skin Exam: normal color, warm, dry, No rash, No petechiae SpO2 Interpretation: normal SpO2: 100 O2 Delivery: Room Air - Course Nursing assessment & vital signs reviewed: Yes EKG Interpreted by Me: RATE, NORMAL AXIS, NORMAL INTERVALS, NORMAL QRS, Other (No evidence of acute myocardial ischemia or injury) Ordered Tests: Active Orders 24 hr Category Date Time Status EKG-ER Only STAT Care 06/17/21 17:22 Active IV Insertion STAT Care 06/17/21 18:00 Active BMP Stat Lab 06/17/21 17:35 Completed CBC W DIFF Stat Lab 06/17/21 17:35 Completed CULTURE,URINE Stat Lab 06/17/21 17:22 Received TROPONIN Stat Lab 06/17/21 17:35 Completed UA W/RFX UR CULTURE Stat Lab 06/17/21 17:22 Completed Medication Summary Generic Name Dose Route Start Last Admin Trade Name Freq PRN Reason Stop Dose Admin Sodium Chloride 1,000 mls @ 999 mls/hr 06/17/21 18:00 06/17/21 18:06 Sodium Chloride 0.9% 1000 Ml IV 06/17/21 19:00 999 mls/hr .[id number] STA Administration Discontinued Medications Generic Name Dose Route Start Last Admin Trade Name Freq PRN Reason Stop Dose Admin Sodium Chloride Confirm 06/17/21 18:05 Sodium Chloride 0.9% 1000 Ml Administered 06/17/21 18:06 Dose 1,000 mls @ ud .ROUTE .STK-MED ONE Lab/Rad Data: Laboratory Result Diagrams 06/17/21 17:35 06/17/21 17:35 Laboratory Results 06/17/21 06/17/21 06/17/21 Range/Units 17:35 17:35 17:35 WBC 7.0 (4.0-10.5) K/mm3 RBC 3.93 L (4.1-5.4) M/mm3 Hgb 11.4 L (12.0-16.0) gm/dl Hct 35.7 (35-47) % MCV 90.8 (78-100) fl MCH 29.0 (26-32) pg MCHC 31.9 L (32-36) g/dl RDW 13.3 (11.5-14.0) % Plt Count 248 (150-450) K/mm3 MPV 8.6 (7.5-11.0) fl Gran % 62.1 (36.0-66.0) % Eos # (Auto) 0.08 (0-0.5) Absolute Lymphs (auto) 1.86 (1.0-4.6) Absolute Monos (auto) 0.68 (0.0-1.3) Lymphocytes % 26.5 (24.0-44.0) % Monocytes % 9.7 (0.0-12.0) % Eosinophils % 1.1 (0.00-5.0) % Basophils % 0.6 (0.0-0.4) % Absolute Granulocytes 4.36 (1.4-6.9) Basophils # 0.04 (0-0.4) Sodium 128 L (137-145) mmol/L Potassium 4.1 (3.5-5.1) mmol/L Chloride 92 L (98-107) mmol/L Carbon Dioxide 23 (22-30) mmol/L Anion Gap 16.9 H (5-15) MEQ/L BUN 39 H (7-17) mg/dL Creatinine 1.74 H (0.52-1.04) mg/dL Estimated GFR 29.8 ML/MIN Glucose 97 (74-106) mg/dL Calcium 10.1 (8.4-10.2) mg/dL Troponin I < 0.012 (0.000-0.034) ng/mL Urine Color (YELLOW) Urine Appearance (CLEAR) Urine pH (5-6) Ur Specific [place] (1.005-1.025) Urine Protein (Negative) Urine Ketones (NEGATIVE) Urine Blood (0-5) Han/ul Urine Nitrite (NEGATIVE) Urine Bilirubin (NEGATIVE) Urine Urobilinogen (0-1) mg/dL Ur Leukocyte Esterase (NEGATIVE) Urine WBC (Auto) (0-5) /HPF Urine RBC (Auto) (0-2) /HPF U Hyaline Cast (Auto) (0-2) /LPF U Epithel Cells (Auto) (FEW) /HPF Urine Bacteria (Auto) (NEGATIVE) /HPF Urine Mucus (Auto) (NEGATIVE) /HPF Urine Culture Reflexed (NO) Urine Glucose (NEGATIVE) mg/dL 06/17/21 Range/Units 17:22 WBC (4.0-10.5) K/mm3 RBC (4.1-5.4) M/mm3 Hgb (12.0-16.0) gm/dl Hct (35-47) % MCV (78-100) fl MCH (26-32) pg MCHC (32-36) g/dl RDW (11.5-14.0) % Plt Count (150-450) K/mm3 MPV (7.5-11.0) fl Gran % (36.0-66.0) % Eos # (Auto) (0-0.5) Absolute Lymphs (auto) (1.0-4.6) Absolute Monos (auto) (0.0-1.3) Lymphocytes % (24.0-44.0) % Monocytes % (0.0-12.0) % Eosinophils % (0.00-5.0) % Basophils % (0.0-0.4) % Absolute Granulocytes (1.4-6.9) Basophils # (0-0.4) Sodium (137-145) mmol/L Potassium (3.5-5.1) mmol/L Chloride (98-107) mmol/L Carbon Dioxide (22-30) mmol/L Anion Gap (5-15) MEQ/L BUN (7-17) mg/dL Creatinine (0.52-1.04) mg/dL Estimated GFR ML/MIN Glucose (74-106) mg/dL Calcium (8.4-10.2) mg/dL Troponin I (0.000-0.034) ng/mL Urine Color YELLOW (YELLOW) Urine Appearance SLIGHTLY CLOUDY (CLEAR) Urine pH 5.0 (5-6) Ur Specific [place] 1.025 (1.005-1.025) Urine Protein 30 (Negative) Urine Ketones NEGATIVE (NEGATIVE) Urine Blood NEGATIVE (0-5) Han/ul Urine Nitrite NEGATIVE (NEGATIVE) Urine Bilirubin NEGATIVE (NEGATIVE) Urine Urobilinogen NEGATIVE (0-1) mg/dL Ur Leukocyte Esterase SMALL (NEGATIVE) Urine WBC (Auto) 3-5 (0-5) /HPF Urine RBC (Auto) 3-5 (0-2) /HPF U Hyaline Cast (Auto) 26-50 (0-2) /LPF U Epithel Cells (Auto) RARE (FEW) /HPF Urine Bacteria (Auto) RARE (NEGATIVE) /HPF Urine Mucus (Auto) SLIGHT (NEGATIVE) /HPF Urine Culture Reflexed YES (NO) Urine Glucose NEGATIVE (NEGATIVE) mg/dL - Progress Progress: improved Progress Note: 06/17/21 17:52 The patient's hemoglobin appears to be stable compared to prior labs reviewed in her EMR. 06/17/21 18:02 Testing the patient's creatinine is 1.74 consistent with a mild VIVEK and her serum sodium is also 128 consistent with mild hyponatremia and she also has evidence of hypochloremia that is new compared to baseline labs obtained last in February 2021 when reviewing her EMR. I suspect her complaint of lightheadedness and orthostasis is likely secondary to a dehydration component. This could be from medications and I will have to check her med list to see if she is on any diuretics. 06/17/21 18:[address] Luis who is on-call for Dr. Scott the patient's PCP, and discussed the case with her. I talked about admission for observation for IV fluids however Dr. Luis thought maybe would be better to give the patient IV fluids in the emergency department and agreed to follow-up with her urgently tomorrow afternoon at 1 PM. I was okay with this plan given that clinically the patient overall appears to be well and is not hypotensive. I do not know exactly why the patient is in acute renal failure but I do believe it is a prerenal process likely from dehydration or volume depletion. I reviewed her list of medications and there is no clear-cut diuretic listed. 06/17/21 18:41 I updated the patient with the discharge plan, specifically to follow-up with Dr. Callejas tomorrow at 1 PM. The patient agreed with and understood this and stated that she would be able to make it to this appointment. I informed her to drink plenty of fluids and return to the emergency department if her symptoms were to become worse. 06/17/21 18:50 The patient has demonstrated ability to ambulate on her own and with her walker which is her baseline. Discussed with DrJosefina: Other (Dr. Callejas, on-call for Dr. Scott) Counseled pt/family regarding: lab results, diagnosis, need for follow-up - Departure Departure Disposition: Home Clinical Impression: Dehydration, Acute renal failure, Hyponatremia, Orthostasis Condition: Stable Critical Care Time: No Referrals: JAMILA JOSE [Primary Care Provider] - TREV CALLEJAS DO [ACTIVE STAFF] - Instructions: Acute Kidney Injury, Dehydration, Adult (DC), Hyponatremia (DC) Additional Instructions: Please follow-up with Dr. Callejas tomorrow at 1 PM to have your kidney function rechecked and symptoms reevaluated.
[2021-06-17 17:39] LABS: Appearance SLIGHTLY CLOUDY (CLEAR); Bacteria RARE /HPF (NEGATIVE); Bilirubin NEGATIVE (NEGATIVE); Blood NEGATIVE Ery/ul (0-5); Epithelial Cells RARE /HPF (FEW); Glucose NEGATIVE (NEGATIVE); Hyaline Casts 26-50 /LPF (0-2); Ketones NEGATIVE (NEGATIVE); Leukocyte Esterase SMALL (NEGATIVE); Mucus SLIGHT /HPF (NEGATIVE); Nitrite NEGATIVE (NEGATIVE); Protein,Urine Dip 30 (Negative); Specific Gravity 1.025 (1.005-1.025); Urobilinogen NEGATIVE mg/dL (0-1)
[2021-06-17 17:42] LABS: Absolute Neutrophil Ct (ANC) 4.36 (1.4-6.9); BASOPHIL % 0.6 % (0.0-0.4); Basophil (Absolute #) 0.04 (0-0.4); Eosinophil % 1.1 % (0.00-5.0); Eosinophil (Absolute #) 0.08 (0-0.5); Hematocrit 35.7 % (35-47); Hemoglobin 11.4 gm/dl (12.0-16.0); Lymphocyte (Absolute #) 1.86 (1.0-4.6); Lymphocytes % 26.5 % (24.0-44.0); Mean Cell Volume 90.8 fl (78-100); Mean Corpuscular Hgb Concent. 31.9 g/dl (32-36); Mean Platelet Volume 8.6 fl (7.5-11.0); Monocyte (Absolute #) 0.68 (0.0-1.3); Monocytes % 9.7 % (0.0-12.0); Neutrophil % 62.1 % (36.0-66.0); Platelet Count 248 K/mm3 (150-450); Red Blood Count 3.93 M/mm3 (4.1-5.4); Red Cell Distribution Width 13.3 % (11.5-14.0)
[2021-06-17 17:55] LABS: ANION GAP 16.9 MEQ/L (5-15); Calcium 10.1 mg/dL (8.4-10.2); Creatinine 1 1.74 mg/dL (0.52-1.04); EST GLOMERULAR FILTRATION RATE 29.8 ML/MIN; Potassium 4.1 mmol/L (3.5-5.1)
[2021-06-17] MEDS ORDERED: Sodium Chloride 0.9% 1000 ML 1,000 ML IV STA (18:00)
[2021-06-17] MEDS ORDERED: Sodium Chloride 0.9% 1000 ML 1,000 ML ONE (18:05)
[2021-06-17 19:26] VITALS: BP 132/54; PULSE 70; O2SAT 98
== END 2021-06-17 19:12 | disposition home or self-care (01) ==
LOC: ED 17:00
DX: E86.0 Dehydration (principal); N17.9 Acute kidney failure, unspecified; E87.1 Hypo-osmolality and hyponatremia; I95.1 Orthostatic hypotension; Z79.899 Other long term (current) drug therapy; E11.9 Type 2 diabetes mellitus without complications; G62.9 Polyneuropathy, unspecified; E03.9 Hypothyroidism, unspecified; J44.9 Chronic obstructive pulmonary disease, unspecified; E78.00 Pure hypercholesterolemia, unspecified
CPT/HCPCS: 36000; 36415; 80048; 81001; 84484; 85025; 87086; 93005; 96360; 99284

== ENCOUNTER 2021-06-25 14:16 | Observation (INO) | payer MEDICARE ==
--- NOTE | 2021-06-25 14:21 | ERPHSYRPT ---
- History of Present Illness Time Seen by Provider: 06/25/21 14:21 Historian: patient Exam Limitations: no limitations Physician History: This is an 81-year-old white female patient of Dr. Tyler Miramontes who has a history of migraine headaches, hypertension, peripheral neuropathy, diabetes, COPD, elevated cholesterol, and hypothyroidism and has had chronic right hip p roblems in the past. She underwent a right hip replacement in April 2021. Since that time, per patient report, she has had chronic nausea and intermittent vomiting. She still has the same amount of pain in her right hip if not worse at times postoperatively. Patient denies diarrhea. She has no chest pain. She is not short of breath. She has no significant abdominal pain at this time. Timing/Duration: other (Chronic nausea, chronic hip pain postoperatively) Activities at Onset: none Severity of Pain-Max: moderate Severity of Pain-Current: moderate Modifying Factors: Improves With: other (Nausea) Associated Symptoms: nausea, vomiting, weakness, No chest pain Previous symptoms: same symptoms as today, recently seen Allergies/Adverse Reactions: butorphanol tartrate [From Stadol] Allergy (Verified 06/25/21 14:23) celecoxib [From Celebrex] Allergy (Verified 06/25/21 14:23) Sulfa (Sulfonamide Antibiotics) Allergy (Verified 06/25/21 14:23) tizanidine [From Zanaflex] Allergy (Verified 06/25/21 14:23) Home Medications: Duloxetine HCl [Cymbalta] 60 mg PO DAILY 07/29/14 [History] Amlodipine Besylate 5 mg [Norvasc 5 mg] 5 mg PO HS 11/20/14 [History] Metformin HCl 500 mg [Glucophage 500 MG] 500 mg PO BID 11/27/15 [History] Levothyroxine Sodium 75 Mcg [Synthroid 75 Mcg] 75 mcg PO DAILY 02/11/16 [History] Ropinirole HCl [Requip] 1 mg PO HS 04/16/17 [History] Bupropion HCl 150 mg Sr [Wellbutrin SR 150 MG] 150 mg PO HS 10/01/18 [History] Fluticasone Propionate [Flonase NASAL] 2 spray IH DAILY PRN 10/02/18 [History] Budesonide/Formoterol Fumarate [Symbicort 160-4.5 Mcg Inhaler] 2 puffs PO DAILY PRN PRN 12/22/19 [History] Cyclobenzaprine HCl [Flexeril] 5 mg PO DAILY 03/12/21 [History] Hx Tetanus, Diphtheria Vaccination/Date Given: Yes Hx Influenza Vaccination/Date Given: Yes Hx Pneumococcal Vaccination/Date Given: Yes Travel Risk - International Travel Have you traveled outside of the country in past 3 weeks: No - Coronavirus Screening Are you exhibiting any of the following symptoms?: No Close contact with a COVID-19 positive Pt in past 14-21 Days: No - Vaccine Status Have you recieved a Covid-19 vaccination: Yes Pals Nurse: [place] - Vaccination Dates Date of 2cond Vaccination (if applicable): october - Review of Systems Constitutional: Weakness Eyes: No Symptoms Ears, Nose, & Throat: No Symptoms Respiratory: No Symptoms Cardiac: No Symptoms Abdominal/Gastrointestinal: Nausea, Vomiting, No Abdominal Pain, No Diarrhea Genitourinary Symptoms: No Symptoms Musculoskeletal: Other (Right hip pain postoperatively) Skin: No Symptoms Neurological: No Symptoms Psychological: No Symptoms Endocrine: No Symptoms Hematologic/Lymphatic: No Symptoms Immunological/Allergic: No Symptoms All Other Systems: Reviewed and Negative - Past Medical History Pertinent Past Medical History: Yes Neurological History: Migraines, Peripheral Neuropathy ENT History: Cataracts Cardiac History: High Cholesterol, Hypertension Respiratory History: COPD Endocrine Medical History: Diabetes Type II, Hypothyroidism Musculoskeletal History: Arthritis, Fibromyalgia GI Medical History: Crohns Disease, GERD, Hernia History: No Pertinent History Psycho-Social History: Depression Female Reproductive Disorders: No Pertinent History Other Medical History: SEE CHART FOR PMH AND PSH; PT. HAS HAD 2 C-SPINE SXS - Past Surgical History Past Surgical History: Yes Neuro Surgical History: No Pertinent History Cardiac: No Pertinent History Respiratory: No Pertinent History Gastrointestinal: Appendectomy, Cholecystectomy Genitourinary: No Pertinent History Musculoskeletal: Orthopedic Surgery Female Surgical History: Hysterectomy, Tubal Ligation Other Surgical History: 2nd toe right foot, fractured right shoulder, filmed lasered off right eye, gaglion cyst removed, cataracts, bunion and tumor removed left foot, bunion right foot, tonsils, microscopic anterior cervical diskectomy with interbody fusion c5-6, plate to cervical, tibia fx repair - Social History Smoking Status: Never smoker Exposure to second hand smoke: No Alcohol Use: None Drug Use: none Patient Lives Alone: No (brother) Significant Family History: no pertinent family hx - Nursing Vital Signs Nursing Vital Signs: Initial Vital Signs Temperature 97.0 F 06/25/21 14:24 Pulse Rate 64 06/25/21 14:24 Respiratory Rate 18 06/25/21 14:24 Blood Pressure 185/73 06/25/21 14:24 O2 Sat by Pulse Oximetry 100 06/25/21 14:24 Pain Scale Pain Intensity 5 - Physical Exam General Appearance: mild distress, alert, anxiety, thin Eye Exam: PERRL/EOMI, eyes nml inspection Ears, Nose, Throat Exam: normal ENT inspection, moist mucous membranes Neck Exam: normal inspection, non-tender, supple, full range of motion Respiratory Exam: normal breath sounds, lungs clear, airway intact, No chest tenderness, No respiratory distress Cardiovascular Exam: regular rate/rhythm, normal heart sounds, normal peripheral pulses Gastrointestinal/Abdomen Exam: soft, normal bowel sounds, No tenderness Pelvic Exam: not done Rectal Exam: not done Back Exam: normal inspection, normal range of motion, No CVA tenderness, No vertebral tenderness Extremity Exam: tenderness (Right hip), No deformities, No inflammation, No swelling Neurologic Exam: alert, oriented x 3, cooperative, buyer internship II-XII nml as tested, normal mood/affect Skin Exam: normal color, warm, dry Lymphatic Exam: No adenopathy SpO2 Interpretation: normal O2 Delivery: Room Air - Course Nursing assessment & vital signs reviewed: Yes Ordered Tests: Active Orders 24 hr Category Date Time Status IV Insertion STAT Care 06/25/21 14:51 Active AMYLASE Stat Lab 06/25/21 14:45 Completed CBC W DIFF Stat Lab 06/25/21 14:45 Completed CMP Stat Lab 06/25/21 14:45 Completed LIPASE Stat Lab 06/25/21 14:45 Completed Lactic Acid Stat Lab 06/25/21 14:51 Completed MAG [MAGNESIUM] Stat Lab 06/26/21 05:00 Ordered MAGNESIUM Stat Lab 06/25/21 14:45 Completed T4 (Thyroxine) Stat Lab 06/25/21 15:38 Completed TSH [TSH, 3RD Generation] Stat Lab 06/25/21 15:38 Completed UA W/RFX UR CULTURE Stat Lab 06/25/21 14:57 Completed Transfer Order Routine Transfer 06/25/21 Ordered Medication Summary Generic Name Dose Route Start Last Admin Trade Name Giuliano PRN Reason Stop Dose Admin Sodium Chloride 1,000 mls @ 250 mls/hr 06/25/21 15:00 06/25/21 15:00 Sodium Chloride 0.9% 1000 Ml IV 07/25/21 14:59 250 mls/hr .Q4H DRISS Administration Discontinued Medications Generic Name Dose Route Start Last Admin Trade Name Giuliano PRN Reason Stop Dose Admin Magnesium Sulfate/Dextrose 100 mls @ 200 mls/hr 06/25/21 15:45 06/25/21 15:50 Magnesium 1 Gm / 100 Ml D5w IV 06/25/21 16:14 200 mls/hr STAT ONE Administration Magnesium Sulfate/Dextrose Confirm 06/25/21 15:49 Magnesium 1 Gm / 100 Ml D5w Administered 06/25/21 15:50 Dose 100 mls @ ud IV .STK-MED ONE Ketorolac Tromethamine 30 mg 06/25/21 15:32 06/25/21 15:41 Ketorolac Tromethamine 30 Mg/Ml Inj IV 06/25/21 15:33 30 mg STAT ONE Administration Ketorolac Tromethamine Confirm 06/25/21 15:39 Ketorolac Tromethamine 30 Mg/Ml Inj Administered 06/25/21 15:40 Dose 30 mg .ROUTE .STK-MED ONE Ondansetron HCl 4 mg 06/25/21 14:51 06/25/21 15:00 Ondansetron Hcl 4 Mg/2 Ml Vial IV 06/25/21 14:52 4 mg STAT ONE Administration Ondansetron HCl Confirm 06/25/21 14:58 Ondansetron Hcl 4 Mg/2 Ml Vial Administered 06/25/21 14:59 Dose 4 mg .ROUTE .STK-MED ONE Lab/Rad Data: Laboratory Result Diagrams 06/25/21 14:45 06/25/21 14:45 Laboratory Results 06/25/21 06/25/21 06/25/21 Range/Units 15:38 15:38 14:57 WBC (4.0-10.5) K/mm3 RBC (4.1-5.4) M/mm3 Hgb (12.0-16.0) gm/dl Hct (35-47) % MCV (78-100) fl MCH (26-32) pg MCHC (32-36) g/dl RDW (11.5-14.0) % Plt Count (150-450) K/mm3 MPV (7.5-11.0) fl Gran % (36.0-66.0) % Eos # (Auto) (0-0.5) Absolute Lymphs (auto) (1.0-4.6) Absolute Monos (auto) (0.0-1.3) Lymphocytes % (24.0-44.0) % Monocytes % (0.0-12.0) % Eosinophils % (0.00-5.0) % Basophils % (0.0-0.4) % Absolute Granulocytes (1.4-6.9) Basophils # (0-0.4) Sodium (137-145) mmol/L Potassium (3.5-5.1) mmol/L Chloride (98-107) mmol/L Carbon Dioxide (22-30) mmol/L Anion Gap (5-15) MEQ/L BUN (7-17) mg/dL Creatinine (0.52-1.04) mg/dL Estimated GFR ML/MIN Glucose (74-106) mg/dL Lactic Acid (0.4-2.0) Calcium (8.4-10.2) mg/dL Magnesium (1.6-2.3) mg/dL Total Bilirubin (0.2-1.3) mg/dL AST (14-36) U/L ALT (0-35) U/L Alkaline Phosphatase (38-126) U/L Serum Total Protein (6.3-8.2) g/dL Albumin (3.5-5.0) g/dL Amylase (30-110) U/L Lipase (23-300) U/L Thyroxine (T4) 11.4 H (5.53-10.96) ug/dL TSH 3rd Generation 0.811 (0.47-4.68) mIU/L Urine Color YELLOW (YELLOW) Urine Appearance CLEAR (CLEAR) Urine pH 5.0 (5-6) Ur Specific Ramona 1.027 (1.005-1.025) Urine Protein 30 (Negative) Urine Ketones NEGATIVE (NEGATIVE) Urine Blood NEGATIVE (0-5) Han/ul Urine Nitrite NEGATIVE (NEGATIVE) Urine Bilirubin NEGATIVE (NEGATIVE) Urine Urobilinogen NEGATIVE (0-1) mg/dL Ur Leukocyte Esterase NEGATIVE (NEGATIVE) Urine WBC (Auto) 0-2 (0-5) /HPF Urine RBC (Auto) NONE (0-2) /HPF U Epithel Cells (Auto) NONE (FEW) /HPF Urine Bacteria (Auto) NONE (NEGATIVE) /HPF Urine Mucus (Auto) SLIGHT (NEGATIVE) /HPF Urine Culture Reflexed NO (NO) Urine Glucose NEGATIVE (NEGATIVE) mg/dL 06/25/21 06/25/21 06/25/21 Range/Units 14:51 14:45 14:45 WBC 4.7 (4.0-10.5) K/mm3 RBC 4.02 L (4.1-5.4) M/mm3 Hgb 11.6 L (12.0-16.0) gm/dl Hct 36.4 (35-47) % MCV 90.5 (78-100) fl MCH 28.9 (26-32) pg MCHC 31.9 L (32-36) g/dl RDW 13.1 (11.5-14.0) % Plt Count 229 (150-450) K/mm3 MPV 9.6 (7.5-11.0) fl Gran % 59.9 (36.0-66.0) % Eos # (Auto) 0.04 (0-0.5) Absolute Lymphs (auto) 1.41 (1.0-4.6) Absolute Monos (auto) 0.37 (0.0-1.3) Lymphocytes % 30.3 (24.0-44.0) % Monocytes % 8.0 (0.0-12.0) % Eosinophils % 0.9 (0.00-5.0) % Basophils % 0.9 (0.0-0.4) % Absolute Granulocytes 2.79 (1.4-6.9) Basophils # 0.04 (0-0.4) Sodium 136 L (137-145) mmol/L Potassium 3.9 (3.5-5.1) mmol/L Chloride 101 (98-107) mmol/L Carbon Dioxide 28 (22-30) mmol/L Anion Gap 11.7 (5-15) MEQ/L BUN 13 (7-17) mg/dL Creatinine 0.49 L (0.52-1.04) mg/dL Estimated GFR > 60.0 ML/MIN Glucose 112 H (74-106) mg/dL Lactic Acid 1.0 (0.4-2.0) Calcium 10.2 (8.4-10.2) mg/dL Magnesium 1.1 L (1.6-2.3) mg/dL Total Bilirubin 0.30 (0.2-1.3) mg/dL AST 19 (14-36) U/L ALT 13 (0-35) U/L Alkaline Phosphatase 72 (38-126) U/L Serum Total Protein 6.8 (6.3-8.2) g/dL Albumin 4.1 (3.5-5.0) g/dL Amylase 36 (30-110) U/L Lipase 38 (23-300) U/L Thyroxine (T4) (5.53-10.96) ug/dL TSH 3rd Generation (0.47-4.68) mIU/L Urine Color (YELLOW) Urine Appearance (CLEAR) Urine pH (5-6) Ur Specific Ramona (1.005-1.025) Urine Protein (Negative) Urine Ketones (NEGATIVE) Urine Blood (0-5) Han/ul Urine Nitrite (NEGATIVE) Urine Bilirubin (NEGATIVE) Urine Urobilinogen (0-1) mg/dL Ur Leukocyte Esterase (NEGATIVE) Urine WBC (Auto) (0-5) /HPF Urine RBC (Auto) (0-2) /HPF U Epithel Cells (Auto) (FEW) /HPF Urine Bacteria (Auto) (NEGATIVE) /HPF Urine Mucus (Auto) (NEGATIVE) /HPF Urine Culture Reflexed (NO) Urine Glucose (NEGATIVE) mg/dL - Progress Progress: pain not gone completely, re-examined Progress Note: 06/25/21 16:44 Medical decision making: This patient has significant postoperative hip pain, she is weak, and she has low magnesium level. She has decreased appetite. She lives alone. We will place her into the hospital observation status with IV hydration, repeat laboratory data in the morning and we will obtain physical therapy consultation and discharge planning consultation as well. I spoke with Dr. Tyler Miramontes and we agreed with the above plan. 06/25/21 16:45 Discussed with : Charissa Counseled pt/family regarding: lab results, diagnosis - Departure Departure Disposition: Observation Clinical Impression: Postoperative pain, Weakness, Hypomagnesemia Condition: Stable Critical Care Time: No Referrals: JAMILA JOSE [Primary Care Provider] - Follow up/PCP as directed
[2021-06-25] MEDS ORDERED: Zofran 4 MG/2 ML VIAL IV ONE (14:51)
[2021-06-25] MEDS ORDERED: Zofran 4 MG/2 ML VIAL ONE (14:58)
[2021-06-25] MEDS ORDERED: Sodium Chloride 0.9% 1000 ML 1,000 ML ONE (14:58)
[2021-06-25 14:59] LABS: Absolute Neutrophil Ct (ANC) 2.79 (1.4-6.9); BASOPHIL % 0.9 % (0.0-0.4); Basophil (Absolute #) 0.04 (0-0.4); Eosinophil % 0.9 % (0.00-5.0); Eosinophil (Absolute #) 0.04 (0-0.5); Hematocrit 36.4 % (35-47); Hemoglobin 11.6 gm/dl (12.0-16.0); Lymphocyte (Absolute #) 1.41 (1.0-4.6); Lymphocytes % 30.3 % (24.0-44.0); Mean Cell Volume 90.5 fl (78-100); Mean Corpuscular Hemoglobin 28.9 pg (26-32); Mean Corpuscular Hgb Concent. 31.9 g/dl (32-36); Mean Platelet Volume 9.6 fl (7.5-11.0); Monocyte (Absolute #) 0.37 (0.0-1.3); Neutrophil % 59.9 % (36.0-66.0); Platelet Count 229 K/mm3 (150-450); Red Blood Count 4.02 M/mm3 (4.1-5.4); Red Cell Distribution Width 13.1 % (11.5-14.0); White Blood Count 4.7 K/mm3 (4.0-10.5)
[2021-06-25] MEDS ORDERED: Sodium Chloride 0.9% 1000 ML 1,000 ML IV SCH ×2 (15:00→20:16)
[2021-06-25 15:06] LABS: Appearance CLEAR (CLEAR); Bilirubin NEGATIVE (NEGATIVE); Blood NEGATIVE Ery/ul (0-5); Glucose NEGATIVE (NEGATIVE); Ketones NEGATIVE (NEGATIVE); Leukocyte Esterase NEGATIVE (NEGATIVE); Mucus SLIGHT /HPF (NEGATIVE); Nitrite NEGATIVE (NEGATIVE); Protein,Urine Dip 30 (Negative); Specific Gravity 1.027 (1.005-1.025); Urobilinogen NEGATIVE mg/dL (0-1); WBC 0-2 /HPF (0-5)
[2021-06-25 15:32] LABS: ALBUMIN 4.1 g/dL (3.5-5.0); ALKALINE PHOSPHATASE 72 U/L (38-126); AMYLASE 36 U/L (30-110); ANION GAP 11.7 MEQ/L (5-15); BLOOD UREA NITROGEN 13 mg/dL (7-17); CHLORIDE 101 mmol/L (98-107); Calcium 10.2 mg/dL (8.4-10.2); Carbon Dioxide 28 mmol/L (22-30); Creatinine 1 0.49 mg/dL (0.52-1.04); EST GLOMERULAR FILTRATION RATE > 60.0 ML/MIN; Glucose 112 mg/dL (74-106); LIPASE 38 U/L (23-300); Potassium 3.9 mmol/L (3.5-5.1); SGOT/AST 19 U/L (14-36); SGPT/ALT 13 U/L (0-35); SODIUM 136 mmol/L (137-145); Total Protein 6.8 g/dL (6.3-8.2)
[2021-06-25] MEDS ORDERED: TORAdol 30 mg Injection IV ONE (15:32)
[2021-06-25 15:34] LABS: MAGNESIUM 1.1 mg/dL (1.6-2.3)
[2021-06-25] MEDS ORDERED: TORAdol 30 mg Injection ONE (15:39)
[2021-06-25] MEDS ORDERED: Magnesium 1 Gm / 100 Ml D5W*** 100 ML IV ONE ×2 (15:45→15:49)
[2021-06-25] MEDS ORDERED: Zofran 4 MG/2 ML VIAL IV PRN (20:16)
[2021-06-25] MEDS ORDERED: HUMULIN R SQ PRN (20:16)
[2021-06-25] MEDS ORDERED: TYLENOL 325 MG PO PRN (20:16)
[2021-06-25] MEDS ORDERED: Wellbutrin SR 150 MG PO ONE (21:34)
[2021-06-25] MEDS ORDERED: Ativan 0.5 MG PO PRN (21:34)
[2021-06-25] MEDS: PERCOCET TABLET 5/325MG PO PRN (21:51)
[2021-06-25] MEDS ORDERED: Requip 0.5 MG PO SCH (22:00)
[2021-06-26] MEDS: PERCOCET TABLET 5/325MG PO PRN ×3 (02:32→14:04)
[2021-06-26] MEDS: TORAdol 30 mg Injection IV PRN ×2 (04:51→11:03)
[2021-06-26 05:48] LABS: Absolute Neutrophil Ct (ANC) 2.47 (1.4-6.9); BASOPHIL % 0.4 % (0.0-0.4); Basophil (Absolute #) 0.02 (0-0.4); Eosinophil % 1.5 % (0.00-5.0); Eosinophil (Absolute #) 0.07 (0-0.5); Hematocrit 31.9 % (35-47); Lymphocyte (Absolute #) 1.68 (1.0-4.6); Lymphocytes % 35.5 % (24.0-44.0); Mean Cell Volume 90.4 fl (78-100); Mean Corpuscular Hemoglobin 28.3 pg (26-32); Mean Corpuscular Hgb Concent. 31.3 g/dl (32-36); Mean Platelet Volume 9.3 fl (7.5-11.0); Monocyte (Absolute #) 0.49 (0.0-1.3); Monocytes % 10.4 % (0.0-12.0); Neutrophil % 52.2 % (36.0-66.0); Platelet Count 189 K/mm3 (150-450); Red Blood Count 3.53 M/mm3 (4.1-5.4); Red Cell Distribution Width 13.1 % (11.5-14.0); White Blood Count 4.7 K/mm3 (4.0-10.5)
[2021-06-26 06:09] LABS: BLOOD UREA NITROGEN 10 mg/dL (7-17); CHLORIDE 102 mmol/L (98-107); Calcium 8.9 mg/dL (8.4-10.2); Carbon Dioxide 26 mmol/L (22-30); Creatinine 1 0.48 mg/dL (0.52-1.04); EST GLOMERULAR FILTRATION RATE > 60.0 ML/MIN; Glucose 106 mg/dL (74-106); Potassium 3.8 mmol/L (3.5-5.1); SODIUM 135 mmol/L (137-145)
[2021-06-26] MEDS ORDERED: SYNTHROID 75 MCG PO SCH (10:00)
[2021-06-26] MEDS ORDERED: NON-FORMULARY ITEM (Budesonide/Formoterol Fumarate [Symbicort 160-4.5 Mcg Inhaler] 10.2 GM PO SCH (10:00)
[2021-06-26] MEDS ORDERED: Zestril 10 MG PO SCH (10:00)
[2021-06-26] MEDS ORDERED: MAGNESIUM 250 MG PO SCH (10:00)
[2021-06-26] MEDS ORDERED: NORVASC 5 MG PO SCH (10:00)
[2021-06-26] MEDS ORDERED: Cymbalta 30 MG Capsule PO SCH (10:00)
[2021-06-26] MEDS ORDERED: Ditropan 5 MG PO SCH (10:00)
[2021-06-26] MEDS ORDERED: Flonase NASAL NS SCH (10:00)
[2021-06-26] MEDS ORDERED: Provigil 100MG Tablet PO SCH (10:00)
[2021-06-26] MEDS ORDERED: Cyclobenzaprine 10 MG PO SCH (10:00)
[2021-06-26] MEDS ORDERED: Wellbutrin XL 150 MG PO SCH (10:00)
[2021-06-26] MEDS ORDERED: NON-FORMULARY ITEM (Omeprazole [Omeprazole] 40 MG Capsule.Dr) PO SCH (10:00)
[2021-06-26] MEDS ORDERED: FEOSOL 325 MG PO SCH (10:00)
[2021-06-26] MEDS ORDERED: Colace 100 MG PO SCH (10:00)
[2021-06-26] MEDS: Glucophage 500 MG PO SCH ×2 (10:31→14:04)
[2021-06-26] MEDS: Magnesium 1 Gm / 100 Ml D5W*** 100 ML IV SCH ×2 (10:33→12:12)
[2021-06-26] MEDS ORDERED: Advair Hfa 115/21 Common canister IH SCH (11:00)
[2021-06-26] MEDS ORDERED: Protonix 40MG Tablet PO SCH (11:00)
[2021-06-26] MEDS ORDERED: MAG-OX 400 PO SCH (11:00)
[2021-06-26] MEDS ORDERED: REQUIP 2MG TAB PO SCH (22:00)
[2021-07-08 16:17] VITALS: BP 140/63; PULSE 66; O2SAT 98
--- NOTE | 2021-07-15 12:34 | PCM.SSS ---
History of Present Illness - Chief Complaint Chief Complaint: Hypomagnesemia, Weakness, Postoperative Hip Pain Date: 06/26/21 History of Present Illness: is a 81 year old female. Pt. presented feeling weak and noted continued pain in hip post-operatively. Pt. also notes intermittent nausea with vomiting since her hip surgery. Pt. was placed in obsservation for general weakness, low magnesium and post-operative pain. - Review of Systems Constitutional: Weakness Eyes: No Symptoms Ears, Nose, & Throat: No Symptoms Respiratory: No Cough, No Short Of Breath Cardiac: No Chest Pain, No Edema, No Syncope Abdominal/Gastrointestinal: Nausea, No Abdominal Pain, No Vomiting, No Diarrhea Genitourinary Symptoms: No Dysuria Musculoskeletal: No Back Pain, No Neck Pain Skin: No Rash Neurological: No Dizziness, No Focal Weakness, No Sensory Changes Psychological: No Symptoms Endocrine: No Symptoms Hematologic/Lymphatic: No Symptoms Immunological/Allergic: No Symptoms Medications & Allergies Home Medications: Home Medication List Amlodipine Besylate 5 mg [Norvasc 5 mg] 5 mg PO DAILY 06/25/21 [History Confirmed 06/26/21] Budesonide/Formoterol Fumarate [Symbicort 160-4.5 Mcg Inhaler] 2 puffs PO DAILY 06/25/21 [History Confirmed 06/25/21] Cyclobenzaprine HCl 10 mg [Cyclobenzaprine 10 MG] 5 mg PO BID 06/25/21 [History Confirmed 06/26/21] Duloxetine HCl 30 mg [Cymbalta 30 MG Capsule] 60 mg PO DAILY 06/25/21 [History Confirmed 06/25/21] Fluticasone Propionate [Flonase NASAL] 2 spray IH DAILY 06/25/21 [History Confirmed 06/25/21] Levothyroxine Sodium 75 Mcg [Synthroid 75 Mcg] 75 mcg PO DAILY 06/25/21 [History Confirmed 06/25/21] Metformin HCl 500 mg [Glucophage 500 MG] 500 mg PO TID 06/25/21 [History Confirmed 06/26/21] Ropinirole 2Mg [Requip 2Mg Tab] 1 mg PO HS 06/25/21 [History Confirmed 06/25/21] Bupropion HCl [Wellbutrin Xl] 150 mg PO DAILY 06/26/21 [History Confirmed 06/26/21] Docusate Sodium 100 mg PO DAILY 06/26/21 [History Confirmed 06/26/21] Ferrous Sulfate 325 mg PO DAILY 06/26/21 [History Confirmed 06/26/21] Magnesium 250 mg PO DAILY 06/26/21 [History Confirmed 06/26/21] Modafinil [Provigil] 200 mg PO DAILY 06/26/21 [History Confirmed 06/26/21] Omeprazole 40 mg PO DAILY 06/26/21 [History Confirmed 06/26/21] Oxybutynin Chloride 5 mg PO BID 06/26/21 [History Confirmed 06/26/21] lisinopriL [Lisinopril] 10 mg PO DAILY 06/26/21 [History Confirmed 06/26/21] Allergies/Adverse Reactions: Allergies Allergy/AdvReac Type Severity Reaction Status Date / Time butorphanol tartrate Allergy Verified 06/25/21 14:23 [From Stadol] celecoxib [From Celebrex] Allergy Verified 06/25/21 14:23 Sulfa (Sulfonamide Allergy Verified 06/25/21 14:23 Antibiotics) tizanidine [From Zanaflex] Allergy Verified 06/25/21 14:23 - Past Medical History Past Medical History: Yes Neurological History: Migraines, Peripheral Neuropathy ENT History: Cataracts Cardiac History: High Cholesterol, Hypertension Respiratory History: COPD Endocrine Medical History: Diabetes Type II, Hypothyroidism Musculoskelatal History: Arthritis, Fibromyalgia GI Medical History: Crohns Disease, GERD, Hernia History: No Pertinent History Pyscho-Social History: Depression Reproductive Disorders: No Pertinent History Comment: SEE CHART FOR PMH AND PSH; PT. HAS HAD 2 C-SPINE SXS - Female History Are you now?: No - Past Surgical History Past Surgical History: Yes Neuro Surgical History: No Pertinent History Cardiac History: No Pertinent History Respiratory Surgery: No Pertinent History GI Surgical History: Appendectomy, Cholecystectomy Genitourinary Surgical Hx: No Pertinent History Musculskeletal Surgical Hx: Orthopedic Surgery Female Surgical History: Hysterectomy, Tubal Ligation Other Surgical History: 2nd toe right foot, fractured right shoulder, filmed lasered off right eye, gaglion cyst removed, cataracts, bunion and tumor removed left foot, bunion right foot, tonsils, microscopic anterior cervical diskectomy with interbody fusion c5-6, plate to cervical, tibia fx repair - Social History Smoking Status: Never smoker Exposure to second hand smoke: No Alcohol: None Drug Use: none Significant Family History: no pertinent family hx - Physical Exam General Appearance: no apparent distress, alert Neurologic Exam: alert, oriented x 3, cooperative, normal mood/affect, nml cerebellar function, nml station & gait, sensation nml, No motor deficits Eye Exam: PERRL/EOMI, eyes nml inspection Ears, Nose, Throat Exam: normal ENT inspection, pharynx normal, moist mucous membranes Neck Exam: normal inspection, non-tender, supple, full range of motion Respiratory Exam: normal breath sounds, lungs clear, No respiratory distress Cardiovascular Exam: regular rate/rhythm, normal heart sounds, normal peripheral pulses Gastrointestinal/Abdomen Exam: soft, normal bowel sounds, No tenderness, No mass Back Exam: normal inspection, normal range of motion, No CVA tenderness, No v ertebral tenderness Extremity Exam: normal range of motion, pelvis stable, limited range of motion (hip pain noted on exam) Skin Exam: normal color, warm, dry, No rash Lymphatic Exam: No adenopathy Assessment/Plan (1) Acute right hip pain Status: Acute Code(s): M25.551 - PAIN IN RIGHT HIP (2) Hypomagnesemia Status: Acute Code(s): E83.42 - HYPOMAGNESEMIA (3) Weakness Status: Acute Code(s): R53.1 - WEAKNESS Hospital Summary - Hospital Course Hospital Course: Pt. admitted magnesium was replaced and found that the patient would not be able to go home, arrangements were made for NH placement for further rehabilitation with hope of returning home - Vitals & Intake/Output Vital Signs: Vital Signs Temperature 97.3 F 06/26/21 12:00 Pulse Rate 66 06/26/21 12:09 Respiratory Rate 18 06/26/21 12:09 Blood Pressure 140/63 06/26/21 12:00 O2 Sat by Pulse Oximetry 98 06/26/21 12:09 - Lab Result Diagrams: 06/26/21 05:10 06/26/21 05:10 - Procedures and Test Procedures and Tests throughout Hospitalization: Therapy Orders & Screens 06/26/21 12:06 Respiratory Therapy Assessment DAILY Comment: Diagnosis: Hypomagnesemia, Weakness, Postoperative Hip Pain - Discharge Discharge Date: 06/26/21 Disposition: Home, Self-Care Condition: Stable Prescriptions: Continue Ropinirole 2Mg [Requip 2Mg Tab] 1 mg PO HS Metformin HCl 500 mg [Glucophage 500 MG] 500 mg PO TID Duloxetine HCl 30 mg [Cymbalta 30 MG Capsule] 60 mg PO DAILY Cyclobenzaprine HCl 10 mg [Cyclobenzaprine 10 MG] 5 mg PO BID Fluticasone Propionate [Flonase NASAL] 2 spray IH DAILY Levothyroxine Sodium 75 Mcg [Synthroid 75 Mcg] 75 mcg PO DAILY Amlodipine Besylate 5 mg [Norvasc 5 mg] 5 mg PO DAILY Budesonide/Formoterol Fumarate [Symbicort 160-4.5 Mcg Inhaler] 2 puffs PO DAILY Modafinil [Provigil] 200 mg PO DAILY Bupropion HCl [Wellbutrin Xl] 150 mg PO DAILY Omeprazole 40 mg PO DAILY Oxybutynin Chloride 5 mg PO BID lisinopriL [Lisinopril] 10 mg PO DAILY Magnesium 250 mg PO DAILY Docusate Sodium 100 mg PO DAILY Ferrous Sulfate 325 mg PO DAILY Additional Instructions: SNF ORDERS: DIABETIC DIET 2000 [facility] ACCU CHECK [facility] PT AND OT EVAL AND TREAT UP WITH ASSISTANCE SEE ATTACHED MED LIST DR. ALE[facility] WILL SEND IN RX FOR PERCOCET 5/325 MG 1 TAB PO Q4H PRN Forms: Transfer Record Half-Way
== END 2021-06-26 15:50 ==
LOC: ED 14:16 → MED SURG 20:14
PROVIDERS: ADMIT Family Medicine; ATTEND Family Medicine
DX: M25.551 Pain in right hip (principal); Z96.641 Presence of right artificial hip joint; Z98.890 Other specified postprocedural states; I10 Essential (primary) hypertension; G62.9 Polyneuropathy, unspecified; E11.9 Type 2 diabetes mellitus without complications; J44.9 Chronic obstructive pulmonary disease, unspecified; R11.2 Nausea with vomiting, unspecified; E83.42 Hypomagnesemia; E78.00 Pure hypercholesterolemia, unspecified; E03.9 Hypothyroidism, unspecified; R53.1 Weakness; Z79.899 Other long term (current) drug therapy; Z20.828 Contact with and (suspected) exposure to other viral communicable diseases
CPT/HCPCS: 36000; 36415; 80048; 80053; 81001; 82150; 82947; 83605; 83690; 83735; 84436; 84443; 85025; 94640; 94760; 96374; 96375; 99284; G0378; U0003; J1885; J2405; J3475; A9270-GY

== ENCOUNTER 2021-09-28 15:45 | Emergency (ER) | payer MEDICARE ==
[2021-09-28 16:07] VITALS: O2SAT 96
[2021-09-28] MEDS ORDERED: MORPHINE SULFATE 4 MG INJ IM ONE (16:26)
--- NOTE | 2021-09-28 16:57 | ERPHSYRPT ---
- History of Present Illness Time Seen by Provider: 09/28/21 15:58 Source: patient Exam Limitations: no limitations Patient Subjective Stated Complaint: pt here for lower back and hip pain. she has chronic pain. Triage Nursing Assessment: pt alert, able to walk with walker, resp easy, skin w/d/p face mask in place Physician History: 81 years old female with multiple medical problems including back and hip pain, right hip replacement few months ago presented in the ER with chief complaint of worsening lower abdominal pain for the last 3 to 4 days despite taking [id number] pain medications. Patient denies any radiation of pain, loss of bowel or bladder control. No numbness tingling or weakness of lower extremities. Pain is similar to previous episodes. Denies any fall or trauma. Patient has chronic right hip pain which is not any worse than usual. Timing/Duration: day(s) (4), constant, gradual onset, worse Method of Injury: unknown Quality: sharp Back Pain Location: lumbar spine Severity of Pain-Max: severe Severity of Pain-Current: moderate Modifying Factors: Worsens With: movement Associated Symptoms: lower back pain, No urinary incontinence, No loss of bowel control, No problems urinating Previous symptoms: same symptoms as today Allergies/Adverse Reactions: butorphanol tartrate [From Stadol] Allergy (Verified 09/28/21 16:01) celecoxib [From Celebrex] Allergy (Verified 09/28/21 16:01) Sulfa (Sulfonamide Antibiotics) Allergy (Verified 09/28/21 16:01) tizanidine [From Zanaflex] Allergy (Verified 09/28/21 16:01) Home Medications: Amlodipine Besylate 5 mg [Norvasc 5 mg] 5 mg PO DAILY 06/25/21 [History] Budesonide/Formoterol Fumarate [Symbicort 160-4.5 Mcg Inhaler] 2 puffs PO DAILY 06/25/21 [History] Cyclobenzaprine HCl 10 mg [Cyclobenzaprine 10 MG] 5 mg PO BID 06/25/21 [History] Duloxetine HCl 30 mg [Cymbalta 30 MG Capsule] 60 mg PO DAILY 06/25/21 [History] Fluticasone Propionate [Flonase NASAL] 2 spray IH DAILY 06/25/21 [History] Levothyroxine Sodium 75 Mcg [Synthroid 75 Mcg] 75 mcg PO DAILY 06/25/21 [History] Metformin HCl 500 mg [Glucophage 500 MG] 500 mg PO TID 06/25/21 [History] Ropinirole 2Mg [Requip 2Mg Tab] 1 mg PO HS 06/25/21 [History] Docusate Sodium 100 mg PO DAILY 06/26/21 [History] Ferrous Sulfate 325 mg PO DAILY 06/26/21 [History] Magnesium 250 mg PO DAILY 06/26/21 [History] Omeprazole 40 mg PO DAILY 06/26/21 [History] Oxybutynin Chloride 5 mg PO BID 06/26/21 [History] buPROPion HCL [Wellbutrin Xl] 150 mg PO DAILY 06/26/21 [History] lisinopriL [Lisinopril] 10 mg PO DAILY 06/26/21 [History] modafiniL [Provigil] 200 mg PO DAILY 06/26/21 [History] Hx Tetanus, Diphtheria Vaccination/Date Given: Yes Hx Influenza Vaccination/Date Given: Yes Hx Pneumococcal Vaccination/Date Given: Yes Immunizations Up to Date: Yes Travel Risk - International Travel Have you traveled outside of the country in past 3 weeks: No - Coronavirus Screening Are you exhibiting any of the following symptoms?: No Close contact with a COVID-19 positive Pt in past 14-21 Days: No - Vaccine Status Have you recieved a Covid-19 vaccination: Yes 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 - Vaccination Dates Date of 2cond Vaccination (if applicable): October 2020 - Review of Systems Constitutional: No Symptoms Eyes: No Symptoms Ears, Nose, & Throat: No Symptoms Respiratory: No Symptoms Cardiac: No Symptoms Abdominal/Gastrointestinal: No Symptoms Genitourinary Symptoms: No Symptoms Musculoskeletal: Arthralgias, Back Pain, Joint Pain Skin: No Symptoms Neurological: No Symptoms Psychological: No Symptoms Endocrine: No Symptoms Immunological/Allergic: No Symptoms - Past Medical History Pertinent Past Medical History: Yes Neurological History: Migraines, Peripheral Neuropathy ENT History: Cataracts Cardiac History: High Cholesterol, Hypertension Respiratory History: COPD Endocrine Medical History: Diabetes Type II, Hypothyroidism Musculoskeletal History: Arthritis, Fibromyalgia GI Medical History: Crohns Disease, GERD, Hernia History: No Pertinent History Psycho-Social History: Depression Female Reproductive Disorders: No Pertinent History Other Medical History: SEE CHART FOR PMH AND PSH; PT. HAS HAD 2 C-SPINE SXS - Past Surgical History Past Surgical History: Yes Neuro Surgical History: No Pertinent History Cardiac: No Pertinent History Respiratory: No Pertinent History Gastrointestinal: Appendectomy, Cholecystectomy Genitourinary: No Pertinent History Musculoskeletal: Orthopedic Surgery Female Surgical History: Hysterectomy, Tubal Ligation Other Surgical History: 2nd toe right foot, fractured right shoulder, filmed lasered off right eye, gaglion cyst removed, cataracts, bunion and tumor removed left foot, bunion right foot, tonsils, microscopic anterior cervical diskectomy with interbody fusion c5-6, plate to cervical, tibia fx repair - Social History Smoking Status: Never smoker Exposure to second hand smoke: No Alcohol Use: None Drug Use: none Patient Lives Alone: No Significant Family History: no pertinent family hx - Female History Hx Last Menstrual Period: post Hx Now: No - Nursing Vital Signs Nursing Vital Signs: Initial Vital Signs Temperature 97 F 09/28/21 16:02 Pulse Rate 85 09/28/21 16:02 Respiratory Rate 18 09/28/21 16:02 Blood Pressure 155/70 09/28/21 16:02 O2 Sat by Pulse Oximetry 96 09/28/21 16:02 Pain Scale Pain Intensity 10 - Physical Exam General Appearance: no apparent distress, alert Eye Exam: PERRL/EOMI Ears, Nose, Throat Exam: normal ENT inspection, TMs normal, pharynx normal Neck Exam: normal inspection, non-tender, supple, full range of motion Respiratory Exam: normal breath sounds, lungs clear Cardiovascular Exam: regular rate/rhythm, normal heart sounds Gastrointestinal Exam: soft, normal bowel sounds, No tenderness Back Exam: normal inspection, decreased range of motion, muscle spasm, point tenderness (Lumbar spinal and paraspinal tenderness) Extremity Exam: normal inspection, normal range of motion, pelvis stable Neurologic Exam: alert, oriented x 3, cooperative, sensation nml, No motor deficits Skin Exam: normal color SpO2 Interpretation: normal SpO2: 96 O2 Delivery: Room Air Ordered Tests: Medication Summary Discontinued Medications Generic Name Dose Route Start Last Admin Trade Name Freq PRN Reason Stop Dose Admin Morphine Sulfate 4 mg 09/28/21 16:26 Morphine Sulfate 4 Mg/Ml Injection IM 09/28/21 16:27 STAT ONE - Progress Progress: improved Progress Note: 09/28/21 16:54 She does not have any lower extremity neuro symptoms suggesting cauda equina. I have seen patient multiple times in the past with similar symptoms. I believe she has acute on chronic low back pain exacerbation. Recommended outpatient follow-up. Discussed signs symptoms of worsening needing return to ER which she seems understanding. Stable for discharge. Counseled pt/family regarding: diagnosis, need for follow-up - Departure Departure Disposition: Home Clinical Impression: Acute exacerbation of chronic low back pain Condition: Stable Critical Care Time: No Referrals: JAMILA JOSE [Primary Care Provider] - Follow up/PCP as directed (In 2 days for reevaluation) Instructions: Low Back Pain in Adults, Cauda Equina Syndrome Additional Instructions: Take Tylenol for pain as needed. Follow-up with primary care for reevaluation. Return to ER for worsening back pain, numbness tingling weakness of lower extremity, loss of bowel or bladder control.
[2021-09-28] MEDS ORDERED: MORPHINE SULFATE 4 MG INJ ONE (17:17)
[2021-09-28 17:25] VITALS: BP 131/67; PULSE 73
== END 2021-09-28 18:09 | disposition home or self-care (01) ==
LOC: ED 15:45
DX: M54.50 Low back pain, unspecified (principal); G89.29 Other chronic pain; R10.30 Lower abdominal pain, unspecified; E78.5 Hyperlipidemia, unspecified; I10 Essential (primary) hypertension; J44.9 Chronic obstructive pulmonary disease, unspecified; E11.42 Type 2 diabetes mellitus with diabetic polyneuropathy; Z79.84 Long term (current) use of oral hypoglycemic drugs; K21.9 Gastro-esophageal reflux disease without esophagitis; K50.90 Crohn's disease, unspecified, without complications; Z79.899 Other long term (current) drug therapy
CPT/HCPCS: 96372; 99284; J2270

== ENCOUNTER 2021-10-20 11:52 | Emergency (ER) | payer MEDICARE ==
[2021-10-20 12:12] VITALS: O2SAT 100
[2021-10-20] MEDS ORDERED: TORAdol 30 mg Injection IM ONE (12:29)
--- NOTE | 2021-10-20 12:29 | ERPHSYRPT ---
- History of Present Illness Time Seen by Provider: 10/20/21 12:26 Source: patient Exam Limitations: no limitations Physician History: pt reports chronic back pain with previous surgery and a flare up . No recent trauma. No neuro symptoms. No Hx cancer or weight loss. No urinary symptoms. Abd soft and nontender without masses. previously tolerated toradol and prefers this med. Timing/Duration: day(s) Method of Injury: other (no recent trauma) Quality: dull, aching Back Pain Location: lumbar spine Severity of Pain-Max: moderate Severity of Pain-Current: moderate Modifying Factors: Improves With: immobilization, movement Associated Symptoms: denies symptoms Previous symptoms: same symptoms as today, recently seen Allergies/Adverse Reactions: butorphanol tartrate [From Stadol] Allergy (Verified 10/20/21 12:03) celecoxib [From Celebrex] Allergy (Verified 10/20/21 12:03) Sulfa (Sulfonamide Antibiotics) Allergy (Verified 10/20/21 12:03) tizanidine [From Zanaflex] Allergy (Verified 10/20/21 12:03) Home Medications: Amlodipine Besylate 5 mg [Norvasc 5 mg] 5 mg PO DAILY 06/25/21 [History] Budesonide/Formoterol Fumarate [Symbicort 160-4.5 Mcg Inhaler] 2 puffs PO DAILY 06/25/21 [History] Cyclobenzaprine HCl 10 mg [Cyclobenzaprine 10 MG] 5 mg PO BID 06/25/21 [History] Duloxetine HCl 30 mg [Cymbalta 30 MG Capsule] 60 mg PO DAILY 06/25/21 [History] Fluticasone Propionate [Flonase NASAL] 2 spray IH DAILY 06/25/21 [History] Levothyroxine Sodium 75 Mcg [Synthroid 75 Mcg] 75 mcg PO DAILY 06/25/21 [History] Metformin HCl 500 mg [Glucophage 500 MG] 500 mg PO TID 06/25/21 [History] Ropinirole 2Mg [Requip 2Mg Tab] 1 mg PO HS 06/25/21 [History] Docusate Sodium 100 mg PO DAILY 06/26/21 [History] Ferrous Sulfate 325 mg PO DAILY 06/26/21 [History] Magnesium 250 mg PO DAILY 06/26/21 [History] Omeprazole 40 mg PO DAILY 06/26/21 [History] Oxybutynin Chloride 5 mg PO BID 06/26/21 [History] buPROPion HCL [Wellbutrin Xl] 150 mg PO DAILY 06/26/21 [History] lisinopriL [Lisinopril] 10 mg PO DAILY 06/26/21 [History] modafiniL [Provigil] 200 mg PO DAILY 06/26/21 [History] Hx Tetanus, Diphtheria Vaccination/Date Given: Yes Hx Influenza Vaccination/Date Given: Yes Hx Pneumococcal Vaccination/Date Given: Yes Travel Risk - Vaccine Status Have you recieved a Covid-19 vaccination: Yes 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 - Vaccination Dates Date of 2cond Vaccination (if applicable): October 2020 - Review of Systems Constitutional: No Fever, No Chills Eyes: No Symptoms Ears, Nose, & Throat: No Symptoms Respiratory: No Cough, No Dyspnea Cardiac: No Chest Pain, No Edema, No Syncope Abdominal/Gastrointestinal: No Abdominal Pain, No Nausea, No Vomiting, No Diarrhea Genitourinary Symptoms: No Dysuria Musculoskeletal: Back Pain, No Neck Pain Skin: No Rash Neurological: No Dizziness, No Focal Weakness, No Sensory Changes Psychological: No Symptoms Endocrine: No Symptoms Hematologic/Lymphatic: No Symptoms Immunological/Allergic: No Symptoms All Other Systems: Reviewed and Negative - Past Medical History Pertinent Past Medical History: Yes Neurological History: Migraines, Peripheral Neuropathy ENT History: Cataracts Cardiac History: High Cholesterol, Hypertension Respiratory History: COPD Endocrine Medical History: Diabetes Type II, Hypothyroidism Musculoskeletal History: Arthritis, Fibromyalgia GI Medical History: Crohns Disease, GERD, Hernia History: No Pertinent History Psycho-Social History: Depression Female Reproductive Disorders: No Pertinent History Other Medical History: SEE CHART FOR PMH AND PSH; PT. HAS HAD 2 C-SPINE SXS - Past Surgical History Past Surgical History: Yes Neuro Surgical History: No Pertinent History Cardiac: No Pertinent History Respiratory: No Pertinent History Gastrointestinal: Appendectomy, Cholecystectomy Genitourinary: No Pertinent History Musculoskeletal: Orthopedic Surgery Female Surgical History: Hysterectomy, Tubal Ligation Other Surgical History: 2nd toe right foot, fractured right shoulder, filmed lasered off right eye, gaglion cyst removed, cataracts, bunion and tumor removed left foot, bunion right foot, tonsils, microscopic anterior cervical diskectomy with interbody fusion c5-6, plate to cervical, tibia fx repair - Social History Smoking Status: Never smoker Exposure to second hand smoke: No Alcohol Use: None Drug Use: none Patient Lives Alone: No Significant Family History: no pertinent family hx - Nursing Vital Signs Nursing Vital Signs: Initial Vital Signs Temperature 97.9 F 10/20/21 11:52 Pulse Rate 74 10/20/21 11:52 Respiratory Rate 18 10/20/21 11:52 Blood Pressure 153/82 10/20/21 11:52 O2 Sat by Pulse Oximetry 100 10/20/21 11:52 Pain Scale Pain Intensity [Lower Back] 10 Pain Intensity 10 - Physical Exam General Appearance: no apparent distress, alert Eye Exam: PERRL/EOMI, eyes nml inspection Neck Exam: normal inspection, non-tender, supple, full range of motion, No meningismus, No midline tenderness Respiratory Exam: normal breath sounds, lungs clear, No respiratory distress Cardiovascular Exam: regular rate/rhythm, normal heart sounds Gastrointestinal Exam: soft, No tenderness, No mass Pelvic Exam: deferred Rectal Exam: deferred Back Exam: muscle spasm Extremity Exam: normal inspection, normal range of motion, No calf tenderness, No pedal edema Peripheral Pulses: carotid (R): 2+, carotid (L): 2+, femoral (R): 2+, femoral (L): 2+, dorsalis-pedis (R): 2+, dorsalis-pedis (L): 2+ Neurologic Exam: alert, oriented x 3, cooperative, 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 tested, normal mood/affect, nml station & gait, sensation nml, No motor deficits Skin Exam: normal color, warm, dry, No rash SpO2 Interpretation: normal SpO2: 100 O2 Delivery: Room Air - Course Nursing assessment & vital signs reviewed: Yes Ordered Tests: Active Orders 24 hr Category Date Time Status UA W/RFX UR CULTURE Stat Lab 10/20/21 12:56 Completed Medication Summary Discontinued Medications Generic Name Dose Route Start Last Admin Trade Name Freq PRN Reason Stop Dose Admin Ketorolac Tromethamine 60 mg 10/20/21 12:29 10/20/21 13:10 Ketorolac Tromethamine 30 Mg/Ml Inj IM 10/20/21 12:30 60 mg STAT ONE Administration Ketorolac Tromethamine Confirm 10/20/21 12:58 Ketorolac Tromethamine 30 Mg/Ml Inj Administered 10/20/21 12:59 Dose 60 mg .ROUTE .STK-MED ONE Orphenadrine Citrate 60 mg 10/20/21 12:30 10/20/21 13:10 Orphenadrine Citrate 60 Mg/2 Ml Amp IM 10/20/21 12:31 60 mg STAT ONE Administration Orphenadrine Citrate Confirm 10/20/21 12:58 Orphenadrine Citrate 60 Mg/2 Ml Amp Administered 10/20/21 12:59 Dose 60 mg .ROUTE .STK-MED ONE Lab/Rad Data: Laboratory Results 10/20/21 Range/Units 12:56 Urine Color YELLOW (YELLOW) Urine Appearance CLEAR (CLEAR) Urine pH 7.0 (5-6) Ur Specific [place] 1.014 (1.005-1.025) Urine Protein NEGATIVE (Negative) Urine Ketones NEGATIVE (NEGATIVE) Urine Blood NEGATIVE (0-5) Han/ul Urine Nitrite NEGATIVE (NEGATIVE) Urine Bilirubin NEGATIVE (NEGATIVE) Urine Urobilinogen NEGATIVE (0-1) mg/dL Ur Leukocyte Esterase TRACE (NEGATIVE) Urine WBC (Auto) 3-5 (0-5) /HPF Urine RBC (Auto) NONE (0-2) /HPF U Epithel Cells (Auto) NONE (FEW) /HPF Urine Bacteria (Auto) NONE (NEGATIVE) /HPF Urine Culture Reflexed NO (NO) Urine Glucose NEGATIVE (NEGATIVE) mg/dL - Progress Progress: improved, re-examined Progress Note: 10/20/21 13:46 pt improved after meds and states ready to go home and f/u with PMD/ pain clinic. Counseled pt/family regarding: lab results, diagnosis, need for follow-up - Departure Departure Disposition: Home Clinical Impression: Acute exacerbation of chronic low back pain Condition: Good Critical Care Time: No Referrals: JAMILA JOSE [Primary Care Provider] - Follow up/PCP as directed Instructions: Low Back Pain (DC), Sciatica (DC) Additional Instructions: follow-up with your to recheck urine as there may be a low grade infection. drink cranberry jiuce or blueberry meantime. follow-up with pain clinic as planned this week. Return meantime if further concerns, stomach pain , weakness, dizziness, fever, urine symptoms or other concerns.
[2021-10-20] MEDS ORDERED: Norflex 60 MG/2 ML IM ONE (12:30)
[2021-10-20] MEDS ORDERED: TORAdol 30 mg Injection ONE (12:58)
[2021-10-20] MEDS ORDERED: Norflex 60 MG/2 ML ONE (12:58)
[2021-10-20 13:00] LABS: Appearance CLEAR (CLEAR); Bilirubin NEGATIVE (NEGATIVE); Blood NEGATIVE Ery/ul (0-5); Glucose NEGATIVE (NEGATIVE); Ketones NEGATIVE (NEGATIVE); Leukocyte Esterase TRACE (NEGATIVE); Nitrite NEGATIVE (NEGATIVE); Protein,Urine Dip NEGATIVE (Negative); Specific Gravity 1.014 (1.005-1.025); Urobilinogen NEGATIVE mg/dL (0-1)
[2021-10-20 14:01] VITALS: BP 146/68; PULSE 69
== END 2021-10-20 13:58 | disposition home or self-care (01) ==
LOC: ED 11:52
DX: M54.50 Low back pain, unspecified (principal); G89.29 Other chronic pain; E78.5 Hyperlipidemia, unspecified; I10 Essential (primary) hypertension; E11.42 Type 2 diabetes mellitus with diabetic polyneuropathy; Z79.84 Long term (current) use of oral hypoglycemic drugs; J44.9 Chronic obstructive pulmonary disease, unspecified; K21.9 Gastro-esophageal reflux disease without esophagitis; Z79.899 Other long term (current) drug therapy
CPT/HCPCS: 81001; 96372; 99284; J1885; J2360

== ENCOUNTER 2021-11-16 13:21 | Emergency (ER) | payer MEDICARE ==
[2021-11-16] MEDS ORDERED: TORAdol 30 mg Injection IM ONE (13:57)
--- NOTE | 2021-11-16 14:04 | ERPHSYRPT ---
- History of Present Illness Source: patient Exam Limitations: no limitations Patient Subjective Stated Complaint: lower back pain radiating down bilateral legs Triage Nursing Assessment: Patient presents to ED [facility], ambulates to room 6 with walker. C/o chronic lower back pain that radiates down back of bilateral legs down to feet. Denies recent injury or trauma. No bruising or open areas noted. Bilateral pedal pulses 2+. Reports pain is worse with standing, gets be tter with laying down. Skin PWD, vitals stable. Answers questions appropriately. A &OX3. Established with pain management in [place] and is prescribed [place] 10-325. Physician History: 81 yo wf w chronic lumbar pain who is under pain management presents w her chronic lumbar pain. She states that her pain is a 10 and radiates down her legs. New injury is denied. Incontinence of urine/stool denied along w dysuria/hematuria/fever/focal weakness/edema/abdominal pain/chest pain. States that pain is her typical, chronic pain which is just worse. Timing/Duration: other (Chronic) Method of Injury: other (Chronic) Quality: burning, sharp Back Pain Location: lumbar spine Back Pain Radiation: upper legs Severity of Pain-Max: severe Severity of Pain-Current: severe Modifying Factors: Improves With: movement Associated Symptoms: lower back pain, No fever, No chills, No sweating, No urinary incontinence, No loss of bowel control, No constipation, No nausea, No vomiting, No problems urinating, No light-headedness, No dizziness, No numbness in legs/feet, No weakness, No sensory/motor loss, No tingling in legs/feet, No muscle spasms Previous symptoms: same symptoms as today Allergies/Adverse Reactions: butorphanol tartrate [From Stadol] Allergy (Verified 11/01/21 12:49) celecoxib [From Celebrex] Allergy (Verified 11/01/21 12:49) Sulfa (Sulfonamide Antibiotics) Allergy (Verified 11/01/21 12:49) tizanidine [From Zanaflex] Allergy (Verified 11/01/21 12:49) Home Medications: Amlodipine Besylate 5 mg [Norvasc 5 mg] 5 mg PO DAILY 06/25/21 [History] Budesonide/Formoterol Fumarate [Symbicort 160-4.5 Mcg Inhaler] 2 puffs PO DAILY 06/25/21 [History] Cyclobenzaprine HCl 10 mg [Cyclobenzaprine 10 MG] 5 mg PO BID 06/25/21 [History] Duloxetine HCl 30 mg [Cymbalta 30 MG Capsule] 60 mg PO DAILY 06/25/21 [History] Fluticasone Propionate [Flonase NASAL] 2 spray IH DAILY 06/25/21 [History] Metformin HCl 500 mg [Glucophage 500 MG] 500 mg PO TID 06/25/21 [History] Ropinirole 2Mg [Requip 2Mg Tab] 1 mg PO HS 06/25/21 [History] Docusate Sodium 100 mg PO DAILY 06/26/21 [History] Ferrous Sulfate 325 mg PO DAILY 06/26/21 [History] Magnesium 250 mg PO DAILY 06/26/21 [History] Omeprazole 40 mg PO DAILY 06/26/21 [History] Oxybutynin Chloride 5 mg PO BID 06/26/21 [History] buPROPion HCL [Wellbutrin Xl] 150 mg PO DAILY 06/26/21 [History] lisinopriL [Lisinopril] 10 mg PO DAILY 06/26/21 [History] modafiniL [Provigil] 200 mg PO DAILY 06/26/21 [History] Hydrocodone/Acetaminophen [Hydrocodone-Acetamin 10-325 mg] 1 tab PO BID PRN 11/01/21 [History] Levothyroxine Sodium [Euthyrox] 1 tab PO DAILY 11/01/21 [History] Hx Tetanus, Diphtheria Vaccination/Date Given: Yes Hx Influenza Vaccination/Date Given: Yes Hx Pneumococcal Vaccination/Date Given: Yes Travel Risk - International Travel Have you traveled outside of the country in past 3 weeks: No - Coronavirus Screening Are you exhibiting any of the following symptoms?: No Close contact with a COVID-19 positive Pt in past 14-21 Days: No - Vaccine Status Have you recieved a Covid-19 vaccination: Yes 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 - Vaccination Dates Date of 2cond Vaccination (if applicable): October 2020 - Review of Systems Constitutional: No Symptoms Eyes: No Symptoms Ears, Nose, & Throat: No Symptoms Respiratory: No Symptoms Cardiac: No Symptoms Abdominal/Gastrointestinal: No Symptoms Genitourinary Symptoms: No Symptoms Musculoskeletal: No Symptoms, Back Pain Skin: No Symptoms Neurological: No Symptoms Psychological: No Symptoms Endocrine: No Symptoms Hematologic/Lymphatic: No Symptoms Immunological/Allergic: No Symptoms - Past Medical History Pertinent Past Medical History: Yes Neurological History: Migraines, Peripheral Neuropathy ENT History: Cataracts Cardiac History: High Cholesterol, Hypertension Respiratory History: COPD Endocrine Medical History: Diabetes Type II, Hypothyroidism Musculoskeletal History: Arthritis, Fibromyalgia GI Medical History: Crohns Disease, GERD, Hernia History: No Pertinent History Psycho-Social History: Depression Female Reproductive Disorders: No Pertinent History Other Medical History: SEE CHART FOR PMH AND PSH; PT. HAS HAD 2 C-SPINE SXS - Past Surgical History Past Surgical History: Yes Neuro Surgical History: No Pertinent History Cardiac: No Pertinent History Respiratory: No Pertinent History Gastrointestinal: Appendectomy, Cholecystectomy Genitourinary: No Pertinent History Musculoskeletal: Orthopedic Surgery Female Surgical History: Hysterectomy, Tubal Ligation Other Surgical History: 2nd toe right foot, fractured right shoulder, filmed lasered off right eye, gaglion cyst removed, cataracts, bunion and tumor removed left foot, bunion right foot, tonsils, microscopic anterior cervical diskectomy with interbody fusion c5-6, plate to cervical, tibia fx repair - Social History Smoking Status: Never smoker Exposure to second hand smoke: No Alcohol Use: None Drug Use: none Patient Lives Alone: No Significant Family History: no pertinent family hx - Nursing Vital Signs Nursing Vital Signs: Initial Vital Signs Pulse Rate 64 11/16/21 14:18 Respiratory Rate 16 11/16/21 14:18 Blood Pressure 134/72 11/16/21 14:18 O2 Sat by Pulse Oximetry 99 11/16/21 14:18 Pain Scale Pain Intensity 8 - Physical Exam General Appearance: no apparent distress Eye Exam: PERRL/EOMI, eyes nml inspection Ears, Nose, Throat Exam: normal ENT inspection, TMs normal, pharynx normal, moist mucous membranes Neck Exam: normal inspection, non-tender, supple, full range of motion, No meningismus, No mass, No Brudzinski, No Kernig's, No carotid bruit Respiratory Exam: normal breath sounds, lungs clear, airway intact Cardiovascular Exam: regular rate/rhythm, normal heart sounds, normal peripheral pulses, capillary refill <2 sec, No murmur Gastrointestinal Exam: soft, normal bowel sounds, No tenderness Back Exam: vertebral tenderness (L-spine TTP/No pain w stiff leg raises B/Good pedal pulses, distal sensation, and capillary return B) Extremity Exam: normal inspection, normal range of motion, pelvis stable Peripheral Pulses: carotid (R): 2+, carotid (L): 2+ Neurologic Exam: alert, oriented x 3, cooperative, 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 tested, normal mood/affect, sensation nml, No motor deficits, No sensory deficit Skin Exam: normal color, warm, dry, No rash Lymphatic Exam: No adenopathy - Course Nursing assessment & vital signs reviewed: Yes Ordered Tests: Medication Summary Discontinued Medications Generic Name Dose Route Start Last Admin Trade Name Freq PRN Reason Stop Dose Admin Ketorolac Tromethamine 15 mg 11/16/21 13:57 11/16/21 14:09 Ketorolac Tromethamine 30 Mg/Ml Inj IM 11/16/21 13:58 15 mg STAT ONE Administration Ketorolac Tromethamine Confirm 11/16/21 14:07 Ketorolac Tromethamine 30 Mg/Ml Inj Administered 11/16/21 14:08 Dose 30 mg .ROUTE .STK-MED ONE - Progress Progress Note: 11/16/21 14:06 15mg IM Toradol Counseled pt/family regarding: diagnosis, need for follow-up - Departure Departure Disposition: Home Clinical Impression: Acute exacerbation of chronic low back pain Condition: Stable Critical Care Time: No Referrals: JAMILA JOSE [Primary Care Provider] - Follow up/PCP as directed Instructions: Low Back Pain (DC) Additional Instructions: Follow up with your pain management physician Continue current meds Return to ER for increasing pain, burning when you urinate, temperature greater than 100.5, or blood in urine
[2021-11-16] MEDS ORDERED: TORAdol 30 mg Injection ONE (14:07)
[2021-11-16 14:18] VITALS: BP 134/72; PULSE 64; O2SAT 99
== END 2021-11-16 14:21 | disposition home or self-care (01) ==
LOC: ED 13:21
DX: M54.50 Low back pain, unspecified (principal); G89.29 Other chronic pain; E78.5 Hyperlipidemia, unspecified; I10 Essential (primary) hypertension; J44.9 Chronic obstructive pulmonary disease, unspecified; E11.42 Type 2 diabetes mellitus with diabetic polyneuropathy; K21.9 Gastro-esophageal reflux disease without esophagitis; Z79.84 Long term (current) use of oral hypoglycemic drugs; Z79.891 Long term (current) use of opiate analgesic; Z79.899 Other long term (current) drug therapy
CPT/HCPCS: 96372; 99283; J1885

== ENCOUNTER 2021-11-20 16:44 | Emergency (ER) | payer MEDICARE ==
[2021-11-20 17:40] VITALS: BP 147/69; PULSE 70; O2SAT 94
[2021-11-20] MEDS ORDERED: TORAdol 30 mg Injection IM ONE (17:56)
[2021-11-20] MEDS ORDERED: TORAdol 30 mg Injection ONE (17:57)
--- NOTE | 2021-11-20 18:02 | ERPHSYRPT ---
- History of Present Illness Time Seen by Provider: 11/20/21 17:45 Source: patient Exam Limitations: no limitations Patient Subjective Stated Complaint: pt her for chronic lower back pain that radiates to right leg, she aslo states she is out of her pain meds and cant get any till moon. Triage Nursing Assessment: pt alert, resp easy, skin w/d/dp, face mask in place, no swelling noted, able to undress Physician History: Patient is a 81-year-old female presents to our ED for evaluation of chronic back and hip pain. Patient is here because she ran out of her [place] and her pain specialist appointment is not till tomorrow. Patient requesting a Toradol shot. The characteristics of patient's pain has not changed in over a year. Patient is here because she is out of her pain medications. No trauma. No fever. No nausea or vomiting. No urinary symptomology. Symptoms are mild to moderate in intensity. Movement reproduces symptoms. Pain improved with rest. Patient voices no other complaints or concerns at this time. Timing/Duration: today Severity: moderate Modifying Factors: Improves With: movement Associated Symptoms: denies symptoms Allergies/Adverse Reactions: butorphanol tartrate [From Stadol] Allergy (Verified 11/20/21 17:43) celecoxib [From Celebrex] Allergy (Verified 11/20/21 17:43) Sulfa (Sulfonamide Antibiotics) Allergy (Verified 11/20/21 17:43) tizanidine [From Zanaflex] Allergy (Verified 11/20/21 17:43) Home Medications: Amlodipine Besylate 5 mg [Norvasc 5 mg] 5 mg PO DAILY 06/25/21 [History] Budesonide/Formoterol Fumarate [Symbicort 160-4.5 Mcg Inhaler] 2 puffs PO DAILY 06/25/21 [History] Cyclobenzaprine HCl 10 mg [Cyclobenzaprine 10 MG] 5 mg PO BID 06/25/21 [History] Duloxetine HCl 30 mg [Cymbalta 30 MG Capsule] 60 mg PO DAILY 06/25/21 [History] Fluticasone Propionate [Flonase NASAL] 2 spray IH DAILY 06/25/21 [History] Metformin HCl 500 mg [Glucophage 500 MG] 500 mg PO TID 06/25/21 [History] Ropinirole 2Mg [Requip 2Mg Tab] 1 mg PO HS 06/25/21 [History] Docusate Sodium 100 mg PO DAILY 06/26/21 [History] Ferrous Sulfate 325 mg PO DAILY 06/26/21 [History] Magnesium 250 mg PO DAILY 06/26/21 [History] Omeprazole 40 mg PO DAILY 06/26/21 [History] Oxybutynin Chloride 5 mg PO BID 06/26/21 [History] buPROPion HCL [Wellbutrin Xl] 150 mg PO DAILY 06/26/21 [History] lisinopriL [Lisinopril] 10 mg PO DAILY 06/26/21 [History] modafiniL [Provigil] 200 mg PO DAILY 06/26/21 [History] Hydrocodone/Acetaminophen [Hydrocodone-Acetamin 10-325 mg] 1 tab PO BID PRN 11/01/21 [History] Levothyroxine Sodium [Euthyrox] 1 tab PO DAILY 11/01/21 [History] Hx Tetanus, Diphtheria Vaccination/Date Given: Yes Hx Influenza Vaccination/Date Given: Yes Hx Pneumococcal Vaccination/Date Given: Yes Immunizations Up to Date: Yes Travel Risk - International Travel Have you traveled outside of the country in past 3 weeks: No - Coronavirus Screening Are you exhibiting any of the following symptoms?: No Close contact with a COVID-19 positive Pt in past 14-21 Days: No - Vaccine Status Have you recieved a Covid-19 vaccination: Yes [employer]: Moderna - Vaccination Dates Date of 2cond Vaccination (if applicable): October 2020 - Review of Systems Constitutional: No Symptoms, No Fever, No Chills Eyes: No Symptoms Ears, Nose, & Throat: No Symptoms Respiratory: No Symptoms, No Cough, No Dyspnea Cardiac: No Symptoms, No Chest Pain, No Edema, No Syncope Abdominal/Gastrointestinal: No Symptoms, No Abdominal Pain, No Nausea, No Vomiting, No Diarrhea Genitourinary Symptoms: No Symptoms, No Dysuria Musculoskeletal: No Symptoms, No Back Pain, No Neck Pain Skin: No Symptoms, No Rash Neurological: No Symptoms, No Dizziness, No Focal Weakness, No Sensory Changes Psychological: No Symptoms Endocrine: No Symptoms Hematologic/Lymphatic: No Symptoms Immunological/Allergic: No Symptoms All Other Systems: Reviewed and Negative - Past Medical History Pertinent Past Medical History: Yes Neurological History: Migraines, Peripheral Neuropathy ENT History: Cataracts Cardiac History: High Cholesterol, Hypertension Respiratory History: COPD Endocrine Medical History: Diabetes Type II, Hypothyroidism Musculoskeletal History: Arthritis, Fibromyalgia GI Medical History: Crohns Disease, GERD, Hernia History: No Pertinent History Psycho-Social History: Depression Female Reproductive Disorders: No Pertinent History Other Medical History: SEE CHART FOR PMH AND PSH; PT. HAS HAD 2 C-SPINE SXS - Past Surgical History Past Surgical History: Yes Neuro Surgical History: No Pertinent History Cardiac: No Pertinent History Respiratory: No Pertinent History Gastrointestinal: Appendectomy, Cholecystectomy Genitourinary: No Pertinent History Musculoskeletal: Orthopedic Surgery Female Surgical History: Hysterectomy, Tubal Ligation Other Surgical History: 2nd toe right foot, fractured right shoulder, filmed lasered off right eye, gaglion cyst removed, cataracts, bunion and tumor removed left foot, bunion right foot, tonsils, microscopic anterior cervical diskectomy with interbody fusion c5-6, plate to cervical, tibia fx repair - Social History Smoking Status: Never smoker Exposure to second hand smoke: No Alcohol Use: None Drug Use: none Patient Lives Alone: No Significant Family History: no pertinent family hx - Nursing Vital Signs Nursing Vital Signs: Initial Vital Signs Temperature 97.2 F 11/20/21 17:39 Pulse Rate 70 11/20/21 17:39 Respiratory Rate 18 11/20/21 17:39 Blood Pressure 147/69 11/20/21 17:39 O2 Sat by Pulse Oximetry 94 L 11/20/21 17:39 Pain Scale Pain Intensity [Back] 10 Pain Intensity 10 - Physical Exam General Appearance: no apparent distress, alert Eye Exam: PERRL/EOMI, eyes nml inspection Ears, Nose, Throat Exam: normal ENT inspection, TMs normal, pharynx normal, m oist mucous membranes Neck Exam: normal inspection, non-tender, supple, full range of motion Respiratory Exam: normal breath sounds, lungs clear, airway intact, No respiratory distress Cardiovascular Exam: regular rate/rhythm, normal heart sounds, normal peripheral pulses Gastrointestinal/Abdomen Exam: soft, normal bowel sounds, No tenderness, No mass Back Exam: normal inspection, normal range of motion, No CVA tenderness, No vertebral tenderness Extremity Exam: normal inspection, normal range of motion, pelvis stable Neurologic Exam: alert, oriented x 3, cooperative, normal mood/affect, nml cerebellar function, nml station & gait, sensation nml, No motor deficits Skin Exam: normal color, warm, dry, No rash Lymphatic Exam: No adenopathy SpO2 Interpretation: normal SpO2: 94 O2 Delivery: Room Air - Course Nursing assessment & vital signs reviewed: Yes Ordered Tests: Medication Summary Generic Name Dose Route Start Last Admin Trade Name Freq PRN Reason Stop Dose Admin Ketorolac Tromethamine 30 mg 11/20/21 17:56 Ketorolac Tromethamine 30 Mg/Ml Inj IM 11/20/21 17:57 STAT ONE - Progress Progress: improved Progress Note: Patient will follow up with her pain doctor tomorrow as scheduled. Patient only requesting a Toradol shot. This will hold her over till tomorrow. Patient feels much better at this time. Patient that she is ready for discharge. She voices no other complaints or concerns this time. Will discharge home. Portions of this note were created with voice recognition technology. There may be grammatical, spelling, punctuation or sound alike errors 11/20/21 18:04 Counseled pt/family regarding: diagnosis, need for follow-up, rad results - Departure Departure Disposition: Home Clinical Impression: Chronic pain, Medication refill Condition: Stable Critical Care Time: No Referrals: JAMILA JOSE [Primary Care Provider] - Follow up/PCP as directed Additional Instructions: Discharge/Care Plan MARCELINO JACOBSEN was seen on 11/20/21 in the Emergency Room. The patient was counseled regarding Diagnosis,Lab results, Imaging studies, need for follow up and when to return to the Emergency Room. Prescriptions given: Discharge Note I have spoken with the patient and/or caregivers. I have explained the patient's condition, diagnosis and treatment plan based on the information available to me at this time. I have answered the patient's and/or caregiver's questions and addressed any concerns. The patient and/or caregivers have as good understanding of the patient's diagnosis, condition and treatment plan as can be expected at this point. The vital signs have been stable. The patient's condition is stable and appropriate for discharge from the emergency department. The patient will pursue further outpatient evaluation with the primary care physician or other designated or consulting physician as outlined in the discharge instructions. The patient and/or caregivers are agreeable to this plan of care and follow-up instructions have been explained in detail. The patient and/or caregivers have received these instruction. The patient/and or caregivers are aware that any significant change in condition or worsening of symptoms should prompt an immediate return to this or the closest emergency department or call 911.
== END 2021-11-20 18:09 | disposition home or self-care (01) ==
LOC: ED 16:44
DX: Z76.0 Encounter for issue of repeat prescription (principal); M54.9 Dorsalgia, unspecified; M25.551 Pain in right hip; G89.29 Other chronic pain; E78.5 Hyperlipidemia, unspecified; I10 Essential (primary) hypertension; J44.9 Chronic obstructive pulmonary disease, unspecified; E11.42 Type 2 diabetes mellitus with diabetic polyneuropathy; K21.9 Gastro-esophageal reflux disease without esophagitis; Z79.891 Long term (current) use of opiate analgesic; Z79.84 Long term (current) use of oral hypoglycemic drugs; Z79.899 Other long term (current) drug therapy
CPT/HCPCS: 96372; 99283; J1885

== ENCOUNTER 2021-11-27 06:21 | Day surgery (SDC) | payer MEDICARE ==
[2021-11-27] MEDS ORDERED: Lactated Ringers 1,000 ML IV SCH (06:30)
[2021-11-27] MEDS ORDERED: DIPRIVAN 200 MG/20 ML IV ONE (08:33)
[2021-11-27] MEDS ORDERED: Xylocaine-Mpf 2% 5 Ml Vial ONE (08:33)
[2021-11-27 09:34] VITALS: BP 145/87; PULSE 74; O2SAT 99
--- NOTE | 2021-11-27 11:07 | OP ---
SURGERY DATE/TIME: 11/27/2021 0841 PREOPERATIVE DIAGNOSIS: Dysphagia. POSTOPERATIVE DIAGNOSIS: Normal exam. PROCEDURE: EGD. SURGEON: Arnaldo Vela M.D. ANESTHESIA: MAC by Gustavo Alfonso CRNA. ESTIMATED BLOOD LOSS: None. SPECIMENS: None. DESCRIPTION OF PROCEDURE: After informed written consent was obtained, the patient was taken to the endoscopy suite. She had a bite block inserted and underwent desired level of anesthesia. The endoscope was inserted into the posterior oropharynx and under direct visualization the esophagus was traversed. The esophageal mucosa had a normal mucosal appearance. There were no obvious strictures. The scope passed easily through the esophagus. The gastroesophageal junction had a normal mucosal appearance as well. Upon entering the stomach there was a normal rugated gastric mucosa free of any lesions or defects. The pylorus was traversed and the first and second portions of the duodenum were within normal limits. Upon withdrawal retroflexion showed no obvious abnormalities in the upper portions of the stomach. Again, the gastroesophageal junction and esophageal mucosa all appeared within normal limits. With insufflation the entire esophagus appeared to be patent with no abnormalities and the scope was removed. The patient was transferred to the recovery room in good condition.
== END 2021-11-27 09:50 | disposition home or self-care (01) ==
LOC: SDC 06:21
PROVIDERS: ATTEND Family Medicine
DX: R13.10 Dysphagia, unspecified (principal); E11.9 Type 2 diabetes mellitus without complications; I10 Essential (primary) hypertension; Z79.899 Other long term (current) drug therapy
CPT/HCPCS: 82947; 99100; J2704

== ENCOUNTER 2022-03-04 15:40 | Emergency (ER) | payer MEDICARE ==
--- NOTE | 2022-03-04 15:46 | ERPHSYRPT ---
- History of Present Illness Time Seen by Provider: 03/04/22 15:45 Source: patient Exam Limitations: no limitations Physician History: This is an 82-year-old white female patient who has a history of hypertension diabetes and gastroesophageal reflux disease and presents with 2 to 3-week history of tender left foot with swelling present. Patient states that she dropped a heavy item on it. She has been walking on it but the pain and swelling has not completely resolved. She is concerned that she may have broken something. In addition, the patient does have some dysuria and concerned that she may have a urinary tract infection. She has no chest pain. She has no shortness of breath. She has no cough. She denies fever Method of Injury: direct blow Occurred: other (2 to 3 weeks ago) Severity of Pain-Max: mild Severity of Pain-Current: mild Lower Extremities Pain: foot: left Modifying Factors: Improves With: movement Associated Symptoms: none Allergies/Adverse Reactions: butorphanol tartrate [From Stadol] Allergy (Verified 03/04/22 15:55) celecoxib [From Celebrex] Allergy (Verified 03/04/22 15:55) Sulfa (Sulfonamide Antibiotics) Allergy (Verified 03/04/22 15:55) tizanidine [From Zanaflex] Allergy (Verified 03/04/22 15:55) Home Medications: Amlodipine Besylate 5 mg [Norvasc 5 mg] 5 mg PO DAILY 06/25/21 [History] Budesonide/Formoterol Fumarate [Symbicort 160-4.5 Mcg Inhaler] 2 puffs PO DAILY 06/25/21 [History] Cyclobenzaprine HCl 10 mg [Cyclobenzaprine 10 MG] 5 mg PO BID 06/25/21 [History] Duloxetine HCl 30 mg [Cymbalta 30 MG Capsule] 60 mg PO DAILY 06/25/21 [History] Fluticasone Propionate [Flonase NASAL] 2 spray IH DAILY 06/25/21 [History] Metformin HCl 500 mg [Glucophage 500 MG] 500 mg PO TID 06/25/21 [History] Ropinirole 2Mg [Requip 2Mg Tab] 1 mg PO HS 06/25/21 [History] Docusate Sodium 100 mg PO DAILY 06/26/21 [History] Ferrous Sulfate 325 mg PO DAILY 06/26/21 [History] Magnesium 250 mg PO DAILY 06/26/21 [History] Omeprazole 40 mg PO DAILY 06/26/21 [History] Oxybutynin Chloride 5 mg PO BID 06/26/21 [History] buPROPion HCL [Wellbutrin Xl] 150 mg PO DAILY 06/26/21 [History] lisinopriL [Lisinopril] 10 mg PO DAILY 06/26/21 [History] modafiniL [Provigil] 200 mg PO DAILY 06/26/21 [History] Hydrocodone/Acetaminophen [Hydrocodone-Acetamin 10-325 mg] 1 tab PO BID PRN 11/01/21 [History] Levothyroxine Sodium [Euthyrox] 1 tab PO DAILY 11/01/21 [History] Hx Tetanus, Diphtheria Vaccination/Date Given: Yes Hx Influenza Vaccination/Date Given: Yes Hx Pneumococcal Vaccination/Date Given: Yes Travel Risk - International Travel Have you traveled outside of the country in past 3 weeks: No - Coronavirus Screening Are you exhibiting any of the following symptoms?: No Close contact with a COVID-19 positive Pt in past 14-21 Days: No - Vaccine Status Have you recieved a Covid-19 vaccination: Yes [employer]: Moderna - Vaccination Dates Date of 2cond Vaccination (if applicable): October 2020 - Review of Systems Constitutional: No Symptoms Eyes: No Symptoms Ears, Nose, & Throat: No Symptoms, Throat Swelling Cardiac: No Symptoms Abdominal/Gastrointestinal: No Symptoms Genitourinary Symptoms: Dysuria Musculoskeletal: Injury (Dorsal aspect left foot) Skin: No Symptoms Neurological: No Symptoms Psychological: No Symptoms Endocrine: No Symptoms Hematologic/Lymphatic: No Symptoms Immunological/Allergic: No Symptoms All Other Systems: Reviewed and Negative - Past Medical History Pertinent Past Medical History: Yes Neurological History: Migraines, Peripheral Neuropathy ENT History: Cataracts Cardiac History: High Cholesterol, Hypertension Respiratory History: COPD Endocrine Medical History: Diabetes Type II, Hypothyroidism Musculoskeletal History: Arthritis, Fibromyalgia GI Medical History: Crohns Disease, GERD, Hernia History: No Pertinent History Psycho-Social History: Depression Female Reproductive Disorders: No Pertinent History Other Medical History: SEE CHART FOR PMH AND PSH; PT. HAS HAD 2 C-SPINE SXS - Past Surgical History Past Surgical History: Yes Neuro Surgical History: No Pertinent History Cardiac: No Pertinent History Respiratory: No Pertinent History Gastrointestinal: Appendectomy, Cholecystectomy Genitourinary: No Pertinent History Musculoskeletal: Orthopedic Surgery Female Surgical History: Hysterectomy, Tubal Ligation Other Surgical History: 2nd toe right foot, fractured right shoulder, filmed lasered off right eye, gaglion cyst removed, cataracts, bunion and tumor removed left foot, bunion right foot, tonsils, microscopic anterior cervical diskectomy with interbody fusion c5-6, plate to cervical, tibia fx repair - Social History Smoking Status: Never smoker Exposure to second hand smoke: No Alcohol Use: None Drug Use: none Patient Lives Alone: No Significant Family History: no pertinent family hx - Nursing Vital Signs Nursing Vital Signs: Initial Vital Signs Pulse Rate 85 03/04/22 15:50 Respiratory Rate 16 03/04/22 15:50 Blood Pressure 165/83 03/04/22 15:50 O2 Sat by Pulse Oximetry 94 L 03/04/22 15:50 Pain Scale Pain Intensity 4 - Physical Exam General Appearance: no apparent distress, alert, anxiety Eyes, Ears, Nose, Throat Exam: normal ENT inspection, moist mucous membranes Neck Exam: normal inspection, non-tender, supple, full range of motion Cardiovascular/Respiratory Exam: chest non-tender, no respiratory distress Gastrointestinal/Abdominal Exam: non-tender Back Exam: normal inspection, normal range of motion, No CVA tenderness, No vertebral tenderness Hips Exam: bilateral: non-tender, normal inspection, normal range of motion, no evidence of injury Legs Exam: bilateral leg: non-tender, normal inspection, normal range of motion, no evidence of injury Knees Exam: bilateral knee: non-tender, normal inspection, normal range of motion, no evidence of injury Ankle Exam: bilateral ankle: non-tender, normal inspection, normal range of motion, no evidence of injury Foot Exam: right foot: non-tender, normal inspection, normal range of motion, no evidence of injury, left foot: soft tissue tenderness (Dorsal aspect left foot), swelling (Dorsal aspect left foot) Neuro/Tendon Exam: normal sensation, normal motor functions, normal tendon functions, responds to pain, no evidence tendon injury Mental Status Exam: alert, oriented x 3, cooperative Skin Exam: normal color, warm, dry SpO2 Interpretation: normal O2 Delivery: Room Air - Course Nursing assessment & vital signs reviewed: Yes Ordered Tests: Active Orders 24 hr Category Date Time Status FOOT (MINIMUM 3 VIEWS) Stat Exams 03/04/22 16:11 Completed UA W/RFX CULTURE Stat Lab 03/04/22 16:19 Completed Lab/Rad Data: Laboratory Results 03/04/22 Range/Units 16:19 Urinalys Dipstick Clnc MAIN LAB Urine Color YELLOW (YELLOW) Urine Appearance CLEAR (CLEAR) Urine pH 6.5 (5-6) Ur Specific [place] 1.020 (1.005-1.025) POC Urine Protein Conf NEGATIVE (Negative) Urine Ketones NEGATIVE (NEGATIVE) Urine Nitrite NEGATIVE (NEGATIVE) Urine Bilirubin NEGATIVE (NEGATIVE) Urine Urobilinogen 1 (0-1) mg/dL Urine Leukocytes NEGATIVE (NEGATIVE) Urine WBC (Auto) NONE (0-5) /HPF Urine RBC (Auto) NONE (0-2) /HPF U Epithel Cells (Auto) NONE (FEW) /HPF Urine Bacteria (Auto) NONE (NEGATIVE) /HPF Urine RBC NEGATIVE (0-5) Han/ul Ur Culture Indicated? NO Urine Glucose NEGATIVE (NEGATIVE) mg/dL - Progress Progress: unchanged Progress Note: 03/04/22 16:55 X-ray left foot shows no acute fracture or dislocation. Counseled pt/family regarding: lab results, diagnosis, need for follow-up, rad results - Departure Departure Disposition: Home Clinical Impression: Contusion of left foot Condition: Stable Critical Care Time: No Referrals: JAMILA JOSE [Primary Care Provider] - Follow up/PCP as directed Additional Instructions: Drink plenty of fluids. Follow-up with your senior buyer planner if you have persistent symptoms in your left foot.
[2022-03-04 16:37] LABS: Appearance CLEAR (CLEAR); Bilirubin NEGATIVE (NEGATIVE); Glucose NEGATIVE (NEGATIVE); Ketones NEGATIVE (NEGATIVE); Ph 6.5 (5-6); RBC NEGATIVE Ery/ul (0-5)
[2022-03-04 16:38] LABS: Nitrite NEGATIVE (NEGATIVE); Protein,Urine Dip NEGATIVE (Negative); Urine Cultured Indicated? NO; Urobilinogen 1 mg/dL (0-1)
--- NOTE | 2022-03-04 16:41 | XRAY ---
Indication: Pain and swelling following injury. Comparison: February 20, 2017 3 nonweightbearing views left foot using portable technique unchanged again demonstrating osteopenia, 1st MTP bunionectomy, heel spurs, and small 5th metatarsal base spur. No new/acute bony, articular, or soft tissue abnormalities.
[2022-03-04 17:25] LABS: Dipstick done @ ? MAIN LAB
[2022-03-04 18:06] VITALS: BP 139/60; PULSE 67; O2SAT 96
== END 2022-03-04 18:06 | disposition home or self-care (01) ==
LOC: ED 15:40
DX: S90.32XA Contusion of left foot, initial encounter (principal); W20.8XXA Other cause of strike by thrown, projected or falling object, initial encounter; R30.0 Dysuria; M79.672 Pain in left foot; I10 Essential (primary) hypertension; E78.5 Hyperlipidemia, unspecified; E11.42 Type 2 diabetes mellitus with diabetic polyneuropathy; Z79.84 Long term (current) use of oral hypoglycemic drugs; Z79.891 Long term (current) use of opiate analgesic; Z79.899 Other long term (current) drug therapy
CPT/HCPCS: 73630; 81015; 99282

== ENCOUNTER 2022-04-13 13:33 | Emergency (ER) | payer MEDICARE ==
[2022-04-13] MEDS ORDERED: TORAdol 30 mg Injection IM ONE (14:07)
[2022-04-13] MEDS ORDERED: TORAdol 30 mg Injection ONE (14:10)
--- NOTE | 2022-04-13 14:15 | ERPHSYRPT ---
- History of Present Illness Source: patient Exam Limitations: no limitations Patient Subjective Stated Complaint: pain in right hip Triage Nursing Assessment: Pt brought to the ER by her brother, hypertensive, rates pain 05/26, states that she has been in pain ever since her surgery last April and it never helped at all, walks with walker, pulses normal, skin n/w/d, doesn't appear to be in any distress Physician History: 82 yo wf w chronic R hip/sciatica pain presents w flare of same pain. She is a pt of pain clinic at [facility] and is taking hydrocodone. Pt also has fibromyalgia. She states that she had a R hip replacement by Dr. Orantes last April for this pain, but it has not been relieved. Nothing makes the pain better or worse, and it is a 10 on scale. Pain starts R buttock/R lumbosacral area and radiates down her leg. She denies incontinence and RLE paralysis. Dysuria/hematuria are all denied. Timing/Duration: other (Chronic) Method of Injury: unknown Quality: sharp Back Pain Location: lumbar spine Back Pain Radiation: buttocks, lower legs Severity of Pain-Max: severe Severity of Pain-Current: severe Modifying Factors: Improves With: nothing Associated Symptoms: denies symptoms Previous symptoms: same symptoms as today Allergies/Adverse Reactions: butorphanol tartrate [From Stadol] Allergy (Verified 04/13/22 13:56) celecoxib [From Celebrex] Allergy (Verified 04/13/22 13:56) Sulfa (Sulfonamide Antibiotics) Allergy (Verified 04/13/22 13:56) tizanidine [From Zanaflex] Allergy (Verified 04/13/22 13:56) Home Medications: Budesonide/Formoterol Fumarate [Symbicort 160-4.5 Mcg Inhaler] 2 puffs PO DAILY 06/25/21 [History] Fluticasone Propionate [Flonase NASAL] 2 spray IH DAILY 06/25/21 [History] Metformin HCl 500 mg [Glucophage 500 MG] 500 mg PO BID 06/25/21 [History] Omeprazole 40 mg PO DAILY 06/26/21 [History] Oxybutynin Chloride 5 mg PO BID 06/26/21 [History] lisinopriL [Lisinopril] 10 mg PO DAILY 06/26/21 [History] Hydrocodone/Acetaminophen [Hydrocodone-Acetamin 10-325 mg] 1 tab PO BID PRN 11/01/21 [History] Levothyroxine Sodium [Euthyrox] 1 tab PO DAILY 11/01/21 [History] Hx Tetanus, Diphtheria Vaccination/Date Given: Yes Hx Influenza Vaccination/Date Given: Yes Hx Pneumococcal Vaccination/Date Given: Yes Travel Risk - International Travel Have you traveled outside of the country in past 3 weeks: No - Coronavirus Screening Are you exhibiting any of the following symptoms?: No Close contact with a COVID-19 positive Pt in past 14-21 Days: No - Vaccine Status Have you recieved a Covid-19 vaccination: Yes [place] Sorter: Moderna - Vaccination Dates Date of 2cond Vaccination (if applicable): October 2020 - Review of Systems Constitutional: No Symptoms Eyes: No Symptoms Ears, Nose, & Throat: No Symptoms Respiratory: No Symptoms Cardiac: No Symptoms Abdominal/Gastrointestinal: No Symptoms Genitourinary Symptoms: No Symptoms Musculoskeletal: No Symptoms, Arthralgias, Back Pain, Myalgias Skin: No Symptoms Neurological: No Symptoms Psychological: No Symptoms Endocrine: No Symptoms Hematologic/Lymphatic: No Symptoms Immunological/Allergic: No Symptoms - Past Medical History Pertinent Past Medical History: Yes Neurological History: Migraines, Peripheral Neuropathy ENT History: Cataracts Cardiac History: High Cholesterol, Hypertension Respiratory History: COPD Endocrine Medical History: Diabetes Type II, Hypothyroidism Musculoskeletal History: Arthritis, Fibromyalgia GI Medical History: Crohns Disease, GERD, Hernia History: No Pertinent History Psycho-Social History: Depression Female Reproductive Disorders: No Pertinent History Other Medical History: SEE CHART FOR PMH AND PSH; PT. HAS HAD 2 C-SPINE SXS - Past Surgical History Past Surgical History: Yes Neuro Surgical History: No Pertinent History Cardiac: No Pertinent History Respiratory: No Pertinent History Gastrointestinal: Appendectomy, Cholecystectomy Genitourinary: No Pertinent History Musculoskeletal: Orthopedic Surgery Female Surgical History: Hysterectomy, Tubal Ligation Other Surgical History: 2nd toe right foot, fractured right shoulder, filmed lasered off right eye, gaglion cyst removed, cataracts, bunion and tumor removed left foot, bunion right foot, tonsils, microscopic anterior cervical diskectomy with interbody fusion c5-6, plate to cervical, tibia fx repair - Social History Smoking Status: Never smoker Exposure to second hand smoke: No Alcohol Use: None Drug Use: none Patient Lives Alone: No Significant Family History: no pertinent family hx - Nursing Vital Signs Nursing Vital Signs: Initial Vital Signs Temperature 98.8 F 04/13/22 13:48 Pulse Rate 79 04/13/22 13:48 Blood Pressure 212/91 04/13/22 13:48 O2 Sat by Pulse Oximetry 92 L 04/13/22 13:48 Pain Scale Pain Intensity [Right 10 Posterior Hip] Pain Intensity 10 Hypertensive/Borderline sats - Physical Exam General Appearance: no apparent distress Eye Exam: PERRL/EOMI, eyes nml inspection Ears, Nose, Throat Exam: normal ENT inspection, TMs normal, pharynx normal, moist mucous membranes Neck Exam: normal inspection, non-tender, supple, full range of motion, No meningismus, No mass, No Brudzinski, No Kernig's, No carotid bruit Respiratory Exam: normal breath sounds, lungs clear, airway intact Cardiovascular Exam: regular rate/rhythm, normal heart sounds, normal peripheral pulses, capillary refill <2 sec, No murmur Gastrointestinal Exam: soft, normal bowel sounds, No tenderness Back Exam: CVA tenderness (R CVA TTP/R buttock TTP), vertebral tenderness (Mild L-spine) Extremity Exam: normal inspection (R hip prosthesis incision Clean/Dry/Intact) Peripheral Pulses: carotid (R): 2+, carotid (L): 2+ Neurologic Exam: alert, oriented x 3, 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, 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 tested, normal mood/affect, sensation nml, No motor deficits, No sensory deficit Skin Exam: normal color, warm, dry Lymphatic Exam: No adenopathy SpO2 Interpretation: borderline oxygenation SpO2: 92 O2 Delivery: Room Air - Course Nursing assessment & vital signs reviewed: Yes Ordered Tests: Medication Summary Discontinued Medications Generic Name Dose Route Start Last Admin Trade Name Paulq PRN Reason Stop Dose Admin Ketorolac Tromethamine 15 mg 04/13/22 14:07 04/13/22 14:11 Ketorolac Tromethamine 30 Mg/Ml Inj IM 04/13/22 14:08 15 mg STAT ONE Administration Ketorolac Tromethamine Confirm 04/13/22 14:10 Ketorolac Tromethamine 30 Mg/Ml Inj Administered 04/13/22 14:11 Dose 30 mg .ROUTE .STK-MED ONE - Progress Progress: improved Progress Note: 04/13/22 14:17 15mg IM Toradol 04/13/22 19:55 BP decreased during stay Pain improved Counseled pt/family regarding: diagnosis, need for follow-up - Departure Departure Disposition: Home Clinical Impression: Sciatica, Chronic pain Condition: Stable Critical Care Time: No Referrals: JAMILA JOSE [Primary Care Provider] - Follow up/PCP as directed Instructions: Low Back Pain (DC), Sciatica (DC) Additional Instructions: Follow up with Pain clinic on Thursday
[2022-04-13 14:36] VITALS: BP 147/86; PULSE 82
[2022-04-13 19:55] VITALS: O2SAT 92
== END 2022-04-13 14:21 | disposition home or self-care (01) ==
LOC: ED 13:33
DX: G89.29 Other chronic pain (principal); M54.31 Sciatica, right side; E78.5 Hyperlipidemia, unspecified; I10 Essential (primary) hypertension; J44.9 Chronic obstructive pulmonary disease, unspecified; E11.42 Type 2 diabetes mellitus with diabetic polyneuropathy; Z79.84 Long term (current) use of oral hypoglycemic drugs; Z79.891 Long term (current) use of opiate analgesic; Z79.899 Other long term (current) drug therapy
CPT/HCPCS: 96372; 99282; J1885

== ENCOUNTER 2023-02-16 12:08 | Emergency (ER) | payer MEDICARE ==
--- NOTE | 2023-02-16 12:10 | ERPHSYRPT ---
- History of Present Illness Time Seen by Provider: 02/16/23 12:10 Source: patient Exam Limitations: no limitations Physician History: This is an 83-year-old white female patient who states in the last 2 days she has been shaky and not feeling well. She is also had associated dizziness. She did not hit her head. She also has generalized uncontrolled tic movements of her extremities. She states that she has had these episodes in the past and they ordinarily resolve on their own. She denies any new medication. She has never come to the emergency department for these symptoms. However, what was different today was that she had some dizziness. Patient has a history of hypertension, hyperlipidemia, COPD, diabetes, hypothyroidism, fibromyalgia, Crohn's disease and gastroesophageal reflux disease. She denies chest pain and she denies shortness of breath. She denies fevers. She denies abdominal pain. Timing/Duration: day(s) (2) Severity: mild (to mod) Character of Deficits: other (generalized abnl movements) Baseline/Normal Cognition: alert oriented x 3 Current Cognition: alert oriented x 3 Baseline Gait: uses walker Associated Symptoms: muscle spasms, other ("Tick" movements that are generalized) Allergies/Adverse Reactions: butorphanol tartrate [From Stadol] Allergy (Verified 04/13/22 13:56) celecoxib [From Celebrex] Allergy (Verified 04/13/22 13:56) Sulfa (Sulfonamide Antibiotics) Allergy (Verified 04/13/22 13:56) tizanidine [From Zanaflex] Allergy (Verified 04/13/22 13:56) Home Medications: Budesonide/Formoterol Fumarate [Symbicort 160-4.5 Mcg Inhaler] 2 puffs PO DAILY 06/25/21 [History] Fluticasone Propionate [Flonase NASAL] 2 spray IH DAILY 06/25/21 [History] Metformin HCl 500 mg [Glucophage 500 MG] 500 mg PO BID 06/25/21 [History] Omeprazole 40 mg PO DAILY 06/26/21 [History] Oxybutynin Chloride 5 mg PO BID 06/26/21 [History] lisinopriL [Lisinopril] 10 mg PO DAILY 06/26/21 [History] Hydrocodone/Acetaminophen [Hydrocodone-Acetamin 10-325 mg] 1 tab PO BID PRN 03/18/22 [History] Levothyroxine Sodium [Euthyrox] 1 tab PO DAILY 11/01/21 [History] Duloxetine HCl [Cymbalta] 60 mg PO DAILY 02/16/23 [History] Hx Tetanus, Diphtheria Vaccination/Date Given: Yes Hx Influenza Vaccination/Date Given: Yes Hx Pneumococcal Vaccination/Date Given: Yes Travel Risk - International Travel Have you traveled outside of the country in past 3 weeks: No - Coronavirus Screening Are you exhibiting any of the following symptoms?: No Close contact with a COVID-19 positive Pt in past 14-21 Days: No - Vaccine Status Have you recieved a Covid-19 vaccination: Yes Head Of Geography: Moderna - Vaccination Dates Date of 2cond Vaccination (if applicable): October 2020 - Review of Systems Constitutional: No Symptoms Eyes: No Symptoms Ears, Nose, & Throat: No Symptoms Respiratory: No Symptoms Cardiac: No Symptoms Abdominal/Gastrointestinal: No Symptoms Genitourinary Symptoms: No Symptoms Musculoskeletal: No Symptoms Skin: No Symptoms Neurological: Tics Psychological: No Symptoms Endocrine: No Symptoms Hematologic/Lymphatic: No Symptoms Immunological/Allergic: No Symptoms All Other Systems: Reviewed and Negative - Past Medical History Pertinent Past Medical History: Yes Neurological History: Migraines, Peripheral Neuropathy ENT History: Cataracts Cardiac History: High Cholesterol, Hypertension Respiratory History: COPD Endocrine Medical History: Diabetes Type II, Hypothyroidism Musculoskeletal History: Arthritis, Fibromyalgia GI Medical History: Crohns Disease, GERD, Hernia History: No Pertinent History Psycho-Social History: Depression Female Reproductive Disorders: No Pertinent History Other Medical History: SEE CHART FOR PMH AND PSH; PT. HAS HAD 2 C-SPINE SXS - Past Surgical History Past Surgical History: Yes Neuro Surgical History: No Pertinent History Cardiac: No Pertinent History Respiratory: No Pertinent History Gastrointestinal: Appendectomy, Cholecystectomy Genitourinary: No Pertinent History Musculoskeletal: Orthopedic Surgery Female Surgical History: Hysterectomy, Tubal Ligation Other Surgical History: 2nd toe right foot, fractured right shoulder, filmed lasered off right eye, gaglion cyst removed, cataracts, bunion and tumor removed left foot, bunion right foot, tonsils, microscopic anterior cervical diskectomy with interbody fusion c5-6, plate to cervical, tibia fx repair - Social History Smoking Status: Never smoker Exposure to second hand smoke: No Alcohol Use: None Drug Use: none Patient Lives Alone: No Significant Family History: no pertinent family hx - Nursing Vital Signs Nursing Vital Signs: Initial Vital Signs Temperature 96.8 F 02/16/23 12:09 Pulse Rate 78 02/16/23 12:09 Respiratory Rate 22 02/16/23 12:09 Blood Pressure 161/65 02/16/23 12:09 O2 Sat by Pulse Oximetry 100 02/16/23 12:09 Pain Scale Pain Intensity 10 - Michelle Coma Scale Best Eye Response (Michelle): (4) open spontaneously Best Verbal Response ([place]): (5) oriented Best Motor Response ([place]): (6) obeys commands Michelle Total: 15 - Physical Exam General Appearance: no apparent distress, alert, anxiety, thin Eye Exam: bilateral eye: normal inspection, PERRL, EOMI Ears, Nose, Throat Exam: normal ENT inspection, moist mucous membranes Neck Exam: normal inspection, non-tender, supple, full range of motion Respiratory: normal breath sounds, lungs clear, airway intact, No chest tenderness, No respiratory distress Cardiovascular: regular rate/rhythm, normal heart sounds, normal peripheral pulses Gastrointestinal: soft, normal bowel sounds, No tenderness Pelvic Exam: not done Rectal Exam: not done Back Exam: normal inspection, normal range of motion, No CVA tenderness, No vertebral tenderness Extremity Exam: normal inspection, normal range of motion, pelvis stable Mental Status: alert, oriented x 3, 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 Exam: normal hearing, normal speech, PERRL, tongue midline Coordination/Gait: abnormal gait Skin Exam: normal color, warm, dry SpO2 Interpretation: normal - Course Nursing assessment & vital signs reviewed: Yes EKG Interpreted by Me: RATE (71), Sinus Rhythm, NORMAL AXIS, NORMAL INTERVALS, NORMAL QRS, NORMAL ST-T, Other (no acute ischemic changes) Ordered Tests: Active Orders 24 hr Category Date Time Status Breaker Tender STAT Care 02/16/23 12:20 Active EKG-ER Only STAT Care 02/16/23 12:19 Active IV Insertion STAT Care 02/16/23 12:19 Active Pulse Oximetry (ED) STAT Care 02/16/23 12:19 Active HEAD WITHOUT CONTRAST [CT] Stat Exams 02/16/23 12:19 Completed BLOOD CULTURE Stat Lab 02/16/23 13:06 Received CBC W DIFF Stat Lab 02/16/23 12:10 Completed CMP Stat Lab 02/16/23 12:10 Completed TSH, 3RD Generation Stat Lab 02/16/23 12:10 Completed UA W/RFX UR CULTURE Stat Lab 02/16/23 15:03 Completed Medication Summary Generic Name Dose Route Start Last Admin Trade Name Giuliano PRN Reason Stop Dose Admin Diphenhydramine HCl 25 mg 02/16/23 13:17 02/16/23 13:38 Diphenhydramine Hcl 50 Mg/Ml Vial IV 02/16/23 13:18 25 mg STAT ONE Administration Discontinued Medications Generic Name Dose Route Start Last Admin Trade Name Giuliano PRN Reason Stop Dose Admin Hydrocodone Bitart/Acetaminophen 1 tablet 02/16/23 15:36 02/16/23 15:40 Hydrocodone/Acetamin 10-325 Mg Tablet PO 02/16/23 15:37 1 tablet STAT ONE Administration Hydrocodone Bitart/Acetaminophen Confirm 02/16/23 15:40 Hydrocodone/Acetamin 10-325 Mg Tablet Administered 02/16/23 15:41 Dose 1 tablet .ROUTE .STWanderu-MED ONE Lab/Rad Data: Laboratory Result Diagrams 02/16/23 12:10 02/16/23 12:10 Laboratory Results 02/16/23 02/16/23 02/16/23 Range/Units 15:03 12:10 12:10 WBC 8.3 (4.0-10.5) x10^3/uL RBC 3.83 L (4.1-5.4) x10^6/uL Hgb 10.7 L (12.0-16.0) g/dL Hct 33.6 L (35-47) % MCV 87.7 (78-100) fL MCH 27.9 (26-32) pg MCHC 31.8 L (32-36) g/dL RDW 13.0 (11.5-14.0) % Plt Count 212 (150-450) x10^3/uL MPV 9.6 (7.5-11.0) fL Gran % 64.7 (36.0-66.0) % Immature Gran % (Auto) 0.7 H (0.00-0.4) % Nucleat RBC Rel Count 0.0 (0.00-0.1) % Eos # (Auto) 0.08 (0-0.5) x10^3/uL Immature Gran # (Auto) 0.06 H (0.00-0.03) x10^3u/L Absolute Lymphs (auto) 1.91 (1.0-4.6) x10^3/uL Absolute Monos (auto) 0.80 (0.0-1.3) x10^3/uL Absolute Nucleated RBC 0.00 (0.00-0.01) x10^3u/L Lymphocytes % 23.1 L (24.0-44.0) % Monocytes % 9.7 (0.0-12.0) % Eosinophils % 1.0 (0.00-5.0) % Basophils % 0.8 (0.0-0.4) % Absolute Granulocytes 5.34 (1.4-6.9) x10^3/uL Basophils # 0.07 (0-0.4) x10^3/uL Sodium 140 (137-145) mmol/L Potassium 5.5 H (3.5-5.1) mmol/L Chloride 103 (98-107) mmol/L Carbon Dioxide 25 (22-30) mmol/L Anion Gap 17.0 H (5-15) MEQ/L BUN 34 H (7-17) mg/dL Creatinine 1.18 H (0.52-1.04) mg/dL Estimated GFR 46.4 ML/MIN Glucose 100 (74-106) mg/dL Calcium 10.3 H (8.4-10.2) mg/dL Total Bilirubin 0.60 (0.2-1.3) mg/dL AST 25 (14-36) U/L ALT 18 (0-35) U/L Alkaline Phosphatase 76 (38-126) U/L Serum Total Protein 7.7 (6.3-8.2) g/dL Albumin 4.2 (3.5-5.0) g/dL TSH 3rd Generation 0.649 (0.47-4.68) mIU/L Urine Color Yellow (Yellow) Urine Appearance Clear (Clear) Urine pH 5.5 (4.6-8.0) Ur Specific [place] 1.025 (1.005-1.030) Urine Protein Trace A (Negative) Urine Glucose (UA) Negative (Negative) mg/dL Urine Ketones 40 A (Negative) Urine Blood Negative (Negative) Urine Nitrite Negative (Negative) Urine Bilirubin Negative (Negative) Urine Urobilinogen 1.0 A (0.2) mg/dL Ur Leukocyte Esterase Negative (Negative) U Hyaline Cast (Auto) 11-20 (0-2) /LPF Urine Microscopic RBC 3-5 (0-5) /HPF Urine Microscopic WBC 0-2 (0-5) /HPF Ur Epithelial Cells None Seen (None Seen) /HPF Urine Bacteria None Seen (None Seen) /HPF Urine Culture Reflexed NO (NO) - Progress Progress: improved, re-examined Progress Note: 02/16/23 13:15 CAT scan of the head without contrast shows continued nonacute senile brain with 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 02/16/23 16:24 This patient's medical issue is 1 of moderate complexity. Level of complexity and work-up performed is based on review of the patient's past medical history, review of the patient's medication list, review of the drug allergy list, history present illness and physical findings on examination. The work-up in this patient includes CT scan of the head which does not show anything acute, urinalysis which does not show an infection but only mild dehydration, CBC, CMP. There are no acute, emergent findings on today's work-up. I reviewed all of the results of the studies. I did give the patient Benadryl 25 mg which seemed to resolve her symptoms. Patient will be discharged to home with instructions to follow-up with her primary care physician for further evaluation and management. Counseled pt/family regarding: lab results, diagnosis, need for follow-up, rad results Medical Desision Making - Diagnostic Testing Diagnostic test were ordered, analyzed, and reviewed by me: Yes Radiological Interpretation: Reviewed by me, Teleradiologist Report - Risk of complications Low Risk: Low risk of morbidity from additional dx testing or treatment - Departure Departure Disposition: Home Clinical Impression: Dizziness, Anxiety about health Condition: Stable Critical Care Time: No Referrals: JAMILA JOSE [Primary Care Provider] - Follow up/PCP as directed Additional Instructions: Drink plenty of clear liquids. Call your primary care doctor on 02/18/2023 and make arrangements for follow-up appointment in the next 3 to 5 days to review your medication list and discuss these intermittent, self-limiting "tick" moveme nts.
[2023-02-16 12:33] LABS: Absolute Neutrophil Ct (ANC) 5.34 x10^3/uL (1.4-6.9); BASOPHIL % 0.8 % (0.0-0.4); Basophil (Absolute #) 0.07 x10^3/uL (0-0.4); Eosinophil (Absolute #) 0.08 x10^3/uL (0-0.5); Hematocrit 33.6 % (35-47); Hemoglobin 10.7 g/dL (12.0-16.0); IMMATURE GRAN # 0.06 x10^3u/L (0.00-0.03); IMMATURE GRAN % 0.7 % (0.00-0.4); Lymphocyte (Absolute #) 1.91 x10^3/uL (1.0-4.6); Lymphocytes % 23.1 % (24.0-44.0); Mean Cell Volume 87.7 fL (78-100); Mean Corpuscular Hemoglobin 27.9 pg (26-32); Mean Corpuscular Hgb Concent. 31.8 g/dL (32-36); Mean Platelet Volume 9.6 fL (7.5-11.0); Monocytes % 9.7 % (0.0-12.0); Neutrophil % 64.7 % (36.0-66.0); Platelet Count 212 x10^3/uL (150-450); Red Blood Count 3.83 x10^6/uL (4.1-5.4); White Blood Count 8.3 x10^3/uL (4.0-10.5)
--- NOTE | 2023-02-16 12:45 | XRAY ---
Indication: Dizziness. Multiple contiguous axial images obtained through the head without contrast. Comparison: January 14, 2021 Again age-appropriate global atrophy, mild periventricular degenerative micro-ischemia bilaterally, and remote lacunar infarct right basal ganglia. No acute intracranial hemorrhage, abnormal extra-axial fluid collection, or mass effect. Fourth ventricle is midline without hydrocephalus. Bony calvarium intact. Visualized paranasal sinuses and mastoid air cells are clear. Impression: Continued nonacute senile brain with remote lacunar infarct right basal ganglia.
[2023-02-16 13:15] LABS: ALBUMIN 4.2 g/dL (3.5-5.0); BILIRUBIN,TOTAL 0.6 mg/dL (0.2-1.3); Calcium 10.3 mg/dL (8.4-10.2); Creatinine 1 1.18 mg/dL (0.52-1.04); EST GLOMERULAR FILTRATION RATE 46.4 ML/MIN; Potassium 5.5 mmol/L (3.5-5.1); TSH, 3RD Generation 0.649 mIU/L (0.47-4.68); Total Protein 7.7 g/dL (6.3-8.2)
[2023-02-16] MEDS ORDERED: BENADRYL 50 MG/ML IV ONE (13:17)
[2023-02-16] MEDS ORDERED: BENADRYL 50 MG/ML ONE (13:38)
[2023-02-16] MEDS ORDERED: HYDROCODONE-ACETAMIN 10-325 MG PO ONE (15:36)
[2023-02-16] MEDS ORDERED: HYDROCODONE-ACETAMIN 10-325 MG ONE (15:40)
[2023-02-16 16:00] LABS: Appearance Clear (Clear); Bacteria None Seen /HPF (None Seen); Bilirubin Negative (Negative); Blood Negative (Negative); Epithelial Cells None Seen /HPF (None Seen); Glucose, Urine Negative (Negative); Ketones 40 (Negative); Leukocyte Esterase Negative (Negative); Nitrite Negative (Negative); Ph 5.5 (4.6-8.0); Protein,Urine Dip Trace (Negative); Specific Gravity 1.025 (1.005-1.030); WBC 0-2 /HPF (0-5)
[2023-02-16 16:01] LABS: ADD URINE CULTURE? NO (NO)
[2023-02-16 17:08] VITALS: BP 139/75; PULSE 87; O2SAT 97
== END 2023-02-16 17:08 | disposition home or self-care (01) ==
LOC: ED 12:08
DX: R42 Dizziness and giddiness (principal); F45.9 Somatoform disorder, unspecified; F95.9 Tic disorder, unspecified; I10 Essential (primary) hypertension; E78.5 Hyperlipidemia, unspecified; E11.42 Type 2 diabetes mellitus with diabetic polyneuropathy; Z79.84 Long term (current) use of oral hypoglycemic drugs; Z79.899 Other long term (current) drug therapy
CPT/HCPCS: 36000; 36415; 70450; 80053; 81001; 84443; 85025; 87040; 93005; 93041; 94760; 96374; 99284; P9612; 96375; J1200; A9270-GY

== ENCOUNTER 2024-07-30 10:52 | Emergency (ER) | payer MEDICARE ==
[2024-07-30 11:12] VITALS: TEMP 97.7
[2024-07-30 11:16] VITALS: PULSE 69; RESP 18
--- NOTE | 2024-07-30 11:32 | ERPHSYRPT ---
- History of Present Illness Time Seen by Provider: 07/30/24 11:29 Source: patient Exam Limitations: no limitations Patient Subjective Stated Complaint: C/O left lower back pain for the past 24 hours. Denies any abdominal pain. Denies any recent falls or traumas. States lani mackey fell over a month ago. Triage Nursing Assessment: Patient ambulated back to ER with her walker without difficulties. She is alert and oriented. Skin tone normal; no bruising or skin alterations noted to area of pain. Slight swelling present. Physician History: C/O left lower back pain for the past 24 hours. Denies any abdominal pain. Denies any recent falls or traumas. States last fell over a month ago. Timing/Duration: day(s) (1-2 days) Method of Injury: fall Quality: sharp Back Pain Location: lumbar spine Severity of Pain-Max: moderate Severity of Pain-Current: moderate Modifying Factors: Improves With: nothing, movement, pain medication Associated Symptoms: denies symptoms Previous symptoms: same symptoms as today, recently seen (pain management) Allergies/Adverse Reactions: butorphanol tartrate [From Stadol] Allergy (Verified 07/30/24 11:06) celecoxib [From Celebrex] Allergy (Verified 07/30/24 11:06) codeine Allergy (Verified 07/30/24 11:14) Sulfa (Sulfonamide Antibiotics) Allergy (Verified 07/30/24 11:06) tizanidine [From Zanaflex] Allergy (Verified 07/30/24 11:06) Home Medications: Budesonide/Formoterol Fumarate [Symbicort 160-4.5 Mcg Inhaler] 2 puffs PO DAILY 06/25/21 [History] Fluticasone Propionate [Flonase NASAL] 2 spray IH DAILY 06/25/21 [History] Metformin HCl 500 mg [Glucophage 500 MG] 500 mg PO BID 06/25/21 [History] Omeprazole 40 mg PO DAILY 06/26/21 [History] Oxybutynin Chloride 5 mg PO BID 06/26/21 [History] lisinopriL [Lisinopril] 10 mg PO DAILY 06/26/21 [History] Hydrocodone/Acetaminophen [Hydrocodone-Acetamin 10-325 mg] 1 tab PO BID PRN 11/01/21 [History] Levothyroxine Sodium [Euthyrox] 1 tab PO DAILY 11/01/21 [History] Duloxetine HCl [Cymbalta] 60 mg PO DAILY 02/16/23 [History] Hx Tetanus, Diphtheria Vaccination/Date Given: Yes Hx Influenza Vaccination/Date Given: Yes Hx Pneumococcal Vaccination/Date Given: Yes Immunizations Up to Date: Yes Travel Risk - International Travel Have you traveled outside of the country in past 3 weeks: No - Emerging Infectious Disease Are you exhibiting symptoms associated with any current EIDs: No - Review of Systems Constitutional: No Fever, No Chills Eyes: No Symptoms Ears, Nose, & Throat: No Symptoms Respiratory: No Cough, No Dyspnea Cardiac: No Chest Pain, No Edema, No Syncope Abdominal/Gastrointestinal: No Abdominal Pain, No Nausea, No Vomiting, No Diarrhea Genitourinary Symptoms: Flank Pain, No Dysuria, No Frequency, No Hematuria, No Hesitancy, No Incontinence, No Urgency, No Urinary Retention, No Menorrhagia, No Vaginal Bleeding, No Vaginal Discharge Musculoskeletal: Back Pain, Fall, No Neck Pain Skin: No Rash Neurological: No Dizziness, No Focal Weakness, No Sensory Changes Psychological: No Symptoms Endocrine: No Symptoms All Other Systems: Reviewed and Negative - Past Medical History Pertinent Past Medical History: Yes Neurological History: Migraines, Peripheral Neuropathy ENT History: Cataracts Cardiac History: High Cholesterol, Hypertension Respiratory History: COPD Endocrine Medical History: Diabetes Type II, Hypothyroidism Musculoskeletal History: Arthritis, Fibromyalgia GI Medical History: Crohns Disease, GERD, Hernia History: No Pertinent History Psycho-Social History: Depression Female Reproductive Disorders: No Pertinent History Other Medical History: SEE CHART FOR PMH AND PSH; PT. HAS HAD 2 C-SPINE SXS - Past Surgical History Past Surgical History: Yes Neuro Surgical History: No Pertinent History Cardiac: No Pertinent History Respiratory: No Pertinent History Gastrointestinal: Appendectomy, Cholecystectomy Genitourinary: No Pertinent History Musculoskeletal: Orthopedic Surgery Female Surgical History: Hysterectomy, Tubal Ligation Other Surgical History: 2nd toe right foot, fractured right shoulder, filmed lasered off right eye, gaglion cyst removed, cataracts, bunion and tumor removed left foot, bunion right foot, tonsils, microscopic anterior cervical diskectomy with interbody fusion c5-6, plate to cervical, tibia fx repair Significant Family History: no pertinent family hx - Social History Smoking Status: Never smoker Exposure to second hand smoke: No Alcohol Use: None Drug Use: none Patient Lives Alone: No - Social Determinants of Health Will the patient participate in the screening: Declined to provide - Nursing Vital Signs Nursing Vital Signs: Initial Vital Signs Temperature 97.7 F 07/30/24 11:06 Pulse Rate 69 07/30/24 11:06 Respiratory Rate 18 07/30/24 11:06 Blood Pressure 189/84 07/30/24 11:06 O2 Sat by Pulse Oximetry 100 07/30/24 11:06 Pain Scale Pain Intensity 10 - Physical Exam General Appearance: no apparent distress, alert Eye Exam: PERRL/EOMI, eyes nml inspection Neck Exam: normal inspection, non-tender, supple, full range of motion, No men ingismus, No midline tenderness Respiratory Exam: normal breath sounds, lungs clear, No respiratory distress Cardiovascular Exam: regular rate/rhythm, normal heart sounds Gastrointestinal Exam: soft, No tenderness, No mass Back Exam: CVA tenderness, decreased range of motion, muscle spasm (left side) Extremity Exam: normal inspection, normal range of motion, No calf tenderness, No pedal edema Neurologic Exam: alert, oriented x 3, cooperative, director of quality improvement II-XII nml as tested, normal mood/affect, nml station & gait, sensation nml, No motor deficits Skin Exam: normal color, warm, dry, No rash SpO2: 100 - Course Nursing assessment & vital signs reviewed: Yes - CT Exams Lumbar Spine CT Interpretation: Tele-radiologist Report Ordered Tests: Active Orders 24 hr Category Date Time Status LUMBAR SPINE W/O [CT] Stat Exams 07/30/24 11:12 Completed Medication Summary Discontinued Medications Generic Name Dose Route Start Last Admin Trade Name Giuliano PRN Reason Stop Dose Admin Fentanyl Citrate 50 mcg 07/30/24 12:53 07/30/24 13:04 Fentanyl Citrate 100 Mcg/2 Ml* Vial IM 07/30/24 12:54 50 mcg STAT ONE Administration Fentanyl Citrate Confirm 07/30/24 13:03 Fentanyl Citrate 100 Mcg/2 Ml* Vial Administered 07/30/24 13:04 Dose 100 mcg .ROUTE .STK-MED ONE Ketorolac Tromethamine 60 mg 07/30/24 11:39 07/30/24 11:46 Ketorolac Tromethamine 30 Mg/Ml Inj IM 07/30/24 11:40 60 mg STAT ONE Administration Ketorolac Tromethamine Confirm 07/30/24 11:42 Ketorolac Tromethamine 30 Mg/Ml Inj Administered 07/30/24 11:43 Dose 60 mg .ROUTE .STK-MED ONE Orphenadrine Citrate 60 mg 07/30/24 11:40 07/30/24 11:47 Orphenadrine Citrate 60 Mg/2 Ml Vial IM 07/30/24 11:41 60 mg STAT ONE Administration Orphenadrine Citrate Confirm 07/30/24 11:42 Orphenadrine Citrate 60 Mg/2 Ml Vial Administered 07/30/24 11:43 Dose 60 mg .ROUTE .STK-MED ONE Lab/Rad Data: CLINICAL HISTORY: Pain COMPARISON: None TECHNIQUE: CT non-contrast scan of lumbar spine done. Axial images were obtained with reformatted coronal and sagittal images and submitted for interpretation. One of the following dose reduction techniques was utilized for this exam: Automated exposure control, adjustment of the mA and/or kV according to patient size, and use of iterative reconstruction. FINDINGS: Vertebrae: Left side scoliotic deformity of the lumbar spine, Grace's angle =31 degrees. L4 over L5 mild degree retro-listhesis noted. L3 over L4 mild degree retro-listhesis noted. L2 over L3 subtle degree retrolistheis also noted. Post-operative changes related to intraosseous cement injection in L2 down to L5 vertebral bodies. L4-5 facet joint arthropathy and subluxation noted. L4 and L5 posterior spinous processes fixing devices noted. Diffuse osteopenia of the examined bone. Intervertebral Discs: Marked spondylo-degenerative changes of the lumbar spine with gross marginal osteophytosis PatientID: [id number] Patient Name: MARCELINO JACOBSEN Exam Date: 07/30/2024 Procedure: LUMBAR SPINE W/O page 1 of 2 noted, vacuum phenomena noted. L2-L3,L3-4, and L4-L5 diffuse disc bulges are noted indenting the ventral theca with left side exit neural foraminal encroachment more in L3-4 Ievel. L5-s1 shows a diffuse disc bulge with posterior annular calcification indents the ventral theca with preserved both exit neural foramina. Spinal Canal and Neural Foramina: The spinal canal is of normal caliber with no evidence of spinal stenosis. Neural foramina are compromised on the left side at multiple levels. Soft Tissues: Normal appearance of the paraspinal soft tissues. No abnormal masses, fluid collections, or signs of inflammation. IMPRESSION: 1. Marked spondylosis of the lumbar spine was revealed. 2. left side scoliosis noted Grace's angle is 31 degrees. 3. Stable post-operative changes related to prosthetic fixation and cement intraosseous injection are appreciated. 4. L2-3, L3-4, and L4-5 retrolisthesis noted with corresponding fact joints subluxation and arthropathy. 5. Multielvel degerative dis bulges are noted .. - Progress Progress: improved, pain not gone completely Counseled pt/family regarding: diagnosis, rad results Medical Desision Making - Independent Historian Additional History obtained from: Family - Diagnostic Testing Diagnostic test were ordered, analyzed, and reviewed by me: Yes Radiological Interpretation: Teleradiologist Report - Risk of complications Low Risk: Low risk of morbidity from additional dx testing or treatment - Departure Departure Disposition: Home Clinical Impression: Lumbar back pain DDD (degenerative disc disease), lumbar Qualifiers: Disc-related pain type: discogenic back pain only Qualified Code(s): M51.360 - Other intervertebral disc degeneration, lumbar region with discogenic back pain only Condition: Stable Critical Care Time: No Referrals: JAMILA JOSE [Primary Care Provider] - Follow up/PCP as directed Instructions: Low Back Pain (DC) Additional Instructions: Discharge/Care Plan MARCELINO JACOBSEN was seen on 07/30/24 in the Emergency Room. The patient was counseled regarding Diagnosis,Lab results, Imaging studies, need for follow up and when to return to the Emergency Room. Prescriptions given: Discharge Note I have spoken with the patient and/or caregivers. I have explained the patient's condition, diagnosis and treatment plan based on the information available to me at this time. I have answered the patient's and/or caregiver's questions and addressed any concerns. The patient and/or caregivers have as good understanding of the patient's diagnosis, condition and treatment plan as can be expected at this point. The vital signs have been stable. The patient's condition is stable and appropriate for discharge from the emergency department. The patient will pursue further outpatient evaluation with the primary care physician or other designated or consulting physician as outlined in the dis charge instructions. The patient and/or caregivers are agreeable to this plan of care and follow-up instructions have been explained in detail. The patient and/or caregivers have received these instruction. The patient/and or caregivers are aware that any significant change in condition or worsening of symptoms should prompt an immediate return to this or the closest emergency department or call 911. MARCELINO JACOBSEN was seen on 07/30/24 n the Emergency Room. At that time you were treated for an emergent condition, during your visit Laboratory, Radiology and/or other procedures may have been ordered. It is very important that you follow-up with your Primary Care Physician JAMILA JOSE within the next 24-48 hours to review your Emergency Room visit and the final results of testing that was ordered. Some test results such as Urine Cultures, Blood Cultures, and other cultures if ordered will not be finalized for 24-48 hours. If you do not have a Primary Care Provider please call the medical records department at [phone] ext [phone] to obtain a copy of your results or you may sign into our patient portal to obtain these results by visiting us @ [email or web address] and completing the following steps: 1. Click on the Patient Portal link 2. Click the Patient Self Enrollment Link to complete the enrollment form and entering your 3. Once the enrollment form is completed you will receive an email with a temporary ID and password at the email address you provided. 4. Next choose a user name and password. Your user name must be at least 4 characters long and your password must be at least 4 characters long. 5. Choose a security question from the list and provide your answer to the question. If you already have signed into the Health Portal you may access your Health Care Information 09/03 by the following steps: 1. Login to our website @ [email or web address] 2. Enter your original user name and password. FAQS The [facility] Health Portal is an online tool that contains your Lab Results, Radiology Reports, Visit History, Discharge Instructions and Health Summary Lab and Radiology Results will not be available for 72 hours on the portal. The Portal is a secure site, passwords are encryted and URLs are re-written so they cannot be copied and pasted. You and authorized family members are the only ones who can access your Portal. Also there is a timeout feature that protects your information if you leave the Portal page open. If you have technical difficulty please use the Contact Us link on the page this will allow you to submit any questions you have regarding the Portal or you may contact the Medical Record Department at [phone].
[2024-07-30] MEDS ORDERED: TORAdol 30 mg Injection ONE (11:42)
[2024-07-30] MEDS ORDERED: Norflex 60 MG/2 ML ONE (11:42)
[2024-07-30] MEDS: TORAdol 30 mg Injection IM ONE (11:46)
[2024-07-30] MEDS: Norflex 60 MG/2 ML IM ONE (11:47)
--- NOTE | 2024-07-30 12:43 | XRAY ---
CLINICAL HISTORY: Pain COMPARISON: None TECHNIQUE: CT non-contrast scan of lumbar spine done. Axial images were obtained with reformatted coronal and sagittal images and submitted for interpretation. One of the following dose reduction techniques was utilized for this exam: Automated exposure control, adjustment of the mA and/or kV according to patient size, and use of iterative reconstruction. FINDINGS: Vertebrae: Left side scoliotic deformity of the lumbar spine, Grace's angle =31 degrees. L4 over L5 mild degree retro-listhesis noted. L3 over L4 mild degree retro-listhesis noted. L2 over L3 subtle degree retrolistheis also noted. Post-operative changes related to intraosseous cement injection in L2 down to L5 vertebral bodies. L4-5 facet joint arthropathy and subluxation noted. L4 and L5 posterior spinous processes fixing devices noted. Diffuse osteopenia of the examined bone. Intervertebral Discs: Marked spondylo-degenerative changes of the lumbar spine with gross marginal osteophytosis noted, vacuum phenomena noted. L2-L3,L3-4, and L4-L5 diffuse disc bulges are noted indenting the ventral theca with left side exit neural foraminal encroachment more in L3-4 Ievel. L5-s1 shows a diffuse disc bulge with posterior annular calcification indents the ventral theca with preserved both exit neural foramina. Spinal Canal and Neural Foramina: The spinal canal is of normal caliber with no evidence of spinal stenosis. Neural foramina are compromised on the left side at multiple levels. Soft Tissues: Normal appearance of the paraspinal soft tissues. No abnormal masses, fluid collections, or signs of inflammation. IMPRESSION: 1. Marked spondylosis of the lumbar spine was revealed. 2. left side scoliosis noted Grace's angle is 31 degrees. 3. Stable post-operative changes related to prosthetic fixation and cement intraosseous injection are appreciated. 4. L2-3, L3-4, and L4-5 retrolisthesis noted with corresponding fact joints subluxation and arthropathy. 5. Multielvel degerative dis bulges are noted .. Electronically Signed by: Marlon Stephens MD. (07/30/2024 12:39:56 EST)
[2024-07-30 12:53] VITALS: O2SAT 100
[2024-07-30] MEDS ORDERED: SUBLIMAZE 100 MCG/2 ML ONE (13:03)
[2024-07-30] MEDS: SUBLIMAZE 100 MCG/2 ML IM ONE (13:04)
[2024-07-30 13:18] VITALS: BP 182/86
== END 2024-07-30 13:19 | disposition home or self-care (01) ==
LOC: ED 10:52
DX: M51.360 Other intervertebral disc degeneration, lumbar region with discogenic back pain only (principal)
CPT/HCPCS: 72131; 96372; 99284; J1885; J2360; J3010

== ENCOUNTER 2024-07-31 18:25 | Emergency (ER) | payer MEDICARE | END 2024-07-31 19:38 | disposition left against medical advice (07) | LOC: ED 18:25 | DX: Z53.21 Procedure and treatment not carried out due to patient leaving prior to being seen by health care provider (principal) ==

== ENCOUNTER 2024-10-21 17:03 | Emergency (ER) | payer MEDICARE ==
[2024-10-21 17:16] VITALS: RESP 18; TEMP 97.5
--- NOTE | 2024-10-21 17:31 | ERPHSYRPT ---
- History of Present Illness Time Seen by Provider: 10/21/24 17:31 Source: patient Exam Limitations: no limitations Patient Subjective Stated Complaint: Pt states "I have the pain in my lower back for the past 12 hours and I just cannot take it anymore. I was here a couple months ago and saw dr. Mendez for this before and he gave me some high powered shot to help with the pain." Triage Nursing Assessment: PT presented alert and oriented X 3, skin pwd. Pt ambulates with a walker. Pt ambulates with an upright gait. pt in no apparent respiratory distress. Physician History: This is a thin 84-year-old white female patient who presents to the emergency department with relatively sudden onset of left hip and left back pain that came on approximately 12 hours ago. She has chronic low back pain and sees a pain specialist for this in [facility]. Patient does not have another appointment till November 2024. She denies falls and she denies trauma to the area. Patient has multiple medical problems including migraine headache, peripheral neuropathy, hyperlipidemia, hypertension, fibromyalgia, hypothyroidism, arthritis and gastroesophageal reflux disease. She denies chest pain and she denies shortness of breath. She only wants medication here in the emergency department to get some relief of her pain. Patient states that she was given injections in August 2024 here in emergency department that worked well for her. Timing/Duration: hour(s) (Approximately 12 hours) Method of Injury: other (No injury) Quality: sharp, stabbing Back Pain Location: paraspinous muscles (Left side lumbar level) Severity of Pain-Max: moderate Severity of Pain-Current: moderate Modifying Factors: Improves With: movement Associated Symptoms: lower back pain (No vertebral spine tenderness to palpation), No urinary incontinence, No loss of bowel control, No numbness in legs/feet Previous symptoms: same symptoms as today, no recent treatment Allergies/Adverse Reactions: butorphanol tartrate [From Stadol] Allergy (Verified 07/30/24 11:06) celecoxib [From Celebrex] Allergy (Verified 07/30/24 11:06) Sulfa (Sulfonamide Antibiotics) Allergy (Verified 07/30/24 11:06) tizanidine [From Zanaflex] Allergy (Verified 07/30/24 11:06) Home Medications: Budesonide/Formoterol Fumarate [Symbicort 160-4.5 Mcg Inhaler] 2 puffs PO DAILY 06/25/21 [History] Fluticasone Propionate [Flonase NASAL] 2 spray IH DAILY 06/25/21 [History] Metformin HCl 500 mg [Glucophage 500 MG] 500 mg PO BID 06/25/21 [History] Omeprazole 40 mg PO DAILY 06/26/21 [History] Oxybutynin Chloride 5 mg PO BID 06/26/21 [History] lisinopriL [Lisinopril] 10 mg PO DAILY 06/26/21 [History] Hydrocodone/Acetaminophen [Hydrocodone-Acetamin 10-325 mg] 1 tab PO BID PRN 11/01/21 [History] Levothyroxine Sodium [Euthyrox] 1 tab PO DAILY 11/01/21 [History] Duloxetine HCl [Cymbalta] 60 mg PO DAILY 02/16/23 [History] Hx Tetanus, Diphtheria Vaccination/Date Given: Yes Hx Influenza Vaccination/Date Given: Yes Hx Pneumococcal Vaccination/Date Given: Yes Immunizations Up to Date: No Travel Risk - International Travel Have you traveled outside of the country in past 3 weeks: No - Emerging Infectious Disease Are you exhibiting symptoms associated with any current EIDs: No - Review of Systems Constitutional: No Symptoms Eyes: No Symptoms Ears, Nose, & Throat: No Symptoms Respiratory: No Symptoms Cardiac: No Symptoms Abdominal/Gastrointestinal: No Symptoms Genitourinary Symptoms: No Symptoms Musculoskeletal: Back Pain Skin: No Symptoms Neurological: No Symptoms Psychological: No Symptoms Endocrine: No Symptoms Hematologic/Lymphatic: No Symptoms Immunological/Allergic: No Symptoms All Other Systems: Reviewed and Negative - Past Medical History Pertinent Past Medical History: Yes Neurological History: Migraines, Peripheral Neuropathy ENT History: Cataracts Cardiac History: High Cholesterol, Hypertension Respiratory History: COPD Endocrine Medical History: Diabetes Type II, Hypothyroidism Musculoskeletal History: Arthritis, Fibromyalgia GI Medical History: Crohns Disease, GERD, Hernia History: No Pertinent History Psycho-Social History: Depression Female Reproductive Disorders: No Pertinent History Other Medical History: SEE CHART FOR PMH AND PSH; PT. HAS HAD 2 C-SPINE SXS - Past Surgical History Past Surgical History: Yes Neuro Surgical History: No Pertinent History Cardiac: No Pertinent History Respiratory: No Pertinent History Gastrointestinal: Appendectomy, Cholecystectomy Genitourinary: No Pertinent History Musculoskeletal: Orthopedic Surgery Female Surgical History: Hysterectomy, Tubal Ligation Other Surgical History: 2nd toe right foot, fractured right shoulder, filmed lasered off right eye, gaglion cyst removed, cataracts, bunion and tumor removed left foot, bunion right foot, tonsils, microscopic anterior cervical diskectomy with interbody fusion c5-6, plate to cervical, tibia fx repair Significant Family History: no pertinent family hx - Social History Smoking Status: Never smoker Exposure to second hand smoke: No Drug Use: none - Social Determinants of Health Will the patient participate in the screening: Declined to provide - Nursing Vital Signs Nursing Vital Signs: Initial Vital Signs Temperature 97.5 F 10/21/24 17:10 Pulse Rate 66 10/21/24 17:10 Respiratory Rate 18 10/21/24 17:10 Blood Pressure 198/64 10/21/24 17:10 O2 Sat by Pulse Oximetry 95 10/21/24 17:10 Pain Scale Pain Intensity 10 - Physical Exam General Appearance: no apparent distress, alert, anxiety, thin Eye Exam: PERRL/EOMI, eyes nml inspection Ears, Nose, Throat Exam: normal ENT inspection, moist mucous membranes Neck Exam: normal inspection, non-tender, supple, full range of motion Respiratory Exam: airway intact, No chest tenderness, No respiratory distress Gastrointestinal Exam: No tenderness Pelvic Exam: not done Rectal Exam: not done Back Exam: normal inspection, normal range of motion, muscle spasm (Left paraspinous muscle lumbar level), No CVA tenderness, No vertebral tenderness Extremity Exam: normal inspection, normal range of motion, pelvis stable Neurologic Exam: alert, oriented x 3, 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, 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, nml cerebellar function, nml station & gait, sensation nml Skin Exam: normal color, warm, dry Lymphatic Exam: No adenopathy SpO2 Interpretation: normal SpO2: 95 O2 Delivery: Room Air - Course Nursing assessment & vital signs reviewed: Yes Ordered Tests: Medication Summary Discontinued Medications Generic Name Dose Route Start Last Admin Trade Name Freq PRN Reason Stop Dose Admin Methylprednisolone Sodium 0 mg 10/21/24 18:12 10/21/24 18:35 Succinate 125 mg/ Sterile IM 10/21/24 18:13 125 mg Water 2 ml STAT ONE Administration Fentanyl Citrate 25 mcg 10/21/24 18:11 10/21/24 18:39 Fentanyl Citrate 100 Mcg/2 Ml* Vial IM 10/21/24 18:12 25 mcg STAT ONE Administration Fentanyl Citrate Confirm 10/21/24 18:22 Fentanyl Citrate 100 Mcg/2 Ml* Vial Administered 10/21/24 18:23 Dose 100 mcg .ROUTE .STK-MED ONE Methylprednisolone Sodium Succinate Confirm 10/21/24 18:22 Methylprednis Sod Succ 125 Mg/2 Ml Vial Administered 10/21/24 18:23 Dose 125 mg .ROUTE .STK-MED ONE Orphenadrine Citrate 60 mg 10/21/24 18:12 10/21/24 18:31 Orphenadrine Citrate 60 Mg/2 Ml Vial IM 10/21/24 18:13 60 mg STAT ONE Administration Orphenadrine Citrate Confirm 10/21/24 18:21 Orphenadrine Citrate 60 Mg/2 Ml Vial Administered 10/21/24 18:22 Dose 60 mg .ROUTE .STK-MED ONE Sterile Water Confirm 10/21/24 18:21 Water For Injection,Sterile 10 Ml Vial Administered 10/21/24 18:22 Dose 10 ml IJ .STK-MED ONE - Progress Progress: improved, pain not gone completely, re-examined Progress Note: 10/21/24 18:47 My medical decision making and the assignment of low complexity to this patient's medical issue today is based on review of the patient's past medical history, reviewed the patient's medication list, reviewed patient drug allergy list, history present illness and physical findings on examination. The workup in this patient does not require any radiographic or laboratory studies. Differential diagnosis includes but is not limited to low back pain acute on chronic, muscle spasm Counseled pt/family regarding: diagnosis, need for follow-up Medical Desision Making - Diagnostic Testing Diagnostic test were ordered, analyzed, and reviewed by me: No - Risk of complications Low Risk: Low risk of morbidity from additional dx testing or treatment - Departure Departure Disposition: Home Clinical Impression: Acute on chronic low back pain, Back muscle spasm Condition: Stable Critical Care Time: No Referrals: SAHRA ADORNO NP [Primary Care Provider] - Follow up/PCP as directed Additional Instructions: Continue your outpatient medication for your back pain. Call your pain specialist and primary care provider on 10/24/2024 to make arrangement for follow-up appointment or to move an appointment up to an earlier 1.
[2024-10-21] MEDS ORDERED: Sterile H2O 10 ml IJ ONE (18:21)
[2024-10-21] MEDS ORDERED: Norflex 60 MG/2 ML ONE (18:21)
[2024-10-21] MEDS ORDERED: solu-MEDROL ONE (18:22)
[2024-10-21] MEDS ORDERED: SUBLIMAZE 100 MCG/2 ML ONE (18:22)
[2024-10-21] MEDS: Norflex 60 MG/2 ML IM ONE (18:31)
[2024-10-21] MEDS: solu-MEDROL 125 MG, Sterile H2O 10 ml 2 ML IM ONE (18:35)
[2024-10-21] MEDS: SUBLIMAZE 100 MCG/2 ML IM ONE (18:39)
[2024-10-21 18:52] VITALS: BP 196/85; PULSE 55; O2SAT 100
== END 2024-10-21 19:00 | disposition home or self-care (01) ==
LOC: ED 17:03
DX: M62.830 Muscle spasm of back (principal); G89.29 Other chronic pain; M54.50 Low back pain, unspecified; M25.552 Pain in left hip; E78.5 Hyperlipidemia, unspecified; I10 Essential (primary) hypertension; E11.42 Type 2 diabetes mellitus with diabetic polyneuropathy; Z79.891 Long term (current) use of opiate analgesic; Z79.84 Long term (current) use of oral hypoglycemic drugs; Z79.899 Other long term (current) drug therapy
CPT/HCPCS: 96372; 99283; 99284; J2360; J2919; J3010

== ENCOUNTER 2024-11-29 00:35 | Emergency (ER) | payer MEDICARE ==
--- NOTE | 2024-11-29 00:41 | ERPHSYRPT ---
- History of Present Illness Time Seen by Provider: 11/29/24 00:40 Source: patient Exam Limitations: no limitations Physician History: This is an 84-year-old white female patient who presents to the emergency department with recurrent left lower back pain and left hip pain. She did not fall or suffer any acute trauma. She has recurrent symptoms over several years. She was last seen here in our emergency department 5 weeks ago. Patient was brought to the emergency room by her son. Patient's primary care provider is nurse practitioner Lesley. On the last visit, 5 weeks ago, the patient states that she sees a back specialist and could not get into see him until the of this month. This patient has a history of migraine headaches, peripheral neuropathy, hyperlipidemia, hypertension, fibromyalgia, hypothyroidism, arthritis and gastroesophageal reflux disease. She is only wanting injections for this evening and no medication prescriptions for home. Timing/Duration: day(s) (2), worse Method of Injury: other (No injury) Back Pain Location: lumbar spine (Lumbar spine the level but pain is in the left paraspinous muscle region not on the midline spine itself), paraspinous muscles Severity of Pain-Max: moderate Severity of Pain-Current: moderate Modifying Factors: Improves With: movement Associated Symptoms: lower back pain (Left lower lumbar spine level), muscle spasms (Left lower lumbar spine level), No urinary incontinence, No loss of bowel control, No problems urinating, No numbness in legs/feet Previous symptoms: same symptoms as today, no recent treatment Allergies/Adverse Reactions: butorphanol tartrate [From Stadol] Allergy (Verified 11/29/24 00:40) celecoxib [From Celebrex] Allergy (Verified 11/29/24 00:40) Sulfa (Sulfonamide Antibiotics) Allergy (Verified 11/29/24 00:40) tizanidine [From Zanaflex] Allergy (Verified 11/29/24 00:40) Home Medications: Budesonide/Formoterol Fumarate [Symbicort 160-4.5 Mcg Inhaler] 2 puffs PO DAILY 06/25/21 [History] Fluticasone Propionate [Flonase NASAL] 2 spray IH DAILY 06/25/21 [History] Metformin HCl 500 mg [Glucophage 500 MG] 500 mg PO BID 06/25/21 [History] Omeprazole 40 mg PO DAILY 06/26/21 [History] Oxybutynin Chloride 5 mg PO BID 06/26/21 [History] lisinopriL [Lisinopril] 10 mg PO DAILY 06/26/21 [History] Hydrocodone/Acetaminophen [Hydrocodone-Acetamin 10-325 mg] 1 tab PO BID PRN 11/01/21 [History] Levothyroxine Sodium [Euthyrox] 1 tab PO DAILY 11/01/21 [History] Duloxetine HCl [Cymbalta] 60 mg PO DAILY 02/16/23 [History] Hx Tetanus, Diphtheria Vaccination/Date Given: Yes Hx Influenza Vaccination/Date Given: Yes Hx Pneumococcal Vaccination/Date Given: Yes Travel Risk - International Travel Have you traveled outside of the country in past 3 weeks: No - Emerging Infectious Disease Are you exhibiting symptoms associated with any current EIDs: No - Review of Systems Constitutional: No Symptoms Eyes: No Symptoms Ears, Nose, & Throat: No Symptoms Respiratory: No Symptoms Cardiac: No Symptoms Abdominal/Gastrointestinal: No Symptoms Genitourinary Symptoms: No Symptoms Musculoskeletal: Back Pain, No Injury Skin: No Symptoms Neurological: No Symptoms Psychological: No Symptoms Endocrine: No Symptoms Hematologic/Lymphatic: No Symptoms Immunological/Allergic: No Symptoms All Other Systems: Reviewed and Negative - Past Medical History Pertinent Past Medical History: Yes Neurological History: Migraines, Peripheral Neuropathy ENT History: Cataracts Cardiac History: High Cholesterol, Hypertension Respiratory History: COPD Endocrine Medical History: Diabetes Type II, Hypothyroidism Musculoskeletal History: Arthritis, Fibromyalgia GI Medical History: Crohns Disease, GERD, Hernia History: No Pertinent History Psycho-Social History: Depression Female Reproductive Disorders: No Pertinent History Other Medical History: SEE CHART FOR PMH AND PSH; PT. HAS HAD 2 C-SPINE SXS - Past Surgical History Past Surgical History: Yes Neuro Surgical History: No Pertinent History Cardiac: No Pertinent History Respiratory: No Pertinent History Gastrointestinal: Appendectomy, Cholecystectomy Genitourinary: No Pertinent History Musculoskeletal: Orthopedic Surgery Female Surgical History: Hysterectomy, Tubal Ligation Other Surgical History: 2nd toe right foot, fractured right shoulder, filmed lasered off right eye, gaglion cyst removed, cataracts, bunion and tumor removed left foot, bunion right foot, tonsils, microscopic anterior cervical diskectomy with interbody fusion c5-6, plate to cervical, tibia fx repair Significant Family History: no pertinent family hx - Social History Smoking Status: Never smoker Exposure to second hand smoke: No Drug Use: none - Social Determinants of Health Will the patient participate in the screening: Declined to provide - Physical Exam General Appearance: no apparent distress, alert, anxiety, thin Eye Exam: PERRL/EOMI, eyes nml inspection Ears, Nose, Throat Exam: normal ENT inspection, moist mucous membranes Neck Exam: normal inspection, non-tender, supple, full range of motion Respiratory Exam: airway intact, No chest tenderness, No respiratory distress Gastrointestinal Exam: No tenderness Pelvic Exam: not done Rectal Exam: not done Back Exam: normal inspection, normal range of motion, muscle spasm (Lumbar level left side), No vertebral tenderness Extremity Exam: normal inspection, normal range of motion, tenderness (Left hip) Neurologic Exam: alert, oriented x 3, 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, 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, nml cerebellar function, nml station & gait, sensation nml Skin Exam: normal color, warm, dry Lymphatic Exam: No adenopathy SpO2 Interpretation: normal O2 Delivery: Room Air - Course Nursing assessment & vital signs reviewed: Yes - Progress Progress: improved, pain not gone completely Progress Note: 11/29/24 00:49 My medical decision making and the assignment of low complexity to this patient's medical issue today is based on review of the patient's past medical history, review of the patient's medication list, review the patient drug allergy list, history present illness and physical findings on examination. No laboratory or radiographic studies are necessary in this patient. Differential diagnosis includes but is not limited to acute on chronic low back pain, sciatica, muscle spasms This patient does not have midline, vertebral spine tenderness. She has no urinary symptoms. She has no neurologic symptoms. She arrives to the emergency department periodically for similar symptoms only wanting symptomatic relief acutely. She will follow-up with her primary care provider today, 11/29/2024, to make arrangements for follow-up appointment for outpatient management of this pain complaint. Counseled pt/family regarding: diagnosis, need for follow-up Medical Desision Making - Diagnostic Testing Diagnostic test were ordered, analyzed, and reviewed by me: No - Risk of complications Low Risk: Low risk of morbidity from additional dx testing or treatment - Departure Departure Disposition: Home Clinical Impression: Acute exacerbation of chronic low back pain Condition: Stable Critical Care Time: No Referrals: SAHRA ADORNO NP [Primary Care Provider] - Follow up/PCP as directed Additional Instructions: Continue your outpatient medications. Call your back specialist and your primary care provider today, 11/29/2024, to make arrangement for follow-up appointment for further evaluation and management and to be seen in the next 3 to 5 days.
[2024-11-29 00:49] VITALS: TEMP 97.6
[2024-11-29] MEDS ORDERED: Sterile H2O 10 ml IJ ONE (00:56)
[2024-11-29] MEDS ORDERED: ZOFRAN ODT 4 MG ONE (00:56)
[2024-11-29] MEDS ORDERED: SUBLIMAZE 100 MCG/2 ML ONE (00:57)
[2024-11-29] MEDS ORDERED: solu-MEDROL ONE (00:58)
[2024-11-29] MEDS: SUBLIMAZE 100 MCG/2 ML IM ONE (01:01)
[2024-11-29] MEDS: solu-MEDROL 125 MG, Sterile H2O 10 ml 2 ML IM ONE (01:01)
[2024-11-29] MEDS: ZOFRAN ODT 4 MG PO ONE (01:02)
[2024-11-29 01:10] VITALS: BP 190/70
[2024-11-29 01:30] VITALS: PULSE 53; RESP 21; O2SAT 96
== END 2024-11-29 01:33 | disposition home or self-care (01) ==
LOC: ED 00:35
DX: G89.29 Other chronic pain (principal); M54.50 Low back pain, unspecified; M25.552 Pain in left hip; E78.5 Hyperlipidemia, unspecified; I10 Essential (primary) hypertension; E11.42 Type 2 diabetes mellitus with diabetic polyneuropathy; Z79.891 Long term (current) use of opiate analgesic; Z79.84 Long term (current) use of oral hypoglycemic drugs; Z79.899 Other long term (current) drug therapy
CPT/HCPCS: 96372; 99283; 99284; J2919; J3010; Q0162

== ENCOUNTER 2024-12-01 03:04 | Observation (INO) | payer MEDICARE ==
--- NOTE | 2024-12-01 03:29 | ERPHSYRPT ---
- History of Present Illness Allergies/Adverse Reactions: butorphanol tartrate [From Stadol] Allergy (Verified 12/01/24 03:13) celecoxib [From Celebrex] Allergy (Verified 12/01/24 03:13) Sulfa (Sulfonamide Antibiotics) Allergy (Verified 12/01/24 03:13) tizanidine [From Zanaflex] Allergy (Verified 12/01/24 03:13) Home Medications: Budesonide/Formoterol Fumarate [Symbicort 160-4.5 Mcg Inhaler] 2 puffs PO DAILY 06/25/21 [History] Fluticasone Propionate [Flonase NASAL] 2 spray IH DAILY 06/25/21 [History] Metformin HCl 500 mg [Glucophage 500 MG] 500 mg PO BID 06/25/21 [History] Omeprazole 40 mg PO DAILY 06/26/21 [History] Oxybutynin Chloride 5 mg PO BID 06/26/21 [History] lisinopriL [Lisinopril] 10 mg PO DAILY 06/26/21 [History] Hydrocodone/Acetaminophen [Hydrocodone-Acetamin 10-325 mg] 1 tab PO BID PRN 11/01/21 [History] Levothyroxine Sodium [Euthyrox] 1 tab PO DAILY 11/01/21 [History] Duloxetine HCl [Cymbalta] 60 mg PO DAILY 02/16/23 [History] Hx Tetanus, Diphtheria Vaccination/Date Given: Yes Hx Influenza Vaccination/Date Given: Yes Hx Pneumococcal Vaccination/Date Given: Yes Travel Risk - Emerging Infectious Disease Are you exhibiting symptoms associated with any current EIDs: No - Review of Systems Constitutional: No Symptoms, No Fever, No Chills Eyes: No Symptoms Ears, Nose, & Throat: No Symptoms Respiratory: No Symptoms, No Cough, No Dyspnea Cardiac: No Symptoms, No Chest Pain, No Edema, No Syncope Abdominal/Gastrointestinal: No Symptoms, No Abdominal Pain, No Nausea, No Vomiting, No Diarrhea Genitourinary Symptoms: No Symptoms, No Dysuria Musculoskeletal: No Symptoms, No Back Pain, No Neck Pain Skin: No Symptoms, No Rash Neurological: No Symptoms, No Dizziness, No Focal Weakness, No Sensory Changes Psychological: No Symptoms Endocrine: No Symptoms Hematologic/Lymphatic: No Symptoms Immunological/Allergic: No Symptoms All Other Systems: Reviewed and Negative - Past Medical History Pertinent Past Medical History: Yes Neurological History: Migraines, Peripheral Neuropathy ENT History: Cataracts Cardiac History: High Cholesterol, Hypertension Respiratory History: COPD Endocrine Medical History: Diabetes Type II, Hypothyroidism Musculoskeletal History: Arthritis, Fibromyalgia GI Medical History: Crohns Disease, GERD, Hernia History: No Pertinent History Psycho-Social History: Depression Female Reproductive Disorders: No Pertinent History Other Medical History: SEE CHART FOR PMH AND PSH; PT. HAS HAD 2 C-SPINE SXS - Past Surgical History Past Surgical History: Yes Neuro Surgical History: No Pertinent History Cardiac: No Pertinent History Respiratory: No Pertinent History Gastrointestinal: Appendectomy, Cholecystectomy Genitourinary: No Pertinent History Musculoskeletal: Orthopedic Surgery Female Surgical History: Hysterectomy, Tubal Ligation Other Surgical History: 2nd toe right foot, fractured right shoulder, filmed lasered off right eye, gaglion cyst removed, cataracts, bunion and tumor removed left foot, bunion right foot, tonsils, microscopic anterior cervical diskectomy with interbody fusion c5-6, plate to cervical, tibia fx repair Significant Family History: no pertinent family hx - Social History Smoking Status: Never smoker Exposure to second hand smoke: No Drug Use: none - Social Determinants of Health Will the patient participate in the screening: Declined to provide - Course Nursing assessment & vital signs reviewed: Yes EKG Interpreted by Me: RATE (66), Sinus Rhythm, NORMAL AXIS, NORMAL INTERVALS, NORMAL QRS (Multiple PVCs) Ordered Tests: Active Orders 24 hr Category Date Time Status Fourth Hand STAT Care 12/01/24 03:27 Active EKG-ER Only STAT Care 12/01/24 03:26 Active IV Insertion STAT Care 12/01/24 03:26 Active Pulse Oximetry (ED) STAT Care 12/01/24 03:26 Active ACETAMINOPHEN Stat Lab 12/01/24 03:26 Ordered CBC W DIFF Stat Lab 12/01/24 03:26 Ordered CMP Stat Lab 12/01/24 03:26 Ordered ETHYL ALCOHOL Stat Lab 12/01/24 03:26 Ordered Lactic Acid Stat Lab 12/01/24 03:26 Ordered MAG [MAGNESIUM] Stat Lab 12/01/24 03:28 Ordered SALICYLATE Stat Lab 12/01/24 03:26 Ordered UA W/RFX UR CULTURE Stat Lab 12/01/24 03:27 Ordered Urine Triage Profile Stat Lab 12/01/24 03:27 Ordered - Departure Referrals: SAHRA ADORNO, [employer] [facility] [Primary Care Provider] - Follow up/PCP as directed
[2024-12-01 03:36] LABS: Absolute Neutrophil Ct (ANC) 5.55 x10^3/uL (1.56-6.13); BASOPHIL % 0.6 % (0.1-1.2); Basophil (Absolute #) 0.05 x10^3/uL (0.01-0.08); Eosinophil % 0.9 % (0.7-5.8); Eosinophil (Absolute #) 0.07 x10^3/uL (0.04-0.36); Hematocrit 35.4 % (34.1-44.9); Hemoglobin 10.8 g/dL (11.2-15.7); IMMATURE GRAN # 0.03 x10^3u/L (0.001-0.031); IMMATURE GRAN % 0.4 % (0.001-0.429); Lymphocyte (Absolute #) 1.93 x10^3/uL (1.18-3.74); Lymphocytes % 23.7 % (19.3-51.7); Mean Corpuscular Hemoglobin 23.8 pg (25.6-32.2); Mean Corpuscular Hgb Concent. 30.5 g/dL (32.2-35.5); Mean Platelet Volume 10.3 fL (9.4-12.3); Monocyte (Absolute #) 0.53 x10^3/uL (0.24-0.86); Monocytes % 6.5 % (4.7-12.5); Neutrophil % 67.9 % (34.0-71.1); Platelet Count 220 x10^3/uL (182-369); Red Blood Count 4.54 x10^6/uL (3.93-5.22); Red Cell Distribution Width 16.3 % (11.7-14.4); White Blood Count 8.2 x10^3/uL (3.98-10.04)
[2024-12-01] MEDS ORDERED: Zofran 4 MG/2 ML VIAL ONE (03:37)
[2024-12-01] MEDS: Sodium Chloride 0.9% 1000 ML 1,000 ML IV SCH (03:40)
[2024-12-01 03:48] LABS: Appearance Clear (Clear); Bacteria None Seen /HPF (None Seen); Bilirubin Negative (Negative); Blood Negative (Negative); Epithelial Cells None Seen /HPF (None Seen); Glucose, Urine 100 mg/dL (Negative); Hyaline Casts NONE SEEN /LPF (0-2); Ketones Negative (Negative); Leukocyte Esterase Negative (Negative); Nitrite Negative (Negative); Protein,Urine Dip 30 (Negative); RBC 0-2 /HPF (0-5); Urobilinogen 0.2 mg/dL (0.2); WBC 0-2 /HPF (0-5)
[2024-12-01 03:49] LABS: ACETAMINOPHEN < 10 ug/ml (10-30); ALBUMIN 4.6 g/dL (3.5-5.0); ALKALINE PHOSPHATASE 89 U/L (38-126); ANION GAP 16.1 MEQ/L (5-15); BLOOD UREA NITROGEN 27 mg/dL (7-17); CHLORIDE 102 mmol/L (98-107); Calcium 9.7 mg/dL (8.4-10.2); Carbon Dioxide 25 mmol/L (22-30); Creatinine 1 0.61 mg/dL (0.52-1.04); EST GLOMERULAR FILTRATION RATE 87.6 ML/MIN; ETHYL ALCOHOL < 10 mg/dL (0-10); Glucose 185 mg/dL (74-106); Potassium 3.2 mmol/L (3.5-5.1); SALICYLATE < 1.0 mg/dL (2-20); SGOT/AST 28 U/L (14-36); SGPT/ALT 23 U/L (0-35); SODIUM 140 mmol/L (135-145); Total Protein 8.1 g/dL (6.3-8.2)
[2024-12-01] MEDS: Zofran 4 MG/2 ML VIAL IV ONE (03:49)
[2024-12-01 04:12] LABS: Amphetamine,Urine NEGATIVE (NEGATIVE); Barbiturate,Urine NEGATIVE (NEGATIVE); Benzodiazepine,Urine NEGATIVE (NEGATIVE); Cocaine,Urine NEGATIVE (NEGATIVE); Methadone,Urine NEGATIVE (NEGATIVE); Opiate,Urine NEGATIVE (NEGATIVE); PCP,Urine NEGATIVE (NEGATIVE); THC,Urine NEGATIVE (NEGATIVE)
--- NOTE | 2024-12-01 04:18 | ERPHSYRPT ---
- History of Present Illness Time Seen by Provider: 12/01/24 03:30 Source: patient Exam Limitations: no limitations Patient Subjective Stated Complaint: c/o overdose Triage Nursing Assessment: patient brought into ED by EMS with c/o overdose on vbaclofen. patient has an empty bottle of baclofen that should 13-14 pills left in the bottle. patient is lethargic, can tell me name and birthdate, but does not know ehere she is. patient makes eye contact to voice. Family said she took the pills and slid off the couch. skin w/n/d, hypertensive, afebrile. Physician History: Patient is an 84-year-old female presents to our emergency department via EMS for evaluation of overdose on baclofen. Patient has a history of chronic back pain. Patient states that she took her medication to ease her pain. Patient ingested the pills at 2 AM. Based on pill count patient has taken approximately 13 to 14 pills. Patient is lethargic but answers questions to verbal and tactile stimuli. Patient is protecting her airway. Portions of this note were created with voice recognition technology. There may be grammatical, spelling, punctuation or sound alike errors. Timing/Duration: today Severity: moderate Modifying Factors: Improves With: nothing Associated Symptoms: denies symptoms Allergies/Adverse Reactions: butorphanol tartrate [From Stadol] Allergy (Verified 12/01/24 03:13) celecoxib [From Celebrex] Allergy (Verified 12/01/24 03:13) Sulfa (Sulfonamide Antibiotics) Allergy (Verified 12/01/24 03:13) tizanidine [From Zanaflex] Allergy (Verified 12/01/24 03:13) Home Medications: Budesonide/Formoterol Fumarate [Symbicort 160-4.5 Mcg Inhaler] 2 puffs PO DAILY 06/25/21 [History] Fluticasone Propionate [Flonase NASAL] 2 spray IH DAILY 06/25/21 [History] Metformin HCl 500 mg [Glucophage 500 MG] 500 mg PO BID 06/25/21 [History] Omeprazole 40 mg PO DAILY 06/26/21 [History] Oxybutynin Chloride 5 mg PO BID 06/26/21 [History] lisinopriL [Lisinopril] 10 mg PO DAILY 06/26/21 [History] Hydrocodone/Acetaminophen [Hydrocodone-Acetamin 10-325 mg] 1 tab PO BID PRN 11/01/21 [History] Levothyroxine Sodium [Euthyrox] 1 tab PO DAILY 11/01/21 [History] Duloxetine HCl [Cymbalta] 60 mg PO DAILY 02/16/23 [History] Hx Tetanus, Diphtheria Vaccination/Date Given: Yes Hx Influenza Vaccination/Date Given: Yes Hx Pneumococcal Vaccination/Date Given: Yes Travel Risk - International Travel Have you traveled outside of the country in past 3 weeks: No - Emerging Infectious Disease Are you exhibiting symptoms associated with any current EIDs: No - Review of Systems Constitutional: No Symptoms, No Fever, No Chills Eyes: No Symptoms Ears, Nose, & Throat: No Symptoms Respiratory: No Symptoms, No Cough, No Dyspnea Cardiac: No Symptoms, No Chest Pain, No Edema, No Syncope Abdominal/Gastrointestinal: No Symptoms, No Abdominal Pain, No Nausea, No Vomiting, No Diarrhea Genitourinary Symptoms: No Symptoms, No Dysuria Musculoskeletal: No Symptoms, No Back Pain, No Neck Pain Skin: No Symptoms, No Rash Neurological: No Symptoms, No Dizziness, No Focal Weakness, No Sensory Changes Psychological: No Symptoms Endocrine: No Symptoms Hematologic/Lymphatic: No Symptoms Immunological/Allergic: No Symptoms All Other Systems: Reviewed and Negative - Past Medical History Pertinent Past Medical History: Yes Neurological History: Migraines, Peripheral Neuropathy ENT History: Cataracts Cardiac History: High Cholesterol, Hypertension Respiratory History: COPD Endocrine Medical History: Diabetes Type II, Hypothyroidism Musculoskeletal History: Arthritis, Fibromyalgia GI Medical History: Crohns Disease, GERD, Hernia History: No Pertinent History Psycho-Social History: Depression Female Reproductive Disorders: No Pertinent History Other Medical History: SEE CHART FOR PMH AND PSH; PT. HAS HAD 2 C-SPINE SXS - Past Surgical History Past Surgical History: Yes Neuro Surgical History: No Pertinent History Cardiac: No Pertinent History Respiratory: No Pertinent History Gastrointestinal: Appendectomy, Cholecystectomy Genitourinary: No Pertinent History Musculoskeletal: Orthopedic Surgery Female Surgical History: Hysterectomy, Tubal Ligation Other Surgical History: 2nd toe right foot, fractured right shoulder, filmed lasered off right eye, gaglion cyst removed, cataracts, bunion and tumor removed left foot, bunion right foot, tonsils, microscopic anterior cervical diskectomy with interbody fusion c5-6, plate to cervical, tibia fx repair Significant Family History: no pertinent family hx - Social History Smoking Status: Never smoker Exposure to second hand smoke: No Drug Use: none - Social Determinants of Health Will the patient participate in the screening: Declined to provide - Nursing Vital Signs Nursing Vital Signs: Initial Vital Signs Temperature 96.7 F 12/01/24 03:13 Pulse Rate 71 12/01/24 03:13 Respiratory Rate 20 12/01/24 03:13 Blood Pressure 238/116 12/01/24 03:13 O2 Sat by Pulse Oximetry 100 12/01/24 03:13 Pain Scale Pain Intensity 0 - Physical Exam General Appearance: no apparent distress, alert Eye Exam: PERRL/EOMI, eyes nml inspection Ears, Nose, Throat Exam: normal ENT inspection, pharynx normal, moist mucous membranes Neck Exam: normal inspection, non-tender, supple, full range of motion Respiratory Exam: normal breath sounds, lungs clear, No respiratory distress Cardiovascular Exam: regular rate/rhythm, normal heart sounds, normal peripheral pulses Gastrointestinal/Abdomen Exam: soft, normal bowel sounds, No tenderness, No mass Back Exam: normal inspection, normal range of motion, No CVA tenderness, No vertebral tenderness Extremity Exam: normal inspection, normal range of motion, pelvis stable Neurologic Exam: alert, oriented x 3, cooperative, normal mood/affect, sensation nml, No motor deficits Skin Exam: normal color, warm, dry, No rash Lymphatic Exam: No adenopathy SpO2 Interpretation: normal SpO2: 100 O2 Delivery: Room Air - Course Nursing assessment & vital signs reviewed: Yes EKG Interpreted by Me: RATE (66), Sinus Rhythm, NORMAL AXIS, NORMAL INTERVALS, NORMAL QRS (Multiple PVCs) - CT Exams Head CT Interpretation: Tele-radiologist Report (No acute intracranial pathology) Cervical Spine CT Interpretation: Tele-radiologist Report (No fracture or dislocation of cervical spine) Ordered Tests: Active Orders 24 hr Category Date Time Status Space Control Agent STAT Care 12/01/24 03:27 Active EKG-ER Only STAT Care 12/01/24 03:26 Active IV Insertion STAT Care 12/01/24 03:26 Active Pulse Oximetry (ED) STAT Care 12/01/24 03:26 Active Telemetry q4h Care 12/01/24 05:01 Active CERVICAL SPINE WO CONTRAST [CT] Stat Exams 12/01/24 04:18 Taken HEAD WITHOUT CONTRAST [CT] Stat Exams 12/01/24 04:17 Completed ABG [ARTERIAL BLOOD GASES] Stat Lab 12/01/24 05:00 Completed ACETAMINOPHEN Stat Lab 12/01/24 03:33 Completed CBC W DIFF Stat Lab 12/01/24 03:33 Completed CMP Stat Lab 12/01/24 03:33 Completed ETHYL ALCOHOL Stat Lab 12/01/24 03:33 Completed Lactic Acid Stat Lab 12/01/24 03:30 Completed MAG [MAGNESIUM] Stat Lab 12/01/24 03:33 Completed SALICYLATE Stat Lab 12/01/24 03:33 Completed UA W/RFX UR CULTURE Stat Lab 12/01/24 03:30 Completed Urine Triage Profile Stat Lab 12/01/24 03:30 Completed Medication Summary Generic Name Dose Route Start Last Admin Trade Name Freq PRN Reason Stop Dose Admin Sodium Chloride 1,000 mls @ 100 mls/hr 12/01/24 03:30 12/01/24 03:40 Sodium Chloride 0.9% 1000 Ml IV 12/31/24 03:29 100 mls/hr .Q10H DRISS Administration Magnesium Sulfate/Dextrose 100 mls @ 100 mls/hr 12/01/24 05:00 12/01/24 05:10 Magnesium 1 Gm / 100 Ml D5w IV 12/01/24 06:59 100 mls/hr Q1H DRISS Administration Potassium Chloride 20 meq in 100 mls @ 50 mls/hr 12/01/24 05:15 12/01/24 05:10 Potassium Chloride 20 Meq In Water 100ml IV 12/01/24 09:14 50 mls/hr Q2H DRISS Administration Discontinued Medications Generic Name Dose Route Start Last Admin Trade Name Freq PRN Reason Stop Dose Admin Ondansetron HCl 4 mg 12/01/24 03:26 12/01/24 03:49 Ondansetron Hcl 4 Mg/2 Ml Vial IV 12/01/24 03:27 4 mg STAT ONE Administration Ondansetron HCl Confirm 12/01/24 03:37 Ondansetron Hcl 4 Mg/2 Ml Vial Administered 12/01/24 03:38 Dose 4 mg .ROUTE .STK-MED ONE Lab/Rad Data: Laboratory Result Diagrams 12/01/24 03:33 12/01/24 03:33 Laboratory Results 12/01/24 12/01/24 12/01/24 Range/Units 05:00 03:33 03:33 WBC (3.98-10.04) x10^3/uL RBC (3.93-5.22) x10^6/uL Hgb (11.2-15.7) g/dL Hct (34.1-44.9) % MCV (79.4-94.8) fL MCH (25.6-32.2) pg MCHC (32.2-35.5) g/dL RDW (11.7-14.4) % Plt Count (182-369) x10^3/uL MPV (9.4-12.3) fL Gran % (34.0-71.1) % Immature Gran % (Auto) (0.001-0.429) % Nucleat RBC Rel Count (0.00-0.2) % Eos # (Auto) (0.04-0.36) x10^3/uL Immature Gran # (Auto) (0.001-0.031) x10^3u/L Absolute Lymphs (auto) (1.18-3.74) x10^3/uL Absolute Monos (auto) (0.24-0.86) x10^3/uL Absolute Nucleated RBC (0.00-0.012) x10^3u/L Lymphocytes % (19.3-51.7) % Monocytes % (4.7-12.5) % Eosinophils % (0.7-5.8) % Basophils % (0.1-1.2) % Absolute Granulocytes (1.56-6.13) x10^3/uL Basophils # (0.01-0.08) x10^3/uL Puncture Site LEFT RADIAL pCO2 44 (35-45) mmHg pO2 85 (75-100) mmHg Base Excess 3.5 H (-2.0-2.0) O2 Saturation 96.9 (94-100) g/dF ABG pH 7.42 (7.35-7.45) ABG HCO3 28.5 H (22-28) ABG O2 Sat (Measured) 98.0 (95-100) % Richard Test YES A-a Gradient 10 a/A Ratio 0.89 Hemoglobin 10.7 Carboxyhemoglobin 0.8 (0.0-6.9) % THgb Methemoglobin 0.3 L (1.4-1.5) % Temperature 37.0 C POC O2 Flow Rate 21 % Sodium 140 (135-145) mmol/L Potassium 2.9 L* 3.2 L (3.5-5.1) mmol/L Chloride 102 (98-107) mmol/L Carbon Dioxide 25 (22-30) mmol/L Anion Gap 16.1 H (5-15) MEQ/L BUN 27 H (7-17) mg/dL Creatinine 0.61 (0.52-1.04) mg/dL Estimated GFR 87.6 ML/MIN Glucose 185 H (74-106) mg/dL Lactic Acid (0.4-2.0) Calcium 9.7 (8.4-10.2) mg/dL Magnesium 1.4 L (1.6-2.3) mg/dL Total Bilirubin 0.60 (0.2-1.3) mg/dL AST 28 (14-36) U/L ALT 23 (0-35) U/L Alkaline Phosphatase 89 (38-126) U/L Serum Total Protein 8.1 (6.3-8.2) g/dL Albumin 4.6 (3.5-5.0) g/dL Urine Color (Yellow) Urine Appearance (Clear) Urine pH (4.6-8.0) Ur Specific Fowler (1.005-1.030) Urine Protein (Negative) Urine Glucose (UA) (Negative) mg/dL Urine Ketones (Negative) Urine Blood (Negative) Urine Nitrite (Negative) Urine Bilirubin (Negative) Urine Urobilinogen (0.2) mg/dL Ur Leukocyte Esterase (Negative) U Hyaline Cast (Auto) (0-2) /LPF Urine Microscopic RBC (0-5) /HPF Urine Microscopic WBC (0-5) /HPF Ur Epithelial Cells (None Seen) /HPF Urine Bacteria (None Seen) /HPF Urine Culture Reflexed (NO) Salicylates < 1.0 L (2-20) mg/dL Urine Opiates Level (NEGATIVE) Ur Methadone (NEGATIVE) Acetaminophen < 10 L (10-30) ug/ml Urine Barbiturates (NEGATIVE) Ur Phencyclidine (PCP) (NEGATIVE) Urine Amphetamine (NEGATIVE) U Benzodiazepine Level (NEGATIVE) Urine Cocaine (NEGATIVE) Urine Marijuana (THC) (NEGATIVE) Ethyl Alcohol < 10 (0-10) mg/dL 12/01/24 12/01/24 12/01/24 Range/Units 03:33 03:30 03:30 WBC 8.2 (3.98-10.04) x10^3/uL RBC 4.54 (3.93-5.22) x10^6/uL Hgb 10.8 L (11.2-15.7) g/dL Hct 35.4 (34.1-44.9) % MCV 78.0 L (79.4-94.8) fL MCH 23.8 L (25.6-32.2) pg MCHC 30.5 L (32.2-35.5) g/dL RDW 16.3 H (11.7-14.4) % Plt Count 220 (182-369) x10^3/uL MPV 10.3 (9.4-12.3) fL Gran % 67.9 (34.0-71.1) % Immature Gran % (Auto) 0.4 (0.001-0.429) % Nucleat RBC Rel Count 0.0 (0.00-0.2) % Eos # (Auto) 0.07 (0.04-0.36) x10^3/uL Immature Gran # (Auto) 0.03 (0.001-0.031) x10^3u/L Absolute Lymphs (auto) 1.93 (1.18-3.74) x10^3/uL Absolute Monos (auto) 0.53 (0.24-0.86) x10^3/uL Absolute Nucleated RBC 0.00 (0.00-0.012) x10^3u/L Lymphocytes % 23.7 (19.3-51.7) % Monocytes % 6.5 (4.7-12.5) % Eosinophils % 0.9 (0.7-5.8) % Basophils % 0.6 (0.1-1.2) % Absolute Granulocytes 5.55 (1.56-6.13) x10^3/uL Basophils # 0.05 (0.01-0.08) x10^3/uL Puncture Site pCO2 (35-45) mmHg pO2 (75-100) mmHg Base Excess (-2.0-2.0) O2 Saturation (94-100) g/dF ABG pH (7.35-7.45) ABG HCO3 (22-28) ABG O2 Sat (Measured) (95-100) % Richard Test A-a Gradient a/A Ratio Hemoglobin Carboxyhemoglobin (0.0-6.9) % THgb Methemoglobin (1.4-1.5) % Temperature C POC O2 Flow Rate % Sodium (135-145) mmol/L Potassium (3.5-5.1) mmol/L Chloride (98-107) mmol/L Carbon Dioxide (22-30) mmol/L Anion Gap (5-15) MEQ/L BUN (7-17) mg/dL Creatinine (0.52-1.04) mg/dL Estimated GFR ML/MIN Glucose (74-106) mg/dL Lactic Acid (0.4-2.0) Calcium (8.4-10.2) mg/dL Magnesium (1.6-2.3) mg/dL Total Bilirubin (0.2-1.3) mg/dL AST (14-36) U/L ALT (0-35) U/L Alkaline Phosphatase (38-126) U/L Serum Total Protein (6.3-8.2) g/dL Albumin (3.5-5.0) g/dL Urine Color Yellow (Yellow) Urine Appearance Clear (Clear) Urine pH 7.0 (4.6-8.0) Ur Specific Fowler 1.010 (1.005-1.030) Urine Protein 30 (Negative) Urine Glucose (UA) 100 A (Negative) mg/dL Urine Ketones Negative (Negative) Urine Blood Negative (Negative) Urine Nitrite Negative (Negative) Urine Bilirubin Negative (Negative) Urine Urobilinogen 0.2 (0.2) mg/dL Ur Leukocyte Esterase Negative (Negative) U Hyaline Cast (Auto) NONE SEEN (0-2) /LPF Urine Microscopic RBC 0-2 (0-5) /HPF Urine Microscopic WBC 0-2 (0-5) /HPF Ur Epithelial Cells None Seen (None Seen) /HPF Urine Bacteria None Seen (None Seen) /HPF Urine Culture Reflexed NO (NO) Salicylates (2-20) mg/dL Urine Opiates Level NEGATIVE (NEGATIVE) Ur Methadone NEGATIVE (NEGATIVE) Acetaminophen (10-30) ug/ml Urine Barbiturates NEGATIVE (NEGATIVE) Ur Phencyclidine (PCP) NEGATIVE (NEGATIVE) Urine Amphetamine NEGATIVE (NEGATIVE) U Benzodiazepine Level NEGATIVE (NEGATIVE) Urine Cocaine NEGATIVE (NEGATIVE) Urine Marijuana (THC) NEGATIVE (NEGATIVE) Ethyl Alcohol (0-10) mg/dL 12/01/24 Range/Units 03:30 WBC (3.98-10.04) x10^3/uL RBC (3.93-5.22) x10^6/uL Hgb (11.2-15.7) g/dL Hct (34.1-44.9) % MCV (79.4-94.8) fL MCH (25.6-32.2) pg MCHC (32.2-35.5) g/dL RDW (11.7-14.4) % Plt Count (182-369) x10^3/uL MPV (9.4-12.3) fL Gran % (34.0-71.1) % Immature Gran % (Auto) (0.001-0.429) % Nucleat RBC Rel Count (0.00-0.2) % Eos # (Auto) (0.04-0.36) x10^3/uL Immature Gran # (Auto) (0.001-0.031) x10^3u/L Absolute Lymphs (auto) (1.18-3.74) x10^3/uL Absolute Monos (auto) (0.24-0.86) x10^3/uL Absolute Nucleated RBC (0.00-0.012) x10^3u/L Lymphocytes % (19.3-51.7) % Monocytes % (4.7-12.5) % Eosinophils % (0.7-5.8) % Basophils % (0.1-1.2) % Absolute Granulocytes (1.56-6.13) x10^3/uL Basophils # (0.01-0.08) x10^3/uL Puncture Site pCO2 (35-45) mmHg pO2 (75-100) mmHg Base Excess (-2.0-2.0) O2 Saturation (94-100) g/dF ABG pH (7.35-7.45) ABG HCO3 (22-28) ABG O2 Sat (Measured) (95-100) % Richard Test A-a Gradient a/A Ratio Hemoglobin Carboxyhemoglobin (0.0-6.9) % THgb Methemoglobin (1.4-1.5) % Temperature C POC O2 Flow Rate % Sodium (135-145) mmol/L Potassium (3.5-5.1) mmol/L Chloride (98-107) mmol/L Carbon Dioxide (22-30) mmol/L Anion Gap (5-15) MEQ/L BUN (7-17) mg/dL Creatinine (0.52-1.04) mg/dL Estimated GFR ML/MIN Glucose (74-106) mg/dL Lactic Acid 1.4 (0.4-2.0) Calcium (8.4-10.2) mg/dL Magnesium (1.6-2.3) mg/dL Total Bilirubin (0.2-1.3) mg/dL AST (14-36) U/L ALT (0-35) U/L Alkaline Phosphatase (38-126) U/L Serum Total Protein (6.3-8.2) g/dL Albumin (3.5-5.0) g/dL Urine Color (Yellow) Urine Appearance (Clear) Urine pH (4.6-8.0) Ur Specific Fowler (1.005-1.030) Urine Protein (Negative) Urine Glucose (UA) (Negative) mg/dL Urine Ketones (Negative) Urine Blood (Negative) Urine Nitrite (Negative) Urine Bilirubin (Negative) Urine Urobilinogen (0.2) mg/dL Ur Leukocyte Esterase (Negative) U Hyaline Cast (Auto) (0-2) /LPF Urine Microscopic RBC (0-5) /HPF Urine Microscopic WBC (0-5) /HPF Ur Epithelial Cells (None Seen) /HPF Urine Bacteria (None Seen) /HPF Urine Culture Reflexed (NO) Salicylates (2-20) mg/dL Urine Opiates Level (NEGATIVE) Ur Methadone (NEGATIVE) Acetaminophen (10-30) ug/ml Urine Barbiturates (NEGATIVE) Ur Phencyclidine (PCP) (NEGATIVE) Urine Amphetamine (NEGATIVE) U Benzodiazepine Level (NEGATIVE) Urine Cocaine (NEGATIVE) Urine Marijuana (THC) (NEGATIVE) Ethyl Alcohol (0-10) mg/dL - Progress Progress: improved Progress Note: 84-year-old female presents to our ED via EMS for evaluation of baclofen overdose. Patient took approximately 13 to 14 pills of baclofen. Patient reports she took her pills at approximately 2 AM due to acute on chronic back pain. Family reports that patient slid off her couch. No BHT or LOC. CT head and cervical spine negative for acute pathology. No fracture or dislocations. Laboratory workup reveals hypokalemia. Patient receiving magnesium and K rider. Patient observed in our ED for several hours. Patient is maintaining a normal O2 sat on room air. Patient is lethargic but arousable to verbal and tactile stimulation. Per poison control patient will need to be monitored for at least 6 hours. Patient is about 4 hours into her observation. Patient will require hospitalization for further evaluation and treatment. Case discussed with hospitalist who accepts admission to observation. Portions of this note were created with voice recognition technology. There may be grammatical, spelling, punctuation or sound alike errors Complexity of problem addressed is moderate acute complicated. No critical care time. Complexity of data reviewed and analyzed as extensive. Test ordered test reviewed results analyzed and correlated clinically with history and physical exam. Risk of complication and or risk of morbidity/mortality of patient management is high. Patient requires hospitalization for further evaluation and treatment. Vitals are stable. Plan of care established for shared decision making. No social determinants of health present to impede follow-up. Portions of this note were created with voice recognition technology. There may be grammatical, spelling, punctuation or sound alike errors 12/01/24 05:37 accepts admission at 6:10 AM 12/01/24 06:11 Counseled pt/family regarding: lab results, diagnosis - Departure Departure Disposition: Observation Clinical Impression: Baclofen overdose, Hypokalemia, Hypertension, Nausea and vomiting Condition: Stable Critical Care Time: No Referrals: SAHRA ADORNO NP [Primary Care Provider] - Follow up/PCP as directed
--- NOTE | 2024-12-01 05:02 | XRAY ---
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 CT scan was performed according to ALARA (as low as reasonable achievable). FINDINGS: There is cerebral atrophy. No evidence of space occupying lesion, hemorrhage, edema, mass effect, midline shift, extra axial collection, or hydrocephalus is noted. Basal cisterns are symmetric and normal in size and configuration. There are scattered periventricular hypodensities as can be seen with chronic microvascular ischemic changes. The shine-white matter differentiation is preserved. Visualized paranasal sinuses and mastoid air cells are well aerated. Orbital contents are within normal limits. Bony structures are intact. IMPRESSION: 1. No evidence of acute intracranial abnormality is demonstrated. 2. Chronic microvascular ischemic changes. 3. Cerebral atrophy. No other new interval abnormality since prior study. Electronically Signed by: Ayaz Gore MD. (12/01/2024 04:58:09 EDT)
[2024-12-01 05:08] LABS: A-aADO2 10; ABG HEMOGLOBIN 10.7; ARTERIAL BLOOD GAS BASE EXCESS 3.5 (-2.0-2.0); ARTERIAL BLOOD GAS FIO2 21 %; ARTERIAL BLOOD GAS PCO2 44 mmHg (35-45); ARTERIAL BLOOD GAS PO2 85 mmHg (75-100); ARTERIAL BLOOD GAS pH 7.42 (7.35-7.45); CARBOXYHEMOGLOBIN 0.8 % THgb (0.0-6.9); HCO3- 28.5 (22-28); HGB O2 SAT 96.9 g/dF (94-100); Methhemoglobin 0.3 % (1.4-1.5); paO2 pAO1 0.89
[2024-12-01] MEDS ORDERED: Magnesium 1 Gm / 100 Ml D5W*** 100 ML IV ONE ×2 (05:08→05:46)
[2024-12-01 05:09] LABS: ABG POTASSIUM 2.9 (3.5-5.1); ABG SITE LEFT RADIAL; ALLEN TEST OK? YES
[2024-12-01] MEDS: Magnesium 1 Gm / 100 Ml D5W*** 100 ML IV SCH (05:10)
[2024-12-01] MEDS: POTASSIUM CHLORIDE 20 mEq IN WATER 100ML 20 MEQ/100 ML BAG IV SCH (05:10)
--- NOTE | 2024-12-01 05:27 | XRAY ---
CLINICAL HISTORY: trauma COMPARISON: none TECHNIQUE: Computed tomography of the cervical spine performed without intravenous contrast. Contiguous axial images were obtained from the skull base to T2, with sagittal and coronal reformatted images reconstructed from the axial data. CT scan was performed according to ALARA (as low as reasonable achievable). FINDINGS: Degenerative changes in the form of multilevel disc osteophyte complexes and facetal joint arthropathy on left side at few cervical levels. Loss of normal cervical lordotic curvature and curvature of cervical spine towards right side. status post operative fusion of C4 and C5 vertebral bodies with screw fixation. Rest of the cervical vertebral bodies are normal in height and alignment, with no evidence of fracture or subluxation. Lateral masses of C1 are symmetrical, and the dens is intact. Prevertebral soft tissues are not widened. The remaining suprahyoid and infrahyoid soft tissues in the neck are unremarkable. C2-C3: No disc bulge, mass effect on the cord or neuroforaminal narrowing. C3-C4: Diffuse disc bulge is seen with focal ligamentum flavum calcification on left side, no mass effect on the cord or neuroforaminal narrowing. C4-C5: Fusion of C4- C5 vertebrae. C5-C6: Decreased intervertebral disc height with end plate changes of adjacent vertebrae with posterior discal calcification indenting the ventral thecal sac. No mass effect on the cord or neuroforaminal narrowing. C6-C7: Decreased intervertebral disc height with end plate changes of adjacent vertebrae with posterior discal calcification indenting the ventral thecal sac, No mass effect on the cord.mild left neuroforaminal narrowing. C7-T1: Decreased intervertebral disc height with grade I retrolisthesis of C7 over T1 vertebra. pseudo disc bulge with No mass effect on the cord or neuroforaminal narrowing. Thyroid gland appears unremarkable. IMPRESSION: 1.No acute fracture or subluxation in the cervical spine 2.Extensive degenerative changes with post fusion of C4-C5 vertebra as described above. Electronically Signed by: Ayaz Gore MD. (12/01/2024 05:23:47 EDT)
--- NOTE | 2024-12-01 08:29 | PCM.HP ---
History of Present Illness - Chief Complaint Chief Complaint: Baclofen overdose, hypokalemia Date: 12/01/24 History of Present Illness: is a 84 year old female with a PMHX of chronic back pain, fibromyalgia, T2DM, GERD, Depression, and COPD who presented to the ED via EMS 12/01/24 after reportedly ingesting 1314 baclofen tablets around 2:00 AM in an attempt to manage [id number] back pain. She denies suicidal intent, and family confirms the event appeared unintentional after finding her lethargic following a slide off the couch. There was no loss of consciousness or head trauma. CT of the head and cervical spine were negative for acute findings, including no fractures or intracranial pathology. On arrival, she was lethargic but arousable to verbal and tactile stimuli, oriented to self. She remains mildly lethargic but is alert and stable. Vital signs have been stable aside from elevated blood pressure. Lab work revealed hypokalemia and hypomagnesemia, both currently being repleted. She is now approximately 5 hours into observation. Per Poison Control, she requires a minimum of 8 hours of monitoring. No seizures have occurred. Admit for Baclofen toxicity monitoring and electrolyte replenishment. - Review of Systems All Other Systems: Unable due to condition Medications & Allergies Home Medications: Home Medication List Budesonide/Formoterol Fumarate [Symbicort 160-4.5 Mcg Inhaler] 2 puffs PO DAILY 06/25/21 [History Confirmed 02/16/23] Fluticasone Propionate [Flonase NASAL] 2 spray IH DAILY 06/25/21 [History Confirmed 02/16/23] Metformin HCl 500 mg [Glucophage 500 MG] 500 mg PO BID 06/25/21 [History Confirmed 02/16/23] Omeprazole 40 mg PO DAILY 06/26/21 [History Confirmed 12/01/24] Oxybutynin Chloride 5 mg PO TID 06/26/21 [History Confirmed 12/01/24] lisinopriL [Lisinopril] 10 mg PO DAILY 06/26/21 [History Confirmed 02/16/23] Hydrocodone/Acetaminophen [Hydrocodone-Acetamin 10-325 mg] 1 tab PO BID PRN 11/01/21 [History Confirmed 02/16/23] Duloxetine HCl [Cymbalta] 60 mg PO DAILY 02/16/23 [History Confirmed 02/16/23] Baclofen 5 mg PO DAILY PRN PRN 12/01/24 [History Confirmed 12/01/24] Cholecalciferol (Vitamin D3) [Vitamin D3] 50 mcg PO DAILY 12/01/24 [History Confirmed 12/01/24] Levothyroxine Sodium 25 Mcg [Synthroid 25 Mcg] 25 mcg PO DAILY 12/01/24 [History Confirmed 12/01/24] Allergies/Adverse Reactions: Allergies Allergy/AdvReac Type Severity Reaction Status Date / Time butorphanol tartrate Allergy Verified 12/01/24 03:13 [From Stadol] celecoxib [From Celebrex] Allergy Verified 12/01/24 03:13 Sulfa (Sulfonamide Allergy Verified 12/01/24 03:13 Antibiotics) tizanidine [From Zanaflex] Allergy Verified 12/01/24 03:13 - Past Medical History Past Medical History: Yes Neurological History: Migraines, Peripheral Neuropathy ENT History: Cataracts Cardiac History: High Cholesterol, Hypertension Respiratory History: COPD Endocrine Medical History: Diabetes Type II, Hypothyroidism Musculoskelatal History: Arthritis, Fibromyalgia GI Medical History: Crohns Disease, GERD, Hernia History: No Pertinent History Pyscho-Social History: Depression Reproductive Disorders: No Pertinent History Comment: SEE CHART FOR PMH AND PSH; PT. HAS HAD 2 C-SPINE SXS - Past Surgical History Past Surgical History: Yes Neuro Surgical History: No Pertinent History Cardiac History: No Pertinent History Respiratory Surgery: No Pertinent History GI Surgical History: Appendectomy, Cholecystectomy Genitourinary Surgical Hx: No Pertinent History Musculskeletal Surgical Hx: Orthopedic Surgery Female Surgical History: Hysterectomy, Tubal Ligation Other Surgical History: 2nd toe right foot, fractured right shoulder, filmed lasered off right eye, gaglion cyst removed, cataracts, bunion and tumor removed left foot, bunion right foot, tonsils, microscopic anterior cervical diskectomy with interbody fusion c5-6, plate to cervical, tibia fx repair Significant Family History: no pertinent family hx - Social History Smoking Status: Unknown if ever smoked Exposure to second hand smoke: No Alcohol: None Drug Use: none - Social Determinants of Health Will the patient participate in the screening: Unable to obtain Do you worry about a steady place to live?: No In the past 12 months,have you had to go without utilities?: No Have you or anyone in your house had to go without enough: No Transportation Issues: No Has anyone in your support network made you feel unsafe?: No - Physical Exam Vital Signs: Vital Signs - 24 hr Temp Pulse Resp BP BP Pulse Ox 12/01/24 07:39 96.8 F 54 L 12 198/85 99 12/01/24 07:17 96.8 F 57 L 14 198/85 100 12/01/24 06:50 208/84 12/01/24 06:48 57 L 14 211/81 99 12/01/24 06:40 57 L 6 L 149/100 12/01/24 06:31 60 19 197/95 100 12/01/24 06:20 59 L 12 201/81 96 12/01/24 06:11 100 12/01/24 06:10 55 L 16 187/82 100 12/01/24 06:00 57 L 19 192/84 100 12/01/24 05:50 60 13 206/97 12/01/24 05:40 60 10 L 199/100 12/01/24 05:30 62 19 204/86 12/01/24 05:20 57 L 10 L 192/83 12/01/24 05:10 68 26 H 210/80 12/01/24 05:00 58 L 13 217/94 100 12/01/24 04:45 61 10 L 199/80 12/01/24 04:41 59 L 12 192/77 12/01/24 04:15 59 L 7 L 191/78 100 12/01/24 04:00 59 L 14 225/80 100 12/01/24 03:54 59 L 16 233/103 98 12/01/24 03:30 99 12/01/24 03:29 63 24 229/94 99 12/01/24 03:13 96.7 F 71 20 238/116 100 General Appearance: lethargy Neurologic Exam: alert, cooperative, confusion Eye Exam: PERRL/EOMI Ears, Nose, Throat Exam: normal ENT inspection Neck Exam: normal inspection Respiratory Exam: normal breath sounds, lungs clear Cardiovascular Exam: bradycardia Gastrointestinal/Abdomen Exam: soft, normal bowel sounds Pelvic Exam: not done Rectal Exam: deferred Back Exam: normal inspection Extremity Exam: normal inspection Skin Exam: normal color Results - Labs Lab/Micro Results: Lab Results-Last 24 Hours 12/01/24 12/01/24 12/01/24 Range/Units 03:30 03:30 03:30 WBC (3.98-10.04) x10^3/uL RBC (3.93-5.22) x10^6/uL Hgb (11.2-15.7) g/dL Hct (34.1-44.9) % MCV (79.4-94.8) fL MCH (25.6-32.2) pg MCHC (32.2-35.5) g/dL RDW (11.7-14.4) % Plt Count (182-369) x10^3/uL MPV (9.4-12.3) fL Gran % (34.0-71.1) % Immature Gran % (Auto) (0.001-0.429) % Nucleat RBC Rel Count (0.00-0.2) % Eos # (Auto) (0.04-0.36) x10^3/uL Immature Gran # (Auto) (0.001-0.031) x10^3u/L Absolute Lymphs (auto) (1.18-3.74) x10^3/uL Absolute Monos (auto) (0.24-0.86) x10^3/uL Absolute Nucleated RBC (0.00-0.012) x10^3u/L Lymphocytes % (19.3-51.7) % Monocytes % (4.7-12.5) % Eosinophils % (0.7-5.8) % Basophils % (0.1-1.2) % Absolute Granulocytes (1.56-6.13) x10^3/uL Basophils # (0.01-0.08) x10^3/uL Puncture Site pCO2 (35-45) mmHg pO2 (75-100) mmHg Base Excess (-2.0-2.0) O2 Saturation (94-100) g/dF ABG pH (7.35-7.45) ABG HCO3 (22-28) ABG O2 Sat (Measured) (95-100) % Richard Test A-a Gradient a/A Ratio Hemoglobin Carboxyhemoglobin (0.0-6.9) % THgb Methemoglobin (1.4-1.5) % Temperature C POC O2 Flow Rate % Sodium (135-145) mmol/L Potassium (3.5-5.1) mmol/L Chloride (98-107) mmol/L Carbon Dioxide (22-30) mmol/L Anion Gap (5-15) MEQ/L BUN (7-17) mg/dL Creatinine (0.52-1.04) mg/dL Estimated GFR ML/MIN Glucose (74-106) mg/dL Lactic Acid 1.4 (0.4-2.0) Calcium (8.4-10.2) mg/dL Magnesium (1.6-2.3) mg/dL Total Bilirubin (0.2-1.3) mg/dL AST (14-36) U/L ALT (0-35) U/L Alkaline Phosphatase (38-126) U/L Serum Total Protein (6.3-8.2) g/dL Albumin (3.5-5.0) g/dL Urine Color Yellow (Yellow) Urine Appearance Clear (Clear) Urine pH 7.0 (4.6-8.0) Ur Specific [place] 1.010 (1.005-1.030) Urine Protein 30 (Negative) Urine Glucose (UA) 100 A (Negative) mg/dL Urine Ketones Negative (Negative) Urine Blood Negative (Negative) Urine Nitrite Negative (Negative) Urine Bilirubin Negative (Negative) Urine Urobilinogen 0.2 (0.2) mg/dL Ur Leukocyte Esterase Negative (Negative) U Hyaline Cast (Auto) NONE SEEN (0-2) /LPF Urine Microscopic RBC 0-2 (0-5) /HPF Urine Microscopic WBC 0-2 (0-5) /HPF Ur Epithelial Cells None Seen (None Seen) /HPF Urine Bacteria None Seen (None Seen) /HPF Urine Culture Reflexed NO (NO) Salicylates (2-20) mg/dL Urine Opiates Level NEGATIVE (NEGATIVE) Ur Methadone NEGATIVE (NEGATIVE) Acetaminophen (10-30) ug/ml Urine Barbiturates NEGATIVE (NEGATIVE) Ur Phencyclidine (PCP) NEGATIVE (NEGATIVE) Urine Amphetamine NEGATIVE (NEGATIVE) U Benzodiazepine Level NEGATIVE (NEGATIVE) Urine Cocaine NEGATIVE (NEGATIVE) Urine Marijuana (THC) NEGATIVE (NEGATIVE) Ethyl Alcohol (0-10) mg/dL 12/01/24 12/01/24 12/01/24 Range/Units 03:33 03:33 03:33 WBC 8.2 (3.98-10.04) x10^3/uL RBC 4.54 (3.93-5.22) x10^6/uL Hgb 10.8 L (11.2-15.7) g/dL Hct 35.4 (34.1-44.9) % MCV 78.0 L (79.4-94.8) fL MCH 23.8 L (25.6-32.2) pg MCHC 30.5 L (32.2-35.5) g/dL RDW 16.3 H (11.7-14.4) % Plt Count 220 (182-369) x10^3/uL MPV 10.3 (9.4-12.3) fL Gran % 67.9 (34.0-71.1) % Immature Gran % (Auto) 0.4 (0.001-0.429) % Nucleat RBC Rel Count 0.0 (0.00-0.2) % Eos # (Auto) 0.07 (0.04-0.36) x10^3/uL Immature Gran # (Auto) 0.03 (0.001-0.031) x10^3u/L Absolute Lymphs (auto) 1.93 (1.18-3.74) x10^3/uL Absolute Monos (auto) 0.53 (0.24-0.86) x10^3/uL Absolute Nucleated RBC 0.00 (0.00-0.012) x10^3u/L Lymphocytes % 23.7 (19.3-51.7) % Monocytes % 6.5 (4.7-12.5) % Eosinophils % 0.9 (0.7-5.8) % Basophils % 0.6 (0.1-1.2) % Absolute Granulocytes 5.55 (1.56-6.13) x10^3/uL Basophils # 0.05 (0.01-0.08) x10^3/uL Puncture Site pCO2 (35-45) mmHg pO2 (75-100) mmHg Base Excess (-2.0-2.0) O2 Saturation (94-100) g/dF ABG pH (7.35-7.45) ABG HCO3 (22-28) ABG O2 Sat (Measured) (95-100) % Richard Test A-a Gradient a/A Ratio Hemoglobin Carboxyhemoglobin (0.0-6.9) % THgb Methemoglobin (1.4-1.5) % Temperature C POC O2 Flow Rate % Sodium 140 (135-145) mmol/L Potassium 3.2 L (3.5-5.1) mmol/L Chloride 102 (98-107) mmol/L Carbon Dioxide 25 (22-30) mmol/L Anion Gap 16.1 H (5-15) MEQ/L BUN 27 H (7-17) mg/dL Creatinine 0.61 (0.52-1.04) mg/dL Estimated GFR 87.6 ML/MIN Glucose 185 H (74-106) mg/dL Lactic Acid (0.4-2.0) Calcium 9.7 (8.4-10.2) mg/dL Magnesium 1.4 L (1.6-2.3) mg/dL Total Bilirubin 0.60 (0.2-1.3) mg/dL AST 28 (14-36) U/L ALT 23 (0-35) U/L Alkaline Phosphatase 89 (38-126) U/L Serum Total Protein 8.1 (6.3-8.2) g/dL Albumin 4.6 (3.5-5.0) g/dL Urine Color (Yellow) Urine Appearance (Clear) Urine pH (4.6-8.0) Ur Specific [place] (1.005-1.030) Urine Protein (Negative) Urine Glucose (UA) (Negative) mg/dL Urine Ketones (Negative) Urine Blood (Negative) Urine Nitrite (Negative) Urine Bilirubin (Negative) Urine Urobilinogen (0.2) mg/dL Ur Leukocyte Esterase (Negative) U Hyaline Cast (Auto) (0-2) /LPF Urine Microscopic RBC (0-5) /HPF Urine Microscopic WBC (0-5) /HPF Ur Epithelial Cells (None Seen) /HPF Urine Bacteria (None Seen) /HPF Urine Culture Reflexed (NO) Salicylates < 1.0 L (2-20) mg/dL Urine Opiates Level (NEGATIVE) Ur Methadone (NEGATIVE) Acetaminophen < 10 L (10-30) ug/ml Urine Barbiturates (NEGATIVE) Ur Phencyclidine (PCP) (NEGATIVE) Urine Amphetamine (NEGATIVE) U Benzodiazepine Level (NEGATIVE) Urine Cocaine (NEGATIVE) Urine Marijuana (THC) (NEGATIVE) Ethyl Alcohol < 10 (0-10) mg/dL 12/01/24 Range/Units 05:00 WBC (3.98-10.04) x10^3/uL RBC (3.93-5.22) x10^6/uL Hgb (11.2-15.7) g/dL Hct (34.1-44.9) % MCV (79.4-94.8) fL MCH (25.6-32.2) pg MCHC (32.2-35.5) g/dL RDW (11.7-14.4) % Plt Count (182-369) x10^3/uL MPV (9.4-12.3) fL Gran % (34.0-71.1) % Immature Gran % (Auto) (0.001-0.429) % Nucleat RBC Rel Count (0.00-0.2) % Eos # (Auto) (0.04-0.36) x10^3/uL Immature Gran # (Auto) (0.001-0.031) x10^3u/L Absolute Lymphs (auto) (1.18-3.74) x10^3/uL Absolute Monos (auto) (0.24-0.86) x10^3/uL Absolute Nucleated RBC (0.00-0.012) x10^3u/L Lymphocytes % (19.3-51.7) % Monocytes % (4.7-12.5) % Eosinophils % (0.7-5.8) % Basophils % (0.1-1.2) % Absolute Granulocytes (1.56-6.13) x10^3/uL Basophils # (0.01-0.08) x10^3/uL Puncture Site LEFT RADIAL pCO2 44 (35-45) mmHg pO2 85 (75-100) mmHg Base Excess 3.5 H (-2.0-2.0) O2 Saturation 96.9 (94-100) g/dF ABG pH 7.42 (7.35-7.45) ABG HCO3 28.5 H (22-28) ABG O2 Sat (Measured) 98.0 (95-100) % Richard Test YES A-a Gradient 10 a/A Ratio 0.89 Hemoglobin 10.7 Carboxyhemoglobin 0.8 (0.0-6.9) % THgb Methemoglobin 0.3 L (1.4-1.5) % Temperature 37.0 C POC O2 Flow Rate 21 % Sodium (135-145) mmol/L Potassium 2.9 L* (3.5-5.1) mmol/L Chloride (98-107) mmol/L Carbon Dioxide (22-30) mmol/L Anion Gap (5-15) MEQ/L BUN (7-17) mg/dL Creatinine (0.52-1.04) mg/dL Estimated GFR ML/MIN Glucose (74-106) mg/dL Lactic Acid (0.4-2.0) Calcium (8.4-10.2) mg/dL Magnesium (1.6-2.3) mg/dL Total Bilirubin (0.2-1.3) mg/dL AST (14-36) U/L ALT (0-35) U/L Alkaline Phosphatase (38-126) U/L Serum Total Protein (6.3-8.2) g/dL Albumin (3.5-5.0) g/dL Urine Color (Yellow) Urine Appearance (Clear) Urine pH (4.6-8.0) Ur Specific [place] (1.005-1.030) Urine Protein (Negative) Urine Glucose (UA) (Negative) mg/dL Urine Ketones (Negative) Urine Blood (Negative) Urine Nitrite (Negative) Urine Bilirubin (Negative) Urine Urobilinogen (0.2) mg/dL Ur Leukocyte Esterase (Negative) U Hyaline Cast (Auto) (0-2) /LPF Urine Microscopic RBC (0-5) /HPF Urine Microscopic WBC (0-5) /HPF Ur Epithelial Cells (None Seen) /HPF Urine Bacteria (None Seen) /HPF Urine Culture Reflexed (NO) Salicylates (2-20) mg/dL Urine Opiates Level (NEGATIVE) Ur Methadone (NEGATIVE) Acetaminophen (10-30) ug/ml Urine Barbiturates (NEGATIVE) Ur Phencyclidine (PCP) (NEGATIVE) Urine Amphetamine (NEGATIVE) U Benzodiazepine Level (NEGATIVE) Urine Cocaine (NEGATIVE) Urine Marijuana (THC) (NEGATIVE) Ethyl Alcohol (0-10) mg/dL - Radiology Impressions Radiology Exams & Impressions: Radiology Procedures Category Date Time Status CERVICAL SPINE WO CONTRAST [CT] Stat Exams 12/01/24 04:18 Completed HEAD WITHOUT CONTRAST [CT] Stat Exams 12/01/24 04:17 Completed Assessment/Plan (1) Baclofen overdose Current Visit: Yes Status: Acute Assessment & Plan: -Poison control contacted- pt ingested approximately 13-14 pills; Plan includes hydration; advised to monitor for seizures - do not use keppra for treatment - use benzodiazepines -Monitor mental status, airway, vitals closely under ICU observation -do not treat HTN -continue to update poison control of status and further recommendations -IVF Code(s): T42.8X1A - POISN BY ANTIPARKNS DRUG/CENTR MUSC-TONE DEPR, ACC, INIT (2) Hypomagnesemia Current Visit: No Status: Acute Assessment & Plan: -Magnesium reviewed at 1.4- replenished in ED with 2 grams of Mag sulfate- recheck in the a.m. Code(s): E83.42 - HYPOMAGNESEMIA (3) Hypokalemia Current Visit: Yes Status: Acute Assessment & Plan: -Potassium reviewed at 3.2- replenished in ED with 40 meq of potassium - will recheck 2 hours post infusion -tele -monitor renal/lytes Code(s): E87.6 - HYPOKALEMIA (4) Type 2 diabetes mellitus Current Visit: Yes Status: Acute Assessment & Plan: -NPO for now- ADA diet with lethargy improves and bedside swallow eval completed -accuchecks q4h -SSI once diet resumes (5) Chronic back pain Current Visit: Yes Status: Acute Assessment & Plan: -Hold pain meds for now Code(s): M54.9 - DORSALGIA, UNSPECIFIED; G89.29 - OTHER CHRONIC PAIN (6) HTN (hypertension) Current Visit: Yes Status: Acute Assessment & Plan: -Hold meds for now per poison control Code(s): I10 - ESSENTIAL (PRIMARY) HYPERTENSION (7) GERD (gastroesophageal reflux disease) Current Visit: Yes Status: Acute Assessment & Plan: -Hold meds for now VTE: SCD Dispo: 1-2 days Code status: Full code. Code(s): K21.9 - GASTRO-ESOPHAGEAL REFLUX DISEASE WITHOUT ESOPHAGITIS
[2024-12-01] MEDS ORDERED: Ativan 2 MG/1 ML VIAL IV PRN (12:28)
[2024-12-01] MEDS: POTASSIUM CHLORIDE 20 mEq IN WATER 100ML 20 MEQ/100 ML BAG IV ONE (13:15)
[2024-12-01] MEDS: Zofran 4 MG/2 ML VIAL IV PRN (16:30)
[2024-12-01] MEDS ORDERED: NICODERM CQ 14 MG ONE (20:36)
[2024-12-01] MEDS: Ativan 2 MG/1 ML VIAL IV PRN (23:15)
[2024-12-02 04:55] LABS: Hematocrit 29.8 % (34.1-44.9); Hemoglobin 9.1 g/dL (11.2-15.7); Mean Cell Volume 77.4 fL (79.4-94.8); Mean Corpuscular Hemoglobin 23.6 pg (25.6-32.2); Mean Corpuscular Hgb Concent. 30.5 g/dL (32.2-35.5); Mean Platelet Volume 9.9 fL (9.4-12.3); Platelet Count 200 x10^3/uL (182-369); Red Blood Count 3.85 x10^6/uL (3.93-5.22); Red Cell Distribution Width 16.3 % (11.7-14.4); White Blood Count 6.2 x10^3/uL (3.98-10.04)
[2024-12-02 05:07] LABS: ALBUMIN 3.2 g/dL (3.5-5.0); ANION GAP 9.3 MEQ/L (5-15); BILIRUBIN,TOTAL 0.6 mg/dL (0.2-1.3); Calcium 8.5 mg/dL (8.4-10.2); Creatinine 1 0.57 mg/dL (0.52-1.04); MAGNESIUM 1.9 mg/dL (1.6-2.3); Potassium 3.4 mmol/L (3.5-5.1); Total Protein 5.8 g/dL (6.3-8.2)
--- NOTE | 2024-12-02 05:45 | PCM.NOTE ---
Date and Time: 12/02/24 0543 Subjective Assessment: is a 84 year old female with a PMHX of chronic back pain, fibromyalgia, T2DM, GERD, Depression, and COPD who presented to the ED via EMS 12/01/24 after reportedly ingesting 1314 baclofen tablets around 2:00 AM in an attempt to manage [id number] back pain. She denies suicidal intent, and mohit brandt confirms the event appeared unintentional after finding her lethargic following a slide off the couch. There was no loss of consciousness or head trauma. CT of the head and cervical spine were negative for acute findings, including no fractures or intracranial pathology. On arrival, she was lethargic but arousable to verbal and tactile stimuli, oriented to self. She remains mildly lethargic but is alert and stable. Vital signs have been stable aside from elevated blood pressure. Lab work revealed hypokalemia and hypomagnesemia, both currently being repleted. She is now approximately 5 hours into observation. Per Poison Control, she requires a minimum of 8 hours of monitoring. No seizures have occurred. Admit for Baclofen toxicity monitoring and electrolyte replenishment. 12/02/24: Met with patient bedside. A&O x 3 this morning. BP remains elevated. Mildly hypokalemic this morning. Tolerating a CLD. She reports that she did not realize taking that amount baclofen was dangerous. She plans to have her son monitor her medications when she returns home. I have discussed this with her son as well. Per poison control okay to resume baclofen in the next few days. Will resume home meds today with the exception of baclofen. - Review of Systems Constitutional: No Symptoms Eyes: No Symptoms Ears, Nose, & Throat: No Symptoms Respiratory: No Symptoms Cardiac: No Symptoms Abdominal/Gastrointestinal: No Symptoms Genitourinary Symptoms: No Symptoms Musculoskeletal: Back Pain Skin: No Symptoms Neurological: No Symptoms Psychological: No Symptoms Endocrine: No Symptoms Hematologic/Lymphatic: No Symptoms Immunological/Allergic: No Symptoms Objective Exam General Appearance: no apparent distress Neurologic Exam: alert, oriented x 3, cooperative Skin Exam: normal color Eye Exam: PERRL Ears, Nose, Throat Exam: normal ENT inspection Neck Exam: normal inspection Respiratory Exam: normal breath sounds, lungs clear Cardiovascular Exam: regular rate/rhythm, normal heart sounds Gastrointestinal/Abdomen Exam: soft, normal bowel sounds Extremity Exam: normal inspection Back Exam: normal inspection Pelvic Exam: deferred Rectal Exam: deferred Objective Data Vital Signs: Vital Signs - 24 hr Temp Pulse Resp BP BP Pulse Ox 12/02/24 05:00 98.4 F 59 L 18 155/77 99 12/02/24 04:01 98.6 F 59 L 21 145/71 99 12/02/24 04:00 59 L 21 12/02/24 03:00 98.8 F 62 21 174/73 99 12/02/24 02:00 98.8 F 65 23 170/77 100 12/02/24 01:00 98.8 F 63 27 H 148/74 99 12/02/24 00:01 64 12/02/24 00:00 99.1 F 64 23 139/71 98 12/01/24 23:01 99.7 F 63 22 188/64 99 12/01/24 22:00 99.7 F 65 22 178/65 100 12/01/24 21:00 99.5 F 55 L 10 L 170/56 99 12/01/24 20:00 99.5 F 68 23 151/61 97 12/01/24 19:01 99.5 F 62 19 135/58 98 12/01/24 18:01 99.1 F 54 L 9 L 148/52 98 12/01/24 17:00 99.1 F 59 L 16 157/54 97 12/01/24 16:01 99.3 F 61 17 132/86 98 12/01/24 16:00 64 20 12/01/24 15:00 98.8 F 60 17 194/81 100 12/01/24 14:01 98.6 F 59 L 15 167/88 100 12/01/24 13:00 98.2 F 62 23 190/78 100 12/01/24 12:00 98.2 F 65 16 176/72 100 12/01/24 11:00 97.2 F 56 L 20 208/86 96 12/01/24 09:40 97.0 F 58 L 18 195/89 98 12/01/24 09:00 97.2 F 63 23 210/81 100 12/01/24 08:10 97.0 F 55 L 16 185/76 100 12/01/24 08:00 24 12/01/24 07:39 96.8 F 54 L 12 198/85 99 12/01/24 07:17 96.8 F 57 L 14 198/85 100 12/01/24 07:11 100 12/01/24 06:50 208/84 12/01/24 06:48 57 L 14 211/81 99 12/01/24 06:40 57 L 6 L 149/100 12/01/24 06:31 60 19 197/95 100 12/01/24 06:20 59 L 12 201/81 96 12/01/24 06:11 100 12/01/24 06:10 55 L 16 187/82 100 12/01/24 06:00 57 L 19 192/84 100 12/01/24 05:50 60 13 206/97 Pain Assessment - Last Documented Pain Intensity 0 Intake and Output: Intake & Output 11/29/24 11/30/24 12/01/24 12/02/24 11:59 11:59 11:59 11:59 Intake Total 1509 Output Total 2200 1050 Balance -2200 459 Weight 60.5 kg Lab Results: Lab Results-Last 24 Hours 12/01/24 12/01/24 12/01/24 Range/Units 09:04 11:55 11:55 WBC (3.98-10.04) x10^3/uL RBC (3.93-5.22) x10^6/uL Hgb (11.2-15.7) g/dL Hct (34.1-44.9) % MCV (79.4-94.8) fL MCH (25.6-32.2) pg MCHC (32.2-35.5) g/dL RDW (11.7-14.4) % Plt Count (182-369) x10^3/uL MPV (9.4-12.3) fL Sodium (135-145) mmol/L Potassium (3.5-5.1) mmol/L Chloride (98-107) mmol/L Carbon Dioxide (22-30) mmol/L Anion Gap (5-15) MEQ/L BUN (7-17) mg/dL Creatinine (0.52-1.04) mg/dL Estimated GFR ML/MIN Glucose (74-106) mg/dL POC Glucometer 132 H 112 H 112 H (74 to 106) mg/dL Calcium (8.4-10.2) mg/dL Magnesium (1.6-2.3) mg/dL Total Bilirubin (0.2-1.3) mg/dL AST (14-36) U/L ALT (0-35) U/L Alkaline Phosphatase (38-126) U/L Serum Total Protein (6.3-8.2) g/dL Albumin (3.5-5.0) g/dL 12/01/24 12/01/24 12/01/24 Range/Units 12:10 16:23 18:03 WBC (3.98-10.04) x10^3/uL RBC (3.93-5.22) x10^6/uL Hgb (11.2-15.7) g/dL Hct (34.1-44.9) % MCV (79.4-94.8) fL MCH (25.6-32.2) pg MCHC (32.2-35.5) g/dL RDW (11.7-14.4) % Plt Count (182-369) x10^3/uL MPV (9.4-12.3) fL Sodium (135-145) mmol/L Potassium 3.5 3.9 (3.5-5.1) mmol/L Chloride (98-107) mmol/L Carbon Dioxide (22-30) mmol/L Anion Gap (5-15) MEQ/L BUN (7-17) mg/dL Creatinine (0.52-1.04) mg/dL Estimated GFR ML/MIN Glucose (74-106) mg/dL POC Glucometer 115 H (74 to 106) mg/dL Calcium (8.4-10.2) mg/dL Magnesium (1.6-2.3) mg/dL Total Bilirubin (0.2-1.3) mg/dL AST (14-36) U/L ALT (0-35) U/L Alkaline Phosphatase (38-126) U/L Serum Total Protein (6.3-8.2) g/dL Albumin (3.5-5.0) g/dL 12/01/24 12/01/24 12/02/24 Range/Units 20:13 23:35 03:55 WBC (3.98-10.04) x10^3/uL RBC (3.93-5.22) x10^6/uL Hgb (11.2-15.7) g/dL Hct (34.1-44.9) % MCV (79.4-94.8) fL MCH (25.6-32.2) pg MCHC (32.2-35.5) g/dL RDW (11.7-14.4) % Plt Count (182-369) x10^3/uL MPV (9.4-12.3) fL Sodium (135-145) mmol/L Potassium (3.5-5.1) mmol/L Chloride (98-107) mmol/L Carbon Dioxide (22-30) mmol/L Anion Gap (5-15) MEQ/L BUN (7-17) mg/dL Creatinine (0.52-1.04) mg/dL Estimated GFR ML/MIN Glucose (74-106) mg/dL POC Glucometer 101 90 96 (74 to 106) mg/dL Calcium (8.4-10.2) mg/dL Magnesium (1.6-2.3) mg/dL Total Bilirubin (0.2-1.3) mg/dL AST (14-36) U/L ALT (0-35) U/L Alkaline Phosphatase (38-126) U/L Serum Total Protein (6.3-8.2) g/dL Albumin (3.5-5.0) g/dL 12/02/24 12/02/24 Range/Units 04:50 04:50 WBC 6.2 (3.98-10.04) x10^3/uL RBC 3.85 L (3.93-5.22) x10^6/uL Hgb 9.1 L (11.2-15.7) g/dL Hct 29.8 L (34.1-44.9) % MCV 77.4 L (79.4-94.8) fL MCH 23.6 L (25.6-32.2) pg MCHC 30.5 L (32.2-35.5) g/dL RDW 16.3 H (11.7-14.4) % Plt Count 200 (182-369) x10^3/uL MPV 9.9 (9.4-12.3) fL Sodium 139 (135-145) mmol/L Potassium 3.4 L (3.5-5.1) mmol/L Chloride 107 (98-107) mmol/L Carbon Dioxide 26 (22-30) mmol/L Anion Gap 9.3 (5-15) MEQ/L BUN 16 (7-17) mg/dL Creatinine 0.57 (0.52-1.04) mg/dL Estimated GFR 89.0 ML/MIN Glucose 106 (74-106) mg/dL POC Glucometer (74 to 106) mg/dL Calcium 8.5 (8.4-10.2) mg/dL Magnesium 1.9 (1.6-2.3) mg/dL Total Bilirubin 0.60 (0.2-1.3) mg/dL AST 20 (14-36) U/L ALT 13 (0-35) U/L Alkaline Phosphatase 69 (38-126) U/L Serum Total Protein 5.8 L (6.3-8.2) g/dL Albumin 3.2 L (3.5-5.0) g/dL Radiology Exams: Radiology Procedures Category Date Time Status CERVICAL SPINE WO CONTRAST [CT] Stat Exams 12/01/24 04:18 Completed HEAD WITHOUT CONTRAST [CT] Stat Exams 12/01/24 04:17 Completed Medications: Medications Generic Name Dose Route Start Last Admin Trade Name Freq PRN Reason Stop Dose Admin Sodium Chloride 1,000 mls @ 100 mls/hr 12/01/24 03:30 12/01/24 23:36 Sodium Chloride 0.9% 1000 Ml IV 12/31/24 03:29 100 mls/hr .Q10H DRISS Administration Lorazepam 2 mg 12/01/24 12:28 Lorazepam 2 Mg/1 Ml 2 Mg Vial IV 12/31/24 12:27 .Q3-5 MINS PRN PRN SEIZURES Lorazepam 1 mg 12/01/24 22:44 12/01/24 23:15 Lorazepam 2 Mg/1 Ml 2 Mg Vial IV 12/31/24 22:43 1 mg Q6H PRN PRN Administration ANXIETY Ondansetron HCl 4 mg 12/01/24 08:40 12/01/24 22:28 Ondansetron Hcl 4 Mg/2 Ml Vial IV 12/31/24 08:39 4 mg Q6H PRN PRN Administration NAUSEA/VOMITING Discontinued Medications Generic Name Dose Route Start Last Admin Trade Name Freq PRN Reason Stop Dose Admin Magnesium Sulfate/Dextrose 100 mls @ 100 mls/hr 12/01/24 05:00 12/01/24 06:10 Magnesium 1 Gm / 100 Ml D5w IV 12/01/24 06:59 Infused Q1H DRISS Infusion Potassium Chloride 20 meq in 100 mls @ 50 mls/hr 12/01/24 05:15 12/01/24 08:14 Potassium Chloride 20 Meq In Water 100ml IV 12/01/24 09:14 50 mls/hr Q2H DRISS Administration Magnesium Sulfate/Dextrose Confirm 12/01/24 05:08 Magnesium 1 Gm / 100 Ml D5w Administered 12/01/24 05:09 Dose 100 mls @ ud IV .STK-MED ONE Magnesium Sulfate/Dextrose Confirm 12/01/24 05:46 Magnesium 1 Gm / 100 Ml D5w Administered 12/01/24 05:47 Dose 100 mls @ ud IV .STK-MED ONE Potassium Chloride 20 meq in 100 mls @ 50 mls/hr 12/01/24 12:49 12/01/24 13:15 Potassium Chloride 20 Meq In Water 100ml IV 12/01/24 14:48 50 mls/hr STAT ONE Administration Nicotine Confirm 12/01/24 20:36 Nicotine 14 Mg/Patch Patch Administered 12/01/24 20:37 Dose 14 mg .ROUTE .STK-MED ONE Ondansetron HCl 4 mg 12/01/24 03:26 12/01/24 03:49 Ondansetron Hcl 4 Mg/2 Ml Vial IV 12/01/24 03:27 4 mg STAT ONE Administration Ondansetron HCl Confirm 12/01/24 03:37 Ondansetron Hcl 4 Mg/2 Ml Vial Administered 12/01/24 03:38 Dose 4 mg .ROUTE .STK-MED ONE Assessment/Plan (1) Baclofen overdose Current Visit: Yes Status: Acute Assessment & Plan: -Poison control contacted- pt ingested approximately 13-14 pills; Plan includes hydration; advised to monitor for seizures - do not use keppra for treatment - use benzodiazepines -Monitor mental status, airway, vitals closely under ICU observation -do not treat HTN -continue to update poison control of status and further recommendations -IVF 12/02: -Resume home meds with the exception of baclofen -Okay to treat HTN per poison control -continue to observe overnight possible dc tomorrow -Son will monitor meds once discharged Code(s): T42.8X1A - POISN BY [facility] DRUG/CENTR [facility] [place]-TONE DEPR, ACC, INIT (2) Hypomagnesemia Current Visit: No Status: Acute Assessment & Plan: -Magnesium reviewed at 1.4- replenished in ED with 2 grams of Mag sulfate- recheck in the a.m. 12/02: -Mag reviewed at 1.9- resolved Code(s): E83.42 - HYPOMAGNESEMIA (3) Hypokalemia Current Visit: Yes Status: Acute Assessment & Plan: -Potassium reviewed at 3.2- replenished in ED with 40 meq of potassium - will recheck 2 hours post infusion -tele -monitor renal/lytes 12/02/24: -Potassium reviewed at 3.4 - replenish per protocol Code(s): E87.6 - HYPOKALEMIA (4) Type 2 diabetes mellitus Current Visit: Yes Status: Acute Assessment & Plan: -NPO for now- ADA diet with lethargy improves and bedside swallow eval completed -accuchecks q4h -SSI once diet resumes (5) Chronic back pain Current Visit: Yes Status: Acute Assessment & Plan: -Hold pain meds for now 12/02: -Pharmacy does not carry buprenorphine patch- will start [place]- add lidocaine patch Code(s): M54.9 - DORSALGIA, UNSPECIFIED; G89.29 - OTHER CHRONIC PAIN (6) HTN (hypertension) Current Visit: Yes Status: Acute Assessment & Plan: -Hold meds for now per poison control 12/02/24: -Lisinopril 10mg daily Code(s): I10 - ESSENTIAL (PRIMARY) HYPERTENSION (7) GERD (gastroesophageal reflux disease) Current Visit: Yes Status: Acute Assessment & Plan: -Hold meds for now VTE: SCD Dispo: 1-2 days Code status: Full code. Code(s): T42.8X1A - POISN BY [facility] DRUG/CENTR [facility]-TONE DEPR, ACC, INIT (2) Hypomagnesemia Current Visit: No Status: Acute Code(s): E83.42 - HYPOMAGNESEMIA (3) Hypokalemia Current Visit: Yes Status: Acute Code(s): E87.6 - HYPOKALEMIA (4) Type 2 diabetes mellitus Current Visit: Yes Status: Acute (5) Chronic back pain Current Visit: Yes Status: Acute Code(s): M54.9 - DORSALGIA, UNSPECIFIED; G89.29 - OTHER CHRONIC PAIN (6) HTN (hypertension) Current Visit: Yes Status: Acute Code(s): I10 - ESSENTIAL (PRIMARY) HYPERTENSION (7) GERD (gastroesophageal reflux disease) Current Visit: Yes Status: Acute Code(s): K21.9 - GASTRO-ESOPHAGEAL REFLUX DISEASE WITHOUT ESOPHAGITIS
[2024-12-02] MEDS: POTASSIUM CHLORIDE 20 mEq IN WATER 100ML 20 MEQ/100 ML BAG IV ONE (09:04)
[2024-12-02] MEDS: NORCO 5/325 MG PO PRN (11:30)
[2024-12-02] MEDS: Zestril 10 MG PO SCH (11:30)
[2024-12-02] MEDS: Lidoderm Patch 5% TOP SCH (11:30)
[2024-12-02] MEDS: Zestril 10 MG PO ONE (16:36)
[2024-12-03 04:54] VITALS: TEMP 97.2; O2SAT 100
[2024-12-03 07:01] LABS: Hematocrit 35.8 % (34.1-44.9); Hemoglobin 10.7 g/dL (11.2-15.7); Mean Cell Volume 77.8 fL (79.4-94.8); Mean Corpuscular Hemoglobin 23.3 pg (25.6-32.2); Mean Corpuscular Hgb Concent. 29.9 g/dL (32.2-35.5); Mean Platelet Volume 10.8 fL (9.4-12.3); Platelet Count 244 x10^3/uL (182-369); White Blood Count 6.8 x10^3/uL (3.98-10.04)
[2024-12-03 07:17] LABS: ALBUMIN 4.1 g/dL (3.5-5.0); BILIRUBIN,TOTAL 0.5 mg/dL (0.2-1.3); Calcium 9.1 mg/dL (8.4-10.2); Creatinine 1 0.46 mg/dL (0.52-1.04); EST GLOMERULAR FILTRATION RATE 93.7 ML/MIN; Potassium 3.2 mmol/L (3.5-5.1)
[2024-12-03] MEDS ORDERED: Ditropan 5 MG PO PRN (07:38)
[2024-12-03] MEDS: Klor Con PO SCH (08:22)
--- NOTE | 2024-12-03 10:48 | PCM.DS ---
Discharge Summary Date of Admission: 12/01/24 07:05 Date of Discharge: 12/03/24 Admitting Physician: ANAMARIA LEON MD Consults: Consults on Case 12/02/24 11:13 O [facility] Referral ONCE Primary Care Provider: SAHRA ADORNO Allergies Allergies butorphanol tartrate [From Stadol] Allergy (Verified 12/01/24 03:13) celecoxib [From Celebrex] Allergy (Verified 12/01/24 03:13) Sulfa (Sulfonamide Antibiotics) Allergy (Verified 12/01/24 03:13) tizanidine [From Zanaflex] Allergy (Verified 12/01/24 03:13) Hospital Summary - Hospital Course Hospital Course: Ms. Esteves is an 84-year-old female with a complex medical history including chronic back pain, fibromyalgia, COPD, type 2 diabetes mellitus, GERD, depression, and hypertension who was admitted on 12/01/24 following ingestion of approximately 1314 baclofen tablets in the context of [id number] back pain. The patient denied suicidal intent, and family members confirmed the event appeared accidental, occurring after she reportedly slid off the couch and was found lethargic. On presentation, she was somnolent but arousable and oriented to self, with no evidence of trauma, seizure activity, or focal neurological deficits. Imaging of the head and cervical spine was unremarkable. Poison Control was contacted, and recommendations included supportive care with close neurologic and cardiorespiratory monitoring for a minimum of eight hours. No seizure activity occurred during hospitalization, and mental status gradually returned to baseline over the first 24 hours. Admission labs were notable for mild hypokalemia (K 3.2) and hypomagnesemia (Mg 1.4), both of which were appropriately repleted. Blood pressure remained elevated but stable throughout hospitalization and patient was started on Lisinopril. As the patient regained full orientation, she acknowledged unawareness of the potential danger of exceeding her prescribed baclofen dose and expressed commitment to having her son manage her medications going forward and taking medications only as prescribed. This was discussed and confirmed with her son at bedside. Per Poison Control, baclofen may be resumed cautiously in the outpatient setting within the next several days under supervision - beginning 12/03/24 first dose given and patient observed. Pain control was transitioned to [place] and a lidocaine patch in lieu of her home buprenorphine patch, which was not available on formulary. She tolerated a regular diet. At the time of discharge, the patient is at her neurologic baseline, hemodynamically stable, and appropriate for discharge to home with family support. She will follow up with her primary care provider within one week, as well as outpatient pain management for reassessment of her chronic back pain regimen. The patient and family were counseled on medication safety, overdose precautions, and signs of clinical decompensation requiring emergent evaluation. Patient advised to take blood pressure daily and keep blood pressure log to take to her PCP for follow up on hypertension. Discharge Note New Diagnosis: Baclofen overdose New Medications: Lisinopril Follow Up: PCP/ Pain management I spent 35 minutes [id number] with the patient on the day of discharge performing discharge exam, discussing hospital stay and discharge instructions with patient and caregivers, preparation of discharge records, prescriptions & referral forms and addressing any questions/concerns the patient had as documented above. - Vitals & Intake/Output Vital Signs: Vital Signs Temperature 97.2 F 12/03/24 04:00 Pulse Rate 62 12/03/24 08:00 Respiratory Rate 21 12/03/24 08:00 Blood Pressure 152/55 12/03/24 08:00 O2 Sat by Pulse Oximetry 100 12/03/24 06:00 Intake & Output: Intake & Output 11/30/24 12/01/24 12/02/24 12/03/24 11:59 11:59 11:59 11:59 Intake Total 2979 2169 Output Total 2200 1890 1275 Balance -2200 1089 894 Weight 60.5 kg - Lab Result Diagrams: 12/03/24 05:38 12/03/24 05:38 Lab Results-Last 24 Hrs: Lab Results-Last 24 Hours 12/02/24 12/02/24 12/02/24 Range/Units 04:50 11:29 15:55 WBC (3.98-10.04) x10^3/uL RBC (3.93-5.22) x10^6/uL Hgb (11.2-15.7) g/dL Hct (34.1-44.9) % MCV (79.4-94.8) fL MCH (25.6-32.2) pg MCHC (32.2-35.5) g/dL RDW (11.7-14.4) % Plt Count (182-369) x10^3/uL MPV (9.4-12.3) fL Sodium (135-145) mmol/L Potassium 3.6 (3.5-5.1) mmol/L Chloride (98-107) mmol/L Carbon Dioxide (22-30) mmol/L Anion Gap (5-15) MEQ/L BUN (7-17) mg/dL Creatinine (0.52-1.04) mg/dL Estimated GFR ML/MIN Glucose (74-106) mg/dL POC Glucometer 120 H (74 to 106) mg/dL Hemoglobin A1c 6.11 H (4.5-6.0) % Calcium (8.4-10.2) mg/dL Total Bilirubin (0.2-1.3) mg/dL AST (14-36) U/L ALT (0-35) U/L Alkaline Phosphatase (38-126) U/L Serum Total Protein (6.3-8.2) g/dL Albumin (3.5-5.0) g/dL 12/02/24 12/02/24 12/02/24 Range/Units 16:08 20:46 23:24 WBC (3.98-10.04) x10^3/uL RBC (3.93-5.22) x10^6/uL Hgb (11.2-15.7) g/dL Hct (34.1-44.9) % MCV (79.4-94.8) fL MCH (25.6-32.2) pg MCHC (32.2-35.5) g/dL RDW (11.7-14.4) % Plt Count (182-369) x10^3/uL MPV (9.4-12.3) fL Sodium (135-145) mmol/L Potassium (3.5-5.1) mmol/L Chloride (98-107) mmol/L Carbon Dioxide (22-30) mmol/L Anion Gap (5-15) MEQ/L BUN (7-17) mg/dL Creatinine (0.52-1.04) mg/dL Estimated GFR ML/MIN Glucose (74-106) mg/dL POC Glucometer 112 H 120 H 126 H (74 to 106) mg/dL Hemoglobin A1c (4.5-6.0) % Calcium (8.4-10.2) mg/dL Total Bilirubin (0.2-1.3) mg/dL AST (14-36) U/L ALT (0-35) U/L Alkaline Phosphatase (38-126) U/L Serum Total Protein (6.3-8.2) g/dL Albumin (3.5-5.0) g/dL 12/03/24 12/03/24 12/03/24 Range/Units 04:28 05:38 05:38 WBC 6.8 (3.98-10.04) x10^3/uL RBC 4.60 (3.93-5.22) x10^6/uL Hgb 10.7 L (11.2-15.7) g/dL Hct 35.8 (34.1-44.9) % MCV 77.8 L (79.4-94.8) fL MCH 23.3 L (25.6-32.2) pg MCHC 29.9 L (32.2-35.5) g/dL RDW 16.0 H (11.7-14.4) % Plt Count 244 (182-369) x10^3/uL MPV 10.8 (9.4-12.3) fL Sodium 137 (135-145) mmol/L Potassium 3.2 L (3.5-5.1) mmol/L Chloride 102 (98-107) mmol/L Carbon Dioxide 23 (22-30) mmol/L Anion Gap 15.0 (5-15) MEQ/L BUN 12 (7-17) mg/dL Creatinine 0.46 L (0.52-1.04) mg/dL Estimated GFR 93.7 ML/MIN Glucose 157 H (74-106) mg/dL POC Glucometer 149 H (74 to 106) mg/dL Hemoglobin A1c (4.5-6.0) % Calcium 9.1 (8.4-10.2) mg/dL Total Bilirubin 0.50 (0.2-1.3) mg/dL AST 24 (14-36) U/L ALT 17 (0-35) U/L Alkaline Phosphatase 72 (38-126) U/L Serum Total Protein 7.0 (6.3-8.2) g/dL Albumin 4.1 (3.5-5.0) g/dL 12/03/24 Range/Units 08:13 WBC (3.98-10.04) x10^3/uL RBC (3.93-5.22) x10^6/uL Hgb (11.2-15.7) g/dL Hct (34.1-44.9) % MCV (79.4-94.8) fL MCH (25.6-32.2) pg MCHC (32.2-35.5) g/dL RDW (11.7-14.4) % Plt Count (182-369) x10^3/uL MPV (9.4-12.3) fL Sodium (135-145) mmol/L Potassium (3.5-5.1) mmol/L Chloride (98-107) mmol/L Carbon Dioxide (22-30) mmol/L Anion Gap (5-15) MEQ/L BUN (7-17) mg/dL Creatinine (0.52-1.04) mg/dL Estimated GFR ML/MIN Glucose (74-106) mg/dL POC Glucometer 116 H (74 to 106) mg/dL Hemoglobin A1c (4.5-6.0) % Calcium (8.4-10.2) mg/dL Total Bilirubin (0.2-1.3) mg/dL AST (14-36) U/L ALT (0-35) U/L Alkaline Phosphatase (38-126) U/L Serum Total Protein (6.3-8.2) g/dL Albumin (3.5-5.0) g/dL Micro Results-Entire Visit: Accuchecks Date 12/03/24 Date 12/03/24 Date 12/02/24 Date 12/02/24 Date 12/02/24 Date 12/02/24 Time 08:17 Time 04:28 Time 23:24 Time 20:46 Time 16:12 Time 11:40 Discharge Exam General Appearance: no apparent distress Neurologic Exam: alert, oriented x 3, cooperative Eye Exam: PERRL Ears, Nose, Throat Exam: normal ENT inspection Neck Exam: normal inspection Respiratory Exam: normal breath sounds, lungs clear Cardiovascular Exam: regular rate/rhythm, normal heart sounds Gastrointestinal/Abdomen Exam: soft, normal bowel sounds Pelvic Exam: deferred Rectal Exam: deferred Back Exam: normal inspection Extremity Exam: normal inspection Skin Exam: normal color Final Diagnosis/Problem List - Final Discharge Diagnosis/Problem (1) Baclofen overdose Current Visit: Yes Status: Resolved Code(s): T42.8X1A - POISN BY ANTIPARKNS DRUG/CENTR [facility]-TONE DEPR, ACC, INIT (2) Hypomagnesemia Current Visit: No Status: Resolved Code(s): E83.42 - HYPOMAGNESEMIA (3) Hypokalemia Current Visit: Yes Status: Resolved Code(s): E87.6 - HYPOKALEMIA (4) Type 2 diabetes mellitus Current Visit: Yes Status: Chronic (5) Chronic back pain Current Visit: Yes Status: Chronic Code(s): M54.9 - DORSALGIA, UNSPECIFIED; G89.29 - OTHER CHRONIC PAIN (6) HTN (hypertension) Current Visit: Yes Status: Chronic Code(s): I10 - ESSENTIAL (PRIMARY) HYPERTENSION (7) GERD (gastroesophageal reflux disease) Current Visit: Yes Status: Chronic Code(s): K21.9 - GASTRO-ESOPHAGEAL REFLUX DISEASE WITHOUT ESOPHAGITIS - Discharge Discharge Date: 12/03/24 Disposition: Home, Self-Care Condition: Stable Prescriptions: New Lisinopril 20 mg [Zestril 20 MG] 20 mg PO DAILY 30 Days #30 tablet Continue Omeprazole 40 mg PO DAILY Oxybutynin Chloride 5 mg PO TIDPRN PRN PRN Reason: overactive bladder Baclofen 5 mg PO DAILY PRN PRN PRN Reason: Pain Levothyroxine Sodium 25 Mcg [Synthroid 25 Mcg] 25 mcg PO DAILY Cholecalciferol (Vitamin D3) [Vitamin D3] 50 mcg PO DAILY Buprenorphine [Butrans] 1 each TD WEEKLY Dimenhydrinate [Dramamine] 100 mg PO Q4-6HPRN PRN PRN Reason: Dizziness Additional Instructions: [facility] HAS BEEN SET UP FOR YOU. THEY WILL CALL YOU WITHIN A DAY OR TWO OF DISCHARGE TO ARRANGE A TIME TO COME SEE YOU. IF YOU NEED ANYTHING PRIOR TO THEIR FIRST VISIT YOU CAN REACH THEM AT [phone] Follow up with: SAHRA ADORNO NP [Primary Care Provider] - 12/07/24 9:00 am
[2024-12-03] MEDS: VITAMIN D PO SCH (10:56)
[2024-12-03] MEDS: SYNTHROID 25 MCG PO SCH (10:56)
[2024-12-03] MEDS: Protonix 40MG Tablet PO SCH (10:56)
[2024-12-03] MEDS: MAALOX ES 30 ML UNIT DOSE PO PRN (10:56)
[2024-12-03] MEDS: Zestril 20 MG PO SCH (10:56)
[2024-12-03] MEDS: LIORESAL 10 MG PO PRN (11:04)
[2024-12-03 15:38] VITALS: BP 146/80; PULSE 77; RESP 25
== END 2024-12-03 15:07 | disposition home or self-care (01) ==
LOC: ED 03:04 → ICU 07:05
PROVIDERS: ADMIT Internal Medicine; ATTEND Internal Medicine
DX: T42.8X1A Poisoning by antiparkinsonism drugs and other central muscle-tone depressants, accidental (unintentional), initial encounter (principal); E83.42 Hypomagnesemia; E87.6 Hypokalemia; E11.9 Type 2 diabetes mellitus without complications; M54.9 Dorsalgia, unspecified; G89.29 Other chronic pain; I10 Essential (primary) hypertension; K21.9 Gastro-esophageal reflux disease without esophagitis; Z79.899 Other long term (current) drug therapy; E78.5 Hyperlipidemia, unspecified; J44.9 Chronic obstructive pulmonary disease, unspecified
CPT/HCPCS: 36415; 36600; 51702; 70450; 72125; 80053; 80143; 80179; 80307; 81001; 82077; 82375; 82803; 82947; 83036; 83605; 83735; 84132; 85025; 85027; 93005; 93041; 93268; 94760; 96374; 99285; G0378; Q3014; J2060; J2405; J3475; J3480; A9270-GY

== ENCOUNTER 2024-12-23 19:49 | Emergency (ER) | payer MEDICARE ==
[2024-12-23 20:06] VITALS: TEMP 96.7
[2024-12-23] MEDS ORDERED: MORPHINE SULFATE 10 MG/ML ONE (20:15)
[2024-12-23] MEDS: MORPHINE SULFATE 10 MG/ML IM ONE (20:17)
[2024-12-23] MEDS ORDERED: DELTASONE 20 MG ONE (20:41)
[2024-12-23] MEDS ORDERED: Norflex 100 MG Tablet PO ONE (20:41)
[2024-12-23] MEDS: Norflex 100 MG Tablet PO ONE (20:41)
[2024-12-23] MEDS: DELTASONE 20 MG PO SCH (20:42)
[2024-12-23 20:55] VITALS: RESP 18
--- NOTE | 2024-12-23 21:25 | ERPHSYRPT ---
- History of Present Illness Source: patient Exam Limitations: no limitations Patient Subjective Stated Complaint: c/o back muscle spasms Triage Nursing Assessment: patient was brought to ED with c/o left lower back muscle spasms. patient rates pain 10/10 and said that it has gotten worse as the day has gone on. walked in with a walker, hypertensive, skin w/n/d, afebrile, denies falling or hitting back on anything, patient doesn't appear to be in any distress at this time. Physician History: Patient has recurrent muscle spasms in her back it is probably due to degenerative arthritis. She does not have any acute neurological symptoms. She does not have any acute cord symptoms. She does not have a bowel or bladder dysfunction. Pain is on the left lumbar erector muscles. She has been in the ER for this few times before. She does not have fever chills nausea vomiting or other systemic symptoms. Timing/Duration: today Allergies/Adverse Reactions: butorphanol tartrate [From Stadol] Allergy (Verified 12/23/24 20:06) celecoxib [From Celebrex] Allergy (Verified 12/23/24 20:06) Sulfa (Sulfonamide Antibiotics) Allergy (Verified 12/23/24 20:06) tizanidine [From Zanaflex] Allergy (Verified 12/23/24 20:06) Home Medications: Omeprazole 40 mg PO DAILY 06/26/21 [History] Oxybutynin Chloride 5 mg PO TIDPRN PRN 06/26/21 [History] Baclofen 5 mg PO DAILY PRN PRN 12/01/24 [History] Cholecalciferol (Vitamin D3) [Vitamin D3] 50 mcg PO DAILY 12/01/24 [History] Levothyroxine Sodium 25 Mcg [Synthroid 25 Mcg] 25 mcg PO DAILY 12/01/24 [History] Buprenorphine [Butrans] 1 each TD WEEKLY 12/02/24 [History] Dimenhydrinate [Dramamine] 100 mg PO Q4-6HPRN PRN 12/02/24 [History] Hx Tetanus, Diphtheria Vaccination/Date Given: No Hx Influenza Vaccination/Date Given: No Hx Pneumococcal Vaccination/Date Given: No Travel Risk - International Travel Have you traveled outside of the country in past 3 weeks: No - Emerging Infectious Disease Are you exhibiting symptoms associated with any current EIDs: No - Review of Systems Constitutional: No Symptoms Eyes: No Symptoms Ears, Nose, & Throat: No Symptoms Respiratory: No Symptoms Genitourinary Symptoms: No Symptoms Musculoskeletal: Back Pain Skin: No Symptoms Neurological: No Symptoms - Past Medical History Pertinent Past Medical History: Yes Neurological History: Migraines, Peripheral Neuropathy ENT History: Cataracts Cardiac History: High Cholesterol, Hypertension Respiratory History: COPD Endocrine Medical History: Diabetes Type II, Hypothyroidism Musculoskeletal History: Arthritis, Fibromyalgia GI Medical History: Crohns Disease, GERD, Hernia History: No Pertinent History Psycho-Social History: Depression Female Reproductive Disorders: No Pertinent History Other Medical History: SEE CHART FOR PMH AND PSH; PT. HAS HAD 2 C-SPINE SXS - Past Surgical History Past Surgical History: Yes Neuro Surgical History: No Pertinent History Cardiac: No Pertinent History Respiratory: No Pertinent History Gastrointestinal: Appendectomy, Cholecystectomy Genitourinary: No Pertinent History Musculoskeletal: Orthopedic Surgery Female Surgical History: Hysterectomy, Tubal Ligation Other Surgical History: 2nd toe right foot, fractured right shoulder, filmed lasered off right eye, gaglion cyst removed, cataracts, bunion and tumor removed left foot, bunion right foot, tonsils, microscopic anterior cervical diskectomy with interbody fusion c5-6, plate to cervical, tibia fx repair Significant Family History: no pertinent family hx - Social History Smoking Status: Never smoker Exposure to second hand smoke: No Drug Use: none - Social Determinants of Health Will the patient participate in the screening: Yes Do you worry about a steady place to live?: No Do you have any problems with any of the following?: No known problems In the past 12 months,have you had to go without utilities?: Yes Transportation Issues: No Has anyone in your support network made you feel unsafe?: No Have you or anyone in your house had to go w/o enough food: No Comment: No Water or electricity - Nursing Vital Signs Nursing Vital Signs: Initial Vital Signs Temperature 96.7 F 12/23/24 19:55 Pulse Rate 77 12/23/24 19:55 Respiratory Rate 22 12/23/24 19:55 Blood Pressure 163/62 12/23/24 19:55 O2 Sat by Pulse Oximetry 97 12/23/24 19:55 Pain Scale Pain Intensity [left back] 10 Pain Intensity 10 - Physical Exam General Appearance: no apparent distress Eye Exam: PERRL/EOMI Back Exam: normal inspection, other (NoLimited range of motion due to pain. No obvious deformities) Extremity Exam: normal inspection Neurologic Exam: alert, oriented x 3 Skin Exam: normal color, warm SpO2: 100 - Course Nursing assessment & vital signs reviewed: Yes Ordered Tests: Medication Summary Generic Name Dose Route Start Last Admin Trade Name Giuliano PRN Reason Stop Dose Admin Prednisone 20 mg 12/24/24 10:00 12/23/24 20:42 Prednisone 20 Mg Tablet PO 01/23/25 09:59 20 mg DAILY DRISS Administration Discontinued Medications Generic Name Dose Route Start Last Admin Trade Name Giuliano PRN Reason Stop Dose Admin Morphine Sulfate 6 mg 12/23/24 20:10 12/23/24 20:17 Morphine Sulfate 10 Mg/Ml Injection IM 12/23/24 20:11 6 mg STAT ONE Administration Morphine Sulfate Confirm 12/23/24 20:15 Morphine Sulfate 10 Mg/Ml Injection Administered 12/23/24 20:16 Dose 10 mg .ROUTE .STK-MED ONE Orphenadrine Citrate 100 mg 12/23/24 20:38 12/23/24 20:41 Orphenadrine Citrate 100 Mg Er Tab PO 12/23/24 20:39 100 mg STAT ONE Administration Orphenadrine Citrate Confirm 12/23/24 20:41 Orphenadrine Citrate 100 Mg Er Tab Administered 12/23/24 20:42 Dose 100 mg PO .STK-MED ONE Prednisone Confirm 12/23/24 20:41 Prednisone 20 Mg Tablet Administered 12/23/24 20:42 Dose 20 mg .ROUTE .STK-MED ONE - Progress Progress Note: Patient was stable. She got 6 mg of morphine IM and that helped her quite a bit. She was pain-free and requesting to go home. 12/23/24 21:24 Discussed with : Leon - Departure Departure Disposition: Home Clinical Impression: Chronic low back pain Condition: Stable Critical Care Time: No Referrals: SAHRA ADORNO NP [[facility] Care Provider, [facility]] - Follow up/PCP as directed Instructions: Low Back Pain (DC)
[2024-12-23 21:32] VITALS: BP 173/72; PULSE 59; O2SAT 99
== END 2024-12-23 21:42 | disposition home or self-care (01) ==
LOC: ED 19:49
DX: G89.29 Other chronic pain (principal); M54.50 Low back pain, unspecified; Z79.891 Long term (current) use of opiate analgesic; Z79.899 Other long term (current) drug therapy; Z59.12 Inadequate housing utilities
CPT/HCPCS: 96372; 99283; J2270; A9270-GY

== ENCOUNTER 2024-12-25 13:20 | Emergency (ER) | payer MEDICARE ==
[2024-12-25 13:35] VITALS: BP 170/87; PULSE 95; TEMP 98.1; O2SAT 99
[2024-12-25] MEDS ORDERED: TORAdol 30 mg Injection ONE (14:00)
[2024-12-25] MEDS: TORAdol 30 mg Injection IM ONE (14:01)
--- NOTE | 2024-12-25 14:30 | ERPHSYRPT ---
- History of Present Illness Source: patient Exam Limitations: no limitations Patient Subjective Stated Complaint: back pain and requests a toradol shot Triage Nursing Assessment: Pt was brought to the ER by her brother, hypertensive, rates pain as 10/10, pulses normal, skin n/w/d, chronic back pain, no difficulty breathing, denies chest pain, doesn't appear to be in any distress Physician History: Patient has chronic back pain. She is here frequently for acute exacerbations. That is why she is here today. There is no new symptoms. She has no neurological symptoms that are worrisome. She does not have any acute cord symptoms. Movement makes symptoms worse nothing really makes it better. She does not have fever chills or other systemic symptoms.She got morphine last time she was here and did not like that. She is requesting a Toradol shot. Back Pain Location: lumbar spine Severity of Pain-Max: moderate Severity of Pain-Current: moderate Associated Symptoms: denies symptoms Previous symptoms: no prior history Allergies/Adverse Reactions: butorphanol tartrate [From Stadol] Allergy (Verified 12/25/24 13:35) celecoxib [From Celebrex] Allergy (Verified 12/25/24 13:35) Sulfa (Sulfonamide Antibiotics) Allergy (Verified 12/25/24 13:35) tizanidine [From Zanaflex] Allergy (Verified 12/25/24 13:35) Home Medications: Omeprazole 40 mg PO DAILY 06/26/21 [History] Oxybutynin Chloride 5 mg PO TIDPRN PRN 06/26/21 [History] Baclofen 5 mg PO DAILY PRN PRN 12/01/24 [History] Cholecalciferol (Vitamin D3) [Vitamin D3] 50 mcg PO DAILY 12/01/24 [History] Levothyroxine Sodium 25 Mcg [Synthroid 25 Mcg] 25 mcg PO DAILY 12/01/24 [History] Buprenorphine [Butrans] 1 each TD WEEKLY 12/02/24 [History] Dimenhydrinate [Dramamine] 100 mg PO Q4-6HPRN PRN 12/02/24 [History] Hx Tetanus, Diphtheria Vaccination/Date Given: No Hx Influenza Vaccination/Date Given: No Hx Pneumococcal Vaccination/Date Given: No Travel Risk - International Travel Have you traveled outside of the country in past 3 weeks: No - Emerging Infectious Disease Are you exhibiting symptoms associated with any current EIDs: No - Review of Systems Constitutional: No Symptoms Eyes: No Symptoms Respiratory: No Symptoms Cardiac: No Symptoms Musculoskeletal: Back Pain Skin: No Symptoms Neurological: No Symptoms Endocrine: No Symptoms All Other Systems: Reviewed and Negative - Past Medical History Pertinent Past Medical History: Yes Neurological History: Migraines, Peripheral Neuropathy ENT History: Cataracts Cardiac History: High Cholesterol, Hypertension Respiratory History: COPD Endocrine Medical History: Diabetes Type II, Hypothyroidism Musculoskeletal History: Arthritis, Fibromyalgia GI Medical History: Crohns Disease, GERD, Hernia History: No Pertinent History Psycho-Social History: Depression Female Reproductive Disorders: No Pertinent History Other Medical History: SEE CHART FOR PMH AND PSH; PT. HAS HAD 2 C-SPINE SXS - Past Surgical History Past Surgical History: Yes Neuro Surgical History: No Pertinent History Cardiac: No Pertinent History Respiratory: No Pertinent History Gastrointestinal: Appendectomy, Cholecystectomy Genitourinary: No Pertinent History Musculoskeletal: Orthopedic Surgery Female Surgical History: Hysterectomy, Tubal Ligation Other Surgical History: 2nd toe right foot, fractured right shoulder, filmed lasered off right eye, gaglion cyst removed, cataracts, bunion and tumor removed left foot, bunion right foot, tonsils, microscopic anterior cervical diskectomy with interbody fusion c5-6, plate to cervical, tibia fx repair Significant Family History: no pertinent family hx - Social History Smoking Status: Never smoker Exposure to second hand smoke: No Drug Use: none - Social Determinants of Health Will the patient participate in the screening: Yes Do you worry about a steady place to live?: No Do you have any problems with any of the following?: No known problems In the past 12 months,have you had to go without utilities?: No Transportation Issues: No Has anyone in your support network made you feel unsafe?: No Have you or anyone in your house had to go w/o enough food: No Comment: . - Nursing Vital Signs Nursing Vital Signs: Initial Vital Signs Temperature 98.1 F 12/25/24 13:30 Pulse Rate 95 H 12/25/24 13:30 Blood Pressure 170/87 12/25/24 13:30 O2 Sat by Pulse Oximetry 99 12/25/24 13:30 Pain Scale Pain Intensity [Left Posterior 10 Back] Pain Intensity 10 - Physical Exam General Appearance: no apparent distress Eye Exam: PERRL/EOMI Neck Exam: normal inspection, non-tender Respiratory Exam: normal breath sounds, lungs clear, No chest tenderness Gastrointestinal Exam: soft, normal bowel sounds Back Exam: other (Limited range of motion due to pain) Extremity Exam: normal inspection, normal range of motion Neurologic Exam: alert, oriented x 3, cooperative Skin Exam: normal color Lymphatic Exam: No adenopathy SpO2: 99 - Course Nursing assessment & vital signs reviewed: Yes Ordered Tests: Medication Summary Discontinued Medications Generic Name Dose Route Start Last Admin Trade Name Giuliano PRN Reason Stop Dose Admin Ketorolac Tromethamine 30 mg 12/25/24 13:40 12/25/24 14:01 Ketorolac Tromethamine 30 Mg/Ml Inj IM 12/25/24 13:41 30 mg STAT ONE Administration Ketorolac Tromethamine Confirm 12/25/24 14:00 Ketorolac Tromethamine 30 Mg/Ml Inj Administered 12/25/24 14:01 Dose 30 mg .ROUTE .STK-MED ONE - Progress Progress: improved Progress Note: Patient was stable throughout stay. She improved with her Toradol shot. At this time I do not think that there is anything else to do for her. 12/25/24 14:29 - Departure Departure Disposition: Home Clinical Impression: Acute exacerbation of chronic low back pain Condition: Stable Critical Care Time: No Referrals: SAHRA ADORNO NP [Primary Care Provider, [facility]] - Follow up/PCP as directed Instructions: Low Back Pain (DC)
[2024-12-25] MEDS ORDERED: NORCO 5/325 MG ONE (14:51)
[2024-12-25] MEDS: NORCO 5/325 MG PO ONE (14:52)
== END 2024-12-25 14:58 | disposition home or self-care (01) ==
LOC: ED 13:20
DX: G89.29 Other chronic pain (principal); M54.50 Low back pain, unspecified; E78.5 Hyperlipidemia, unspecified; I10 Essential (primary) hypertension; E11.42 Type 2 diabetes mellitus with diabetic polyneuropathy; Z79.891 Long term (current) use of opiate analgesic; Z79.899 Other long term (current) drug therapy
CPT/HCPCS: 96372; 99283; J1885; A9270-GY

== ENCOUNTER 2024-12-27 00:11 | Emergency (ER) | payer MEDICARE ==
[2024-12-27 00:46] VITALS: PULSE 77; RESP 18; TEMP 97.1; O2SAT 100
[2024-12-27] MEDS ORDERED: NORCO 5/325 MG ONE (00:54)
[2024-12-27] MEDS: NORCO 5/325 MG PO ONE (00:54)
--- NOTE | 2024-12-27 01:16 | ERPHSYRPT ---
- History of Present Illness Source: patient, therapist speech Patient Subjective Stated Complaint: PT. STATES, "THAT MUSCLE IS SEIZED UP AGAIN AND i CAN'T GET ANY RELIEF. I WAS HERE THE OTHER NIGHT AND THE DOCTOR GAVE ME A PILL THAT HAD HYDROCODONE AND TYLENOL IN IT AND THAT REALLY HELPED." Triage Nursing Assessment: PTL. AMBULATED TO ROOM WITH ROLLING WALKER, A&OX3, SKIN P/W/D, RESP. EVEN UNLABORED, ABLE TO MOVE ALL 4 EXT. WITHOUT DIFF. Physician History: Patient has chronic back pain. She has been here frequently. She is requesting a Oliver. She said that that worked well for her. Back pain is as it usually is. She does not appear to be in as much distress. She has no acute symptoms other than increasing pain. There is no bowel or bladder dysfunction no saddle paresthesias andNo acute neurological symptoms.She does not have any dysuria or flank pain. Movement makes his symptoms worse. Rest makes it better. Timing/Duration: today Associated Symptoms: denies symptoms Allergies/Adverse Reactions: butorphanol tartrate [From Stadol] Allergy (Verified 12/25/24 13:35) celecoxib [From Celebrex] Allergy (Verified 12/25/24 13:35) Sulfa (Sulfonamide Antibiotics) Allergy (Verified 12/25/24 13:35) tizanidine [From Zanaflex] Allergy (Verified 12/25/24 13:35) Home Medications: Omeprazole 40 mg PO DAILY 06/26/21 [History] Oxybutynin Chloride 5 mg PO TIDPRN PRN 06/26/21 [History] Baclofen 5 mg PO DAILY PRN PRN 12/01/24 [History] Cholecalciferol (Vitamin D3) [Vitamin D3] 50 mcg PO DAILY 12/01/24 [History] Levothyroxine Sodium 25 Mcg [Synthroid 25 Mcg] 25 mcg PO DAILY 12/01/24 [History] Buprenorphine [Butrans] 1 each TD WEEKLY 12/02/24 [History] Dimenhydrinate [Dramamine] 100 mg PO Q4-6HPRN PRN 12/02/24 [History] Hx Tetanus, Diphtheria Vaccination/Date Given: No Hx Influenza Vaccination/Date Given: No Hx Pneumococcal Vaccination/Date Given: No Immunizations Up to Date: No Travel Risk - International Travel Have you traveled outside of the country in past 3 weeks: No - Emerging Infectious Disease Are you exhibiting symptoms associated with any current EIDs: No - Review of Systems Constitutional: No Symptoms Eyes: No Symptoms Ears, Nose, & Throat: No Symptoms Respiratory: Stridor Musculoskeletal: Back Pain Skin: No Symptoms Neurological: No Symptoms Psychological: No Symptoms All Other Systems: Reviewed and Negative - Past Medical History Pertinent Past Medical History: Yes Neurological History: Migraines, Peripheral Neuropathy ENT History: Cataracts Cardiac History: High Cholesterol, Hypertension Respiratory History: COPD Endocrine Medical History: Diabetes Type II, Hypothyroidism Musculoskeletal History: Arthritis, Fibromyalgia GI Medical History: Crohns Disease, GERD, Hernia History: No Pertinent History Psycho-Social History: Depression Female Reproductive Disorders: No Pertinent History Other Medical History: SEE CHART FOR PMH AND PSH; PT. HAS HAD 2 C-SPINE SXS - Past Surgical History Past Surgical History: Yes Neuro Surgical History: No Pertinent History Cardiac: No Pertinent History Respiratory: No Pertinent History Gastrointestinal: Appendectomy, Cholecystectomy Genitourinary: No Pertinent History Musculoskeletal: Orthopedic Surgery Female Surgical History: Hysterectomy, Tubal Ligation Other Surgical History: 2nd toe right foot, fractured right shoulder, filmed lasered off right eye, gaglion cyst removed, cataracts, bunion and tumor removed left foot, bunion right foot, tonsils, microscopic anterior cervical diskectomy with interbody fusion c5-6, plate to cervical, tibia fx repair Significant Family History: no pertinent family hx - Social History Smoking Status: Never smoker Exposure to second hand smoke: No Drug Use: none - Social Determinants of Health Will the patient participate in the screening: Declined to provide - Nursing Vital Signs Nursing Vital Signs: Initial Vital Signs Temperature 97.1 F 12/27/24 00:11 Pulse Rate 77 12/27/24 00:11 Respiratory Rate 18 12/27/24 00:11 Blood Pressure 191/76 12/27/24 00:11 O2 Sat by Pulse Oximetry 100 12/27/24 00:11 Pain Scale Pain Intensity 10 - Physical Exam General Appearance: no apparent distress Eye Exam: PERRL/EOMI Ears, Nose, Throat Exam: normal ENT inspection Neck Exam: normal inspection Pelvic Exam: not done Rectal Exam: deferred Extremity Exam: normal inspection Neurologic Exam: alert, oriented x 3 Skin Exam: normal color, warm SpO2: 100 - Course Nursing assessment & vital signs reviewed: Yes Ordered Tests: Medication Summary Discontinued Medications Generic Name Dose Route Start Last Admin Trade Name Giuliano PRN Reason Stop Dose Admin Hydrocodone Bitart/Acetaminophen 2 tab 12/27/24 00:49 12/27/24 00:54 Hydrocodone/Apap 5/325 1 Tab Tablet PO 12/27/24 00:50 2 tab STAT ONE Administration Hydrocodone Bitart/Acetaminophen Confirm 12/27/24 00:54 Hydrocodone/Apap 5/325 1 Tab Tablet Administered 12/27/24 00:55 Dose 2 tab .ROUTE .STK-MED ONE - Progress Progress: improved Progress Note: PatientWas stable throughout stay. And is going to give her Oliver here and send her home with a prescription for 10 of them.I told her to follow-up with her primary care doctor for management of her pain. Medical Desision Making - Risk of complications Low Risk: Low risk of morbidity from additional dx testing or treatment - Departure Departure Disposition: Home Clinical Impression: Acute exacerbation of chronic low back pain Condition: Stable Critical Care Time: No Referrals: SAHRA ADORNO NP [Primary Care Provider, [facility]] - Follow up/PCP as directed Instructions: Low back pain in adults
[2024-12-27 01:22] VITALS: BP 192/83
== END 2024-12-27 01:42 | disposition home or self-care (01) ==
LOC: ED 00:11
DX: G89.29 Other chronic pain (principal); M54.50 Low back pain, unspecified; Z79.891 Long term (current) use of opiate analgesic; Z79.899 Other long term (current) drug therapy
CPT/HCPCS: 99281; 99283; A9270-GY

== ENCOUNTER 2025-05-24 19:21 | Emergency (ER) | payer MEDICARE ==
[2025-05-24 20:24] VITALS: TEMP 98.7
--- NOTE | 2025-05-24 20:59 | ERPHSYRPT ---
- History of Present Illness Time Seen by Provider: 05/24/25 20:54 Source: patient Exam Limitations: no limitations Patient Subjective Stated Complaint: patient states she got swollen area in her back on left side Triage Nursing Assessment: hillary came in her brother brought her nad she has her walker with her says shes doing better. has new area thats swollen on her back shes not sure what it is and is concerned also wanted us to know they found clot in her leg today using venous doppler. Physician History: 85-year-old female history of peripheral neuropathy hypertension hyperlipidemia type 2 diabetes hypothyroidism Crohn's, diverticulitis GERD, hernia and depression presents to our ED for evaluation of a swollen area on her left upper back. Patient otherwise well. Has no complaints. Patient advises that Sahra Waller ordered an ultrasound today that showed a small popliteal right DVT. Patient otherwise feels well. No chest pain or shortness of breath. No nausea vomiting or diaphoresis. Patient voices no other complaints or concerns at this time. Portions of this note were created with voice recognition technology. There may be grammatical, spelling, punctuation or sound alike errors Timing/Duration: today Severity: moderate Modifying Factors: Improves With: nothing Associated Symptoms: denies symptoms Allergies/Adverse Reactions: butorphanol tartrate [From Stadol] Allergy (Verified 05/24/25 20:19) celecoxib [From Celebrex] Allergy (Verified 05/24/25 20:19) Sulfa (Sulfonamide Antibiotics) Allergy (Verified 05/24/25 20:19) tizanidine [From Zanaflex] Allergy (Verified 05/24/25 20:19) Home Medications: Omeprazole 40 mg PO DAILY 06/26/21 [History] Baclofen 5 mg PO DAILY PRN PRN 12/01/24 [History] Cholecalciferol (Vitamin D3) [Vitamin D3] 50 mcg PO DAILY 12/01/24 [History] Levothyroxine Sodium 25 Mcg [Synthroid 25 Mcg] 25 mcg PO DAILY 12/01/24 [History] Buprenorphine [Butrans] 1 each TD WEEKLY 12/02/24 [History] Dimenhydrinate [Dramamine] 100 mg PO Q4-6HPRN PRN 12/02/24 [History] Hx Tetanus, Diphtheria Vaccination/Date Given: Yes Hx Influenza Vaccination/Date Given: No Hx Pneumococcal Vaccination/Date Given: Yes Travel Risk - International Travel Have you traveled outside of the country in past 3 weeks: No - Emerging Infectious Disease Are you exhibiting symptoms associated with any current EIDs: No Symptoms: Abdominal Pain, Diarrhea, Vomitting - Review of Systems All Other Systems: Reviewed and Negative - Past Medical History Pertinent Past Medical History: Yes Neurological History: No Pertinent History, Migraines, Peripheral Neuropathy ENT History: Cataracts Cardiac History: High Cholesterol, Hypertension Respiratory History: No Pertinent History Endocrine Medical History: Diabetes Type II, Hypothyroidism Musculoskeletal History: Arthritis, Fibromyalgia GI Medical History: Crohns Disease, Diverticulitis, GERD, Hernia History: No Pertinent History Psycho-Social History: Depression Female Reproductive Disorders: No Pertinent History Other Medical History: PT. HAS HAD 2 C-SPINE SXS - Past Surgical History Past Surgical History: Yes Neuro Surgical History: No Pertinent History Cardiac: No Pertinent History Respiratory: No Pertinent History Gastrointestinal: Appendectomy, Cholecystectomy Genitourinary: No Pertinent History Musculoskeletal: Orthopedic Surgery Female Surgical History: Hysterectomy, Tubal Ligation Other Surgical History: 2nd toe right foot, fractured right shoulder, filmed lasered off right eye, gaglion cyst removed, cataracts, bunion and tumor removed left foot, bunion right foot, tonsils, microscopic anterior cervical diskectomy with interbody fusion c5-6, plate to cervical, tibia fx repair Significant Family History: no pertinent family hx - Social History Smoking Status: Never smoker Exposure to second hand smoke: No Drug Use: none - Social Determinants of Health Will the patient participate in the screening: Yes Do you worry about a steady place to live?: No Do you have any problems with any of the following?: No known problems In the past 12 months,have you had to go without utilities?: Yes Transportation Issues: No Has anyone in your support network made you feel unsafe?: No Have you or anyone in your house had to go w/o enough food: No - Nursing Vital Signs Nursing Vital Signs: Initial Vital Signs Temperature 98.7 F 05/24/25 19:22 Pulse Rate 73 05/24/25 19:22 Respiratory Rate 14 05/24/25 19:22 Blood Pressure 205/84 05/24/25 19:22 O2 Sat by Pulse Oximetry 98 05/24/25 19:22 Pain Scale Pain Intensity 10 - Physical Exam General Appearance: no apparent distress, alert Eye Exam: PERRL/EOMI, eyes nml inspection Ears, Nose, Throat Exam: normal ENT inspection, moist mucous membranes Neck Exam: normal inspection, full range of motion Respiratory Exam: normal breath sounds, lungs clear, airway intact, No respiratory distress Cardiovascular Exam: regular rate/rhythm, normal heart sounds, normal peripheral pulses Gastrointestinal/Abdomen Exam: soft, normal bowel sounds, No tenderness, No mass Back Exam: normal inspection, normal range of motion, other (Tenderness to palpation left posterolateral lower thoracic upper lumbar soft palpable mass overlying soft tissue intact.), No CVA tenderness, No vertebral tenderness Extremity Exam: normal inspection, normal range of motion, pelvis stable Neurologic Exam: alert, oriented x 3, cooperative, normal mood/affect, nml cerebellar function, nml station & gait, sensation nml, No motor deficits Skin Exam: normal color, warm, dry, No rash Lymphatic Exam: No adenopathy SpO2 Interpretation: normal SpO2: 98 O2 Delivery: Room Air - Course Nursing assessment & vital signs reviewed: Yes - CT Exams Abdomen/Pelvis CT Interpretation: Tele-radiologist Report (New moderate diffuse fecal stasis. Stable hiatal hernia. Right nephrolithiasis small right renal cyst) Ordered Tests: Active Orders 24 hr Category Date Time Status Leader Tier STAT Care 05/24/25 21:06 Active IV Insertion STAT Care 05/24/25 21:05 Active ABDOMEN AND PELVIS W CONTRAST [CT] Stat Exams 05/24/25 21:07 Taken CBC W DIFF Stat Lab 05/24/25 22:10 Completed CMP Stat Lab 05/24/25 22:10 Completed UA W/RFX UR CULTURE Stat Lab 05/24/25 21:06 Completed Medication Summary Discontinued Medications Generic Name Dose Route Start Last Admin Trade Name Giuliano PRN Reason Stop Dose Admin Ketorolac Tromethamine 30 mg 05/24/25 22:05 05/24/25 22:12 Ketorolac Tromethamine 30 Mg/Ml Inj IV 05/24/25 22:06 30 mg STAT ONE Administration Ketorolac Tromethamine Confirm 05/24/25 22:11 Ketorolac Tromethamine 30 Mg/Ml Inj Administered 05/24/25 22:12 Dose 30 mg .ROUTE .Sanguine-Portfolia ONE Lab/Rad Data: Laboratory Result Diagrams 05/24/25 22:10 05/24/25 22:10 Laboratory Results 05/24/25 05/24/25 05/24/25 Range/Units 22:10 22:10 21:06 WBC 7.4 (3.98-10.04) x10^3/uL RBC 3.61 L (3.93-5.22) x10^6/uL Hgb 8.6 L (11.2-15.7) g/dL Hct 28.9 L (34.1-44.9) % MCV 80.1 (79.4-94.8) fL MCH 23.8 L (25.6-32.2) pg MCHC 29.8 L (32.2-35.5) g/dL RDW 15.6 H (11.7-14.4) % Plt Count 201 (182-369) x10^3/uL MPV 10.3 (9.4-12.3) fL Gran % 62.3 (34.0-71.1) % Immature Gran % (Auto) 0.3 (0.001-0.429) % Nucleat RBC Rel Count 0.0 (0.00-0.2) % Eos # (Auto) 0.18 (0.04-0.36) x10^3/uL Immature Gran # (Auto) 0.02 (0.001-0.031) x10^3u/L Absolute Lymphs (auto) 1.93 (1.18-3.74) x10^3/uL Absolute Monos (auto) 0.60 (0.24-0.86) x10^3/uL Absolute Nucleated RBC 0.00 (0.00-0.012) x10^3u/L Lymphocytes % 26.2 (19.3-51.7) % Monocytes % 8.1 (4.7-12.5) % Eosinophils % 2.4 (0.7-5.8) % Basophils % 0.7 (0.1-1.2) % Absolute Granulocytes 4.59 (1.56-6.13) x10^3/uL Basophils # 0.05 (0.01-0.08) x10^3/uL Sodium 135 (135-145) mmol/L Potassium 4.2 (3.5-5.1) mmol/L Chloride 102 (98-107) mmol/L Carbon Dioxide 25 (22-30) mmol/L Anion Gap 12.8 (5-15) MEQ/L BUN 17 (7-17) mg/dL Creatinine 0.70 (0.52-1.04) mg/dL Estimated GFR 84.2 ML/MIN Glucose 105 (74-106) mg/dL Calcium 9.9 (8.4-10.2) mg/dL Total Bilirubin 0.30 (0.2-1.3) mg/dL AST 23 (14-36) U/L ALT 14 (0-35) U/L Alkaline Phosphatase 86 (38-126) U/L Serum Total Protein 7.5 (6.3-8.2) g/dL Albumin 4.1 (3.5-5.0) g/dL Urine Color Yellow (Yellow) Urine Appearance Clear (Clear) Urine pH 8.0 (4.6-8.0) Ur Specific [place] 1.015 (1.005-1.030) Urine Protein Negative (Negative) Urine Glucose (UA) Negative (Negative) mg/dL Urine Ketones Negative (Negative) Urine Blood Negative (Negative) Urine Nitrite Negative (Negative) Urine Bilirubin Negative (Negative) Urine Urobilinogen 0.2 (0.2) mg/dL Ur Leukocyte Esterase Trace A (Negative) U Hyaline Cast (Auto) NONE SEEN (0-2) /LPF Urine Microscopic RBC 0-2 (0-5) /HPF Urine Microscopic WBC 0-2 (0-5) /HPF Ur Epithelial Cells None Seen (None Seen) /HPF Urine Bacteria None Seen (None Seen) /HPF Urine Culture Reflexed NO (NO) - Progress Progress: improved Progress Note: 85-year-old female history of peripheral neuropathy hypertension hyperlipidemia type 2 diabetes hypothyroidism Crohn's, diverticulitis GERD, hernia and depression presents to our ED for evaluation of a swollen area on her left upper back. Physical exam reveals a fullness to his left lower thoracic upper lumbar area. CT scan reveals fecal stasis. No acute findings otherwise. Patient's blood pressure has been elevated 180 systolic currently. Patient advised to follow-up with her primary care doctor for assessment of her blood pressure medication. Patient states she currently has an appointment with Dr. Adrian. She will meet with him have him review the x-ray and assess her for his opinion on her current complaint. Patient resting comfortably. No active pain. Patient that she is ready for discharge. She voices no other complaints or concerns at this time. Patient received Toradol for pain control per her request. History obtained from patient Differential diagnosis includes lumbosacral strain, trauma, aneurysm, constipation Portions of this note were created with voice recognition technology. There may be grammatical, spelling, punctuation or sound alike errors Complexity of problems addressed is moderate acute complicated. No critical care time. Complex of data reviewed and analyzed is moderate. Test ordered chest reviewed results analyzed and correlated clinically with history and physical exam. Risk of complication and or risk of morbidity/mortality of patient management is low. Vital stable. Time spent to discharge patient is approximately 15 minutes. Plan of care established for shared decision making. No social determinants of health present to impede follow-up. Portions of this note were created with voice recognition technology. There may be grammatical, spelling, punctuation or sound alike errors 05/24/25 22:36 Counseled pt/family regarding: lab results, diagnosis, need for follow-up, rad results - Departure Departure Disposition: Home Clinical Impression: Moderate fecal stasis, Stable hiatal hernia, Right nephrolithiasis, Right renal cortical cyst, Normocytic anemia Condition: Stable Critical Care Time: No Referrals: SAHRA ADORNO NP [Primary Care Provider, [facility]] - Follow up/PCP as directed Additional Instructions: Discharge/Care Plan MARCELINO JACOBSEN was seen on 05/24/25 in the Emergency Room. The patient was counseled regarding Diagnosis,Lab results, Imaging studies, need for follow up and when to return to the Emergency Room. Prescriptions given: Discharge Note I have spoken with the patient and/or caregivers. I have explained the patient's condition, diagnosis and treatment plan based on the information available to me at this time. I have answered the patient's and/or caregiver's questions and addressed any concerns. The patient and/or caregivers have as good understanding of the patient's diagnosis, condition and treatment plan as can be expected at this point. The vital signs have been stable. The patient's condition is stable and appropriate for discharge from the emergency department. The patient will pursue further outpatient evaluation with the primary care physician or other designated or consulting physician as outlined in the discharge instructions. The patient and/or caregivers are agreeable to this plan of care and follow-up instructions have been explained in detail. The patient and/or caregivers have received these instruction. The patient/and or caregivers are aware that any significant change in condition or worsening of symptoms should prompt an immediate return to this or the closest emergency department or call 911.
[2025-05-24] MEDS ORDERED: TORAdol 30 mg Injection ONE (22:11)
[2025-05-24] MEDS: TORAdol 30 mg Injection IV ONE (22:12)
[2025-05-24 22:19] LABS: BASOPHIL % 0.7 % (0.1-1.2); Basophil (Absolute #) 0.05 x10^3/uL (0.01-0.08); Eosinophil (Absolute #) 0.18 x10^3/uL (0.04-0.36); Hematocrit 28.9 % (34.1-44.9); Hemoglobin 8.6 g/dL (11.2-15.7); IMMATURE GRAN # 0.02 x10^3u/L (0.001-0.031); IMMATURE GRAN % 0.3 % (0.001-0.429); Lymphocyte (Absolute #) 1.93 x10^3/uL (1.18-3.74); Mean Corpuscular Hemoglobin 23.8 pg (25.6-32.2); Mean Corpuscular Hgb Concent. 29.8 g/dL (32.2-35.5); Monocyte (Absolute #) 0.60 x10^3/uL (0.24-0.86); NUCLEATED RBC # 0.00 x10^3u/L (0.00-0.012); NUCLEATED RBC % 0.0 % (0.00-0.2); Platelet Count 201 x10^3/uL (182-369); Red Blood Count 3.61 x10^6/uL (3.93-5.22); White Blood Count 7.4 x10^3/uL (3.98-10.04)
[2025-05-24 22:31] VITALS: BP 180/76; PULSE 70; RESP 21
[2025-05-24 22:32] LABS: Calcium 9.9 mg/dL (8.4-10.2); Carbon Dioxide 25.0 mmol/L (22-30); Creatinine 1 0.7 mg/dL (0.52-1.04); EST GLOMERULAR FILTRATION RATE 84.2 ML/MIN; Glucose 105.0 mg/dL (74-106); Potassium 4.2 mmol/L (3.5-5.1); SGOT/AST 23.0 U/L (14-36); SGPT/ALT 14.0 U/L (0-35); Total Protein 7.5 g/dL (6.3-8.2)
[2025-05-24 22:32] LABS: Glucose, Urine Negative (Negative); Protein,Urine Dip Negative (Negative)
[2025-05-24 22:33] LABS: RBC 0-2 /HPF (0-5); WBC 0-2 /HPF (0-5)
[2025-05-24 22:35] VITALS: O2SAT 98
--- NOTE | 2025-05-25 08:53 | XRAY ---
Indication: Pain. Multiple contiguous axial images obtained through the abdomen and pelvis without contrast. Comparison: April 12, 2025 Lung bases again demonstrates scattered fibrosis/scarring. No infiltrate or effusion. Heart not enlarged. Stable small hiatal hernia. Right hip arthroplasty again produces beam artifact. Noncontrasted stomach and bowel loops appear nonobstructed. There is now moderate diffuse scattered colonic fecal debris. Stable nonobstructing right renal microcalculus, small right renal cyst, appendectomy, hysterectomy, and cholecystectomy. Biliary tree remains slightly prominent. No free fluid/air. Remaining liver, pancreas, spleen, adrenal glands, kidneys, ureters, and bladder are unremarkable for noncontrast exam. Stable mild scattered aortoiliac calcifications without AAA. No pathologic retroperitoneal lymphadenopathy. Osseous structures intact again with osteopenia, marked levoscoliosis, T12-S1 degenerative spondylosis, L2-L5 kyphoplasty, and L4-L5 spinous process fusion hardware. Impression: 1. New colonic fecal stasis. 2. Again chronic findings including pulmonary fibrosis/scarring, hiatal hernia, right renal cyst, nonobstructing right renal microcalculus, arteriosclerotic disease, and chronic bony findings. 3. Remaining CT abdomen/pelvis with contrast exam negative.
== END 2025-05-24 22:48 | disposition home or self-care (01) ==
LOC: ED 19:21
DX: K59.89 Other specified functional intestinal disorders (principal); K44.9 Diaphragmatic hernia without obstruction or gangrene; N20.0 Calculus of kidney; N28.1 Cyst of kidney, acquired; D64.9 Anemia, unspecified; R22.2 Localized swelling, mass and lump, trunk; I10 Essential (primary) hypertension; E11.42 Type 2 diabetes mellitus with diabetic polyneuropathy; Z79.891 Long term (current) use of opiate analgesic; Z79.899 Other long term (current) drug therapy; Z59.12 Inadequate housing utilities

== ENCOUNTER 2025-05-30 14:59 | Observation (INO) | payer MEDICARE ==
--- NOTE | 2025-05-30 17:53 | ERPHSYRPT ---
- History of Present Illness Time Seen by Provider: 05/30/25 15:11 Source: patient Patient Subjective Stated Complaint: PT states she has a blood clot on the back of her right calf. Pt states that the pain has became worse and that it is more swollen and red. Pt was seen today at her PCP and was told to come to the ED. Triage Nursing Assessment: PT presents to the ED via wheelchair from her PCP office. PT states she has been battling a blood clot in her right calf. Pt states the pain has gotten much worse the past two days, as well as the redness and swelling. Pt is alert and oriented. Lungs are clear and diminished bilaterally. Pt does have +2 pitting edema on the right lower extremity and +1 pitting edema on the left lower extremity. There is no redness or warmth noted to the right lower extremity. Pulses are weak in both lower extremities but palpable and steady. Pain on palpation of the right lower extremity. Physician History: An 85-year-old female with a DVT in the popliteal vein diagnosed May 24 6 days ago started on Coumadin daily which she has been taking. Patient apparently was at her nurse practitioner's office today and the patient states that her nurse practitioner told her to come to the emergency department to be admitted for 2 days Allergies/Adverse Reactions: butorphanol tartrate [From Stadol] Allergy (Verified 05/30/25 16:09) celecoxib [From Celebrex] Allergy (Verified 05/30/25 16:09) Sulfa (Sulfonamide Antibiotics) Allergy (Verified 05/30/25 16:09) tizanidine [From Zanaflex] Allergy (Verified 05/30/25 16:09) Home Medications: Omeprazole 40 mg PO DAILY 06/26/21 [History] Baclofen 10 mg PO DAILY PRN PRN 12/01/24 [History] Cholecalciferol (Vitamin D3) [Vitamin D3] 50 mcg PO DAILY 12/01/24 [History] Levothyroxine Sodium 25 Mcg [Synthroid 25 Mcg] 25 mcg PO DAILY 12/01/24 [History] Buprenorphine [Butrans] 1 each TD WEEKLY 12/02/24 [History] Trazodone HCl 50 mg [Desyrel 50 mg] 50 ea HS 05/30/25 [History] Warfarin Sodium 1 mg [Coumadin] 1 ea PO DAILY 05/30/25 [History] cephALEXin [Cephalexin] 500 mg TID 05/30/25 [History] Hx Tetanus, Diphtheria Vaccination/Date Given: Yes Hx Influenza Vaccination/Date Given: Yes Hx Pneumococcal Vaccination/Date Given: No Immunizations Up to Date: Yes Travel Risk - International Travel Have you traveled outside of the country in past 3 weeks: No - Emerging Infectious Disease Are you exhibiting symptoms associated with any current EIDs: No Symptoms: Abdominal Pain, Diarrhea, Vomitting - Review of Systems All Other Systems: Reviewed and Negative (As per HPI otherwise negative) - Past Medical History Pertinent Past Medical History: Yes Neurological History: No Pertinent History, Migraines, Peripheral Neuropathy ENT History: Cataracts Cardiac History: High Cholesterol, Hypertension Respiratory History: No Pertinent History Endocrine Medical History: Diabetes Type II, Hypothyroidism Musculoskeletal History: Arthritis, Fibromyalgia GI Medical History: Crohns Disease, Diverticulitis, GERD, Hernia History: No Pertinent History Psycho-Social History: Depression Female Reproductive Disorders: No Pertinent History Other Medical History: PT. HAS HAD 2 C-SPINE SXS - Past Surgical History Past Surgical History: Yes Neuro Surgical History: No Pertinent History Cardiac: No Pertinent History Respiratory: No Pertinent History Gastrointestinal: Appendectomy, Cholecystectomy Genitourinary: No Pertinent History Musculoskeletal: Orthopedic Surgery Female Surgical History: Hysterectomy, Tubal Ligation Other Surgical History: 2nd toe right foot, fractured right shoulder, filmed lasered off right eye, gaglion cyst removed, cataracts, bunion and tumor removed left foot, bunion right foot, tonsils, microscopic anterior cervical diskectomy with interbody fusion c5-6, plate to cervical, tibia fx repair Significant Family History: no pertinent family hx - Social History Smoking Status: Never smoker Exposure to second hand smoke: No Drug Use: none - Social Determinants of Health Will the patient participate in the screening: Yes Do you worry about a steady place to live?: No Do you have any problems with any of the following?: No known problems In the past 12 months,have you had to go without utilities?: No Transportation Issues: No Has anyone in your support network made you feel unsafe?: No Have you or anyone in your house had to go w/o enough food: No - Nursing Vital Signs Nursing Vital Signs: Initial Vital Signs Respiratory Rate 16 05/30/25 16:14 Blood Pressure 185/89 05/30/25 16:14 O2 Sat by Pulse Oximetry 100 05/30/25 16:14 Pain Scale Pain Intensity 10 - Physical Exam SpO2: 99 Comments: 05/30/25 17:52 General: Well-nourished well-developed. No apparent distress. HEENT: Normocephalic atraumatic no obvious facial or neck deformity or injury. Neck: Supple. No deformity or mass noted. CV: RRR NL Perfusion. No edema Resp: No Respiratory distress or adventitious breath sounds Abd: ND SNT MSK: No deformity or TTP. No edema. Negative Homans' sign. Full range of motion of all joints. No femoral or popliteal pain. Neuro: Alert and [place] x4. No gross focal neurologic changes Psych: No SI, HI or grave disability Ordered Tests: Active Orders 24 hr Category Date Time Status EKG-ER Only STAT Care 05/30/25 17:50 Active CBC W DIFF Stat Lab 05/30/25 18:05 Completed CMP Stat Lab 05/30/25 18:05 Completed PT INR [PROTIME WITH INR] Stat Lab 05/30/25 18:05 Completed PTT Stat Lab 05/30/25 18:05 Completed TROPONIN Stat Lab 05/30/25 18:05 Completed EKG 5:55 PM normal sinus rhythm 68 bpm. No ischemic changes. Lab/Rad Data: Laboratory Result Diagrams 05/30/25 18:05 05/30/25 18:05 Laboratory Results 05/30/25 05/30/25 05/30/25 Range/Units 18:05 18:05 18:05 WBC (3.98-10.04) x10^3/uL RBC (3.93-5.22) x10^6/uL Hgb (11.2-15.7) g/dL Hct (34.1-44.9) % MCV (79.4-94.8) fL MCH (25.6-32.2) pg MCHC (32.2-35.5) g/dL RDW (11.7-14.4) % Plt Count (182-369) x10^3/uL MPV (9.4-12.3) fL Gran % (34.0-71.1) % Immature Gran % (Auto) (0.001-0.429) % Nucleat RBC Rel Count (0.00-0.2) % Eos # (Auto) (0.04-0.36) x10^3/uL Immature Gran # (Auto) (0.001-0.031) x10^3u/L Absolute Lymphs (auto) (1.18-3.74) x10^3/uL Absolute Monos (auto) (0.24-0.86) x10^3/uL Absolute Nucleated RBC (0.00-0.012) x10^3u/L Lymphocytes % (19.3-51.7) % Monocytes % (4.7-12.5) % Eosinophils % (0.7-5.8) % Basophils % (0.1-1.2) % Absolute Granulocytes (1.56-6.13) x10^3/uL Basophils # (0.01-0.08) x10^3/uL PT 10.4 (9.4-12.5) SECONDS INR 0.93 (0.8-3.0) APTT 25.1 (25.1-36.5) SECONDS Sodium 136 (135-145) mmol/L Potassium 3.8 (3.5-5.1) mmol/L Chloride 104 (98-107) mmol/L Carbon Dioxide 26 (22-30) mmol/L Anion Gap 9.7 (5-15) MEQ/L BUN 18 H (7-17) mg/dL Creatinine 0.57 (0.52-1.04) mg/dL Estimated GFR 88.5 ML/MIN Glucose 93 (74-106) mg/dL Calcium 9.4 (8.4-10.2) mg/dL Total Bilirubin < 0.10 L (0.2-1.3) mg/dL AST 18 (14-36) U/L ALT 11 (0-35) U/L Alkaline Phosphatase 66 (38-126) U/L Troponin I < 0.012 (0.000-0.033) ng/mL Serum Total Protein 6.6 (6.3-8.2) g/dL Albumin 3.6 (3.5-5.0) g/dL 05/30/25 Range/Units 18:05 WBC 5.3 (3.98-10.04) x10^3/uL RBC 3.27 L (3.93-5.22) x10^6/uL Hgb 7.7 L (11.2-15.7) g/dL Hct 25.7 L (34.1-44.9) % MCV 78.6 L (79.4-94.8) fL MCH 23.5 L (25.6-32.2) pg MCHC 30.0 L (32.2-35.5) g/dL RDW 15.6 H (11.7-14.4) % Plt Count 193 (182-369) x10^3/uL MPV 9.9 (9.4-12.3) fL Gran % 65.5 (34.0-71.1) % Immature Gran % (Auto) 0.4 (0.001-0.429) % Nucleat RBC Rel Count 0.0 (0.00-0.2) % Eos # (Auto) 0.10 (0.04-0.36) x10^3/uL Immature Gran # (Auto) 0.02 (0.001-0.031) x10^3u/L Absolute Lymphs (auto) 1.28 (1.18-3.74) x10^3/uL Absolute Monos (auto) 0.39 (0.24-0.86) x10^3/uL Absolute Nucleated RBC 0.00 (0.00-0.012) x10^3u/L Lymphocytes % 24.1 (19.3-51.7) % Monocytes % 7.3 (4.7-12.5) % Eosinophils % 1.9 (0.7-5.8) % Basophils % 0.8 (0.1-1.2) % Absolute Granulocytes 3.49 (1.56-6.13) x10^3/uL Basophils # 0.04 (0.01-0.08) x10^3/uL PT (9.4-12.5) SECONDS INR (0.8-3.0) APTT (25.1-36.5) SECONDS Sodium (135-145) mmol/L Potassium (3.5-5.1) mmol/L Chloride (98-107) mmol/L Carbon Dioxide (22-30) mmol/L Anion Gap (5-15) MEQ/L BUN (7-17) mg/dL Creatinine (0.52-1.04) mg/dL Estimated GFR ML/MIN Glucose (74-106) mg/dL Calcium (8.4-10.2) mg/dL Total Bilirubin (0.2-1.3) mg/dL AST (14-36) U/L ALT (0-35) U/L Alkaline Phosphatase (38-126) U/L Troponin I (0.000-0.033) ng/mL Serum Total Protein (6.3-8.2) g/dL Albumin (3.5-5.0) g/dL - Progress Progress Note: 05/30/25 18:02 I speak with the patient's nurse practitioner Nithya who tells me that she feels the patient looks better. She states the patient was insistent on coming to the hospital to be admitted to be on a heparin drip. Patient states that she felt her leg was hurting worse. The patient had come into the office twice this week. To placate the patient she said she could go to the emergency department to be evaluated. The patient has no chest pain, shortness of breath. No femoral or popliteal pain. And per nurse practitioner the leg is improving. Patient has not had a INR yet as she does start her Coumadin. Nurse practitioner did not state that the patient need to be admitted and reinforcing that it was the patient telling her that she felt she needed to be although the patient tells me her nurse practitioner told her to be admitted. I have not met this patient in the past, but per nursing staff that she regularly comes trying to be admitted to the hospital as part of a regular behavioral pattern. Regardless, the patient is evaluated in total and she does not appear to have any significant respiratory issues. She has no femoral or popliteal pain. Her DVT study shows that she has a nonocclusive small DVT in the popliteal region. Patient has no evidence of ischemia or edema that I see compared to 1 side versus the other. Again no femoral, popliteal or calf pain. There is no ultrasound available at this hour, regardless per her primary care provider who has seen her twice this week the leg looks better. She had only an isolated nonocclusive DVT and she has no other significant findings. She is on anticoagulation. 05/30/25 18:06 05/30/25 19:[address] Joya for f/u and disposition - Departure Departure Disposition: Observation (Endorse to Dr. Joya for f/u and disposition) Clinical Impression: Leg pain, right Condition: Stable Critical Care Time: No Referrals: NITHYA ADORNO NP [Primary Care Provider, [facility]] - Follow up/PCP as directed
[2025-05-30 18:17] LABS: BASOPHIL % 0.8 % (0.1-1.2); Basophil (Absolute #) 0.04 x10^3/uL (0.01-0.08); Eosinophil (Absolute #) 0.10 x10^3/uL (0.04-0.36); Hematocrit 25.7 % (34.1-44.9); Hemoglobin 7.7 g/dL (11.2-15.7); IMMATURE GRAN # 0.02 x10^3u/L (0.001-0.031); IMMATURE GRAN % 0.4 % (0.001-0.429); Lymphocyte (Absolute #) 1.28 x10^3/uL (1.18-3.74); Mean Corpuscular Hemoglobin 23.5 pg (25.6-32.2); Mean Corpuscular Hgb Concent. 30.0 g/dL (32.2-35.5); Monocyte (Absolute #) 0.39 x10^3/uL (0.24-0.86); NUCLEATED RBC % 0.0 % (0.00-0.2); Platelet Count 193 x10^3/uL (182-369); Red Blood Count 3.27 x10^6/uL (3.93-5.22); White Blood Count 5.3 x10^3/uL (3.98-10.04)
[2025-05-30 18:18] LABS: NUCLEATED RBC # 0.00 x10^3u/L (0.00-0.012)
[2025-05-30 18:38] LABS: Calcium 9.4 mg/dL (8.4-10.2); Carbon Dioxide 26 mmol/L (22-30); Creatinine 1 0.57 mg/dL (0.52-1.04); EST GLOMERULAR FILTRATION RATE 88.5 ML/MIN; Glucose 93 mg/dL (74-106); Potassium 3.8 mmol/L (3.5-5.1); SGOT/AST 18 U/L (14-36); SGPT/ALT 11 U/L (0-35); Total Protein 6.6 g/dL (6.3-8.2)
[2025-05-30 18:39] LABS: INR 0.93 (0.8-3.0); PROTIME 10.4 SECONDS (9.4-12.5); PTT 25.1 SECONDS (25.1-36.5)
[2025-05-30] MEDS: COUMADIN PO ONE (20:35)
--- NOTE | 2025-05-30 20:49 | PCM.HP ---
History of Present Illness - Chief Complaint Chief Complaint: Right LE DVT History of Present Illness: is a 85 year old female with PMH of GERD, hypothyroidism, insomnia, migraines, peripheral neuropathy, cataracts, hyperlipidemia, hypertension, type 2 diabetes, osteoarthritis, fibromyalgia, Crohn's disease, diverticulitis, hernia, depression and recently diagnosed nonoccluded right popliteal vein DVT presented to the ED complaining of worsening right lower extremity swelling and pain. Reports that she was instructed to come to the ED by her primary care provider. DVT was first diagnosed on May 24 venous Doppler. Patient was started on warfarin and reportedly has just been on 1 mg daily. Her INR today is 0.93. ER physician reached out to patient's primary care provider who stated that patient's right lower extremity actually appeared better to her and the patient was seen twice during the week. She states that the patient was insistent on coming to the hospital for further evaluation. Patient reports previous right lower extremity DVT several years ago which she reports was only treated with a heparin drip for 1 week. Patient is denying fever, chills, cough, chest pain, shortness of breath, abdominal pain, nausea, vomiting, melena, rectal bleeding, hematuria or vaginal bleeding. She has chronic microcytic anemia with hemoglobin ranging between 7-9. No evidence of bleeding in the ER. There was discussion about the patient starting a direct oral ant icoagulant but she could not afford the co-pay. Patient has been hemodynamically stable in the ED. - Review of Systems Constitutional: No Symptoms Eyes: No Symptoms Ears, Nose, & Throat: No Symptoms Respiratory: No Symptoms Cardiac: No Symptoms, Edema Abdominal/Gastrointestinal: No Symptoms Genitourinary Symptoms: No Symptoms Musculoskeletal: Other (right lower extremity pain, swelling) Skin: No Symptoms Neurological: No Symptoms Psychological: No Symptoms Endocrine: No Symptoms Hematologic/Lymphatic: No Symptoms Immunological/Allergic: No Symptoms All Other Systems: Reviewed and Negative Medications & Allergies Home Medications: Home Medication List Omeprazole 40 mg PO DAILY 06/26/21 [History Confirmed 05/30/25] Baclofen 10 mg PO DAILY PRN PRN 12/01/24 [History Confirmed 05/30/25] Cholecalciferol (Vitamin D3) [Vitamin D3] 50 mcg PO DAILY 12/01/24 [History Confirmed 05/30/25] Levothyroxine Sodium 25 Mcg [Synthroid 25 Mcg] 25 mcg PO DAILY 12/01/24 [History Confirmed 05/30/25] Buprenorphine [Butrans] 1 each TD WEEKLY 12/02/24 [History Confirmed 05/30/25] Lisinopril 20 mg [Zestril 20 MG] 20 mg PO DAILY 30 Days #30 tablet 12/03/24 [Rx Confirmed 05/30/25] Trazodone HCl 50 mg [Desyrel 50 mg] 50 ea HS 05/30/25 [History Confirmed 05/30/25] Warfarin Sodium 1 mg [Coumadin] 1 ea PO DAILY 05/30/25 [History Confirmed 05/30/25] cephALEXin [Cephalexin] 500 mg TID 05/30/25 [History Confirmed 05/30/25] Allergies/Adverse Reactions: Allergies Allergy/AdvReac Type Severity Reaction Status Date / Time butorphanol tartrate Allergy Verified 05/30/25 16:09 [From Stadol] celecoxib [From Celebrex] Allergy Verified 05/30/25 16:09 Sulfa (Sulfonamide Allergy Verified 05/30/25 16:09 Antibiotics) tizanidine [From Zanaflex] Allergy Verified 05/30/25 16:09 - Past Medical History Past Medical History: Yes Neurological History: No Pertinent History, Migraines, Peripheral Neuropathy ENT History: Cataracts Cardiac History: High Cholesterol, Hypertension Respiratory History: No Pertinent History Endocrine Medical History: Diabetes Type II, Hypothyroidism Musculoskelatal History: Arthritis, Fibromyalgia GI Medical History: Crohns Disease, Diverticulitis, GERD, Hernia History: No Pertinent History Pyscho-Social History: Depression Reproductive Disorders: No Pertinent History Comment: PT. HAS HAD 2 C-SPINE SXS - Past Surgical History Past Surgical History: Yes Neuro Surgical History: No Pertinent History Cardiac History: No Pertinent History Respiratory Surgery: No Pertinent History GI Surgical History: Appendectomy, Cholecystectomy Genitourinary Surgical Hx: No Pertinent History Musculskeletal Surgical Hx: Orthopedic Surgery Female Surgical History: Hysterectomy, Tubal Ligation Other Surgical History: 2nd toe right foot, fractured right shoulder, filmed lasered off right eye, gaglion cyst removed, cataracts, bunion and tumor removed left foot, bunion right foot, tonsils, microscopic anterior cervical diskectomy with interbody fusion c5-6, plate to cervical, tibia fx repair Significant Family History: no pertinent family hx - Social History Smoking Status: Never smoker Exposure to second hand smoke: No Alcohol: None Drug Use: none - Social Determinants of Health Will the patient participate in the screening: Yes Do you worry about a steady place to live?: No Do you have any problems with any of the following?: No known problems In the past 12 months,have you had to go without utilities?: No Have you or anyone in your house had to go without enough: No Transportation Issues: No Has anyone in your support network made you feel unsafe?: No Does the patient want assistance with any of the above?: No Comment: . - Physical Exam Vital Signs: Vital Signs - 24 hr Temp Pulse Resp BP BP Pulse Ox 05/30/25 20:02 77 19 125/84 99 05/30/25 19:43 99 05/30/25 19:30 75 23 158/72 98 05/30/25 19:00 181/77 95 05/30/25 18:31 176/78 94 L 05/30/25 18:00 155/75 96 05/30/25 17:30 193/92 98 05/30/25 17:02 192/82 99 05/30/25 16:30 15 177/78 99 05/30/25 16:18 98.4 F 69 15 185/89 100 05/30/25 16:14 16 185/89 100 General Appearance: no apparent distress Neurologic Exam: alert, oriented x 3, cooperative Eye Exam: PERRL/EOMI Ears, Nose, Throat Exam: moist mucous membranes Neck Exam: normal inspection Respiratory Exam: normal breath sounds, lungs clear Cardiovascular Exam: regular rate/rhythm, normal heart sounds Gastrointestinal/Abdomen Exam: soft, normal bowel sounds Extremity Exam: pedal edema, swelling, tenderness Skin Exam: normal color Results - Labs Lab/Micro Results: Lab Results-Last 24 Hours 05/30/25 05/30/25 05/30/25 Range/Units 18:05 18:05 18:05 WBC 5.3 (3.98-10.04) x10^3/uL RBC 3.27 L (3.93-5.22) x10^6/uL Hgb 7.7 L (11.2-15.7) g/dL Hct 25.7 L (34.1-44.9) % MCV 78.6 L (79.4-94.8) fL MCH 23.5 L (25.6-32.2) pg MCHC 30.0 L (32.2-35.5) g/dL RDW 15.6 H (11.7-14.4) % Plt Count 193 (182-369) x10^3/uL MPV 9.9 (9.4-12.3) fL Gran % 65.5 (34.0-71.1) % Immature Gran % (Auto) 0.4 (0.001-0.429) % Nucleat RBC Rel Count 0.0 (0.00-0.2) % Eos # (Auto) 0.10 (0.04-0.36) x10^3/uL Immature Gran # (Auto) 0.02 (0.001-0.031) x10^3u/L Absolute Lymphs (auto) 1.28 (1.18-3.74) x10^3/uL Absolute Monos (auto) 0.39 (0.24-0.86) x10^3/uL Absolute Nucleated RBC 0.00 (0.00-0.012) x10^3u/L Lymphocytes % 24.1 (19.3-51.7) % Monocytes % 7.3 (4.7-12.5) % Eosinophils % 1.9 (0.7-5.8) % Basophils % 0.8 (0.1-1.2) % Absolute Granulocytes 3.49 (1.56-6.13) x10^3/uL Basophils # 0.04 (0.01-0.08) x10^3/uL PT (9.4-12.5) SECONDS INR (0.8-3.0) APTT (25.1-36.5) SECONDS Sodium 136 (135-145) mmol/L Potassium 3.8 (3.5-5.1) mmol/L Chloride 104 (98-107) mmol/L Carbon Dioxide 26 (22-30) mmol/L Anion Gap 9.7 (5-15) MEQ/L BUN 18 H (7-17) mg/dL Creatinine 0.57 (0.52-1.04) mg/dL Estimated GFR 88.5 ML/MIN Glucose 93 (74-106) mg/dL Calcium 9.4 (8.4-10.2) mg/dL Total Bilirubin < 0.10 L (0.2-1.3) mg/dL AST 18 (14-36) U/L ALT 11 (0-35) U/L Alkaline Phosphatase 66 (38-126) U/L Troponin I < 0.012 (0.000-0.033) ng/mL Serum Total Protein 6.6 (6.3-8.2) g/dL Albumin 3.6 (3.5-5.0) g/dL 05/30/25 Range/Units 18:05 WBC (3.98-10.04) x10^3/uL RBC (3.93-5.22) x10^6/uL Hgb (11.2-15.7) g/dL Hct (34.1-44.9) % MCV (79.4-94.8) fL MCH (25.6-32.2) pg MCHC (32.2-35.5) g/dL RDW (11.7-14.4) % Plt Count (182-369) x10^3/uL MPV (9.4-12.3) fL Gran % (34.0-71.1) % Immature Gran % (Auto) (0.001-0.429) % Nucleat RBC Rel Count (0.00-0.2) % Eos # (Auto) (0.04-0.36) x10^3/uL Immature Gran # (Auto) (0.001-0.031) x10^3u/L Absolute Lymphs (auto) (1.18-3.74) x10^3/uL Absolute Monos (auto) (0.24-0.86) x10^3/uL Absolute Nucleated RBC (0.00-0.012) x10^3u/L Lymphocytes % (19.3-51.7) % Monocytes % (4.7-12.5) % Eosinophils % (0.7-5.8) % Basophils % (0.1-1.2) % Absolute Granulocytes (1.56-6.13) x10^3/uL Basophils # (0.01-0.08) x10^3/uL PT 10.4 (9.4-12.5) SECONDS INR 0.93 (0.8-3.0) APTT 25.1 (25.1-36.5) SECONDS Sodium (135-145) mmol/L Potassium (3.5-5.1) mmol/L Chloride (98-107) mmol/L Carbon Dioxide (22-30) mmol/L Anion Gap (5-15) MEQ/L BUN (7-17) mg/dL Creatinine (0.52-1.04) mg/dL Estimated GFR ML/MIN Glucose (74-106) mg/dL Calcium (8.4-10.2) mg/dL Total Bilirubin (0.2-1.3) mg/dL AST (14-36) U/L ALT (0-35) U/L Alkaline Phosphatase (38-126) U/L Troponin I (0.000-0.033) ng/mL Serum Total Protein (6.3-8.2) g/dL Albumin (3.5-5.0) g/dL Assessment/Plan (1) DVT (deep venous thrombosis) Current Visit: Yes Status: Acute Qualifiers: DVT location: lower extremity Affected thrombotic vein of extremity: popliteal Chronicity: acute Laterality: right Qualified Code(s): I82.431 - Acute embolism and thrombosis of right popliteal vein Assessment & Plan: Will start on Lovenox 70 mg BID, has normal renal function and no overt bleeding concerns Given 5 mg of Warfarin in the ED - repeat INR in AM Monitor closely for bleeding Code(s): I82.409 - ACUTE EMBOLISM AND THOMBOS UNSP DEEP VN UNSP LOWER EXTREMITY (2) Microcytic anemia Current Visit: No Status: Chronic Assessment & Plan: Reports previous diagnosis of iron deficiency, not on treatment Monitor for any signs of bleeding Transfuse for hemoglobin less than 7 or if experiencing symptomatic anemia Code(s): D50.9 - IRON DEFICIENCY ANEMIA, UNSPECIFIED (3) Cellulitis Current Visit: No Status: Acute Qualifiers: Site of cellulitis: extremity Site of cellulitis of extremity: lower extremity Laterality: right Qualified Code(s): L03.115 - Cellulitis of right lower limb Assessment & Plan: Started on Keflex by PCP - complete course Code(s): L03.90 - CELLULITIS, UNSPECIFIED (4) Hypertension Current Visit: No Status: Chronic Qualifiers: Hypertension type: primary hypertension Qualified Code(s): I10 - Essential (primary) hypertension Assessment & Plan: Continue lisinopril Code(s): I10 - ESSENTIAL (PRIMARY) HYPERTENSION (5) Hypothyroidism Current Visit: No Status: Acute Code(s): E03.9 - HYPOTHYROIDISM, UNSPECIFIED (6) Type 2 diabetes mellitus Current Visit: No Status: Chronic Telemedicine Encounter - Telemedicine Encounter Telemedicine Encounter: Full Code Cardiac diabetic diet On Lovenox/Warfarin "The entirety of this encounter was performed via Telemedicine" This visit was performed using real-time audio and video connection between my location and thepatients locationwith the assistance of a surrogateat the patients location. Written or verbal consent was obtained from the patient/guardian to perform this visit [email or web address]. Any patient questions regarding the telemedicine interaction were answered.
[2025-05-30] MEDS: ENOXAPARIN SODIUM SQ SCH (21:52)
[2025-05-30] MEDS ORDERED: HUMALOG SQ PRN (22:03)
[2025-05-30] MEDS ORDERED: NON-FORMULARY ITEM (Baclofen [Baclofen] 5 MG Tablet) PO PRN (22:07)
[2025-05-30] MEDS ORDERED: BUPRENORPHINE TD SCH (22:15)
[2025-05-30] MEDS: APRESOLINE 20 MG/ML INJ IV ONE (22:25)
[2025-05-31 04:55] LABS: Hematocrit 26.6 % (34.1-44.9); Hemoglobin 7.8 g/dL (11.2-15.7); Mean Corpuscular Hemoglobin 23.1 pg (25.6-32.2); Mean Corpuscular Hgb Concent. 29.3 g/dL (32.2-35.5); Platelet Count 189 x10^3/uL (182-369); Red Blood Count 3.38 x10^6/uL (3.93-5.22); White Blood Count 4.9 x10^3/uL (3.98-10.04)
[2025-05-31 05:04] LABS: Calcium 9.4 mg/dL (8.4-10.2); Carbon Dioxide 25.0 mmol/L (22-30); Creatinine 1 0.5 mg/dL (0.52-1.04); EST GLOMERULAR FILTRATION RATE 91.3 ML/MIN; Glucose 114.0 mg/dL (74-106); Potassium 3.5 mmol/L (3.5-5.1); SGOT/AST 19.0 U/L (14-36); SGPT/ALT 10.0 U/L (0-35); Total Protein 6.2 g/dL (6.3-8.2)
--- NOTE | 2025-05-31 05:37 | PCM.NOTE ---
Date and Time: 05/31/25 0531 Subjective Assessment: Ms. Esteves is an 85-year-old woman with an extensive medical history including GERD, hypothyroidism, insomnia, migraines, peripheral neuropathy, cataracts, hyperlipidemia, hypertension, type 2 diabetes, osteoarthritis, fibromyalgia, Crohns disease, diverticulitis, abdominal hernia, depression, and a recently diagnosed non-occlusive right popliteal vein DVT. She presented to the emergency department with worsening right lower extremity swelling and pain after being advised by her primary care provider to seek further evaluation. The DVT was initially identified on May 24 via venous Doppler. She had been started on warfarin 1 mg daily, but todays INR remained subtherapeutic at 0.93. Her PCP reported that the swelling had appeared improved during two outpatient visits earlier in the week, but the patient remained concerned and requested hospital assessment. She recalls a prior right-leg DVT years ago treated briefly with heparin alone. In the ED, she denied systemic symptoms including fever, chest pain, dyspnea, or bleeding. Labs revealed chronic microcytic anemia (Hgb 79 ) without evidence of acute blood loss. Renal function was within normal limits. A repeat venous Doppler confirmed persistence of the right popliteal thrombus without propagation. Given her subtherapeutic INR and inability to afford DOAC therapy, she was started on enoxaparin bridging to warfarin. Hemodynamics remained stable throughout her stay. 05/31/25: Met with patient bedside. Endorses continued pain to her RLE. Hemoglobin remains stable at 7.8. Pharmacy dosing coumadin/lovenox bridge and will continue with patient at coumadin clinic as OP as well. Discharge pending INR at therapeutic level. - Review of Systems Constitutional: Weakness Eyes: No Symptoms Ears, Nose, & Throat: No Symptoms Respiratory: No Symptoms Cardiac: Edema (BLE +1 pitting) Abdominal/Gastrointestinal: No Symptoms Genitourinary Symptoms: No Symptoms Skin: Cellulitis Neurological: No Symptoms Psychological: No Symptoms Endocrine: No Symptoms Hematologic/Lymphatic: No Symptoms Immunological/Allergic: No Symptoms Objective Exam General Appearance: no apparent distress Neurologic Exam: alert, oriented x 3, cooperative Skin Exam: normal color Eye Exam: PERRL Ears, Nose, Throat Exam: normal ENT inspection Neck Exam: normal inspection Respiratory Exam: normal breath sounds, lungs clear Cardiovascular Exam: regular rate/rhythm, normal heart sounds Gastrointestinal/Abdomen Exam: soft, normal bowel sounds Extremity Exam: swelling (BLE +1 pitting edema) Back Exam: normal inspection Pelvic Exam: deferred Rectal Exam: deferred Objective Data Vital Signs: Vital Signs - 24 hr Temp Pulse Resp BP BP Pulse Ox 05/31/25 03:00 97.9 F 70 18 172/70 98 05/30/25 23:00 98 F 66 18 138/64 99 05/30/25 22:03 207/84 05/30/25 21:14 97.6 F 71 18 220/91 99 05/30/25 20:38 75 26 H 212/79 100 05/30/25 20:34 74 15 216/172 98 05/30/25 20:31 78 18 217/104 100 05/30/25 20:02 77 19 125/84 99 05/30/25 19:43 99 05/30/25 19:30 75 23 158/72 98 05/30/25 19:00 181/77 95 05/30/25 18:31 176/78 94 L 05/30/25 18:00 155/75 96 05/30/25 17:30 193/92 98 05/30/25 17:02 192/82 99 05/30/25 16:30 15 177/78 99 05/30/25 16:18 98.4 F 69 15 185/89 100 05/30/25 16:14 16 185/89 100 Pain Assessment - Last Documented Pain Intensity 6 Intake and Output: Intake & Output 05/28/25 05/29/25 05/30/25 05/31/25 11:59 11:59 11:59 11:59 Weight 62.5 kg Lab Results: Lab Results-Last 24 Hours 05/30/25 05/30/25 05/30/25 Range/Units 18:05 18:05 18:05 WBC 5.3 (3.98-10.04) x10^3/uL RBC 3.27 L (3.93-5.22) x10^6/uL Hgb 7.7 L (11.2-15.7) g/dL Hct 25.7 L (34.1-44.9) % MCV 78.6 L (79.4-94.8) fL MCH 23.5 L (25.6-32.2) pg MCHC 30.0 L (32.2-35.5) g/dL RDW 15.6 H (11.7-14.4) % Plt Count 193 (182-369) x10^3/uL MPV 9.9 (9.4-12.3) fL Gran % 65.5 (34.0-71.1) % Immature Gran % (Auto) 0.4 (0.001-0.429) % Nucleat RBC Rel Count 0.0 (0.00-0.2) % Eos # (Auto) 0.10 (0.04-0.36) x10^3/uL Immature Gran # (Auto) 0.02 (0.001-0.031) x10^3u/L Absolute Lymphs (auto) 1.28 (1.18-3.74) x10^3/uL Absolute Monos (auto) 0.39 (0.24-0.86) x10^3/uL Absolute Nucleated RBC 0.00 (0.00-0.012) x10^3u/L Lymphocytes % 24.1 (19.3-51.7) % Monocytes % 7.3 (4.7-12.5) % Eosinophils % 1.9 (0.7-5.8) % Basophils % 0.8 (0.1-1.2) % Absolute Granulocytes 3.49 (1.56-6.13) x10^3/uL Basophils # 0.04 (0.01-0.08) x10^3/uL PT (9.4-12.5) SECONDS INR (0.8-3.0) APTT (25.1-36.5) SECONDS Sodium 136 (135-145) mmol/L Potassium 3.8 (3.5-5.1) mmol/L Chloride 104 (98-107) mmol/L Carbon Dioxide 26 (22-30) mmol/L Anion Gap 9.7 (5-15) MEQ/L BUN 18 H (7-17) mg/dL Creatinine 0.57 (0.52-1.04) mg/dL Estimated GFR 88.5 ML/MIN Glucose 93 (74-106) mg/dL Calcium 9.4 (8.4-10.2) mg/dL Total Bilirubin < 0.10 L (0.2-1.3) mg/dL AST 18 (14-36) U/L ALT 11 (0-35) U/L Alkaline Phosphatase 66 (38-126) U/L Troponin I < 0.012 (0.000-0.033) ng/mL Serum Total Protein 6.6 (6.3-8.2) g/dL Albumin 3.6 (3.5-5.0) g/dL 05/30/25 05/31/25 05/31/25 Range/Units 18:05 04:43 04:43 WBC 4.9 (3.98-10.04) x10^3/uL RBC 3.38 L (3.93-5.22) x10^6/uL Hgb 7.8 L (11.2-15.7) g/dL Hct 26.6 L (34.1-44.9) % MCV 78.7 L (79.4-94.8) fL MCH 23.1 L (25.6-32.2) pg MCHC 29.3 L (32.2-35.5) g/dL RDW 15.5 H (11.7-14.4) % Plt Count 189 (182-369) x10^3/uL MPV 10.0 (9.4-12.3) fL Gran % (34.0-71.1) % Immature Gran % (Auto) (0.001-0.429) % Nucleat RBC Rel Count (0.00-0.2) % Eos # (Auto) (0.04-0.36) x10^3/uL Immature Gran # (Auto) (0.001-0.031) x10^3u/L Absolute Lymphs (auto) (1.18-3.74) x10^3/uL Absolute Monos (auto) (0.24-0.86) x10^3/uL Absolute Nucleated RBC (0.00-0.012) x10^3u/L Lymphocytes % (19.3-51.7) % Monocytes % (4.7-12.5) % Eosinophils % (0.7-5.8) % Basophils % (0.1-1.2) % Absolute Granulocytes (1.56-6.13) x10^3/uL Basophils # (0.01-0.08) x10^3/uL PT 10.4 (9.4-12.5) SECONDS INR 0.93 (0.8-3.0) APTT 25.1 (25.1-36.5) SECONDS Sodium 135 (135-145) mmol/L Potassium 3.5 (3.5-5.1) mmol/L Chloride 105 (98-107) mmol/L Carbon Dioxide 25 (22-30) mmol/L Anion Gap 7.9 (5-15) MEQ/L BUN 16 (7-17) mg/dL Creatinine 0.50 L (0.52-1.04) mg/dL Estimated GFR 91.3 ML/MIN Glucose 114 H (74-106) mg/dL Calcium 9.4 (8.4-10.2) mg/dL Total Bilirubin 0.10 L (0.2-1.3) mg/dL AST 19 (14-36) U/L ALT 10 (0-35) U/L Alkaline Phosphatase 64 (38-126) U/L Troponin I (0.000-0.033) ng/mL Serum Total Protein 6.2 L (6.3-8.2) g/dL Albumin 3.4 L (3.5-5.0) g/dL Medications: Medications Generic Name Dose Route Start Last Admin Trade Name Freq PRN Reason Stop Dose Admin Acetaminophen 650 mg 05/30/25 22:03 Acetaminophen 325 Mg Tablet PO 06/29/25 22:02 Q4H PRN PRN PAIN, FEVER, HEADACHE Cephalexin HCl 500 mg 05/31/25 10:00 Cephalexin Mh 250 Mg Capsule PO 06/30/25 09:59 TID DRISS Enoxaparin Sodium 70 mg 05/30/25 22:00 05/30/25 21:52 Enoxaparin Sodium 80 Mg/0.8 Ml Syringe SQ 06/29/25 21:59 70 mg BID DRISS Administration Hydralazine HCl 10 mg 05/30/25 22:07 05/30/25 22:25 Hydralazine Hcl 20 Mg/Ml Vial IV 05/30/25 22:08 10 mg STAT ONE Administration Insulin Human Lispro 0 unit 05/30/25 22:03 Insulin Lispro 1 Unit SQ 06/29/25 22:02 UD PRN HYPERGLYCEMIA Levothyroxine Sodium 25 mcg 05/31/25 10:00 Levothyroxine Sodium 25 Mcg Tablet PO 06/30/25 09:59 DAILY DRISS Lisinopril 20 mg 05/31/25 10:00 Lisinopril 20 Mg Tablet PO 06/30/25 09:59 DAILY [facility] Non-Formulary Medication 40 mg 05/31/25 10:00 Omeprazole [Omeprazole] PO 06/30/25 09:59 DAILY [facility] Non-Formulary Medication 50 mcg 05/31/25 10:00 Cholecalciferol (Vitamin D3) [Vitamin D3] PO 06/30/25 09:59 DAILY [facility] Non-Formulary Medication 1 each 05/30/25 22:15 Buprenorphine [Butrans] TD 06/29/25 22:14 WEEKLY [facility] Non-Formulary Medication 10 mg 05/30/25 22:07 Baclofen [Baclofen] PO DAILY PRN PRN PAIN Non-Formulary Medication 1 each 05/31/25 07:00 Pharmacy Dosing Request [facility] 05/31/25 07:01 STAT ONE Trazodone HCl mg 05/31/25 22:00 Trazodone Hcl 50 Mg Tablet PO 06/30/25 21:59 HS [facility] Discontinued Medications Generic Name Dose Route Start Last Admin Trade Name Freq PRN Reason Stop Dose Admin Warfarin Sodium 5 mg 05/30/25 20:08 05/30/25 20:35 Warfarin Sodium 5 Mg Tablet PO 05/30/25 20:09 5 mg ONCE ONE Administration Assessment/Plan (1) DVT (deep venous thrombosis) Current Visit: Yes Status: Acute Qualifiers: DVT location: lower extremity Affected thrombotic vein of extremity: popliteal Chronicity: acute Laterality: right Qualified Code(s): I82.431 - Acute embolism and thrombosis of right popliteal vein Assessment & Plan: -Acute, non-occlusive thrombus in the right popliteal vein confirmed on repeat Doppler. INR 0.93 on subtherapeutic warfarin dose (1 mg daily). Normal creatinine, no signs of active bleeding. -Pharmacy dosing coumadin/lovenox bridge and following -INR at 0.97 today -Repeat INR in AM; adjust dosing per anticoagulation protocol. -Monitor for bleedingdaily CBC, hemoglobin trend, and stool hemoccult if indic ated. -Encourage ambulation with leg elevation when resting -Education on long-term anticoagulation adherence and follow-up for INR management. Code(s): I82.409 - ACUTE EMBOLISM AND THOMBOS UNSP DEEP VN UNSP LOWER EXTREMITY (2) Cellulitis Current Visit: No Status: Acute Qualifiers: Site of cellulitis: extremity Site of cellulitis of extremity: lower extremity Laterality: left Qualified Code(s): L03.116 - Cellulitis of left lower limb Assessment & Plan: -Mild erythema and warmth noted previously; currently improving on outpatient therapy. No leukocytosis, afebrile. -Continue Keflex (cephalexin) 500 mg PO q6h to complete 7-day course per PCP. -Monitor for recurrence or worsening erythema, especially with concurrent anticoagulation. Code(s): L03.90 - CELLULITIS, UNSPECIFIED (3) HTN (hypertension) Current Visit: No Status: Acute Assessment & Plan: -BP mildly elevated on presentation (148/78 mm Hg); consistent with chronic primary hypertension. Renal function and electrolytes normal. -Continue lisinopril 10 mg daily. -Monitor BP daily; avoid aggressive reduction to preserve perfusion while anticoagulated. Code(s): I10 - ESSENTIAL (PRIMARY) HYPERTENSION (4) Hypothyroidism Current Visit: No Status: Acute Assessment & Plan: -Continue levothyroxine at home dose. -Recheck TSH in 68 weeks if clinically indicated. Code(s): E03.9 - HYPOTHYROIDISM, UNSPECIFIED (5) Microcytic anemia Current Visit: No Status: Chronic Assessment & Plan: -Hgb 79 g/dL, chronic trend stable without overt bleeding or hemolysis. Ferritin and iron studies pending; no melena, hematuria, or hematemesis noted. -Monitor CBC daily; transfuse PRBCs for Hgb < 7 g/dL or symptomatic anemia. -CBC reviewed and stable today at 7.8 -Stools for occult blood -If ferritin < 30 ng/mL, initiate oral or IV iron supplementation once infection and anticoagulation stabilized. -Reassess for possible GI sources of slow blood loss given chronicity and history of Crohns/diverticulitis. Code(s): D50.9 - IRON DEFICIENCY ANEMIA, UNSPECIFIED (6) Type 2 diabetes mellitus Current Visit: No Status: Chronic Assessment & Plan: -ADA diet -SSI -A1c VTE: coumadin/lovenox bridge PPI: protonix Dispo: 1-2 days Code status: Full Code Plan of care time spent > 30 mins
[2025-05-31 05:49] LABS: INR 0.97 (0.8-3.0); PROTIME 10.9 SECONDS (9.4-12.5)
[2025-05-31] MEDS ORDERED: LIORESAL 10 MG PO PRN (07:08)
[2025-05-31] MEDS ORDERED: MEDICATION INTERVENTION MC SCH (07:15)
[2025-05-31] MEDS: ENOXAPARIN SODIUM SQ SCH (09:51)
[2025-05-31] MEDS: Zestril 20 MG PO SCH (09:52)
[2025-05-31] MEDS: SYNTHROID 25 MCG PO SCH (09:52)
[2025-05-31] MEDS: KEFLEX 500 MG PO SCH (09:52)
[2025-05-31] MEDS: VITAMIN D PO SCH (09:53)
[2025-05-31] MEDS: Protonix 40MG Tablet PO SCH (09:53)
[2025-05-31] MEDS ORDERED: NON-FORMULARY ITEM (Omeprazole [Omeprazole] 40 MG Capsule.Dr) PO SCH (10:00)
[2025-05-31] MEDS ORDERED: KEFLEX 250 MG PO SCH (10:00)
[2025-05-31] MEDS ORDERED: NON-FORMULARY ITEM (Cholecalciferol (Vitamin D3) [Vitamin D3] 50 MCG Capsule) PO SCH (10:00)
[2025-05-31] MEDS: PHARMACY DOSING REQUEST MC ONE (10:28)
[2025-05-31] MEDS: TYLENOL 325 MG PO PRN (13:00)
[2025-05-31] MEDS: Coumadin 2 MG PO SCH (18:21)
[2025-05-31] MEDS: DESYREL 50 MG PO SCH (21:58)
[2025-06-01 04:25] VITALS: RESP 16
[2025-06-01 04:59] LABS: Hematocrit 25.0 % (34.1-44.9); Hemoglobin 7.4 g/dL (11.2-15.7); Mean Corpuscular Hemoglobin 23.1 pg (25.6-32.2); Mean Corpuscular Hgb Concent. 29.6 g/dL (32.2-35.5); Platelet Count 181 x10^3/uL (182-369); Red Blood Count 3.20 x10^6/uL (3.93-5.22); White Blood Count 4.4 x10^3/uL (3.98-10.04)
--- NOTE | 2025-06-01 05:09 | PCM.NOTE ---
Date and Time: 06/01/25 0508 Subjective Assessment: Ms. Esteves is an 85-year-old woman with an extensive medical history including GERD, hypothyroidism, insomnia, migraines, peripheral neuropathy, cataracts, hyperlipidemia, hypertension, type 2 diabetes, osteoarthritis, fibromyalgia, Crohns disease, diverticulitis, abdominal hernia, depression, and a recently diagnosed non-occlusive right popliteal vein DVT. She presented to the emergency department with worsening right lower extremity swelling and pain after being advised by her primary care provider to seek further evaluation. The DVT was initially identified on May 24 via venous Doppler. She had been started on warfarin 1 mg daily, but todays INR remained subtherapeutic at 0.93. Her PCP reported that the swelling had appeared improved during two outpatient visits earlier in the week, but the patient remained concerned and requested hospital assessment. She recalls a prior right-leg DVT years ago treated briefly with heparin alone. In the ED, she denied systemic symptoms including fever, chest pain, dyspnea, or bleeding. Labs revealed chronic microcytic anemia (Hgb 79 ) without evidence of acute blood loss. Renal function was within normal limits. A repeat venous Doppler confirmed persistence of the right popliteal thrombus without propagation. Given her subtherapeutic INR and inability to afford DOAC therapy, she was started on enoxaparin bridging to warfarin. Hemodynamics remained stable throughout her stay. 05/31/25: Met with patient bedside. Endorses continued pain to her RLE. Hemoglobin remains stable at 7.8. Pharmacy dosing coumadin/lovenox bridge and will continue with patient at coumadin clinic as OP as well. Discharge pending INR at therapeutic level. Objective Data Vital Signs: Vital Signs - 24 hr Temp Pulse Resp BP Pulse Ox 06/01/25 03:00 97.9 F 61 16 130/60 97 05/31/25 23:00 97.8 F 71 18 175/73 95 05/31/25 19:00 97.6 F 76 18 179/76 97 05/31/25 15:00 98.0 F 70 16 113/58 98 05/31/25 11:00 97.9 F 69 16 180/74 99 05/31/25 08:23 99 05/31/25 07:00 97.9 F 62 17 151/63 94 L Pain Assessment - Last Documented Pain Intensity 0 Pain Scale Used 0-10 Pain Scale Intake and Output: Intake & Output 05/29/25 05/30/25 05/31/25 06/01/25 11:59 11:59 11:59 11:59 Intake Total 1100 Output Total 1 750 Balance -1 350 Weight 62.5 kg Lab Results: Lab Results-Last 24 Hours 05/31/25 05/31/25 05/31/25 Range/Units 04:00 04:43 04:43 WBC 4.9 (3.98-10.04) x10^3/uL RBC 3.38 L (3.93-5.22) x10^6/uL Hgb 7.8 L (11.2-15.7) g/dL Hct 26.6 L (34.1-44.9) % MCV 78.7 L (79.4-94.8) fL MCH 23.1 L (25.6-32.2) pg MCHC 29.3 L (32.2-35.5) g/dL RDW 15.5 H (11.7-14.4) % Plt Count 189 (182-369) x10^3/uL MPV 10.0 (9.4-12.3) fL PT 10.9 (9.4-12.5) SECONDS INR 0.97 (0.8-3.0) Sodium 135 (135-145) mmol/L Potassium 3.5 (3.5-5.1) mmol/L Chloride 105 (98-107) mmol/L Carbon Dioxide 25 (22-30) mmol/L Anion Gap 7.9 (5-15) MEQ/L BUN 16 (7-17) mg/dL Creatinine 0.50 L (0.52-1.04) mg/dL Estimated GFR 91.3 ML/MIN Glucose 114 H (74-106) mg/dL POC Glucometer (74 to 106) mg/dL Calcium 9.4 (8.4-10.2) mg/dL Total Bilirubin 0.10 L (0.2-1.3) mg/dL AST 19 (14-36) U/L ALT 10 (0-35) U/L Alkaline Phosphatase 64 (38-126) U/L Serum Total Protein 6.2 L (6.3-8.2) g/dL Albumin 3.4 L (3.5-5.0) g/dL 05/31/25 Range/Units 07:23 WBC (3.98-10.04) x10^3/uL RBC (3.93-5.22) x10^6/uL Hgb (11.2-15.7) g/dL Hct (34.1-44.9) % MCV (79.4-94.8) fL MCH (25.6-32.2) pg MCHC (32.2-35.5) g/dL RDW (11.7-14.4) % Plt Count (182-369) x10^3/uL MPV (9.4-12.3) fL PT (9.4-12.5) SECONDS INR (0.8-3.0) Sodium (135-145) mmol/L Potassium (3.5-5.1) mmol/L Chloride (98-107) mmol/L Carbon Dioxide (22-30) mmol/L Anion Gap (5-15) MEQ/L BUN (7-17) mg/dL Creatinine (0.52-1.04) mg/dL Estimated GFR ML/MIN Glucose (74-106) mg/dL POC Glucometer 115 H (74 to 106) mg/dL Calcium (8.4-10.2) mg/dL Total Bilirubin (0.2-1.3) mg/dL AST (14-36) U/L ALT (0-35) U/L Alkaline Phosphatase (38-126) U/L Serum Total Protein (6.3-8.2) g/dL Albumin (3.5-5.0) g/dL Medications: Medications Generic Name Dose Route Start Last Admin Trade Name Paulq PRN Reason Stop Dose Admin Acetaminophen 650 mg 05/30/25 22:03 05/31/25 13:00 Acetaminophen 325 Mg Tablet PO 06/29/25 22:02 650 mg Q4H PRN PRN Administration PAIN, FEVER, HEADACHE Baclofen 10 mg 05/31/25 07:08 Baclofen 10 Mg Tablet PO 06/30/25 07:07 DAILY PRN PRN PAIN Cephalexin HCl 500 mg 05/31/25 10:00 05/31/25 21:58 Cephalexin Mh500 Mg Capsule PO 06/30/25 09:59 500 mg TID DRISS Administration Cholecalciferol 2,000 unit 05/31/25 10:00 05/31/25 09:53 Cholecalciferol (Vitamin D3) 1000 Unit Tablet PO 06/30/25 09:59 2,000 unit DAILY DRISS Administration Enoxaparin Sodium 65 mg 05/31/25 10:00 05/31/25 21:58 Enoxaparin Sodium 80 Mg/0.8 Ml Syringe SQ 06/29/25 21:59 65 mg BID DRISS Administration Insulin Human Lispro 0 unit 05/30/25 22:03 Insulin Lispro 1 Unit SQ 06/29/25 22:02 UD PRN HYPERGLYCEMIA Levothyroxine Sodium 25 mcg 05/31/25 10:00 05/31/25 09:52 Levothyroxine Sodium 25 Mcg Tablet PO 06/30/25 09:59 25 mcg DAILY DRISS Administration Lisinopril 20 mg 05/31/25 10:00 05/31/25 09:52 Lisinopril 20 Mg Tablet PO 06/30/25 09:59 20 mg DAILY DRISS Administration Miscellaneous Information 1 each 05/31/25 07:15 Medication Intervention 1 Each Each 06/30/25 07:14 .RN TO CHECK DRISS Pantoprazole Sodium 40 mg 05/31/25 10:00 05/31/25 09:53 Protonix (Pantoprazole) 40 Mg Tablet PO 06/30/25 09:59 40 mg DAILY DRISS Administration Trazodone HCl 50 mg 05/31/25 22:00 05/31/25 21:58 Trazodone Hcl 50 Mg Tablet PO 06/30/25 21:59 50 mg HS DRISS Administration Warfarin Sodium 4 mg 05/31/25 18:00 05/31/25 18:21 Warfarin Sodium 2 Mg Tablet PO 06/30/25 17:59 4 mg COU DRISS Administration Discontinued Medications Generic Name Dose Route Start Last Admin Trade Name Freq PRN Reason Stop Dose Admin Enoxaparin Sodium 70 mg 05/30/25 22:00 05/30/25 21:52 Enoxaparin Sodium 80 Mg/0.8 Ml Syringe SQ 06/29/25 21:59 70 mg BID DRISS Administration Hydralazine HCl 10 mg 05/30/25 22:07 05/30/25 22:25 Hydralazine Hcl 20 Mg/Ml Vial IV 05/30/25 22:08 10 mg STAT ONE Administration Non-Formulary Medication 1 each 05/31/25 07:00 05/31/25 10:28 Pharmacy Dosing Request 05/31/25 07:01 Not Given STAT ONE Warfarin Sodium 5 mg 05/30/25 20:08 05/30/25 20:35 Warfarin Sodium 5 Mg Tablet PO 05/30/25 20:09 5 mg ONCE ONE Administration Assessment/Plan (1) DVT (deep venous thrombosis) Current Visit: Yes Status: Acute Qualifiers: DVT location: lower extremity Affected thrombotic vein of extremity: p opliteal Chronicity: acute Laterality: right Qualified Code(s): I82.431 - Acute embolism and thrombosis of right popliteal vein Assessment & Plan: -Acute, non-occlusive thrombus in the right popliteal vein confirmed on repeat Doppler. INR 0.93 on subtherapeutic warfarin dose (1 mg daily). Normal creatinine, no signs of active bleeding. -Pharmacy dosing coumadin/lovenox bridge and following -INR at 0.97 today -Repeat INR in AM; adjust dosing per anticoagulation protocol. -Monitor for bleedingdaily CBC, hemoglobin trend, and stool hemoccult if indicated. -Encourage ambulation with leg elevation when resting -Education on long-term anticoagulation adherence and follow-up for INR man agement. Code(s): I82.409 - ACUTE EMBOLISM AND THOMBOS UNSP DEEP VN UNSP LOWER EXTREMITY (2) Cellulitis Current Visit: No Status: Acute Qualifiers: Site of cellulitis: extremity Site of cellulitis of extremity: lower extremity Laterality: left Qualified Code(s): L03.116 - Cellulitis of left lower limb Assessment & Plan: -Mild erythema and warmth noted previously; currently improving on outpatient therapy. No leukocytosis, afebrile. -Continue Keflex (cephalexin) 500 mg PO q6h to complete 7-day course per PCP. -Monitor for recurrence or worsening erythema, especially with concurrent anticoagulation. Code(s): L03.90 - CELLULITIS, UNSPECIFIED (3) HTN (hypertension) Current Visit: No Status: Acute Assessment & Plan: -BP mildly elevated on presentation (148/78 mm Hg); consistent with chronic primary hypertension. Renal function and electrolytes normal. -Continue lisinopril 10 mg daily. -Monitor BP daily; avoid aggressive reduction to preserve perfusion while anticoagulated. Code(s): I10 - ESSENTIAL (PRIMARY) HYPERTENSION (4) Hypothyroidism Current Visit: No Status: Acute Assessment & Plan: -Continue levothyroxine at home dose. -Recheck TSH in 68 weeks if clinically indicated. Code(s): E03.9 - HYPOTHYROIDISM, UNSPECIFIED (5) Microcytic anemia Current Visit: No Status: Chronic Assessment & Plan: -Hgb 79 g/dL, chronic trend stable without overt bleeding or hemolysis. Ferritin and iron studies pending; no melena, hematuria, or hematemesis noted. -Monitor CBC daily; transfuse PRBCs for Hgb < 7 g/dL or symptomatic anemia. -CBC reviewed and stable today at 7.8 -Stools for occult blood -If ferritin < 30 ng/mL, initiate oral or IV iron supplementation once infection and anticoagulation stabilized. -Reassess for possible GI sources of slow blood loss given chronicity and histor y of Crohns/diverticulitis. Code(s): D50.9 - IRON DEFICIENCY ANEMIA, UNSPECIFIED (6) Type 2 diabetes mellitus Current Visit: No Status: Chronic Assessment & Plan: -ADA diet -SSI -A1c VTE: coumadin/lovenox bridge PPI: protonix Dispo: 1-2 days Code status: Full Code Plan of care time spent > 30 mins Code(s): I82.409 - ACUTE EMBOLISM AND THOMBOS UNSP DEEP VN UNSP LOWER EXTREMITY (2) Cellulitis Current Visit: No Status: Acute Qualifiers: Site of cellulitis: extremity Site of cellulitis of extremity: lower extremity Laterality: left Qualified Code(s): L03.116 - Cellulitis of left lower limb Code(s): L03.90 - CELLULITIS, UNSPECIFIED (3) HTN (hypertension) Current Visit: No Status: Acute Code(s): I10 - ESSENTIAL (PRIMARY) HYPERTENSION (4) Hypothyroidism Current Visit: No Status: Acute Code(s): E03.9 - HYPOTHYROIDISM, UNSPECIFIED (5) Microcytic anemia Current Visit: No Status: Chronic Code(s): D50.9 - IRON DEFICIENCY ANEMIA, UNSPECIFIED (6) Type 2 diabetes mellitus Current Visit: No Status: Chronic
[2025-06-01 05:11] LABS: INR 1.17 (0.8-3.0); PROTIME 13.0 SECONDS (9.4-12.5)
[2025-06-01 05:12] LABS: Calcium 9.2 mg/dL (8.4-10.2); Carbon Dioxide 26.0 mmol/L (22-30); Creatinine 1 0.59 mg/dL (0.52-1.04); EST GLOMERULAR FILTRATION RATE 87.7 ML/MIN; Glucose 120.0 mg/dL (74-106); Potassium 3.9 mmol/L (3.5-5.1); SGOT/AST 18.0 U/L (14-36); SGPT/ALT 10.0 U/L (0-35); Total Protein 6.2 g/dL (6.3-8.2)
[2025-06-01 06:06] LABS: Total Cells Counted 100
[2025-06-01 06:07] LABS: Poikilocytosis 1+
[2025-06-01 07:48] VITALS: PULSE 63
[2025-06-01] MEDS: FEOSOL 325 MG PO SCH (10:37)
[2025-06-01 10:47] LABS: Iron 37 ug/dL (37-170); TIBC 385 ug/dL (265-462)
[2025-06-01 11:21] LABS: Ferritin 6.06 ng/mL (11.1-264)
[2025-06-01] MEDS: Venofer 100 MG/5 ML*** 200 MG in Sodium Chloride 0.9% 100 ML IV SCH (11:38)
[2025-06-01 12:00] VITALS: BP 163/71; TEMP 98.4; O2SAT 99
--- NOTE | 2025-06-01 12:19 | PCM.DS ---
Discharge Summary Date of Admission: 05/30/25 20:53 Date of Discharge: 06/01/25 Admitting Physician: SUSANNA HAYWARD MD Primary Care Provider: SAHRA ADORNO Allergies Allergies butorphanol tartrate [From Stadol] Allergy (Verified 05/30/25 16:09) celecoxib [From Celebrex] Allergy (Verified 05/30/25 16:09) Sulfa (Sulfonamide Antibiotics) Allergy (Verified 05/30/25 16:09) tizanidine [From Zanaflex] Allergy (Verified 05/30/25 16:09) Hospital Summary - Hospital Course Hospital Course: Ms. Esteves is an 85-year-old woman with a complex medical history including GERD, hypothyroidism, insomnia, migraines, peripheral neuropathy, cataracts, hyperlipidemia, hypertension, type 2 diabetes mellitus, osteoarthritis, fibromyalgia, Crohns disease, diverticulitis, abdominal hernia, depression, and a recently diagnosed non-occlusive right popliteal vein DVT. She presented to the hospital after being advised by her primary care provider for further evaluation of persistent right lower extremity swelling and pain, despite starting on warfarin 1 mg daily as an outpatient. A venous Doppler performed on 05/24 confirmed a right popliteal DVT. She denied chest pain, dyspnea, fever, or bleeding. Admission INR was 0.93, subtherapeutic. Labs revealed chronic microcytic anemia with Hgb ranging 79 g/dL, consistent with her prior baseline, and normal renal function. On 05/31, hemoglobin was 7.8 g/dL (stable), INR remained subtherapeutic, and right leg pain persisted. Pharmacy continued Lovenox/warfarin bridging with daily INR checks. By 06/01, INR increased to 1.17, Hgb 7.4 g/dL (baseline 7.98.2), and pain had resolved. She was adamant on discharge and understood the risks of leaving prior to a therapeutic INR. Case was discussed with her PCP's nurse who was updated on discharge plans. Ms. Esteves will continue enoxaparin bridging with outpatient INR monitoring through the Coumadin clinic and receive Lovenox injections at the outpatient infusion center until her INR is therapeutic. She was counseled on anticoagulation adherence, monitoring for bleeding, and dietary considerations related to vitamin K intake. She will also have daily CBC checks with results called to her PCP. She received one inpatient dose of IV Venofer for iron deficiency (iron saturation 10%) and was started on ferrous sulfate daily. She continues to refuse colonoscopy for evaluation of her chronic anemia, and given her new DVT and current anticoagulation, this will be deferred for outpatient consideration once she is stable. She was counseled extensively on the importance of hematology follow-up for ongoing iron therapy. Vitals remained stable at discharge, and she was afebrile, tolerating a diet, and ambulating independently. Also discussed case with Dr. Gray who is covering this weekend and updated him - he will follow the cbc over the weekend and manage. Discharge Note New Diagnosis: DVT subtherapeutic INR New Medications: Ferrous sulfate, coumadin 4mg daily for now (dosed by coumadin clinic), lovenox (to be given OP infusion center) Follow Up: PCP/Hematology - Dr. Chary Linton spent 35 minutes [id number] with the patient on the day of discharge performing discharge exam, discussing hospital stay and discharge instructions with patient and caregivers, preparation of discharge records, prescriptions & referral forms and addressing any questions/concerns the patient had as documented above. - Vitals & Intake/Output Vital Signs: Vital Signs Temperature 98.4 F 06/01/25 11:00 Pulse Rate 63 06/01/25 11:00 Respiratory Rate 16 06/01/25 11:00 Blood Pressure 163/71 06/01/25 11:00 O2 Sat by Pulse Oximetry 99 06/01/25 11:00 Intake & Output: Intake & Output 05/30/25 05/31/25 06/01/25 06/02/25 11:59 11:59 11:59 11:59 Intake Total 1340 Output Total 1 900 Balance -1 440 Weight 62.5 kg - Lab Result Diagrams: 06/01/25 04:45 06/01/25 04:45 Lab Results-Last 24 Hrs: Lab Results-Last 24 Hours 06/01/25 06/01/25 06/01/25 Range/Units 04:45 04:45 04:45 WBC 4.4 (3.98-10.04) x10^3/uL RBC 3.20 L (3.93-5.22) x10^6/uL Hgb 7.4 L (11.2-15.7) g/dL Hct 25.0 L (34.1-44.9) % MCV 78.1 L (79.4-94.8) fL MCH 23.1 L (25.6-32.2) pg MCHC 29.6 L (32.2-35.5) g/dL RDW 15.2 H (11.7-14.4) % Plt Count 181 L (182-369) x10^3/uL MPV 10.0 (9.4-12.3) fL Segmented Neutrophils 71 (34.0-71.1) % Lymphocytes (Manual) 27 (19.3-51.7) % Monocytes (Manual) 2 L (4.7-12.5) % Platelet Estimate NORMAL (NORMAL) RBC Morphology ABNORMAL Poikilocytosis 1+ Anisocytosis 1+ PT 13.0 H (9.4-12.5) SECONDS INR 1.17 (0.8-3.0) Sodium 134 L (135-145) mmol/L Potassium 3.9 (3.5-5.1) mmol/L Chloride 103 (98-107) mmol/L Carbon Dioxide 26 (22-30) mmol/L Anion Gap 9.3 (5-15) MEQ/L BUN 16 (7-17) mg/dL Creatinine 0.59 (0.52-1.04) mg/dL Estimated GFR 87.7 ML/MIN Glucose 120 H (74-106) mg/dL Calcium 9.2 (8.4-10.2) mg/dL Iron (37-170) ug/dL TIBC (265-462) ug/dL Iron Saturation (20-39) % Ferritin (11.1-264) ng/mL Total Bilirubin 0.20 (0.2-1.3) mg/dL AST 18 (14-36) U/L ALT 10 (0-35) U/L Alkaline Phosphatase 58 (38-126) U/L Serum Total Protein 6.2 L (6.3-8.2) g/dL Albumin 3.4 L (3.5-5.0) g/dL Vitamin B12 (239-931) pg/mL Folic Acid (2.76 - >20) ng/mL 06/01/25 06/01/25 Range/Units 04:59 04:59 WBC (3.98-10.04) x10^3/uL RBC (3.93-5.22) x10^6/uL Hgb (11.2-15.7) g/dL Hct (34.1-44.9) % MCV (79.4-94.8) fL MCH (25.6-32.2) pg MCHC (32.2-35.5) g/dL RDW (11.7-14.4) % Plt Count (182-369) x10^3/uL MPV (9.4-12.3) fL Segmented Neutrophils (34.0-71.1) % Lymphocytes (Manual) (19.3-51.7) % Monocytes (Manual) (4.7-12.5) % Platelet Estimate (NORMAL) RBC Morphology Poikilocytosis Anisocytosis PT (9.4-12.5) SECONDS INR (0.8-3.0) Sodium (135-145) mmol/L Potassium (3.5-5.1) mmol/L Chloride (98-107) mmol/L Carbon Dioxide (22-30) mmol/L Anion Gap (5-15) MEQ/L BUN (7-17) mg/dL Creatinine (0.52-1.04) mg/dL Estimated GFR ML/MIN Glucose (74-106) mg/dL Calcium (8.4-10.2) mg/dL Iron 37 (37-170) ug/dL TIBC 385 (265-462) ug/dL Iron Saturation 10 L (20-39) % Ferritin 6.06 L (11.1-264) ng/mL Total Bilirubin (0.2-1.3) mg/dL AST (14-36) U/L ALT (0-35) U/L Alkaline Phosphatase (38-126) U/L Serum Total Protein (6.3-8.2) g/dL Albumin (3.5-5.0) g/dL Vitamin B12 301 (239-931) pg/mL Folic Acid 4.31 (2.76 - >20) ng/mL Discharge Exam General Appearance: no apparent distress Neurologic Exam: alert, oriented x 3, cooperative Eye Exam: PERRL Ears, Nose, Throat Exam: normal ENT inspection Neck Exam: normal inspection Respiratory Exam: normal breath sounds, lungs clear Cardiovascular Exam: regular rate/rhythm, normal heart sounds Gastrointestinal/Abdomen Exam: soft, normal bowel sounds Pelvic Exam: deferred Rectal Exam: deferred Back Exam: normal inspection Extremity Exam: normal inspection Skin Exam: normal color Final Diagnosis/Problem List - Final Discharge Diagnosis/Problem (1) DVT (deep venous thrombosis) Current Visit: Yes Status: Acute Assessment & Plan: Confirmed non-occlusive thrombus on Doppler, no propagation. INR 1.17 on discharge; renal function normal. Continue enoxaparin bridging to warfarin per pharmacy-directed dosing. Outpatient follow-up at [facility] for INR titration until therapeutic (goal 23). Continue Lovenox injections at outpatient infusion center until INR therapeutic managed by coumadin clinic/pharmacy Daily CBC and INR checks with results communicated directly to PCP (Ibis Adorno NP) until clinic visit Thursday. Educate on bleeding precautions (melena, hematuria, hemoptysis, bruising). Encourage ambulation; elevate leg when resting; avoid prolonged immobility. Avoid NSAIDs or other agents that increase bleeding risk. Return to ED for new pain, swelling, chest pain, or dyspnea. Code(s): I82.409 - ACUTE EMBOLISM AND THOMBOS UNSP DEEP VN UNSP LOWER EXTREMITY (2) Cellulitis Current Visit: No Status: Acute Assessment & Plan: Previously treated as outpatient; no current erythema or swelling; afebrile, WBC within normal limits. Continue cephalexin 500 mg PO q6h to complete 7-day course per PCP. Monitor for recurrence or new redness/swelling; notify PCP if symptoms recur while on anticoagulation Code(s): L03.90 - CELLULITIS, UNSPECIFIED (3) HTN (hypertension) Current Visit: No Status: Acute Assessment & Plan: Continue lisinopril 10 mg daily. Monitor BP at home; avoid aggressive reduction to preserve renal and cerebral perfusion while anticoagulated. PCP to reassess antihypertensive regimen as outpatient. Code(s): I10 - ESSENTIAL (PRIMARY) HYPERTENSION (4) Hypothyroidism Current Visit: No Status: Acute Assessment & Plan: Continue levothyroxine at home dose. Recheck TSH in 68 weeks or sooner if fatigue, weight change, or temperature intolerance develops. Code(s): E03.9 - HYPOTHYROIDISM, UNSPECIFIED (5) Microcytic anemia Current Visit: No Status: Chronic Assessment & Plan: Hgb 7.4 g/dL on discharge (baseline 7.98.2). Iron saturation 10%, ferritin low; no overt bleeding. Declines colonoscopy for GI evaluation at this time; this will be deferred for outpatient follow-up once stable on anticoagulation. Completed 1 dose IV Venofer inpatient. Continue ferrous sulfate daily at home; take with vitamin C for absorption. Continue pantoprazole 40 mg daily for GERD. Arrange follow-up with Hematology (Dr. Diez) for continued iron infusions and evaluation of anemia source. Daily CBC until outpatient visit; PCP to review results and coordinate with Coumadin dosing. Hold colonoscopy or invasive GI procedures until off therapeutic anticoagulation. Return to ED for fatigue, melena, hematochezia, or symptomatic anemia. Code(s): D50.9 - IRON DEFICIENCY ANEMIA, UNSPECIFIED (6) Type 2 diabetes mellitus Current Visit: No Status: Chronic Assessment & Plan: Monitor blood glucose at home; notify PCP if readings > 180 mg/dL persist. Schedule outpatient A1c recheck per PCP. - Discharge Discharge Date: 06/01/25 Disposition: Home, Self-Care Condition: Stable Prescriptions: New Warfarin Sodium 4 mg PO DAILY 90 Days #90 tablet Warfarin Sodium 2 mg [Coumadin 2 MG] 4 mg PO COU tablet Enoxaparin Sodium [Enoxaparin Sodium] 95 mg SQ DAILY Ferrous Sulfate 325 mg [Feosol 325 mg] 325 mg PO DAILY 30 Days #30 tablet Continue Omeprazole 40 mg PO DAILY Baclofen 10 mg PO DAILY PRN PRN PRN Reason: Pain Levothyroxine Sodium 25 Mcg [Synthroid 25 Mcg] 25 mcg PO DAILY Cholecalciferol (Vitamin D3) [Vitamin D3] 50 mcg PO DAILY Buprenorphine [Butrans] 1 patch TD WEEKLY Lisinopril 20 mg [Zestril 20 MG] 20 mg PO DAILY 30 Days #30 tablet Trazodone HCl 50 mg [Desyrel 50 mg] 50 mg HS cephALEXin [Cephalexin] 500 mg TID Discontinued Warfarin Sodium 1 mg [Coumadin] 1 mg PO DAILY Additional Instructions: THE FIRST APT FOR YOUR LOVENOX INJECTION THRU THE [facility] OUTPT [facility]ION C[facility] IS TOMORROW 06/02@ 11 AM- GO TO REGISTRATION WHEN YOU ARRIVE. THEY WILL HAVE YOUR INR LEVELS CHECKED DAILY WHILE IN OTPT INFUSION CENTER- THE GOAL IS TO BE >2.0 YOU WILL RETURN TO THE INFUSION CENTER DAILY FOR INJECTIONS UNTIL THIS LEVEL IS REACHED- THEY WILL GIVE YOU THE TIMES TO RETURN. ONCE AN INR OF 2.0 IS REACHED- THE LOVENOX INJECTIONS WILL STOP BUT YOU WILL CONTINUE THE COUMADIN YOU HAVE BEEN INSTRUCTED YOU NEED TO SEE IBIS ADORNO SCHEDULED ON THURSDAY @1:15 ON THURSDAY- YOU NEED TO FOLLOW UP HERE AT [facility] AT THE COUMADIN CENTER AT 1:30 PM FOR FURTHER INSTRUCTION AND MANAGEMENT OF YOU INR LEVELS/COUMADIN THERAPY. Follow up with: JASON DIEZ MD [NON-STAFF PHY W/O PRIVILEGES, HEMATOLOGY] - 06/08/25 9:30 am SAHRA ADORNO NP [Primary Care Provider, FAMILY [facility]ACTICE] - 06/05/25 1:15 pm
== END 2025-06-01 15:37 | disposition home or self-care (01) ==
LOC: ED 14:59 → MED SURG 20:53
PROVIDERS: ADMIT Hospitalist; ATTEND Hospitalist
DX: I82.431 Acute embolism and thrombosis of right popliteal vein (principal); E78.5 Hyperlipidemia, unspecified; I10 Essential (primary) hypertension; E11.9 Type 2 diabetes mellitus without complications; L03.115 Cellulitis of right lower limb; E03.9 Hypothyroidism, unspecified; D50.9 Iron deficiency anemia, unspecified; R60.0 Localized edema; Z79.01 Long term (current) use of anticoagulants; Z79.899 Other long term (current) drug therapy
CPT/HCPCS: 36415; 80053; 82607; 82728; 82746; 82947; 83540; 83550; 84484; 85025; 85027; 85610; 85730; 93005; 93268; 94762; 99285; G0378

== ENCOUNTER 2025-06-15 09:30 | Emergency (ER) | payer MEDICARE ==
--- NOTE | 2025-06-15 09:34 | ERPHSYRPT ---
- History of Present Illness Time Seen by Provider: 06/15/25 09:34 Historian: patient Exam Limitations: no limitations Physician History: This is an 85-year-old white female patient who arrives with private vehicle with a complaint of substernal central chest pain that radiates into her back with associated shortness of breath. She describes the pain as a dull ache. It occurred 2 hours prior to arrival after eating a hash brown and egg breakfast. Patient states that she stopped warfarin 2 days ago. She was placed on this medication earlier this month secondary to a 05/24/2025 venous Doppler right lower extremity nonocclusive DVT in the popliteal vein. She states that she does not have a reason why she stopped her warfarin medication. Patient states she has taken her other medications this morning. She also has bilateral lower extremity edema which is chronic. I reviewed recent admission and discharge note from this hospitalization on 05/30/2025. Patient has a history of gastroesophageal reflux disease, hypothyroidism, migraine headaches, peripheral neuropathy, hyperlipidemia, hypertension, arthritis, fibromyalgia, Crohn's disease and depression. Patient states that she can take aspirin. Patient is on butorphanol medication. Activities at Onset: none Quality: aching, dullness Location: substernal, central Chest Pain Radiation: back Severity of Pain-Max: mild (To moderate) Severity of Pain-Current: mild Modifying Factors: Improves With: nothing Associated Symptoms: shortness of breath (Mild) Nitro Today/Relief: no nitro taken today Aspirin Treatment Today: no aspirin today Allergies/Adverse Reactions: butorphanol tartrate [From Stadol] Allergy (Verified 06/15/25 09:34) celecoxib [From Celebrex] Allergy (Verified 06/15/25 09:34) Sulfa (Sulfonamide Antibiotics) Allergy (Verified 06/15/25 09:34) tizanidine [From Zanaflex] Allergy (Verified 06/15/25 09:34) Home Medications: Omeprazole 40 mg PO DAILY 06/26/21 [History] Baclofen 10 mg PO DAILY PRN PRN 12/01/24 [History] Levothyroxine Sodium 25 Mcg [Synthroid 25 Mcg] 25 mcg PO DAILY 12/01/24 [History] Buprenorphine [Butrans] 1 patch TD WEEKLY 12/02/24 [History] Trazodone HCl 50 mg [Desyrel 50 mg] 50 mg HS 05/30/25 [History] Warfarin Sodium 5 mg PO DAILY 06/15/25 [History] Hx Tetanus, Diphtheria Vaccination/Date Given: Yes Hx Influenza Vaccination/Date Given: Yes Hx Pneumococcal Vaccination/Date Given: No Travel Risk - International Travel Have you traveled outside of the country in past 3 weeks: No - Emerging Infectious Disease Are you exhibiting symptoms associated with any current EIDs: No Symptoms: Abdominal Pain, Diarrhea, Vomitting - Review of Systems Constitutional: No Symptoms Eyes: No Symptoms Ears, Nose, & Throat: No Symptoms Respiratory: Dyspnea Cardiac: Chest Pain (Mild) Abdominal/Gastrointestinal: No Symptoms Genitourinary Symptoms: No Symptoms Musculoskeletal: No Symptoms Skin: No Symptoms Neurological: No Symptoms Psychological: No Symptoms Endocrine: No Symptoms Hematologic/Lymphatic: No Symptoms Immunological/Allergic: No Symptoms All Other Systems: Reviewed and Negative - Past Medical History Pertinent Past Medical History: Yes Neurological History: Migraines, Peripheral Neuropathy ENT History: Cataracts Cardiac History: Deep Vein Thrombosis, High Cholesterol, Hypertension Respiratory History: No Pertinent History Endocrine Medical History: Diabetes Type II, Hypothyroidism Musculoskeletal History: Arthritis, Fibromyalgia GI Medical History: Crohns Disease, Diverticulitis, GERD, Hernia History: No Pertinent History Psycho-Social History: Depression Female Reproductive Disorders: No Pertinent History Other Medical History: PT. HAS HAD 2 C-SPINE SXS - Past Surgical History Past Surgical History: Yes Neuro Surgical History: No Pertinent History Cardiac: No Pertinent History Respiratory: No Pertinent History Gastrointestinal: Appendectomy, Cholecystectomy Genitourinary: No Pertinent History Musculoskeletal: Orthopedic Surgery Female Surgical History: Hysterectomy, Tubal Ligation Other Surgical History: 2nd toe right foot, fractured right shoulder, filmed lasered off right eye, gaglion cyst removed, cataracts, bunion and tumor removed left foot, bunion right foot, tonsils, microscopic anterior cervical diskectomy with interbody fusion c5-6, plate to cervical, left tibia fx repair Significant Family History: no pertinent family hx - Social History Smoking Status: Never smoker Exposure to second hand smoke: No Drug Use: none - Social Determinants of Health Will the patient participate in the screening: Yes Do you worry about a steady place to live?: No In the past 12 months,have you had to go without utilities?: No Transportation Issues: No Has anyone in your support network made you feel unsafe?: No Have you or anyone in your house had to go w/o enough food: No Comment: . - Nursing Vital Signs Nursing Vital Signs: Initial Vital Signs Pulse Rate 68 06/15/25 09:41 Respiratory Rate 15 06/15/25 09:41 Blood Pressure 204/89 06/15/25 09:41 O2 Sat by Pulse Oximetry 100 06/15/25 09:41 Pain Scale Pain Intensity 3 - Physical Exam General Appearance: no apparent distress, alert, anxiety, thin Eye Exam: PERRL/EOMI, eyes nml inspection Ears, Nose, Throat Exam: normal ENT inspection, moist mucous membranes Neck Exam: normal inspection, non-tender, supple, full range of motion Respiratory Exam: normal breath sounds, chest tenderness, lungs clear, airway intact, No respiratory distress Cardiovascular Exam: regular rate/rhythm, normal heart sounds, normal peripheral pulses Gastrointestinal/Abdomen Exam: soft, normal bowel sounds, No tenderness Pelvic Exam: not done Rectal Exam: not done Back Exam: normal inspection, normal range of motion, No CVA tenderness Extremity Exam: normal range of motion, pelvis stable, pedal edema (Bilateral lower extremity from feet proximally to mid calf region), swelling, No tenderness Neurologic Exam: alert, oriented x 3, cooperative, mixing roll operator II-XII nml as tested, nml cerebellar function, nml station & gait, sensation nml Skin Exam: normal color, warm, dry Lymphatic Exam: No adenopathy SpO2 Interpretation: normal O2 Delivery: Room Air - Course Nursing assessment & vital signs reviewed: Yes EKG Interpreted by Me: RATE, Sinus Rhythm, NORMAL AXIS, NORMAL INTERVALS, NORMAL QRS, Other (QTc 407. No acute ischemia. No significant change from twelve- lead EKG dated 06/02/2025 where there is a heart rate of 62 and a rhythm of normal sinus rhythm.) Ordered Tests: Active Orders 24 hr Category Date Time Status Exploration Geologist STAT Care 06/15/25 09:49 Active EKG-ER Only STAT Care 06/15/25 09:48 Active EKG-ER Only STAT Care 06/15/25 13:13 Active IV Insertion STAT Care 06/15/25 09:48 Active Pulse Oximetry (ED) STAT Care 06/15/25 09:48 Active ACO SDOH Referral ONCE Cons 06/15/25 09:42 Active CHEST WITH CONTRAST [CT] Stat Exams 06/15/25 10:48 Completed CBC W DIFF Stat Lab 06/15/25 09:55 Completed CMP Stat Lab 06/15/25 09:55 Completed D-DIMER QUANTITATIVE Stat Lab 06/15/25 09:55 Completed MAGNESIUM Stat Lab 06/15/25 09:55 Completed NT PRO BNPII Stat Lab 06/15/25 09:55 Completed PROTIME WITH INR Stat Lab 06/15/25 09:55 Completed TROPONIN Q4H Lab 06/15/25 09:55 Completed TROPONIN Q4H Lab 06/15/25 13:41 Completed TROPONIN Q4H Lab 06/15/25 18:00 Ordered Medication Summary Generic Name Dose Route Start Last Admin Trade Name Freq PRN Reason Stop Dose Admin Sodium Chloride 500 mls @ 100 mls/hr 06/15/25 11:00 06/15/25 16:08 Sodium Chloride 0.9% 500 Ml IV 07/15/25 10:59 Not Given .Q5H DRISS Discontinued Medications Generic Name Dose Route Start Last Admin Trade Name Freq PRN Reason Stop Dose Admin Aspirin 324 mg 06/15/25 09:48 06/15/25 09:54 Aspirin 81 Mg Tab.Chew PO 06/15/25 09:49 324 mg STAT ONE Administration Aspirin Confirm 06/15/25 09:53 Aspirin 81 Mg Tab.Chew Administered 06/15/25 09:54 Dose 324 mg .ROUTE .STK-MED ONE Atorvastatin Calcium 40 mg 06/15/25 16:08 06/15/25 16:12 Atorvastatin Calcium 40 Mg Tablet PO 06/15/25 16:09 40 mg STAT STA Administration Atorvastatin Calcium Confirm 06/15/25 16:11 Atorvastatin Calcium 40 Mg Tablet Administered 06/15/25 16:12 Dose 40 mg .ROUTE .STK-MED ONE Enoxaparin Sodium 70 mg 06/15/25 10:46 06/15/25 11:02 Enoxaparin Sodium 80 Mg/0.8 Ml Syringe SQ 06/15/25 10:47 70 mg STAT ONE Administration Enoxaparin Sodium Confirm 06/15/25 10:58 Enoxaparin Sodium 80 Mg/0.8 Ml Syringe Administered 06/15/25 10:59 Dose 80 mg SQ .STK-MED ONE Sodium Chloride Confirm 06/15/25 10:58 Sodium Chloride 0.9% 1000 Ml Administered 06/15/25 10:59 Dose 1,000 mls @ ud .ROUTE .STK-MED ONE Warfarin Sodium 5 mg 06/15/25 14:25 06/15/25 14:38 Warfarin Sodium 5 Mg Tablet PO 06/15/25 14:26 5 mg ONCE ONE Administration Lab/Rad Data: Laboratory Result Diagrams 06/15/25 09:55 06/15/25 09:55 Laboratory Results 06/15/25 06/15/25 06/15/25 Range/Units 13:41 09:55 09:55 WBC (3.98-10.04) x10^3/uL RBC (3.93-5.22) x10^6/uL Hgb (11.2-15.7) g/dL Hct (34.1-44.9) % MCV (79.4-94.8) fL MCH (25.6-32.2) pg MCHC (32.2-35.5) g/dL RDW (11.7-14.4) % Plt Count (182-369) x10^3/uL MPV (9.4-12.3) fL Gran % (34.0-71.1) % Immature Gran % (Auto) (0.001-0.429) % Nucleat RBC Rel Count (0.00-0.2) % Eos # (Auto) (0.04-0.36) x10^3/uL Immature Gran # (Auto) (0.001-0.031) x10^3u/L Absolute Lymphs (auto) (1.18-3.74) x10^3/uL Absolute Monos (auto) (0.24-0.86) x10^3/uL Absolute Nucleated RBC (0.00-0.012) x10^3u/L Lymphocytes % (19.3-51.7) % Monocytes % (4.7-12.5) % Eosinophils % (0.7-5.8) % Basophils % (0.1-1.2) % Absolute Granulocytes (1.56-6.13) x10^3/uL Basophils # (0.01-0.08) x10^3/uL PT 18.9 H (9.4-12.5) SECONDS INR 1.72 (0.8-3.0) D-Dimer 1.19 H* (0.0-0.50) mg/L Sodium (135-145) mmol/L Potassium (3.5-5.1) mmol/L Chloride (98-107) mmol/L Carbon Dioxide (22-30) mmol/L Anion Gap (5-15) MEQ/L BUN (7-17) mg/dL Creatinine (0.52-1.04) mg/dL Estimated GFR ML/MIN Glucose (74-106) mg/dL Calcium (8.4-10.2) mg/dL Magnesium (1.6-2.3) mg/dL Total Bilirubin (0.2-1.3) mg/dL AST (14-36) U/L ALT (0-35) U/L Alkaline Phosphatase (38-126) U/L Troponin I 0.038 H* 0.023 (0.000-0.033) ng/mL NT-Pro-B Natriuret Pep (<300) pg/mL Serum Total Protein (6.3-8.2) g/dL Albumin (3.5-5.0) g/dL 06/15/25 06/15/25 Range/Units 09:55 09:55 WBC 4.6 (3.98-10.04) x10^3/uL RBC 3.93 (3.93-5.22) x10^6/uL Hgb 9.7 L (11.2-15.7) g/dL Hct 32.9 L (34.1-44.9) % MCV 83.7 (79.4-94.8) fL MCH 24.7 L (25.6-32.2) pg MCHC 29.5 L (32.2-35.5) g/dL RDW 20.0 H (11.7-14.4) % Plt Count 191 (182-369) x10^3/uL MPV 10.8 (9.4-12.3) fL Gran % 70.0 (34.0-71.1) % Immature Gran % (Auto) 0.4 (0.001-0.429) % Nucleat RBC Rel Count 0.0 (0.00-0.2) % Eos # (Auto) 0.04 (0.04-0.36) x10^3/uL Immature Gran # (Auto) 0.02 (0.001-0.031) x10^3u/L Absolute Lymphs (auto) 0.94 L (1.18-3.74) x10^3/uL Absolute Monos (auto) 0.33 (0.24-0.86) x10^3/uL Absolute Nucleated RBC 0.00 (0.00-0.012) x10^3u/L Lymphocytes % 20.7 (19.3-51.7) % Monocytes % 7.3 (4.7-12.5) % Eosinophils % 0.9 (0.7-5.8) % Basophils % 0.7 (0.1-1.2) % Absolute Granulocytes 3.19 (1.56-6.13) x10^3/uL Basophils # 0.03 (0.01-0.08) x10^3/uL PT (9.4-12.5) SECONDS INR (0.8-3.0) D-Dimer (0.0-0.50) mg/L Sodium 138 (135-145) mmol/L Potassium 4.0 (3.5-5.1) mmol/L Chloride 103 (98-107) mmol/L Carbon Dioxide 27 (22-30) mmol/L Anion Gap 12.7 (5-15) MEQ/L BUN 20 H (7-17) mg/dL Creatinine 0.52 (0.52-1.04) mg/dL Estimated GFR 90.4 ML/MIN Glucose 148 H (74-106) mg/dL Calcium 10.0 (8.4-10.2) mg/dL Magnesium 1.6 (1.6-2.3) mg/dL Total Bilirubin 0.30 (0.2-1.3) mg/dL AST 32 (14-36) U/L ALT 17 (0-35) U/L Alkaline Phosphatase 62 (38-126) U/L Troponin I (0.000-0.033) ng/mL NT-Pro-B Natriuret Pep 507 (<300) pg/mL Serum Total Protein 8.1 (6.3-8.2) g/dL Albumin 4.6 (3.5-5.0) g/dL - Progress Progress: improved, re-examined Air Movement: good Progress Note: 06/15/25 09:58 My medical decision making and the assignment of moderate to high complexity of this patient's medical issue today is based on review of the patient's past medical history, review the patient's medication list, reviewed patient drug allergy list, history present illness and physical findings on examination. The workup in this patient includes twelve-lead EKG, placement of intravenous line, CBC, CMP, magnesium level, D-dimer level, BNP, troponin level, and provide the patient with 4 baby aspirin. If the D-dimer is elevated we will proceed with a CT scan of the chest with contrast if there are no contraindications to do so. Otherwise a normal D-dimer level will lead us to a plain chest x-ray study. Differential diagnosis includes but is not limited to anxiety, muscle skeletal pain, myocardial infarction, arrhythmia, pulmonary embolus, pulmonary infiltrate, electrolyte abnormalities 06/15/25 11:25 I interpreted the patient's laboratory data results. Patient's D-dimer is elevated at 1.19. Patient has been off her Coumadin for 2 days. Her INR is subtherapeutic. In addition, her hemoglobin level is 9.7 which is low but 2 points higher than similar lab dated 05/30/2025 when the hemoglobin was 7.7. Patient is hemodynamically stable at this time. Patient was given a dose of subcutaneous Lovenox and sent to the CT scan suite to undergo a CT scan of the chest with contrast to evaluate for pulmonary embolus. Patient has refused that study. 06/15/25 13:[address] scan of the chest with contrast was interpreted by the radiologist and I reviewed the impression. The impression states negative for pulmonary embolus. No new or acute cardiopulmonary findings. 06/15/25 14:24 I repeated and interpreted the second twelve-lead EKG performed on 06/15/2025 at 1344. Heart rate is 59 bpm. There is normal sinus rhythm. QTc is 416 no acute ischemia. There is normal intervals, normal QRS and normal axis deviation. 06/15/25 15:02 I reexamined the patient. She states she no longer has chest pain. However her second troponin did increase to just out of the high normal range. Patient states that she occasionally sees laborer heading, Dr. Bailey, for a yearly checkup. She has no cardiac stents. She has never had a coronary artery bypass grafting. She prefers to stay here at our facility if appropriate. Otherwise, she states that she would like to be transferred to [facility] if she cannot stay here at our facility. 06/15/25 15:[address] Avendano, our telehospitalist, regarding placing this patient in observation. He feels that the patient would be best served to be where there is cardiology in-house and there is availability of cardiac catheterization if needed. I agree with him. We will contact [facility] first to see about transfer. 06/15/25 15:42 I spoke with Gayla, the transfer center nurse who informed me via the emergency department physician, Dr. Cespedes, that they declined the transfer since the facility no longer has a cardiac laboratory manager. I informed the patient of the above declination's. We will contact [facility] for transfer. Patient is agreeable to this plan. 06/15/25 16:[address] Borjas, laborer heading out of [facility]. I reviewed the patient history, presenting complaint, physical findings and workup results with him. He accepts the patient in transfer. He does not want the patient to receive any more warfarin. Patient can receive aspirin, statin and Lovenox. The hospitalist will be contacting me in the emergency department as they will be admitting to the patient to [facility]. 06/15/25 16:[address] Maritza Miramontes, the hospitalist on-call for [facility] at this time. I reviewed the patient history, physical findings on examination, chief complaint and workup results with her. I also briefed her on discussion I had with laborer heading Dr. Borjas. She excepted patient in transfer at 1630. Blood Culture(s) Obtained: No Antibiotics given: No Counseled pt/family regarding: lab results, diagnosis, need for follow-up, rad results Medical Desision Making - Diagnostic Testing Diagnostic test were ordered, analyzed, and reviewed by me: Yes Radiological Interpretation: Reviewed by me, Teleradiologist Report - Risk of complications The pt has a high risk of morbidity or mortality based on: Decision regarding hospitilization or escalation of hosp level of care - Departure Departure Disposition: Transfer Clinical Impression: Chest pain, Non-ST elevated myocardial infarction (non-STEMI), Noncompliance with medication regimen Condition: Stable Critical Care Time: No Referrals: [facility] [Primary Care Provider, UNKNOWN] - Follow up/PCP as directed
[2025-06-15 09:43] VITALS: TEMP 97.8
[2025-06-15] MEDS ORDERED: BABY ASPIRIN 81 MG CHEW ONE (09:53)
[2025-06-15] MEDS: BABY ASPIRIN 81 MG CHEW PO ONE (09:54)
[2025-06-15 09:57] LABS: BASOPHIL % 0.7 % (0.1-1.2); Basophil (Absolute #) 0.03 x10^3/uL (0.01-0.08); Eosinophil (Absolute #) 0.04 x10^3/uL (0.04-0.36); Hematocrit 32.9 % (34.1-44.9); Hemoglobin 9.7 g/dL (11.2-15.7); IMMATURE GRAN # 0.02 x10^3u/L (0.001-0.031); IMMATURE GRAN % 0.4 % (0.001-0.429); Lymphocyte (Absolute #) 0.94 x10^3/uL (1.18-3.74); Mean Corpuscular Hemoglobin 24.7 pg (25.6-32.2); Mean Corpuscular Hgb Concent. 29.5 g/dL (32.2-35.5); Monocyte (Absolute #) 0.33 x10^3/uL (0.24-0.86); NUCLEATED RBC # 0.00 x10^3u/L (0.00-0.012); NUCLEATED RBC % 0.0 % (0.00-0.2); Platelet Count 191 x10^3/uL (182-369); Red Blood Count 3.93 x10^6/uL (3.93-5.22); White Blood Count 4.6 x10^3/uL (3.98-10.04)
[2025-06-15 10:20] LABS: Calcium 10.0 mg/dL (8.4-10.2); Carbon Dioxide 27.0 mmol/L (22-30); Creatinine 1 0.52 mg/dL (0.52-1.04); EST GLOMERULAR FILTRATION RATE 90.4 ML/MIN; Glucose 148.0 mg/dL (74-106); NT PRO BNPII 507.0 pg/mL (<300); Potassium 4.0 mmol/L (3.5-5.1); SGOT/AST 32.0 U/L (14-36); SGPT/ALT 17.0 U/L (0-35); Total Protein 8.1 g/dL (6.3-8.2)
[2025-06-15 10:21] LABS: INR 1.72 (0.8-3.0); PROTIME 18.9 SECONDS (9.4-12.5)
[2025-06-15] MEDS ORDERED: ENOXAPARIN SODIUM SQ ONE (10:58)
[2025-06-15] MEDS: ENOXAPARIN SODIUM SQ ONE (11:02)
--- NOTE | 2025-06-15 13:12 | XRAY ---
Indication: Chest pain. Elevated D-dimer. Right leg DVT. Multiple contiguous axial images obtained through the chest using 80 cc Isovue 370 contrast and PE protocol. Comparison: CT chest without contrast April 22, 2019. Good opacification pulmonary arteries to include lobar and segmental branches. No pulmonary embolus. Heart not enlarged. Aorta again minimally arteriosclerotic without aneurysm/dissection. No pathologic mediastinal/hilar lymphadenopathy. New small hiatal hernia. Lungs demonstrates interval worsening diffuse bilateral peripheral fibrosis/scarring. Stable mild inferior lingula subsegmental atelectasis/scarring. No interval developing pulmonary mass/nodule, infiltrate, or effusion. Bony thorax intact again with osteopenia, worsening minimal/mild multilevel degenerative spondylosis, and right shoulder arthroplasty. Incompletely visualized L2 vertebroplasty not previously included. Limited upper abdomen again demonstrates cholecystectomy. Incidental 2 cm right upper renal cyst not previously included. Impression: 1. Negative pulmonary embolus. No new/acute cardiopulmonary abnormalities. 2. Chronic findings including pulmonary fibrosis/scarring, hiatal hernia, arteriosclerotic disease, right renal cyst, and chronic bony findings.
[2025-06-15] MEDS: COUMADIN PO ONE (14:38)
[2025-06-15] MEDS ORDERED: LIPITOR 40MG ONE (16:11)
[2025-06-15] MEDS: LIPITOR 40MG PO STA (16:12)
[2025-06-15] MEDS ORDERED: ENALAPRILAT 2.5 MG INJECTION IV ONE (16:39)
[2025-06-15] MEDS: Nitrostat 0.4 MG Tablet SL ONE (16:39)
[2025-06-15] MEDS ORDERED: Nitrostat 0.4 MG (ED) SL ONE (16:39)
[2025-06-15] MEDS: ENALAPRILAT 2.5 MG INJECTION IV ONE (16:57)
[2025-06-15 17:11] VITALS: BP 149/87; PULSE 62; RESP 20; O2SAT 100
== END 2025-06-15 17:51 | disposition short-term general hospital (02) ==
LOC: ED 09:30
DX: I21.4 Non-ST elevation (NSTEMI) myocardial infarction (principal); R07.9 Chest pain, unspecified; T45.516A Underdosing of anticoagulants, initial encounter; Z91.148 Patient's other noncompliance with medication regimen for other reason; R06.02 Shortness of breath; I10 Essential (primary) hypertension; E11.42 Type 2 diabetes mellitus with diabetic polyneuropathy; Z79.891 Long term (current) use of opiate analgesic; Z79.899 Other long term (current) drug therapy

== ENCOUNTER 2025-06-19 17:17 | Emergency (ER) | payer MEDICARE ==
[2025-06-19 17:39] VITALS: TEMP 98.4
--- NOTE | 2025-06-19 18:16 | ERPHSYRPT ---
- History of Present Illness Patient Subjective Stated Complaint: patient uses her walked nad ambualted into ED, she says she fell and hurt her hip Triage Nursing Assessment: pt is alert and orientedx3, ambualtes by self with walker, tenderness to right hip but no open areas or obvious deformities. patient states she fell getting out of the car when she got home from hospital last week. Physician History: Right hip pain, patient fell getting out of the car last week and is continue to have pain about her right hip (gluteus), She is able to ambulate with her walker, No other injuries or pain Timing/Duration: day(s) (4) Occured at: street Context: fall Quality: aching Hip Pain Location: pelvis Severity of Pain-Max: moderate Severity of Pain-Current: mild Modifying Factors: Improves With: movement Symptoms prior to fall: none Associated Symptoms: denies symptoms Allergies/Adverse Reactions: butorphanol tartrate [From Stadol] Allergy (Verified 06/15/25 09:34) celecoxib [From Celebrex] Allergy (Verified 06/15/25 09:34) Sulfa (Sulfonamide Antibiotics) Allergy (Verified 06/15/25 09:34) tizanidine [From Zanaflex] Allergy (Verified 06/15/25 09:34) Home Medications: Omeprazole 40 mg PO DAILY 06/26/21 [History] Baclofen 10 mg PO DAILY PRN PRN 12/01/24 [History] Levothyroxine Sodium 25 Mcg [Synthroid 25 Mcg] 25 mcg PO DAILY 12/01/24 [History] Buprenorphine [Butrans] 1 patch TD WEEKLY 12/02/24 [History] Trazodone HCl 50 mg [Desyrel 50 mg] 50 mg HS 05/30/25 [History] Warfarin Sodium 5 mg PO DAILY 06/15/25 [History] Hx Tetanus, Diphtheria Vaccination/Date Given: Yes Hx Influenza Vaccination/Date Given: Yes Hx Pneumococcal Vaccination/Date Given: No Travel Risk - International Travel Have you traveled outside of the country in past 3 weeks: No - Emerging Infectious Disease Are you exhibiting symptoms associated with any current EIDs: No Symptoms: Abdominal Pain, Diarrhea, Vomitting - Past Medical History Pertinent Past Medical History: Yes Neurological History: Migraines, Peripheral Neuropathy ENT History: Cataracts Cardiac History: Deep Vein Thrombosis, High Cholesterol, Hypertension Respiratory History: No Pertinent History Endocrine Medical History: Diabetes Type II, Hypothyroidism Musculoskeletal History: Arthritis, Fibromyalgia GI Medical History: Crohns Disease, Diverticulitis, GERD, Hernia History: No Pertinent History Psycho-Social History: Depression Female Reproductive Disorders: No Pertinent History Other Medical History: PT. HAS HAD 2 C-SPINE SXS - Past Surgical History Past Surgical History: Yes Neuro Surgical History: No Pertinent History Cardiac: No Pertinent History Respiratory: No Pertinent History Gastrointestinal: Appendectomy, Cholecystectomy Genitourinary: No Pertinent History Musculoskeletal: Orthopedic Surgery Female Surgical History: Hysterectomy, Tubal Ligation Other Surgical History: 2nd toe right foot, fractured right shoulder, filmed lasered off right eye, gaglion cyst removed, cataracts, bunion and tumor removed left foot, bunion right foot, tonsils, microscopic anterior cervical diskectomy with interbody fusion c5-6, plate to cervical, left tibia fx repair Significant Family History: no pertinent family hx - Social History Smoking Status: Never smoker Exposure to second hand smoke: No Drug Use: none - Social Determinants of Health Will the patient participate in the screening: Yes Do you worry about a steady place to live?: No Do you have any problems with any of the following?: No known problems In the past 12 months,have you had to go without utilities?: No Transportation Issues: No Has anyone in your support network made you feel unsafe?: No Have you or anyone in your house had to go w/o enough food: No Comment: . - Nursing Vital Signs Nursing Vital Signs: Initial Vital Signs Temperature 98.4 F 06/19/25 17:17 Pulse Rate 68 06/19/25 17:17 Respiratory Rate 20 06/19/25 17:17 Blood Pressure 222/65 06/19/25 17:17 O2 Sat by Pulse Oximetry 98 06/19/25 17:17 Pain Scale Pain Intensity 10 - Physical Exam General Appearance: no apparent distress, alert Eye Exam: PERRL/EOMI Ears, Nose, Throat Exam: normal ENT inspection, moist mucous membranes Neck Exam: normal inspection, non-tender, supple Respiratory Exam: normal breath sounds, lungs clear, No chest tenderness, No respiratory distress Cardiovascular Exam: regular rate/rhythm, No edema Gastrointestinal Exam: soft, No tenderness, No distention, No guarding Back Exam: normal inspection, normal range of motion, No vertebral tenderness Extremity Exam: pelvis stable, tenderness (right Gluteus) Neurologic Exam: alert, oriented x 3, cooperative, political analyst II-XII nml as tested, sensation nml, No motor deficits Skin Exam: normal color, warm, dry, No rash SpO2 Interpretation: normal SpO2: 100 Ordered Tests: Active Orders 24 hr Category Date Time Status PELVIS (1 OR 2 VIEWS) Stat Exams 06/19/25 17:36 Taken - Progress Progress: unchanged Progress Note: 06/19/25 18:14 Discussed x-ray results, outpatient follow-up and treatment - Departure Departure Disposition: Home Clinical Impression: Pelvic contusion Qualifiers: Encounter type: initial encounter Qualified Code(s): S30.0XXA - Contusion of lower back and pelvis, initial encounter Condition: Stable Critical Care Time: No Referrals: SAHRA ADORNO NP [Primary Care Provider, [facility]] - Follow up PCP 10 days Instructions: Contusion (DC) Additional Instructions: Ice to the area of pain 10 to 15 minutes, 3-4 times a day, Tylenol for pain control, Follow-up to primary care doctor 1 to 2 weeks
[2025-06-19 18:36] VITALS: BP 156/59; PULSE 60; RESP 18; O2SAT 97
--- NOTE | 2025-06-20 08:49 | XRAY ---
Indication: Fall. Comparison: None AP pelvis demonstrates osteopenia, mild left hip degenerative arthropathy, incompletely visualized grossly intact right total hip arthroplasty, moderate/advanced multilevel lower lumbar degenerative spondylosis, incompletely visualized mild lumbar levoscoliosis, incompletely visualized multilevel lumbar vertebroplasty, and L4-L5 spinous process fusion hardware. No acute bony, articular, or soft tissue abnormalities.
== END 2025-06-19 18:36 | disposition home or self-care (01) ==
LOC: ED 17:17
DX: S30.0XXA Contusion of lower back and pelvis, initial encounter (principal); W18.39XA Other fall on same level, initial encounter; M25.551 Pain in right hip; I10 Essential (primary) hypertension; E11.42 Type 2 diabetes mellitus with diabetic polyneuropathy; Z79.891 Long term (current) use of opiate analgesic; Z79.01 Long term (current) use of anticoagulants; Z79.899 Other long term (current) drug therapy